=== PATIENT | female | born 1945 | race Caucasian/White ===

== ENCOUNTER → 2018-03-30 10:39 | Outpatient (CLI) | payer MEDICARE, BC, OTHER, SELFPAY ==
--- NOTE | 2018-03-30 10:44 | BI_ITS ---
MAMMOGRAPHY - BILATERAL SCREENING REASON FOR EXAM: Female, 72 years old. Routine annual screening examination. PERTINENT HISTORY: Non-contributory. TECHNIQUE: Digital bilateral breast celeste (3D mammographic acquisition) in the CC and MLO projections. 2-D mediolateral oblique (MLO) and craniocaudad (CC) views of both breasts were obtained. CAD: Full Field Digital Mammography with Computer Added Detection was performed. COMPARISON: Comparison is made with prior study dated March 04, 2017 and March 02, 2016. FINDINGS: Breast Composition: The breasts are almost entirely fatty. There are no dominant masses or suspicious calcifications. No other significant abnormalities are identified. There has been no significant change since the prior study. BI/SCREENING MAMM (CAD), BILAT IMPRESSION: Stable bilateral screening mammogram. Yearly follow-up mammogram recommended. (A) ASSESSMENT CATEGORY: BIRADS Category 1: Negative. A letter regarding these results will be sent to the patient by the facility within 30 days. Approximately 10% of breast cancers are not detected by mammography. A normal mammogram should not delay biopsy of a clinically suspicious abnormality. [id number] Electronically Signed: Bear Jacob MD at 13:27 EDT Tel [phone], Service support ,
== END ==
PROVIDERS: Family Provider Internal Medicine; PCP Internal Medicine; Visit Provider Internal Medicine
DX: Z12.31 Encounter for screening mammogram for malignant neoplasm of breast (principal)
CPT/HCPCS: 77063; 77067

== ENCOUNTER → 2018-06-06 13:26 | Outpatient (CLI) | payer MEDICARE, BC, OTHER, SELFPAY ==
--- NOTE | 2018-06-06 13:32 | RAD_ITS ---
STUDY: X-RAY - LUMBAR SPINE REASON FOR EXAM: Female, 72 years old. Back pain TECHNIQUE: 5 view(s) of the lumbar spine were obtained. COMPARISON: Lumbar spine 11/19/2008. FINDINGS: Cholecystectomy. Moderate with prominent stool distributed throughout the large bowel, not excessive, but potentially reflecting mild constipation. Unremarkable small bowel pattern. Right total hip arthroplasty. Osteopenia. Dextroscoliotic curvature of the lumbar spine with apex at L2, approximate Rondon angle 36.4 degrees. Normal lordosis. Slight anterior listhesis of L5-S1, alignment otherwise normal. Vertebral body height is normal at each level. The facet joints are normally aligned and intact with multilevel facet arthropathy/hypertrophy most prominent at the apex of scoliosis L1-L2, and the low lumbar spine between L4 and S1. There is mild to moderate disc narrowing at each level between T12-L1, L1-L2, L2-L3, L5-S1. RAD/L/S Spine Min 4 Views IMPRESSION: No acute lumbar spinal fracture or traumatic subluxation. Scoliosis with multilevel spondylosis as described above. Electronically Signed: Omer Spangler, at 14:16 EDT Tel , Service support ,
== END ==
PROVIDERS: Family Provider Internal Medicine; PCP Internal Medicine; Visit Provider Nurse Practitioner Family
DX: M54.9 Dorsalgia, unspecified (principal)
CPT/HCPCS: 72110

== ENCOUNTER → 2018-12-06 09:39 | Outpatient (CLI) | payer MEDICARE, BC, OTHER, SELFPAY ==
--- NOTE | 2018-12-06 09:44 | BD_ITS ---
STUDY: DUAL ENERGY X-RAY ABSORPTIOMETRY / DXA REASON FOR EXAM: Female, 73 years old. Early menopause. Loss of height. TECHNIQUE: Bone Mineral Density (BMD) measurements of lumbar spine and left hip were obtained. The patient is status post right hip replacement. COMPARISON: Comparison is made with prior study December 01, 2016 and November 29, 2014. FINDINGS: Lumbar Spine (L1-L4): g/cm2 (1.181) / T-score (-0.2) / Z-score (1.5) Findings are suggestive of normal bone density with a low fracture risk. Left Femur Total: g/cm2 (0.877) / T-score (-1.0) / Z-score (0.5) Left Femoral Neck: g/cm2 (0.777) / T-score (-1.9) / Z-score (-0.1) The T-Scores on the most recent prior examination were: Lumbar Spine (L1-L4): There has been improvement of bone density since the previous examination. Left Femur Total: which represents a worsening of 1.2%. BD/Dexa Bone Density Study IMPRESSION: The patient is considered osteopenic as outlined below according to World Jani Organization (WHO) criteria with a moderate fracture risk. There has been improvement of bone density since the previous examination. Reference Information: The T-score is the number of standard deviations above or below the standard which is normal for young adults at their peak bone mineral density. The World Health Organization (WHO) interprets the T-scores as follows: Above -1 Normal bone density Between -1 and -2.5 Osteopenia Equal to / or below -2.5 Osteoporosis As a practical clinical guideline, osteopenia may be graded as follows: Mild -1 through -1.5 Moderate -1.6 through -2.0 Severe -2.1 through -2.4 The Z-score is the number of standard deviations above or below age-matched controls. A Z-score of less than -1.5 would be considered abnormal. References: 1. NIH Osteoporosis and Related Bone Diseases http://www.osteo.org 2. International Society for Clinical Densitometry http://www.iscd.org 3. National Osteoporosis Foundation http://www.nof.org Electronically Signed: Bear Jacob, at 10:39 EDT , Service support ,
== END ==
PROVIDERS: Family Provider Internal Medicine; PCP Internal Medicine; Referring Provider Internal Medicine; Visit Provider Internal Medicine
DX: Z78.0 Asymptomatic menopausal state (principal)
CPT/HCPCS: 77080

== ENCOUNTER → 2019-02-14 | Outpatient (CLI) | payer SELFPAY ==
--- NOTE | 2019-02-14 14:28 | CT_ITS ---
STUDY: CARDIAC CALCIUM SCORING - CT CHEST REASON FOR EXAM: Female, 73 years old. Coronary calcium screening, over read. RADIATION DOSAGE (If Supplied By Facility): DLP = ( 170.66 ) mGycm TECHNIQUE: Axial non-enhanced images were acquired through the heart for the sole purpose of measuring coronary artery calcium. Individualized dose optimization techniques were used for this CT. COMPARISON: None. FINDINGS: Body wall soft tissues: No acute process. Osseous structures: No acute process. Upper abdomen: No acute process. Mediastinum: No acute process. Lungs: Mildly hyperlucent suggesting the possibility of mild COPD. Otherwise clear. Unremarkable airways. 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 Pulmonary arteries: Normal. IVC and SVC: Normal. Pulmonary veins: Normal. Heart: Normal cardiac size without pericardial effusion. Coronary arteries: The right and left coronary arteries each emerge from the appropriate coronary sinus with right coronary dominance to the PDA. There is a single minimal focus of calcification in the left main, 3 small foci of calcification in the proximal to mid LAD, no visible calcification of the circumflex. CT/CCTA Calcium Scoring IMPRESSION: The coronary calcium score is reported under separate cover with cardiology. Please see that report. Normal coronary artery branching anatomy. 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 No other significant thoracic process is evident. Electronically Signed: Omer Spangler MD at 15:14 EDT Tel , Service support ,
--- NOTE | 2019-02-14 14:29 | CT_ITS ---
STUDY: CARDIAC CALCIUM SCORING - CT CHEST REASON FOR EXAM: Female, 73 years old. Coronary calcium screening, over read. RADIATION DOSAGE (If Supplied By Facility): DLP = ( 170.66 ) mGycm TECHNIQUE: Axial non-enhanced images were acquired through the heart for the sole purpose of measuring coronary artery calcium. Individualized dose optimization techniques were used for this CT. COMPARISON: None. FINDINGS: Body wall soft tissues: No acute process. Osseous structures: No acute process. Upper abdomen: No acute process. Mediastinum: No acute process. Lungs: Mildly hyperlucent suggesting the possibility of mild COPD. Otherwise clear. Unremarkable airways. 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 Pulmonary arteries: Normal. IVC and SVC: Normal. Pulmonary veins: Normal. Heart: Normal cardiac size without pericardial effusion. Coronary arteries: The right and left coronary arteries each emerge from the appropriate coronary sinus with right coronary dominance to the PDA. There is a single minimal focus of calcification in the left main, 3 small foci of calcification in the proximal to mid LAD, no visible calcification of the circumflex. CT/Limited Chest CT w/CCTA IMPRESSION: The coronary calcium score is reported under separate cover with cardiology. Please see that report. Normal coronary artery branching anatomy. 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 No other significant thoracic process is evident. Electronically Signed: Omer Spangler MD at 15:14 EDT Tel , Service support ,
[2019-02-14 14:41] VITALS: BP 125/69; PULSE 58; RESP 16; O2SAT 96; BMI 26.7
--- NOTE | 2019-02-14 17:53 | CA.SCORE ---
Calcium Scoring Date of Study:: 02/14/19 Coronary Calcium Scoring: High-resolution Computed Tomographic imaging of the chest was performed on 02-14-19 with particular attention paid to the coronary arteries. Images from the examination were analyzed for the presence and extent of coronary artery calcification , using coronary calcium quantification software. The patient tolerated the procedure well and there were no complications. The results of the coronary calcification analysis are provided below. - Findings Left Main (LM): 15.5 Left Anterior Descending (LAD): 31.4 Left Circumflex (LCX): 0 Right Coronary Artery (RCA): 0 Total Agatston Score: 46.9 - Conclusion Calcium Scoring Interpretation: Calcium Score Interpretation 0 No identifiable atherosclerotic plaque. Very low cardiovascular disease risk. <5% chance of presence coronary artery disease A Negative Examination 1-10 Minimal Plaque burden. Significant coronary artery disease very unlikely. 11-100 Mild plaque burden. Likely mild or minimal coronary atherosclerosis. 101-400 Moderate plaque burden Moderate non-obstructive coronary artery disease highly likely. Over 400 Extensive plaque burden. High likelihood of at least one significant coronary stenosis (>50% diameter) Calcium Score: 11 - 100 Likely mild or minimal coronary stenosis - 1. Percentile ranking: Between 25 and 50%: Indicative of between 25 and 50% of people of the same gender/similar age had the same or lower scores.; 2. Continue cardiovascular risk factor evaluation care as deemed appropriate.
== END | disposition home or self-care (01) ==
LOC: CT 14:26
PROVIDERS: Family Provider Internal Medicine; PCP Internal Medicine; Referring Provider Internal Medicine; Visit Provider Internal Medicine
DX: E78.5 Hyperlipidemia, unspecified (principal)
CPT/HCPCS: 75571; 76380

== ENCOUNTER → 2019-03-31 | Outpatient (CLI) | payer MEDICARE, BC, OTHER, SELFPAY ==
[2019-02-14 14:41] VITALS: BMI 26.7
--- NOTE | 2019-03-31 10:53 | BI_ITS ---
MAMMOGRAPHY - BILATERAL SCREENING REASON FOR EXAM: Female, 73 years old. Routine annual screening examination. PERTINENT HISTORY: Non-contributory. TECHNIQUE: Digital bilateral breast reggie (3D mammographic acquisition) in the CC and MLO projections. 2-D mediolateral oblique (MLO) and craniocaudad (CC) views of both breasts were obtained. CAD: Full Field Digital Mammography with Computer Added Detection was performed. COMPARISON: Comparison is made with prior study dated March 30, 2018 and March 04, 2017. FINDINGS: Breast Composition: The breasts are almost entirely fatty. There are no dominant masses or suspicious calcifications. No other significant abnormalities are identified. There has been no significant change since the prior study. BI/SCREEN MAMM (CAD) W/REGGIE BILAT IMPRESSION: Stable bilateral screening mammogram. Yearly follow-up mammogram recommended. (A) ASSESSMENT CATEGORY: BIRADS Category 1: Negative. A letter regarding these results will be sent to the patient by the facility within 30 days. Approximately 10% of breast cancers are not detected by mammography. A normal mammogram should not delay biopsy of a clinically suspicious abnormality. [id number] Electronically Signed: Bear Jacob, at 14:35 EDT , Service support ,
== END | disposition home or self-care (01) ==
LOC: OPBI 10:51
PROVIDERS: Family Provider Internal Medicine; PCP Internal Medicine; Referring Provider Internal Medicine; Visit Provider Internal Medicine
DX: Z12.31 Encounter for screening mammogram for malignant neoplasm of breast (principal)
CPT/HCPCS: 77063; 77067

== ENCOUNTER 2019-06-29 13:00 | Outpatient (RCR) | payer MEDICARE, BC, OTHER, SELFPAY ==
[2019-02-14 14:41] VITALS: BMI 26.7
--- NOTE | 2019-06-08 13:54 | HP.PTEVAL ---
Patient's Visit Information FLORIN ZABALA is a 73 year old F referred to Physical Therapy by [facility] with a diagnosis of spondylosis. Date of Evaluation: 06/08/19 Physical Therapist: Francisco Daigle DPT, OCS, CSCS - Visit Plan Frequency: 2x /Week Duration: 4-6 Weeks Plan: 2x/week for 4-6 weeks for pool based ... 1. LB ROM and stretching. 2. Gastroc and HS stretching. 3. core and LE and postural strength. 4. general ex. - Subjective Findings: Chronic LBP, neck pain for years. Has scoliosis. H/o hip fracture R after a fall in 2008 tripping. Constant LBP. Worse picking up granddaughter. Upper back hurts with walking. Has to constantly change positions. Pain been there years and years for no reason. Getting worse. Injections seem to help sometimes. Had PT at [facility] helps for a while and traction helped. No HEP. Has not done water ex. Sleep is basically OK on clonazepam. well buterin. 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 No numbness or tingliny in legs. Spends day doing :not much Watches TV. does much housework. She cooks and makes bed. has to vaccuum and do dishes. Dresses and bathes and bathroom OK. - Pain LBP Pain Intensity (Out of 10): 5 Pain Intensity Range: 3, 8 Comment: worse with hot die picker grand daughter. - Objective Walks slow but safe and I, steps reciprocal with one rail , trasnfer I. HS and gastroc mod tight B. L/S aROM stiff adn max deficits ext, mod flexion and mod SB with disocmfort in B SB. LE AROM WFL. reflexes 2/3 patella and achilles. Sensation LE WNL to gross light touch. - slump and - SLR today but R HS tighter than L. UE aROM WFL. c/s aROM symmetrical adn without pain. repeated ext slightly worse in LB without ROM changes. - Balance Scores Functional Gait Assessment Score: 27 % Disability: 10.0000 - Goals Goal 1:: I appropr pool ex program to limit pain. Goal Time Frame: 4-6 Weeks Goal 2:: Patient feel 75% improved with pain and 2/10 at worst Goal Time Frame: 4-6 Weeks Goal 3:: < 20% disability on oswestry Goal Time Frame: 4-6 Weeks Goal 4:: Patient able to do housework without suffering Goal Time Frame: 4-6 Weeks - Rehabilitation Potential Physical Therapy Diagnosis: degenerative changes in LB leading to pain. Rehabilitation Potential: Fair - Anticipated Interventions Patient/Client Instruction: Educate patient on: Condition, Plan of Care For the Purpose of:: To decrease pain, To increase tolerance to activity/condition/position, To improve ability of physical actions for home/community/work/leisure Therapeutic Exercise to Include: Strength training, Postural training, Flexibilty training, In an aquatic setting, Active ROM, Dynamic Lumbar Stabilization For the Purpose of:: To decrease pain, To increase ROM, To improve muscle performance and motor function, To improve performance and independence with ADL's, To improve ability of physical actions for home/community/work/leisure Thank you for the opportunity to evaluate your patient. For Medicare and Medicare HMO plans, please review the plan of care and approve it. It will need to be FAXED BACK to us at [phone] for Medicare purposes. For Medicare only, by signing this I certify the plan of care. Please let me know if there are questions or concerns regarding this plan of care. Physician Signature: Date:
--- NOTE | 2019-08-24 16:54 | HP.PTDCNRP_ITS ---
HP - Discharge Summary (1) - Patient Information FLORIN ZABALA was seen in my office for initial evaluation on 06/08/19. The following Plan of Care was established for this patient: Initial Frequency: 2x /Week Initial Duration: 4-6 Weeks - Anticipated Interventions Patient/Client Instruction: Educate patient on: Condition, Plan of Care For the Purpose of:: To decrease pain, To increase tolerance to activity/condi tion/position, To improve ability of physical actions for home/community/work/leisure Therapeutic Exercise to Include: Strength training, Postural training, Flexibilty training, In an aquatic setting, Active ROM, Dynamic Lumbar Stabilization For the Purpose of:: To decrease pain, To increase ROM, To improve muscle performance and motor function, To improve performance and independence with ADL's, To improve ability of physical actions for home/community/work/leisure This patient was last seen in our office 06/29/19. Pertinent comments regarding their Physical therapy will appear below: Pt seen 5 visits of pool therapy. she cancelled her last two including recheck due to sickness and was to call when better. At this point, it has been over two months adn I willd discontinue due to nonattendance At this point I will be discontinuing this patient from physical therapy. I would be happy to see this patient again in the future if found appropriate by the physician. Thank you! Francisco Daigle, DPT, OCS, CSCS
== END 2019-06-29 19:00 | disposition home or self-care (01) ==
LOC: PT 13:00
PROVIDERS: Family Provider Internal Medicine; PCP Internal Medicine; Referring Provider Nurse Practitioner Family; Visit Provider Nurse Practitioner Family
DX: M51.37 Other intervertebral disc degeneration, lumbosacral region (principal); M47.817 Spondylosis without myelopathy or radiculopathy, lumbosacral region
CPT/HCPCS: 97110; 97113; 97162

== ENCOUNTER 2019-07-23 12:01 | Emergency (ER) | payer MEDICARE, BC, OTHER, SELFPAY ==
[2019-07-03 14:57] VITALS: BMI 26.7
[2019-07-23 12:02] VITALS: BP 134/79; PULSE 85; RESP 18; TEMP 36.7; O2SAT 93; BMI 26.2
--- NOTE | 2019-07-23 12:31 | RAD_ITS ---
STUDY: X-RAY CHEST REASON FOR EXAM: Female, 73 years old. Cough TECHNIQUE: PA and lateral views of the chest. COMPARISON: 03/16/2017 FINDINGS: The lungs are clear and expanded. There is no demonstrated pleural abnormality. Normal size heart. Normal mediastinum and jeffery. Normal visualized pulmonary arteries. Normal visualized aortic arch and descending thoracic aorta. Scoliosis of the thoracolumbar spine stable. Normal visualized ribs, clavicles, and shoulders. Cholecystectomy clips are noted. RAD/Chest PA and Lateral IMPRESSION: No acute cardiopulmonary process. Electronically Signed: Von Helm MD (Brooks) at 12:50 EST , Service support ,
--- NOTE | 2019-07-23 12:35 | ED.DCSUM_ITS ---
History of Present Illness <Domenico Reyjerod - Last Filed: 07/23/19 13:02> Informant: Patient Onset: Weeks - 2 weeks Context: Gradual Onset Timing: Continuous Quality: cough Location: chest Current Severity: Moderate Maximum Severity: Moderate Worsened by: Swallowing Relieved by: - - nothing Associated Symptoms: Nasal Congestion, Productive Cough. Negative for: Headache, Sinus Pressure, Myalgias, Nausea, Vomiting, Diarrhea, Shortness of Breath, Chest Pain, Nonproductive cough, Hemoptysis Narrative: 73-year-old female history of GERD hypertension presents with productive cough with sputum for 2 weeks. She completed a course of a azithromycin prescribed by her primary care physician about a week ago and she continues to cough. No fevers. She is not short of breath. No chest pain. She is not lightheaded or dizzy. No hemoptysis. No leg pain or leg swelling. She did get a flu shot this year a few weeks ago. She has no other complaints. Prior similar symptoms: Yes Recent Illness/Hospitalization: No <Bunny Dowell - Last Filed: 07/23/19 14:04> Chief Complaint: Cough Past Medical History <ReddyzeniaDomenicojerod - Last Filed: 07/23/19 13:02> Prior records reviewed: Yes Past Medical History: - - GERD, HTN Surgical History: no surgical history Lives: With Family Smoking Status: Never smoker <Bunny Dowell - Last Filed: 07/23/19 14:04> - Allergies and Home Meds Allergies/Adverse Reactions: Allergies Sulfa (Sulfonamide Antibiotics) Allergy (Verified 07/23/19 12:05) Hives morphine Adverse Reaction (Verified 07/23/19 12:05) Nausea/Vom/Diarrhea Primary Care Physician: Roxi Greenfield DO [Primary Care Provider] - Review of Systems All systems negative except as indicated General: Reports: Malaise. Denies: Chills, Fever Cardiovascular: Denies: Chest pain Respiratory: Reports: Cough, Sputum. Denies: Dyspnea, Dyspnea on exertion, Orthopnea, Paroxysmal nocturnal dyspnea Gastrointestinal: Denies: Abdominal pain, Nausea, Vomiting, Diarrhea Genitourinary: Denies: Dysuria Musculoskeletal: Denies: Myalgias, Arthralgias, Neck pain Neurological: Denies: Headache <Bunny Dowell - Last Filed: 07/23/19 14:04> Physical Exam Vital Signs/Narrative: Vital Signs Temp Pulse Resp BP Pulse Ox 07/23/19 12:02 98.1 F 85 18 134/79 H 93 <Guzman Rey - Last Filed: 07/23/19 13:02> Vital Signs/Narrative: Vital Signs Temp Pulse Resp BP Pulse Ox 07/23/19 12:02 98.1 F 85 18 134/79 H 93 Inital Vital Signs reviewed: Yes General: Well nourished, Well developed Head: Normocephalic, Atraumatic Eyes: Perrl, EOMI Ears: Normal external canal, TM's clear Nose: Normal Inspection, No Rhinorrhea Mouth/Throat: Airway Patent, Posterior Oropharyngeal Erythema Tonsils: Negative for: Right Tonsilar Erythema, Left Tonsilar Erythema, Right Tonsilar Exudates, Left Tonsilar Exudates, Right Tonsilar Swelling, Left Tonsilar Swelling Neck: Supple, Nontender, No Lymphadenopathy, No Meningismus Cardiovascular: Regular rate, Regular rhythm, No murmurs Respiratory: No distress, CTA bilaterally, Chest nontender Abdomen: Soft, Nontender, Nondistended, Normal bowel sounds, No masses Back: Nontender, Normal Inspection Extremities: Nontender, No edema Skin: Normal color, No rash Neurological: Alert, Oriented x3 <Bunny Dowell - Last Filed: 07/23/19 14:04> Diagnostic/Tx/Re-eval - Medical Decision Making The patient seen with Bunny agree with history and physical as above Complains of cough for 2 weeks she finished a Z-Curt a few days ago persistent coughing no other complaints no fever no chest pain no history of SC PE or DVT exam her lungs are clear heart tones are normal her vital signs are normal her pulse ox is normal x-ray will be obtained please see the full chart for full details if x-rays negative she will follow-up with her outpatient providers as scheduled in the next few days <Guzman Rey - Last Filed: 07/23/19 13:02> Chest X-Ray - ED: 2 View, Read by ED Physician, Read by Radiologist, No Acute Disease - Medical Decision Making Chest x-ray was obtained which shows no acute abnormality. Patient is well- appearing. Pulse ox normal. Vital signs are stable. At this time discussed with patient it is a viral illness. We will continue supportive care. I instructed her that at this time there are no indications for antibiotics. She will be given a prescription for Tessalon Perles and she will follow-up with her primary care physician or return to the emergency department for worsening symptoms which we discussed. <Bunny Dowell - Last Filed: 07/23/19 14:04> ED Disposition <Guzman Rey - Last Filed: 07/23/19 13:02> <Bunny Dowell - Last Filed: 07/23/19 14:04> - Plan for ED Patient: Disposition: Home or Assisted Living Diagnosis: Viral upper respiratory tract infection with cough Instructions: URI, Viral, No Abx (Adult) Prescriptions: Benzonatate [Tessalon Perle] 200 mg PO TID PRN PRN #20 cap PRN Reason: Cough Prescription Printed Referrals: Roxi Greenfield DO [Primary Care Provider] -
[2019-07-23 14:26] VITALS: BP 138/82; PULSE 78; RESP 16; O2SAT 98
== END 2019-07-23 14:27 | disposition home or self-care (01) ==
PROVIDERS: Emergency Provider Physician Assistant Medical; Family Provider Internal Medicine; PCP Internal Medicine
DX: J06.9 Acute upper respiratory infection, unspecified (principal); I10 Essential (primary) hypertension; K21.9 Gastro-esophageal reflux disease without esophagitis; Z79.82 Long term (current) use of aspirin; Z79.899 Other long term (current) drug therapy
CPT/HCPCS: 71046; 99282

== ENCOUNTER → 2019-08-14 12:55 | Outpatient (CLI) | payer MEDICARE, BC, OTHER, SELFPAY ==
[2019-07-03 14:57] VITALS: BMI 26.7
--- NOTE | 2019-07-06 11:54 | HP_ITS ---
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 Is patient in pain?: No Allergies Sulfa (Sulfonamide Antibiotics) Allergy (Verified 07/03/19 14:48) Hives morphine Adverse Reaction (Verified 07/03/19 14:48) Nausea/Vom/Diarrhea Medications Clonazepam [Klonopin] 0.5 mg PO DAILY 01/05/17 [History Confirmed 07/03/19] Clopidogrel Bisulfate [Plavix] 75 mg PO DAILY 01/05/17 [History Confirmed 07/03/19] Fluticasone 0.05% [Flonase Nasal [place]] 2 spray NASAL DAILY PRN 01/05/17 [History Confirmed 07/03/19] Lansoprazole [Prevacid] 30 mg PO DAILY 01/05/17 [History Confirmed 07/03/19] buPROPion SR [Wellbutrin Sr] 150 mg PO DAILY 01/05/17 [History Confirmed 07/03/19] cetirizine 10 mg tablet 10 mg PO DAILY tab 07/03/19 [History Confirmed 07/03/19] cholecalciferol (vitamin D3) 50,000 unit capsule 50,000 unit PO QWEEK 07/03/19 [History Confirmed 07/03/19] clobetasol 0.05 % shampoo 1 applic TOPICAL DAILY 07/03/19 [History Confirmed 07/03/19] denosumab 60 mg/mL subcutaneous syringe 60 mg SC [id number] 07/03/19 [History Confirmed 07/03/19] diclofenac 1 % topical gel 4 g TOPICAL BID g 07/03/19 [History Confirmed 07/03/19] hydrochlorothiazide 25 mg tablet 25 mg PO DAILY 07/03/19 [History Confirmed 07/03/19] hyoscyamine 0.125 mg sublingual tablet 0.125 mg SUBLINGUAL TID tab 07/03/19 [History Confirmed 07/03/19] rosuvastatin 5 mg tablet 5 mg PO DAILY 07/03/19 [History Confirmed 07/03/19] [facility], [facility] Medical History PVD (peripheral vascular disease) (Chronic) HLD (hyperlipidemia) (Chronic) Benign essential hypertension (Chronic) GERD (gastroesophageal reflux disease) (Acute) Previous history TIA (Acute) Surgical History History of hysterectomy (Acute) History of laparoscopic cholecystectomy (Acute) History of right hip replacement (Acute) Family History Mother Diabetes Hypertension High cholesterol Father Diabetes Hypertension CVA (cerebral vascular accident) Social History (Updated 07/06/19 @ 11:55 by Rai Ram MD) Smoking Status: Never smoker alcohol intake: current alcohol intake frequency: holidays/special occasions only substance use type: does not use HPI HPI HPI: FLORIN ZABALA, is a 73 F who presents to the office today for HPI HPI Surgical H&P: Yes HPI: FLORIN ZABALA, is a 73 F who presents to the office today for Evaluation of heartburn. In addition she has been having increasing belching. The symptoms have increased over the last month and a half. She did undergo an EGD 2 years ago which was essentially negative. She also states she does not feel as if her food may be leaving her stomach in an appropriate fashion. Burning goes directly up into the esophagus she has been having her head of bed elevated and no caffeine late at night. ROS General General: Yes weight change and fatigue; no appetite, colon cancer, breast cancer or weakness HEENT HEENT: No difficulty swallowing, eye injury, eye surgery, swollen glands or hoarseness Endo Endocrine: No thyroid disease, diabetes mellitus, thyroid cancer, Hair loss, heat intolerance or cold intolerance Skin Skin: No rash or changing moles Breast Breast: No left breast lump, right breast lump, nipple discharge, breast pain, abnormal mammogram, abnormal US or breast enlargement Musc Musculoskeletal: Yes back problems and arthritis; no rheumatoid arthritis, gout or joint pain Cardio Cardiovascular: No murmur, pacemaker, heart disease, atrial fibrillation, high blood pressure, heart attack, heart stent, palpitations, shortness of breat with exertion or chest pain Psych Psychiatric: Yes depression and anxiety; no hearing voices Resp Respiratory: No shortness of breath, No sleep apnea, No cough, No COPD, No asthma, No emphysema, No wheezing Gastro Gastrointestinal: Yes abdominal pain, Yes nausea or vomiting, Yes diarrhea, Yes constipation, No blood in stool, Yes acid reflux, Yes hemorrhoids, No ulcers, No gallbladder problem, No black,tarry stools [place] Hematologic: Yes blood thinners, No blood disorders, No bleeding, No anemia, No blood clots Neuro Neurologic: No system reviewed and no additional complaints, except as docu, No as per HPI, No abnormal walking, No abnormal hearing, No abnormal movements, No abnormal speech, No behavioral changes, No burning sensations, No confusion, No seizure-like activity, No unsteadiness, No dizziness, No localized weakness, No frequent falls, No headache(s), No lack of coordination, No loss of vision, No memory loss, Yes numbness, No other visual disturbances, No radiating pain, No restless legs, No sensory deficit, No fainting, Yes tingling, No tremor(s), No weakness, No other (Previous TIA) Exam Const General: no acute distress, well developed, well hydrated Orientation: oriented to person, oriented to place, oriented to time [facility] Head: normocephalic, atraumatic Ears: external ears normal Mouth: moist mucous membranes Eyes Sclera: sclerae normal Pupils: normal by confrontation Neck Neck: no lymphadenopathy noted Neck mass: No Thyroid: thyroid normal, symmetrical Chest Chest palpation & inspection: normal inspection of the chest Breast Palpation: No nipple discharge Resp Effort & Inspection: normal respiratory effort Auscultation: clear to auscultation bilaterally Percussion: percussion normal Cardio Rate: regular rate Rhythm: regular rhythm Heart Sounds: no murmurs GI Palpation: soft, no hepatosplenomegaly, no masses, nontender Rectal Exam: other Other: Rectal exam deferred. Extrem General: normal to inspection, no clubbing, cyanosis or edema Assessment & Plan 1. Gastroesophageal reflux disease, esophagitis presence not specified K21.9 Plan I have discussed the above with the patient. I have offered the patient esophagogastroduodenoscopy With 48-hour pH probe for evaluation. I have explained the risks/benefits of the procedure and described the procedure. I have discussed the risks with the patient, including but not limited to: infection, bleeding, perforation of the GI tract requiring emergency surgery, inability to complete the procedure, injury to any internal organs, complications of anesthesia, etc. - the patient understands and agrees to proceed. I have answered all the patient's questions to the patient's satisfaction and the patient has no further questions. The patient has been given instructions for the colon cleansing preparation. Coding Level of Care Code Off vis,new,level 3 Diagnoses Gastroesophageal reflux disease, esophagitis presence not specified K21.9 ??Esophagitis presence: esophagitis presence not specified 07/06/19 1176 <Electronically signed by Rai kemp MD> Date _ Rai Ram MD
--- NOTE | 2019-07-13 12:29 | NURSING ---
pt instructed to notify Dr Ram's office she has URI
[2019-07-23 12:02] VITALS: BMI 26.2
== END ==
PROVIDERS: Family Provider Internal Medicine; PCP Internal Medicine; Referring Provider Internal Medicine; Visit Provider Surgery
DX: Z00.00 Encounter for general adult medical examination without abnormal findings (principal)

== ENCOUNTER 2020-02-27 13:00 | Outpatient (RCR) | payer MEDICARE, BC, OTHER, SELFPAY ==
--- NOTE | 2020-01-30 13:22 | HP.PTEVAL ---
Patient's Visit Information FLORIN ZABALA is a 74 year old F referred to Physical Therapy by Dr. Roxi Greenfield DO with a diagnosis of LUMBAR RADICULOPATHY,NECK PAIN,TENSION BUSCH. Date of Evaluation: 01/30/20 Physical Therapist: Derek Doan, PT, Cert MDT, OCS - Visit Plan Frequency: 2x /Week Duration: 4 Weeks Plan: PT INTERVENTIONS CERVICAL/POSTURAL EX'S,DLS ,LUMBAR FLEXION ,MODALTIES AND MANUAL THERAPY CERVICAL TRACTION /STM - Subjective This 74 y/o female presents to physical therapy with lumbar radiculopathy ,neck pain and tension BUSCH. Patient has h/o scoliosis Patient has symmtical lumbar pain with tadiating symptoms to left leg described as ache . Patient has cervical pain left and left arm . Patient has frontal BUSCH. Aggraveting factors walking ,housework cleaning vacumming ,lifting ,bending. Alleviating factors teyonal ,heat. Aggraveting factors cervical reading,flexion looking down. Allevating factors heat. Patient increases cervical pain causes BUSCH worse. Denies parathesia/tingling. Bowel/bladder -. Sleeping okay. Patient occassional dizziness. Patient DR Greenfield recommended PT . Patient was ill last year since has caused poor endurance and stamina .. fatigues quickly. Patient symptoms affects ADL's and housework tasks . Patient symptoms affects QOL and function.Symptoms intermittant. SOCIAL: single. VOCATION: retired - Objective POSTURE: mild foward posture. NEURO: denies parathesia/tingling ,occassionally left leg ,reflexes L3-4,L4-5.L5-S1 1/3. PALAPTION: tender UT/levator ,paraspinals ,LS region. GAIT: reciprocal pattern. AROM:BUE WFL. CERVICAL ROM: flexion min loss,extension mod loss,lateral flexion/rotation mod loss,retraction min loss,. MMT: BUE grossly 4/5 except shoulders 4-/5. LUMBAR ROM : flexion min/mod loss,extension mod loss,side glides mod loss. MMT: quads/hams/hip 4/5,ankle 5/5 - Special Tests C/S Radiculapathy - Left Upper limb tension test: Negative C/S Radiculapathy - Right Upper limb tension test: Negative C/S Radiculapathy - Left Spurlings: Negative C/S Radiculapathy - Right Spurlings: Negative C/S Radiculapathy - Left Cervical distraction: Positive C/S Radiculapathy - Right Cervical distraction: Negative C/S Radiculapathy - Left Relief test: Negative Sharp Gita: Negative Vertebral Artery Test: Negative Alar Ligament Test: Negative L/S Slump test left side: Negative L/S Slump test right side: Negative L/S Left Straight Leg Raise: Negative L/S Right Straight Leg Raise: Negative - Goals Goal 1:: Independant with HEP. Goal Time Frame: 4-6 Weeks Goal 2:: Patient to improve posture for ADL'S Goal Time Frame: 4-6 Weeks Goal 3:: Patient to decrease cervical and lumbar pain by 50% or > to improve function with ADLS' Goal Time Frame: 4-6 Weeks Goal 4:: Patient to improve cervical and lumbar ROM for function of recovery Goal Time Frame: 4-6 Weeks Goal 5:: Patient to improve BACK owestry by 5 points or > to improve function and QOL. Goal Time Frame: 4-6 Weeks - Rehabilitation Potential Physical Therapy Diagnosis: This patient has cevical and lumbar radiculopathy from possible stenosis along with associated BUSCH with pain ,decrease ROM and decrease endurance affects function and ADLS' and housework tasks ,BUSCH potentially due to neck pain,thus benifit from skilled PT Rehabilitation Potential: Good - Anticipated Interventions Patient/Client Instruction: Educate patient on: Condition, Plan of Care For the Purpose of:: To decrease pain, To increase ROM, To improve muscle performance and motor function, To improve ability to perform ADL's, To increase tolerance to activity/condition/position, To improve ability of physical actions for home/community/work/leisure, To improve health of tissue, To decrease soft tissue restriction, To increase flexibility/ROM, To improve health and function, To improve ability to perform tasks related to life management Therapeutic Exercise to Include: Strength training, Postural training, Flexibilty training, Active ROM, Dynamic Lumbar Stabilization For the Purpose of:: To decrease pain, To increase ROM, To improve muscle performance and motor function, To improve ability to perform ADL's, To increase tolerance to activity/condition/position, To improve performance and independence with ADL's, To improve ability of physical actions for home/community/work/leisure, To increase flexibility/ROM, To improve endurance, To reduce risk of recurrence, To improve ability to perform tasks related to life management Manual Therapy Techniques to Include: Soft tissue mobilization Comment: MANUAL TRACTION For the Purpose of:: To decrease pain, To increase ROM, To improve nutrient delivery to tissue, To increase oxygenation perfusion, To improve health of tissue, To decrease soft tissue restriction, To increase flexibility/ROM TENS: Yes IF ES: Yes Cryotherapy (ice pack, ice massage): Yes Thermo therapy (hot pack): Yes Ultrasound (thermal/non thermal): Yes For the Purpose of:: To decrease pain, To increase ROM, To improve nutrient delivery to tissue, To increase oxygenation perfusion, To improve health of tissue, To decrease soft tissue restriction Thank you for the opportunity to evaluate your patient. For Medicare and Medicare HMO plans, please review the plan of care and approve it. It will need to be FAXED BACK to us at [phone] for Medicare purposes. For Medicare only, by signing this I certify the plan of care. Please let me know if there are questions or concerns regarding this plan of care. Physician Signature: Date:
--- NOTE | 2020-06-06 11:30 | HP.PT.NRP ---
FLORIN ZABALA was seen in my office for initial evaluation on 01/30/20. The following Plan of Care was established for this patient: Initial Frequency: 2x /Week Initial Duration: 4 Weeks Patient/Client Instruction: Educate patient on: Condition, Plan of Care For the Purpose of:: To decrease pain, To increase ROM, To improve muscle performance and motor function, To improve ability to perform ADL's, To increase tolerance to activity/condition/position, To improve ability of physical actions for home/community/work/leisure, To improve health of tissue, To decrease soft tissue restriction, To increase flexibility/ROM, To improve health and function, To improve ability to perform tasks related to life management Therapeutic Exercise to Include: Strength training, Postural training, Flexibilty training, Active ROM, Dynamic Lumbar Stabilization For the Purpose of:: To decrease pain, To increase ROM, To improve muscle performance and motor function, To improve ability to perform ADL's, To increase tolerance to activity/condition/position, To improve performance and independence with ADL's, To improve ability of physical actions for home/community/work/leisure, To increase flexibility/ROM, To improve endurance, To reduce risk of recurrence, To improve ability to perform tasks related to life management Manual Therapy Techniques to Include: Soft tissue mobilization Comment: MANUAL TRACTION For the Purpose of:: To decrease pain, To increase ROM, To improve nutrient delivery to tissue, To increase oxygenation perfusion, To improve health of tissue, To decrease soft tissue restriction, To increase flexibility/ROM TENS: Yes IF ES: Yes Cryotherapy (ice pack, ice massage): Yes Thermo therapy (hot pack): Yes Ultrasound (thermal/non thermal): Yes For the Purpose of:: To decrease pain, To increase ROM, To improve nutrient delivery to tissue, To increase oxygenation perfusion, To improve health of tissue, To decrease soft tissue restriction This patient was last seen in our office . Pertinent comments regarding their Physical therapy will appear below: Patient seen for PT for lumbar pain ,tension BUSCH focusing on postural ex's ,DLS and strengthening,thus is d/c At this point I will be discontinuing this patient from physical therapy. I would be happy to see this patient again in the future if found appropriate by the physician. Thank you! Derek Doan, PT, Cert MDT, OCS
== END 2020-02-27 19:00 | disposition home or self-care (01) ==
LOC: PT 13:00
PROVIDERS: PCP Internal Medicine; Referring Provider Internal Medicine; Visit Provider Internal Medicine
DX: M54.16 Radiculopathy, lumbar region (principal); M54.2 Cervicalgia; G44.209 Tension-type headache, unspecified, not intractable
CPT/HCPCS: 97012; 97014; 97035; 97110; 97140; 97162; G0283

== ENCOUNTER → 2020-04-01 11:27 | Outpatient (CLI) | payer MEDICARE, BC, OTHER, SELFPAY ==
--- NOTE | 2020-04-01 11:30 | BI_ITS ---
MAMMOGRAPHY - BILATERAL SCREENING REASON FOR EXAM: Female, 74 years old. Routine annual screening examination. PERTINENT HISTORY: Non-contributory. TECHNIQUE: Digital bilateral breast reggie (3D mammographic acquisition) in the CC and MLO projections. 2-D mediolateral oblique (MLO) and craniocaudad (CC) views of both breasts were obtained. CAD: Full Field Digital Mammography with Computer Added Detection was performed. COMPARISON: Comparison is made with prior examination March 31, 2019 and March 30, 2018. FINDINGS: Breast Composition: The breasts are almost entirely fatty. There are no dominant masses or suspicious calcifications. No other significant abnormalities are identified. There has been no significant change since the prior study. BI/SCREEN MAMM (CAD) W/REGGIE BILAT IMPRESSION: Stable bilateral screening mammogram. Yearly follow-up mammogram recommended. (A) ASSESSMENT CATEGORY: BIRADS Category 1: Negative. A letter regarding these results will be sent to the patient by the facility within 30 days. Approximately 10% of breast cancers are not detected by mammography. A normal mammogram should not delay biopsy of a clinically suspicious abnormality. [id number] Electronically Signed: Bear Jacob, at 12:11 EDT , Service support ,
== END ==
PROVIDERS: PCP Internal Medicine; Referring Provider Internal Medicine; Visit Provider Internal Medicine
DX: Z12.31 Encounter for screening mammogram for malignant neoplasm of breast (principal)
CPT/HCPCS: 77063; 77067

== ENCOUNTER → 2020-10-16 15:11 | Outpatient (CLI) | payer MEDICARE, BC, OTHER, SELFPAY ==
[2020-10-16 18:22] LABS: Absolute Lymphocyte Count 1.85 X10^3/uL (0.83-4.51); Absolute Neutrophil Count 5.4 X10^3/uL (2.0-7.7); Basophil# 0.04 X10^3/uL; Basophil% 0.5 % (0-1); Eosinophil# 0.11 X10^3/uL; Eosinophils% 1.4 % (0-5); Hematocrit 43.3 % (37-47); Hemoglobin 14.1 g/dL (12.0-15.0); Lymphocyte # 1.85 X10^3/ul (4.0); Lymphocyte % 23.6 % (19-41); Mean Corp Hgb Conc 32.6 g/dL (32-36); Mean Corpuscular Hgb 28.9 pg (27.0-32.0); Mean Corpuscular Volume 88.7 fL (81-99); Mean Platelet Vol. 10.9 fl (6.2-12.0); Monocyte# 0.37 X10^3/uL; Monocyte% 4.7 % (0-10); NRBC Flagged by Analyzer 0 % (0-5); Neutrophil # 5.43 X10^3/uL (2.7-7.7); Neutrophil % 69.4 % (47-70); Platelet Count 205 K/mm3 (150-450); RBC Distribution Width CV 13.4 % (11.6-14.6); RBC Distribution Width SD 43.9 fl (35.1-43.9); Red Blood Count 4.88 M/mm3 (4.2-5.4); White Blood Count 7.8 K/mm3 (4.4-11.0)
[2020-10-16 18:39] LABS: Vitamin D,25 Hydroxy 65.6 ng/mL
[2020-10-16 18:59] LABS: ALB/GLOB Ratio 0.9 RATIO (0.9-2.4); AST(SGOT) 19 U/L (15-37); Alanine Aminotransfer ALT/SGPT 25 U/L (13-56); Albumin, Serum 3.6 g/dL (3.2-5.0); Alkaline Phosphatase 108 U/L (45-117); Anion Gap 6 (5-15); BUN 13 mg/dL (7-18); BUN/Creat Ratio 13.1 RATIO (10-20); Calcium,Total 9.1 mg/dL (8.5-10.1); Chloride 106 mmol/L (98-107); Cholesterol 170 mg/dL (200); Creatinine, Serum 0.99 mg/dL (0.55-1.02); EST Glomerular Filtration Rate 58 mL/min (>60); Est Glom Filt Rate - Afr Amer 71 mL/min (>60); Globulin 3.8 g/dL (2.2-4.2); Glucose 92 mg/dL (74-106); High Density Lipoprotein 59 mg/dL; Potassium 4.2 mmol/L (3.5-5.1); Protein, Total 7.4 g/dL (6.4-8.2); Sodium Level 141 mmol/L (136-145); Thyroid Stim Hormone (TSH) 0.75 uIU/mL (0.358-3.74); Triglycerides 178 mg/dL; Very Low Density Lipoprotein 36 mg/dL (5-40)
== END ==
PROVIDERS: PCP Family Medicine; Referring Provider Family Medicine; Visit Provider Family Medicine
DX: I10 Essential (primary) hypertension (principal); E78.5 Hyperlipidemia, unspecified; E55.9 Vitamin D deficiency, unspecified
CPT/HCPCS: 36415; 80053; 80061; 82306; 84443; 85025

== ENCOUNTER → 2020-10-24 11:51 | Outpatient (CLI) | payer MEDICARE, BC, OTHER, SELFPAY ==
[2020-10-24 15:56] LABS: Anion Gap 9 (5-15); BUN 16 mg/dL (7-18); BUN/Creat Ratio 13.3 RATIO (10-20); Calcium,Total 9.4 mg/dL (8.5-10.1); Chloride 103 mmol/L (98-107); EST Glomerular Filtration Rate 47 mL/min (>60); Est Glom Filt Rate - Afr Amer 57 mL/min (>60); Glucose 112 mg/dL (74-106); Potassium 3.7 mmol/L (3.5-5.1); Sodium Level 139 mmol/L (136-145)
== END ==
PROVIDERS: PCP Family Medicine; Referring Provider Family Medicine; Visit Provider Family Medicine
DX: R94.4 Abnormal results of kidney function studies (principal)
CPT/HCPCS: 36415; 80048

== ENCOUNTER → 2020-11-20 17:58 | Outpatient (CLI) | payer MEDICARE, BC, OTHER, SELFPAY | PROVIDERS: PCP Family Medicine; Referring Provider Family Medicine; Visit Provider Family Medicine | DX: N39.0 Urinary tract infection, site not specified (principal) | CPT/HCPCS: 87077; 87086; 87088; 87186 ==

== ENCOUNTER → 2020-12-10 12:44 | Outpatient (CLI) | payer MEDICARE, BC, OTHER, SELFPAY ==
--- NOTE | 2020-12-10 12:52 | US_ITS ---
STUDY: RENAL ULTRASOUND - COMPLETE REASON FOR EXAM: Female, 75 years old. RENAL INSUFFICIENCY TECHNIQUE: Ultrasound evaluation of the kidneys was performed with real-time and static umanzor-scale imaging. COMPARISON: None. FINDINGS: RIGHT KIDNEY: Normal location of the right kidney, which is normal in size. The right kidney measures 9.6 x 5 cm x 3.8 cm. There is a normal cortex of the right kidney. The renal cortex measures 1.1 cm. There is no right renal mass or cyst. There are no right renal calculi. There is no right hydronephrosis. DISTAL RIGHT URETER: There is non-visualization of the distal right ureter. There is no demonstrated right ureterovesical junction calculus. There is no demonstrated right ureteral jet. LEFT KIDNEY: Normal location of the left kidney, which is normal in size. The left kidney measures 9.8 cm x 4.9 cm x 5.1 cm. There is diffuse thinning of the renal cortex. The renal cortex measures 0.9 cm. There is no left renal mass or cyst. There are no left renal calculi. There is no left hydronephrosis. DISTAL LEFT URETER: There is non-visualization of the distal left ureter. There is no demonstrated left ureterovesical junction calculus. There is a visualized left ureteral jet. BLADDER: The distended urinary bladder has a volume of 362 ml. The empty urinary bladder has a There is a normal wall thickness of the distended urinary bladder. There is no demonstrated mass within the urinary bladder. There are no demonstrated bladder calculi. US/Kidney and Bladder IMPRESSION: Normal ultrasound of the kidneys and urinary bladder. Electronically Signed: Bear Jacob MD at 14:20 EDT , Service support ,
== END ==
LOC: US 12:48
PROVIDERS: PCP Family Medicine; Referring Provider Urology; Visit Provider Urology
DX: N28.9 Disorder of kidney and ureter, unspecified (principal)
CPT/HCPCS: 76770

== ENCOUNTER 2021-01-14 07:15 | Day surgery (SDC) | payer MEDICARE, BC, OTHER, SELFPAY ==
[2021-01-14] VITALS (7 sets, daily range): BP systolic 128–143; BP diastolic 77–90; PULSE 67–84; RESP 14–16; TEMP 35.8–36.8; O2SAT 92–98
[2021-01-14] MEDS: Lactated Ringers 1,000 ML 100 ML IV (07:55)
[2021-01-14] MEDS: Cefazolin 2 GM in 0.9% Normal Saline 100 ML IV (08:52)
[2021-01-14] MEDS: 0.9% Normal Saline (Pres. free 10 ML Vial ×2 (09:05→09:06)
--- NOTE | 2021-01-14 09:27 | PCM.DC ---
Discharge Instructions Outpatient Procedure Reason For Visit: CYSTO, INJECTION BOTOX Diet Discharge Diet: No restrictions Activity Discharge Activity: May not drive while taking narcotic pain medications. May resume sexual activity in: No Restrictions Dressing / Incision Call your doctor if you observe: Fever of 101 or Higher, Inability to urinate, Inability to have a bowel movement, Calf discomfort and Uncontrolled pain Follow Up Care Please Follow Up With: Dolores Garcia MD When: Wednesday for post void residual, call for appt time Test Results: Test results from this visit will be discussed in further detail at your follow-up appointment, if applicable. Discharge Plan Admission Primary Reason for Your Visit: botox injection Attending Provider: Dolores Garcia Primary Care Provider: Edin Omalley Discharge Orders/Prescriptions Prescriptions: New cephalexin [cephalexin] 500 MG capsule 500 mg PO Q12 3 Days Qty: 6 RF: 0 oxycodone-acetaminophen [Percocet] 5-325 mg tablet 1 tab PO Q8H PRN (Reason: pain) 3 Days Qty: 7 RF: 0 Continued diclofenac sodium 1 % gel 4 g TOPICAL BID RF: 0 cholecalciferol (vitamin D3) 50,000 unit capsule 50,000 unit PO UD RF: 0 hydrochlorothiazide 25 mg tablet 12.5 mg PO PRN PRN (Reason: Blood Pressure) RF: 0 Prolia 60 mg/mL syringe 60 mg SC [id number] RF: 0 cetirizine [Zyrtec] 10 mg tablet 10 mg PO QHS RF: 0 bupropion HCl 150 MG tablet sustained-release 12 hr 150 mg PO QHS RF: 0 clonazepam 0.5 MG tablet 0.5 mg PO QHS PRN (Reason: RESTLESS LEGS) RF: 0 lansoprazole 30 MG capsule 30 mg PO DAILY RF: 0 aspirin 81 MG tablet,chewable 81 mg PO DAILY@0800 RF: 0 calcium phosphate-vitamin D3 1 EACH tablet,chewable 1 ea PO DAILY RF: 0 clobetasol 1 APPLIC ointment 1 applic topical PRN PRN (Reason: Rash/Topical Irritation) RF: 0 gabapentin 100 MG capsule 100 mg PO TID RF: 0 valsartan 160 MG tablet 160 mg PO DAILY RF: 0 Referrals: Edin Omalley MD [Primary Care Provider] - Disposition Patient Disposition: Home, self care
--- NOTE | 2021-01-14 11:09 | PCM.OPRPT ---
Problems Associated Problem List Diagnoses (1) Overactive bladder due to prolapse of female genital organ: Report of Operation Date of Procedure: 01/14/21 Pre-Operative Diagnosis: Overactive bladder Post-Operative Diagnosis: Same Surgery/Procedure Performed:: Cystoscopy injection of 100 units of Botox Type of Anesthesia: MAC Specimen's removed: None Estimated Blood Loss (mL): 3 cc Description of Procedure: The patient is a 75-year-old female with a history of overactive bladder with successful treatment approximately 18 months ago with 100 units of Botox injected. She did not like the pain of having it done in the office and agreed to proceed with injection under anesthesia. Informed consent was obtained. The patient was taken to the operating room and placed on the operating room table. Anesthesia monitored the head, neck, airway, IV access and vital signs throughout the case. Once anesthesia was apparently ministered patient was placed into dorsal lithotomy position was prepped and draped in usual sterile fashion. The cystoscope was inserted through the urethra under direct visualization into the urinary bladder. There were no masses, areas of erythema ulceration or foreign bodies identified. There was mild trabeculation of the bladder muscle. Approximately 20 injections with 0.5 cc of Botox solution were made diffusely across the bladder with sites with hypertrophy of the detrusor muscle being selected. The patient's bladder was then emptied and the case was terminated. The patient tolerated the procedure well and was taken to the recovery room in good condition. There were no complications during this procedure. Complications None Admit VTE Documentation VTE Present on Admission: Yes VTE Mechan Device Prophylaxis: SCD's VTE Pharm Prophylaxis ordered?: No Reason prophylaxis not ordered:: Treatment Not Indicated
== END 2021-01-14 11:11 | disposition home or self-care (01) ==
LOC: SDC 07:15 → AC 07:17
PROVIDERS: PCP Family Medicine; Referring Provider Urology; Visit Provider Urology
PROC: 3E0K8GC Introduction of Other Therapeutic Substance into Genitourinary Tract, Via Natural or Artificial Opening Endoscopic (ICD-10-PCS; CPT 52287; principal; 2021-01-14 08:35)
DX: N32.81 Overactive bladder (principal); N39.41 Urge incontinence; Z20.822 Contact with and (suspected) exposure to COVID-19; I10 Essential (primary) hypertension; L90.0 Lichen sclerosus et atrophicus; M41.9 Scoliosis, unspecified; G25.81 Restless legs syndrome; K21.9 Gastro-esophageal reflux disease without esophagitis; E78.00 Pure hypercholesterolemia, unspecified; Z78.0 Asymptomatic menopausal state; Z86.73 Personal history of transient ischemic attack (TIA), and cerebral infarction without residual deficits; Z87.440 Personal history of urinary (tract) infections; Z79.82 Long term (current) use of aspirin; Z79.899 Other long term (current) drug therapy
CPT/HCPCS: 00910; 52287; 87426; C9803; J7120; J0585; J3490

== ENCOUNTER → 2021-01-27 10:32 | Outpatient (CLI) | payer MEDICARE, BC, OTHER, SELFPAY ==
[2021-01-23 11:35] VITALS: BMI 26.2
[2021-01-27 12:26] LABS: Absolute Lymphocyte Count 1.72 X10^3/uL (0.83-4.51); Absolute Neutrophil Count 2.5 X10^3/uL (2.0-7.7); Basophil# 0.04 X10^3/uL; Basophil% 0.9 % (0-1); Eosinophil# 0.14 X10^3/uL; Hematocrit 44.7 % (37-47); Lymphocyte # 1.72 X10^3/ul (0.83-4.51); Lymphocyte % 36.8 % (19-41); Mean Corp Hgb Conc 31.3 g/dL (32-36); Mean Corpuscular Hgb 27.3 pg (27.0-32.0); Mean Corpuscular Volume 87.3 fL (81-99); Mean Platelet Vol. 10.7 fl (6.2-12.0); Monocyte# 0.31 X10^3/uL; Monocyte% 6.6 % (0-10); NRBC Flagged by Analyzer 0 % (0-5); Neutrophil # 2.45 X10^3/uL (2.7-7.7); Neutrophil % 52.5 % (47-70); Platelet Count 209 K/mm3 (150-450); RBC Distribution Width CV 13.4 % (11.6-14.6); RBC Distribution Width SD 42.9 fl (35.1-43.9); Red Blood Count 5.12 M/mm3 (4.2-5.4); White Blood Count 4.7 K/mm3 (4.4-11.0)
[2021-01-27 12:42] LABS: Vitamin D,25 Hydroxy 62.2 ng/mL
[2021-01-27 12:50] LABS: AST(SGOT) 18 U/L (15-37); Alanine Aminotransfer ALT/SGPT 26 U/L (13-56); Albumin, Serum 3.8 g/dL (3.2-5.0); Alkaline Phosphatase 95 U/L (45-117); Anion Gap 5 (5-15); BUN 20 mg/dL (7-18); BUN/Creat Ratio 18.9 RATIO (10-20); Chloride 106 mmol/L (98-107); Cholesterol 223 mg/dL (200); Creatinine, Serum 1.06 mg/dL (0.55-1.02); EST Glomerular Filtration Rate 54 mL/min (>60); Est Glom Filt Rate - Afr Amer 65 mL/min (>60); Globulin 3.9 g/dL (2.2-4.2); Glucose 101 mg/dL (74-106); High Density Lipoprotein 58 mg/dL; Potassium 3.8 mmol/L (3.5-5.1); Protein, Total 7.7 g/dL (6.4-8.2); Sodium Level 140 mmol/L (136-145); Thyroid Stim Hormone (TSH) 0.91 uIU/mL (0.358-3.74); Triglycerides 213 mg/dL; Very Low Density Lipoprotein 43 mg/dL (5-40)
== END ==
PROVIDERS: PCP Family Medicine; Visit Provider Internal Medicine
DX: G25.81 Restless legs syndrome (principal); E55.9 Vitamin D deficiency, unspecified; F32.9 Major depressive disorder, single episode, unspecified; I10 Essential (primary) hypertension; J30.2 Other seasonal allergic rhinitis; K58.9 Irritable bowel syndrome, unspecified; M19.90 Unspecified osteoarthritis, unspecified site; Z85.828 Personal history of other malignant neoplasm of skin
CPT/HCPCS: 36415; 80053; 80061; 82306; 84443; 85025

== ENCOUNTER → 2021-02-27 13:50 | Outpatient (CLI) | payer MEDICARE, BC, OTHER, SELFPAY ==
[2021-01-23 11:35] VITALS: BMI 26.2
[2021-02-27 15:30] LABS: Ferritin 30 ng/mL (8-252)
== END ==
PROVIDERS: PCP Internal Medicine; Referring Provider Internal Medicine Pulmonary Disease; Visit Provider Internal Medicine Pulmonary Disease
DX: G47.00 Insomnia, unspecified (principal); M25.50 Pain in unspecified joint; G25.81 Restless legs syndrome; G47.10 Hypersomnia, unspecified
CPT/HCPCS: 36415; 82728

== ENCOUNTER 2021-04-16 14:46 | Emergency (ER) | payer MEDICARE, BC, OTHER, SELFPAY ==
[2021-03-11 10:14] VITALS: BMI 26.2
[2021-04-16 14:47] VITALS: BP 141/77; PULSE 64; RESP 16; TEMP 37; O2SAT 96; BMI 27.1
--- NOTE | 2021-04-16 15:23 | EX.ED.DYSGE1 ---
HPI History of Present Illness Chief Complaint: Nausea/Vomiting Informant: patient Onset/Context/Timing Onset: Days Timing: Continuous Quality: Loss of appetite, nausea and vomiting and increased bowel movement Location: Generalized please read HPI Current Severity: Mild Maximum Severity: Moderate Worsened by: Patient has Covid Relieved by: Nothing Associated Symptoms Associated Symptoms: Patient has had an elevated temperature. Narrative Narrative: Patient is an elderly woman who presents with fever, loss of appetite, change in taste, nausea and vomiting x2 yesterday and mushy stools. Patient was exposed to her daughter had Covid last week. She had a positive Covid test on Wednesday. She denies myalgias arthralgias. She does report mild headache. She denies shortness of breath or dyspnea on exertion. She has no other complaints. Prior similar symptoms: No Recent Illness/Hospitalization: No PFSH PFS Medical History Arthritis Benign essential hypertension Depression GERD (gastroesophageal reflux disease) History of skin cancer HLD (hyperlipidemia) IBS (irritable bowel syndrome) Previous history TIA PVD (peripheral vascular disease) Restless leg syndrome Seasonal allergies Vitamin D deficiency, unspecified Home Medications bupropion HCl 150 mg PO QHS 01/05/17 [History Last Taken 03/15/17] clonazepam 0.5 mg PO QHS PRN 01/05/17 [History Last Taken 03/15/17] lansoprazole 30 mg PO DAILY 01/05/17 [History Last Taken 03/16/17] cetirizine 10 mg tablet 10 mg PO QHS tab 07/03/19 [History Last Taken Unknown] aspirin 81 mg PO DAILY@0800 07/13/19 [History Last Taken Unknown] calcium phosphate-vitamin D3 1 ea PO DAILY 07/13/19 [History Last Taken Unknown] cholecalciferol (vitamin D3) 1,250 mcg (50,000 unit) capsule 50,000 unit PO .2Qweekly cap 01/23/21 [History Last Taken Unknown] hydrochlorothiazide 25 mg tablet 25 mg PO PRN PRN #60 tab 01/23/21 [Rx Last Taken Unknown] denosumab 60 mg/mL subcutaneous syringe 60 mg SC [id number] #1 ml 01/29/21 [Rx Last Taken Unknown] valsartan 160 mg tablet 160 mg PO DAILY #90 tab 03/04/21 [Rx Last Taken Unknown] biotin 1 mg tablet 1 mg PO DAILY #90 tab 03/11/21 [Rx Last Taken Unknown] tavaborole 5 % topical solution with applicator 1 applic TOPICAL DAILY 336 Days #10 ml 03/14/21 [Rx Last Taken Unknown] ondansetron 4 mg PO Q8H PRN PRN #10 tab 04/16/21 [Rx Last Taken Unknown] Allergy/AdvReac Type Severity Reaction Status Date / Time Sulfa (Sulfonamide Allergy Hives Verified 04/16/21 14:49 Antibiotics) morphine AdvReac Nausea/Vom/ Verified 04/16/21 14:49 Diarrhea Family History Mother Diabetes Hypertension High cholesterol Father Diabetes Hypertension CVA (cerebral vascular accident) Sister Cancer Surgical History History of hysterectomy History of laparoscopic cholecystectomy History of right hip replacement Social History (Updated 04/16/21 @ 15:[address] Gonzalo Falk MD) household members: none Smoking Status: Never smoker alcohol intake: current alcohol intake frequency: holidays/special occasions only substance use type: does not use what type of physical activity do you participate in: none ROS ROS ED Constitutional Constitutional ED: Reports chills and fever(s); Denies subjective or sweats Eyes Eyes: Denies blurry vision, change in vision or other ENT ENT ED: Reports rhinorrhea; Denies ear pain or sore throat Cardiovascular Cardiovascular: Denies chest pain or palpitations Respiratory/Chest Respiratory/Chest: Denies cough, dyspnea or dyspnea on exertion Gastrointestinal Gastrointestinal: Reports abdominal pain, diarrhea, nausea and vomiting; Denies constipation or melena Genitourinary Genitourinary ED: Denies dysuria, hematuria or urinary frequency Musculoskeletal Musculoskeletal: Reports myalgias; Denies arthralgias, back pain or neck pain Integumentary Denies rash Neurologic Neurologic: Reports weakness; Denies headache(s) or paresthesias Allergic/Immunologic Allergic/Immunologic ED: Denies urticaria EXAM Physical Exam Const Vital Signs: 04/16/21 14:47 Temperature 98.6 F Temperature Source Temporal Pulse Rate 64 Respiratory Rate 16 Blood Pressure 141/77 H Blood Pressure Mean 98 Pulse Ox 96 Oxygen Delivery Method Room Air Positive well nourished and well developed General Appearance ED: well developed and NAD HEENT Reports TM's clear and dry mucous membranes HEENT Narrative: Head is atraumatic normocephalic. Nares patent. Ears are normal. Tympanic membrane is normal. Tympanic Membrane ED: Yes TM's clear Mouth ED: Yes dry mucous membranes Mouth: dry mucous membranes Eyes PERRL and EOMs intact bilaterally General Eye ED: Negative for pale conjunctiva or scleral icterus Neck no lymphadenopathy, supple and no JVD Chest Wall inspection of chest normal Resp normal respiratory effort and clear to auscultation bilaterally Cardio regular rate, regular rhythm, S1 normal heart sound, S2 normal heart sound and no murmurs GI normal to inspection, nondistended, normoactive bowel sounds and non-tender Palpation: soft Back/Spine no CVA tenderness Cervical Spine: Negative for cervical spine tenderness Thoracic Spine / Upper Back: Negative for thoracic spinal tenderness or paraspinal muscle tenderness Extremity normal to inspection General Extremety ED: Negative for edema or tenderness General Extremity: Negative for edema Neuro oriented x3, CN's II-XII intact bilaterally and no sensory deficits noted Sensorium / Orientation: alert Motor Exam: strength 5/5 throughout Psych mental status grossly normal Psych Narrative: Affect is flat Skin no rashes or lesions noted and no wounds MDM MDM MDM Narrative Medical decision making narrative: Has constitutional symptoms consistent with Covid. Patient's BMP was obtained assess renal function and electrolytes. 1 L of normal saline was ordered. Will reassess. She was administered 4 mg of Zofran for her nausea. Patient was reassessed at 1615. She states her nausea has improved markedly. The IV is infusing. Patient to be discharged once IV has infused since her electrolytes are unremarkable. She was prescribed Zofran ODT. She was informed that her symptoms are due to Covid. Lab Data Attestation: I reviewed the patient's lab results. Lab results narrative: Basic metabolic panel is unremarkable. Labs: Laboratory Results - last 24 hr 04/16/21 15:53 Sodium 132 L Potassium 3.8 Chloride 100 Carbon Dioxide 24.0 Anion Gap 8 BUN 16 Creatinine 0.77 Estim Creat Clear Calc 39.04 Est GFR (MDRD) Af Amer 95 Est GFR (MDRD) Non-Af 78 BUN/Creatinine Ratio 20.9 H Glucose 101 Calcium 7.7 L Discharge Plan Triage Chief Complaint: Nausea/Vomiting ED Provider: Gonzalo Falk Dx/Rx/DC Orders Clinical Impression: COVID-19, Nausea, vomiting and diarrhea, Dehydration, mild Instructions: Coronavirus Disease 2019 (COVID-19): Overview, Coronavirus Disease 2019 (COVID-19): Caring for Yourself or Others Prescriptions: New ondansetron [ondansetron] 4 MG tablet 4 mg PO Q8H PRN PRN (Reason: Nausea) Qty: 10 RF: 0 No Action cetirizine [Zyrtec] 10 mg tablet 10 mg PO QHS RF: 0 cholecalciferol (vitamin D3) 1,250 mcg (50,000 unit) capsule 50,000 unit PO .2Qweekly RF: 0 hydrochlorothiazide 25 mg tablet 25 mg PO PRN PRN (Reason: Blood Pressure) Qty: 60 RF: 0 biotin 1 mg tablet 1 mg PO DAILY Qty: 90 RF: 1 bupropion HCl 150 MG tablet sustained-release 12 hr 150 mg PO QHS RF: 0 clonazepam 0.5 MG tablet 0.5 mg PO QHS PRN (Reason: RESTLESS LEGS) RF: 0 lansoprazole 30 MG capsule 30 mg PO DAILY RF: 0 aspirin 81 MG tablet,chewable 81 mg PO DAILY@0800 RF: 0 calcium phosphate-vitamin D3 1 EACH tablet,chewable 1 ea PO DAILY RF: 0 Prolia 60 mg/mL syringe 60 mg SC [id number] Qty: 1 RF: 0 valsartan 160 mg tablet 160 mg PO DAILY Qty: 90 RF: 1 tavaborole 5 % solution with applicator 1 applic topical DAILY 336 Days Qty: 10 RF: 0 Primary Care Provider: Lucy Maki Referrals: Lucy Maki MD [Primary Care Provider] - As Needed Disposition Disposition: Home, Self Care
[2021-04-16] MEDS: Ondansetron 4 MG/2 ML Vial IV (15:55)
[2021-04-16] MEDS: 0.9% Normal Saline 1,000 ML 1000 ML IV (15:55)
[2021-04-16 16:14] LABS: Anion Gap 8 (5-15); BUN 16 mg/dL (7-18); BUN/Creat Ratio 20.9 RATIO (10-20); Calcium,Total 7.7 mg/dL (8.5-10.1); Chloride 100 mmol/L (98-107); Creatinine, Serum 0.77 mg/dL (0.55-1.02); EST Glomerular Filtration Rate 78 mL/min (>60); Est Glom Filt Rate - Afr Amer 95 mL/min (>60); Estimated Creatinine Clearance 39.04 ml/min; Glucose 101 mg/dL (74-106); Potassium 3.8 mmol/L (3.5-5.1); Sodium Level 132 mmol/L (136-145)
[2021-04-16 16:28] VITALS: BP 141/98; PULSE 65; RESP 18
== END 2021-04-16 16:30 | disposition home or self-care (01) ==
PROVIDERS: Emergency Provider Emergency Medicine; PCP Internal Medicine
DX: U07.1 COVID-19 (principal); R11.2 Nausea with vomiting, unspecified; E86.0 Dehydration; I10 Essential (primary) hypertension; E78.5 Hyperlipidemia, unspecified; F32.9 Major depressive disorder, single episode, unspecified; K21.9 Gastro-esophageal reflux disease without esophagitis; K58.9 Irritable bowel syndrome, unspecified; G25.81 Restless legs syndrome; I73.9 Peripheral vascular disease, unspecified; E55.9 Vitamin D deficiency, unspecified; M19.90 Unspecified osteoarthritis, unspecified site; Z86.73 Personal history of transient ischemic attack (TIA), and cerebral infarction without residual deficits; Z79.82 Long term (current) use of aspirin; Z79.899 Other long term (current) drug therapy
CPT/HCPCS: 80048; 96361; 96374; 99285; J2405

== ENCOUNTER 2021-04-18 09:57 | Emergency (ER) | payer MEDICARE, BC, OTHER, SELFPAY ==
[2021-04-18 09:59] VITALS: BP 131/68; PULSE 78; RESP 20; TEMP 37.7; O2SAT 98; BMI 25.4
[2021-04-18 10:02] VITALS: BP 131/68; PULSE 78; RESP 20; TEMP 37.7; O2SAT 98
--- NOTE | 2021-04-18 10:02 | EDS_ITS ---
HPI History of Present Illness Chief Complaint: General Illness Informant: patient and EMS Narrative Narrative: 75-year-old female presents feeling poorly. She was diagnosed with Covid on the of this month and developed symptoms a couple days before that. She states that she has not felt this poorly in her entire life. She notes a slight cough no dyspnea or chest pain. Generalized body aches. She states that mostly her problem is that she is not able to eat. She states she has a lack of appetite and has had some vomiting. She was not vaccinated prior to this illness. [facility] Medical History Arthritis Benign essential hypertension Depression GERD (gastroesophageal reflux disease) History of skin cancer HLD (hyperlipidemia) IBS (irritable bowel syndrome) Previous history TIA PVD (peripheral vascular disease) Restless leg syndrome Seasonal allergies Vitamin D deficiency, unspecified Home Medications bupropion HCl 150 mg PO QHS 01/05/17 [History Last Taken 03/15/17] clonazepam 0.5 mg PO QHS PRN 01/05/17 [History Last Taken 03/15/17] lansoprazole 30 mg PO DAILY 01/05/17 [History Last Taken 03/16/17] cetirizine 10 mg tablet 10 mg PO QHS tab 07/03/19 [History Last Taken Unknown] aspirin 81 mg PO DAILY@0800 07/13/19 [History Last Taken Unknown] calcium phosphate-vitamin D3 1 ea PO DAILY 07/13/19 [History Last Taken Unknown] cholecalciferol (vitamin D3) 1,250 mcg (50,000 unit) capsule 50,000 unit PO .2Qweekly cap 01/23/21 [History Last Taken Unknown] hydrochlorothiazide 25 mg tablet 25 mg PO PRN PRN #60 tab 01/23/21 [Rx Last Taken Unknown] denosumab 60 mg/mL subcutaneous syringe 60 mg SC [id number] #1 ml 01/29/21 [Rx Last Taken Unknown] valsartan 160 mg tablet 160 mg PO DAILY #90 tab 03/04/21 [Rx Last Taken Unknown] biotin 1 mg tablet 1 mg PO DAILY #90 tab 03/11/21 [Rx Last Taken Unknown] tavaborole 5 % topical solution with applicator 1 applic TOPICAL DAILY 336 Days #10 ml 03/14/21 [Rx Last Taken Unknown] ondansetron 4 mg PO Q8H PRN PRN #10 tab 04/16/21 [Rx Last Taken Unknown] promethazine 25 mg PO Q6H PRN PRN #15 tablet 04/18/21 [Rx Last Taken Unknown] Allergy/AdvReac Type Severity Reaction Status Date / Time Sulfa (Sulfonamide Allergy Hives Verified 04/18/21 09:58 Antibiotics) morphine AdvReac Nausea/Vom/ Verified 04/18/21 09:58 Diarrhea Family History Mother Diabetes Hypertension High cholesterol Father Diabetes Hypertension CVA (cerebral vascular accident) Sister Cancer Surgical History History of hysterectomy History of laparoscopic cholecystectomy History of right hip replacement Social History household members: none Smoking Status: Never smoker alcohol intake: current alcohol intake frequency: holidays/special occasions only substance use type: does not use what type of physical activity do you participate in: none ROS ROS ED Constitutional Constitutional ED: Reports chills and fever(s); Denies weight loss Eyes Eyes: Denies change in vision or diplopia ENT ENT ED: Denies ear pain, rhinorrhea or sore throat Cardiovascular Cardiovascular: Denies chest pain, orthopnea, palpitations or racing heartbeat Respiratory/Chest Respiratory/Chest: Reports cough; Denies dyspnea or orthopnea Gastrointestinal Gastrointestinal: Reports nausea and vomiting; Denies abdominal pain or diarrhea Genitourinary Genitourinary ED: Denies dysuria, hematuria or urinary frequency Musculoskeletal Musculoskeletal: Reports myalgias; Denies arthralgias Integumentary Denies abscess or rash Neurologic Neurologic: Reports headache(s); Denies weakness Psychiatric Psychiatric: Denies anxiety, depression, suicidal ideation or suicidal thoughts Endocrine Endocrinology: Denies polydipsia, polyphagia or polyuria Allergic/Immunologic Allergic/Immunologic ED: Denies mouth swelling, tongue swelling or urticaria EXAM Physical Exam Const Vital Signs: 04/18/21 09:59 04/18/21 10:02 Temperature 99.8 F H 99.8 F H Temperature Source Temporal Temporal Pulse Rate 78 78 Respiratory Rate 20 H 20 H Blood Pressure 131/68 H 131/68 H Blood Pressure Mean 89 89 Pulse Ox 98 98 Oxygen Delivery Method Room Air Room Air Positive well nourished and well developed General Appearance ED: well developed HEENT Reports normocephalic, head/scalp atraumatic and moist mucous membranes Eyes PERRL and EOMs intact bilaterally Neck no lymphadenopathy, supple and no JVD Resp normal respiratory effort and clear to auscultation bilaterally Cardio regular rate, regular rhythm and no murmurs GI normal to inspection, nondistended, normoactive bowel sounds and non-tender Palpation: soft Back/Spine no CVA tenderness and normal ROM Extremity normal to inspection General Extremety ED: Negative for edema General Extremity: Negative for edema Neuro oriented x3 and CN's II-XII intact bilaterally Sensorium / Orientation: alert Motor Exam: strength 5/5 throughout Psych mental status grossly normal Mood & Affect: Negative for depressed or tearful Skin no rashes or lesions noted and no wounds MDM MDM MDM Narrative Medical decision making narrative: Patient received a liter of IV fluids and Zofran. Basic blood work was obtained. This was essentially normal. Noted white count 3.3. However electrolytes creatinine normal. Her vital signs remain normal. She states the Zofran that was she was prescribed recently seem to make her more nauseated. We can try some Phenergan see if that helps her at home. Otherwise continued supportive care Lab Data Attestation: I reviewed the patient's lab results. Labs: Laboratory Results - last 24 hr 04/18/21 04/18/21 10:05 10:05 WBC 3.3 L RBC 4.81 Hgb 13.7 Hct 41.3 MCV 85.9 MCH 28.5 MCHC 33.2 RDW Std Deviation 44.3 H RDW Coeff of Que 14.1 Plt Count 122 L MPV 10.5 Immature Gran % (Auto) 0.300 Neut % (Auto) 72.4 H Lymph % (Auto) 22.1 Haakon % (Auto) 5.2 Eos % (Auto) 0.0 Baso % (Auto) 0.0 Absolute Neuts (auto) 2.4 Absolute Lymphs (auto) 0.73 L Nucleated RBC % 0 Sodium 134 L Potassium 3.8 Chloride 98 Carbon Dioxide 26.0 Anion Gap 10 BUN 14 Creatinine 0.76 Estim Creat Clear Calc 44.41 Est GFR (MDRD) Af Amer 95 Est GFR (MDRD) Non-Af 78 BUN/Creatinine Ratio 18.3 Glucose 95 Calcium 8.1 L Total Bilirubin 0.40 AST 35 ALT 36 Alkaline Phosphatase 104 Total Protein 7.3 Albumin 3.7 Globulin 3.6 Albumin/Globulin Ratio 1.0 Discharge Plan Triage Chief Complaint: General Illness ED Provider: Rai Aleman Dx/Rx/DC Orders Clinical Impression: COVID-19, Nausea & vomiting Instructions: Coronavirus Disease 2019 (COVID-19): Caring for Yourself or Others Prescriptions: New promethazine [promethazine] 25 MG tablet 25 mg PO Q6H PRN PRN (Reason: Nausea) Qty: 15 RF: 0 No Action cetirizine [Zyrtec] 10 mg tablet 10 mg PO QHS RF: 0 cholecalciferol (vitamin D3) 1,250 mcg (50,000 unit) capsule 50,000 unit PO .2Qweekly RF: 0 hydrochlorothiazide 25 mg tablet 25 mg PO PRN PRN (Reason: Blood Pressure) Qty: 60 RF: 0 biotin 1 mg tablet 1 mg PO DAILY Qty: 90 RF: 1 bupropion HCl 150 MG tablet sustained-release 12 hr 150 mg PO QHS RF: 0 clonazepam 0.5 MG tablet 0.5 mg PO QHS PRN (Reason: RESTLESS LEGS) RF: 0 lansoprazole 30 MG capsule 30 mg PO DAILY RF: 0 aspirin 81 MG tablet,chewable 81 mg PO DAILY@0800 RF: 0 calcium phosphate-vitamin D3 1 EACH tablet,chewable 1 ea PO DAILY RF: 0 ondansetron [ondansetron] 4 MG tablet 4 mg PO Q8H PRN PRN (Reason: Nausea) Qty: 10 RF: 0 Prolia 60 mg/mL syringe 60 mg SC [id number] Qty: 1 RF: 0 valsartan 160 mg tablet 160 mg PO DAILY Qty: 90 RF: 1 tavaborole 5 % solution with applicator 1 applic topical DAILY 336 Days Qty: 10 RF: 0 Primary Care Provider: Lucy Maki Referrals: Lucy Maki MD [Primary Care Provider] - As Needed Disposition Disposition: Home, Self Care
[2021-04-18] MEDS: 0.9% Normal Saline 1,000 ML 1000 ML IV (10:05)
[2021-04-18] MEDS: Ondansetron 4 MG/2 ML Vial IV (10:09)
[2021-04-18 10:24] LABS: Absolute Lymphocyte Count 0.73 X10^3/uL (0.83-4.51); Absolute Neutrophil Count 2.4 X10^3/uL (2.0-7.7); Hematocrit 41.3 % (37-47); Hemoglobin 13.7 g/dL (12.0-15.0); Lymphocyte # 0.73 X10^3/ul (0.83-4.51); Lymphocyte % 22.1 % (19-41); Mean Corp Hgb Conc 33.2 g/dL (32-36); Mean Corpuscular Hgb 28.5 pg (27.0-32.0); Mean Corpuscular Volume 85.9 fL (81-99); Mean Platelet Vol. 10.5 fl (6.2-12.0); Monocyte# 0.17 X10^3/uL; Monocyte% 5.2 % (0-10); NRBC Flagged by Analyzer 0 % (0-5); Neutrophil # 2.39 X10^3/uL (2.7-7.7); Neutrophil % 72.4 % (47-70); Platelet Count 122 K/mm3 (150-450); RBC Distribution Width CV 14.1 % (11.6-14.6); RBC Distribution Width SD 44.3 fl (35.1-43.9); Red Blood Count 4.81 M/mm3 (4.2-5.4); White Blood Count 3.3 K/mm3 (4.4-11.0)
[2021-04-18 10:47] LABS: AST(SGOT) 35 U/L (15-37); Alanine Aminotransfer ALT/SGPT 36 U/L (13-56); Albumin, Serum 3.7 g/dL (3.2-5.0); Alkaline Phosphatase 104 U/L (45-117); Anion Gap 10 (5-15); BUN 14 mg/dL (7-18); BUN/Creat Ratio 18.3 RATIO (10-20); Calcium,Total 8.1 mg/dL (8.5-10.1); Chloride 98 mmol/L (98-107); Creatinine, Serum 0.76 mg/dL (0.55-1.02); EST Glomerular Filtration Rate 78 mL/min (>60); Est Glom Filt Rate - Afr Amer 95 mL/min (>60); Estimated Creatinine Clearance 44.41 ml/min; Globulin 3.6 g/dL (2.2-4.2); Glucose 95 mg/dL (74-106); Potassium 3.8 mmol/L (3.5-5.1); Protein, Total 7.3 g/dL (6.4-8.2); Sodium Level 134 mmol/L (136-145)
[2021-04-18 11:02] VITALS: BP 141/73; PULSE 75; RESP 21; TEMP 37.7; O2SAT 95
[2021-04-18] MEDS: Acetaminophen 500 MG Tablet 1000 MG PO (11:39)
[2021-04-18] MEDS: proMETHazine 25 MG Tablet PO (11:40)
[2021-04-18 11:45] VITALS: BP 141/73; PULSE 75; RESP 24; O2SAT 94
[2021-04-18 12:45] VITALS: BP 139/70
== END 2021-04-18 12:49 | disposition home or self-care (01) ==
PROVIDERS: Emergency Provider Emergency Medicine; PCP Internal Medicine
DX: U07.1 COVID-19 (principal); R11.2 Nausea with vomiting, unspecified; I10 Essential (primary) hypertension; E78.5 Hyperlipidemia, unspecified; I73.9 Peripheral vascular disease, unspecified; E55.9 Vitamin D deficiency, unspecified; G25.81 Restless legs syndrome; F32.9 Major depressive disorder, single episode, unspecified; K21.9 Gastro-esophageal reflux disease without esophagitis; K58.9 Irritable bowel syndrome, unspecified; M19.90 Unspecified osteoarthritis, unspecified site; Z86.73 Personal history of transient ischemic attack (TIA), and cerebral infarction without residual deficits; Z79.82 Long term (current) use of aspirin; Z79.899 Other long term (current) drug therapy
CPT/HCPCS: 80053; 85025; 96361; 96374; 99285; J2405

== ENCOUNTER 2021-04-21 18:47 | Inpatient (IN) | payer MEDICARE, BC, OTHER, SELFPAY ==
[2021-04-21] VITALS (7 sets, daily range): BP systolic 104–116; BP diastolic 65–70; PULSE 77–81; RESP 16–27; TEMP 36.8; O2SAT 88–98; BMI 25.0
--- NOTE | 2021-04-21 18:59 | EKG12_ITS ---
Test Reason : DYSRYTHMIA Blood Pressure : / mmHG Vent. Rate : 084 BPM Atrial Rate : 084 BPM P-R Int : 148 ms QRS Dur : 088 ms QT Int : 400 ms P-R-T Axes : 048 006 066 degrees QTc Int : 472 ms Normal sinus rhythm Normal ECG Confirmed by SHAMEKA BOYD, AMBER ([id number]), marketing editor VICTORINA ARORA ([id number]) on 04/25/2021 9:19:50 AM Referred By: SALOMÓN Confirmed By:AMBER MYLES MD
--- NOTE | 2021-04-21 19:05 | RAD_ITS ---
HISTORY: COUGH EXAMINATION/TECHNIQUE: XR Chest 1 View: 1 view COMPARISON: 07/23/19 FINDINGS: LINES/DEVICES: None. LUNGS: No consolidation, edema or effusion. No pneumothorax. MEDIASTINUM AND CARDIOVASCULAR STRUCTURES: Cardiac silhouette not enlarged. Central airways and mediastinal contour are unremarkable. BONES AND SOFT TISSUES: No acute bony abnormalities. RAD/Chest 1 View (Portable) IMPRESSION: No radiographic evidence of acute cardiopulmonary disease. at 1934 Reported and signed by: Ravinder Barth MD Electronically Signed: Ravinder Barth MD at 19:33 EDT Tel , Service support ,
--- NOTE | 2021-04-21 20:43 | EX.ED.DYSGE1 ---
HPI History of Present Illness Chief Complaint: Mental Status Change Narrative Narrative: Patient presents with her daughter because of generalized weakness, and reported confusion. Per her daughter, patient is in her 10th day of COVID-19 infection. She has had diarrhea and incontinence. She has generalized weakness. She does not want to get out of bed, and is too weak to even drink water. They state that they are having problems taking care of her at home. Patient's tried to help take care of her, but fell and broke his hip, and also has Covid. He is admitted in the hospital. Patient denies having problems. Daughter states that they called her primary care provider who told them to come to the emergency department for admission for placement. [facility] Medical History Arthritis Benign essential hypertension Depression GERD (gastroesophageal reflux disease) History of skin cancer HLD (hyperlipidemia) IBS (irritable bowel syndrome) Previous history TIA PVD (peripheral vascular disease) Restless leg syndrome Seasonal allergies Vitamin D deficiency, unspecified Home Medications bupropion HCl 150 mg PO QHS 01/05/17 [History Last Taken 03/15/17] clonazepam 0.5 mg PO QHS PRN 01/05/17 [History Last Taken 03/15/17] lansoprazole 30 mg PO DAILY 01/05/17 [History Last Taken 03/16/17] cetirizine 10 mg tablet 10 mg PO QHS tab 07/03/19 [History Last Taken Unknown] aspirin 81 mg PO DAILY@0800 07/13/19 [History Last Taken Unknown] calcium phosphate-vitamin D3 1 ea PO DAILY 07/13/19 [History Last Taken Unknown] cholecalciferol (vitamin D3) 1,250 mcg (50,000 unit) capsule 50,000 unit PO .2Qweekly cap 01/23/21 [History Last Taken Unknown] hydrochlorothiazide 25 mg tablet 25 mg PO PRN PRN #60 tab 01/23/21 [Rx Last Taken Unknown] denosumab 60 mg/mL subcutaneous syringe 60 mg SC [id number] #1 ml 01/29/21 [Rx Last Taken Unknown] valsartan 160 mg tablet 160 mg PO DAILY #90 tab 03/04/21 [Rx Last Taken Unknown] biotin 1 mg tablet 1 mg PO DAILY #90 tab 03/11/21 [Rx Last Taken Unknown] tavaborole 5 % topical solution with applicator 1 applic TOPICAL DAILY 336 Days #10 ml 03/14/21 [Rx Last Taken Unknown] ondansetron 4 mg PO Q8H PRN PRN #10 tab 04/16/21 [Rx Last Taken Unknown] promethazine 25 mg PO Q6H PRN PRN #15 tablet 04/18/21 [Rx Last Taken Unknown] Allergy/AdvReac Type Severity Reaction Status Date / Time Sulfa (Sulfonamide Allergy Hives Verified 04/18/21 09:58 Antibiotics) morphine AdvReac Nausea/Vom/ Verified 04/18/21 09:58 Diarrhea Family History Mother Diabetes Hypertension High cholesterol Father Diabetes Hypertension CVA (cerebral vascular accident) Sister Cancer Surgical History History of hysterectomy History of laparoscopic cholecystectomy History of right hip replacement Social History household members: none Smoking Status: Never smoker alcohol intake: current alcohol intake frequency: holidays/special occasions only substance use type: does not use what type of physical activity do you participate in: none ROS ROS ED ROS Narrative Constitutional: No fever, no chills. HEENT: No sore throat. No neck pain. No loss of vision. No rhinorrhea. Cardiovascular: No chest pain. No palpitations. No pedal edema. Respiratory: No cough, no shortness of breath. Abdominal: No abdominal pain. Positive nausea. Positive vomiting. Positive diarrhea. Genitourinary: No dysuria. No hematuria. Neurologic: No headaches. No dizziness. No lightheadedness. Generalized weakness. Daughter reports confusion. Skin: No rash. No change in color. EXAM Physical Exam Narrative Exam Narrative: Afebrile. Vital signs noted. Sitting on commode. HEENT: Normocephalic. Atraumatic. PERRL, EOMI. Neck soft and supple. Cardiovascular: Regular rate and rhythm. No murmurs, rubs, or gallops appreciated. Respiratory: No tachypnea. Lungs clear to auscultation bilaterally. Gastrointestinal: Abdomen soft, nontender, with normoactive bowel sounds. No rebound or guarding. Neurological: Nonfocal, nonlateralizing. Awake, alert. Skin: No rash. Normal color. No pallor. Musculoskeletal: No pedal edema. Full range of motion extremities. Const Vital Signs: 04/21/21 18:49 04/21/21 18:56 04/21/21 21:10 Temperature 98.3 F 98.3 F Temperature Source Temporal Temporal Pulse Rate 81 81 79 Respiratory Rate 18 18 27 H Blood Pressure 104/70 104/67 Blood Pressure Mean 81 79 Pulse Ox 98 98 92 Oxygen Delivery Method Room Air Room Air Room Air Oxygen Flow Rate (L/min) 04/21/21 22:08 04/21/21 22:14 04/21/21 22:21 Temperature Temperature Source Pulse Rate 81 Respiratory Rate 16 Blood Pressure 116/65 Blood Pressure Mean 82 Pulse Ox 91 88 98 Oxygen Delivery Method Room Air Room Air Nasal Cannula Oxygen Flow Rate (L/min) 2 04/21/21 23:33 Temperature Temperature Source Pulse Rate 77 Respiratory Rate 20 H Blood Pressure 113/65 Blood Pressure Mean 81 Pulse Ox 97 Oxygen Delivery Method Room Air Oxygen Flow Rate (L/min) MDM MDM MDM Narrative Medical decision making narrative: Comprehensive work-up was pursued. WBC count low at 3.6, consistent with her COVID-19 diagnosis. She states she tested positive at an outside facility 2 days ago. Hemoglobin stable at 13.4. CMP shows BUN elevated at 24 with a normal creatinine. Her urinalysis is negative for nitrites. I do not feel antibiotics are indicated. I do feel that she is dehydrated because her potassium is also low at 3.1 which was replaced intravenously. Patient became hypoxic at 88% on room air. She was placed on 2 L nasal cannula with acceptable pulse ox resulting. Her chest x-ray shows no acute process. Given her hypoxia and COVID-19 diagnosis, I do feel that she requires admission. Patient was discussed with the hospitalist. Patient is in stable condition. Lab Data Attestation: I reviewed the patient's lab results. Labs: Laboratory Results - last 24 hr 04/21/21 04/21/21 04/21/21 21:00 21:00 21:36 WBC 3.6 L RBC 4.72 Hgb 13.4 Hct 40.3 MCV 85.4 MCH 28.4 MCHC 33.3 RDW Std Deviation 43.7 RDW Coeff of Que 13.9 Plt Count 118 L MPV 10.7 Immature Gran % (Auto) 0.300 Neut % (Auto) 70.0 Lymph % (Auto) 24.7 [place] % (Auto) 4.7 Eos % (Auto) 0.0 Baso % (Auto) 0.3 Absolute Neuts (auto) 2.5 Absolute Lymphs (auto) 0.89 Nucleated RBC % 0 Sodium Potassium Chloride Carbon Dioxide Anion Gap BUN Creatinine Estim Creat Clear Calc Est GFR (MDRD) Af Amer Est GFR (MDRD) Non-Af BUN/Creatinine Ratio Glucose Calcium Urine Color Yellow Urine Clarity Clear Urine pH 6.5 Ur Specific [place] 1.015 Urine Protein 30 H Urine Glucose (UA) Normal Urine Ketones 150 A* Urine Occult Blood 10 H Urine Nitrite Negative Urine Bilirubin 1 H Urine Urobilinogen 1 H Ur Leukocyte Esterase 25 H Urine RBC 0 SEEN Urine WBC 0-5 SEEN Ur Squamous Epith Cells 0-5 SEEN Urine Bacteria RARE Urine Mucus 1+ Urine Opiates Screen NEGATIVE Urine Methadone Screen NEGATIVE Ur Barbiturates Screen NEGATIVE Ur Phencyclidine Scrn NEGATIVE Ur Amphetamines Screen NEGATIVE U Methamphetamin-MDMA NEGATIVE U Benzodiazepines Scrn NEGATIVE Urine Cocaine Screen NEGATIVE U Cannabinoids Screen NEGATIVE Ur Drug Screen Comment Ethyl Alcohol 04/21/21 04/21/21 21:36 21:36 WBC RBC Hgb Hct MCV MCH MCHC RDW Std Deviation RDW Coeff of Que Plt Count MPV Immature Gran % (Auto) Neut % (Auto) Lymph % (Auto) [place] % (Auto) Eos % (Auto) Baso % (Auto) Absolute Neuts (auto) Absolute Lymphs (auto) Nucleated RBC % Sodium 134 L Potassium 3.1 L Chloride 100 Carbon Dioxide 27.0 Anion Gap 7 BUN 19 H Creatinine 0.77 Estim Creat Clear Calc 39.04 Est GFR (MDRD) Af Amer 94 Est GFR (MDRD) Non-Af 78 BUN/Creatinine Ratio 24.6 H Glucose 94 Calcium 8.0 L Urine Color Urine Clarity Urine pH Ur Specific [place] Urine Protein Urine Glucose (UA) Urine Ketones Urine Occult Blood Urine Nitrite Urine Bilirubin Urine Urobilinogen Ur Leukocyte Esterase Urine RBC Urine WBC Ur Squamous Epith Cells Urine Bacteria Urine Mucus Urine Opiates Screen Urine Methadone Screen Ur Barbiturates Screen Ur Phencyclidine Scrn Ur Amphetamines Screen U Methamphetamin-MDMA U Benzodiazepines Scrn Urine Cocaine Screen U Cannabinoids Screen Ur Drug Screen Comment Ethyl Alcohol < 3.0 Radiography Diagnostic Testing: Radiology Impression Chest X-Ray 04/21/21 19:05 IMPRESSION: No radiographic evidence of acute cardiopulmonary disease. at 1934 Reported and signed by: Ravinder Barth MD Electronically Signed: Ravinder Barth MD at 19:33 EDT Tel , Service support , Discharge Plan Triage Chief Complaint: Mental Status Change ED Provider: Satinder Maier Dx/Rx/DC Orders Prescriptions: No Action cetirizine [Zyrtec] 10 mg tablet 10 mg PO QHS RF: 0 cholecalciferol (vitamin D3) 1,250 mcg (50,000 unit) capsule 50,000 unit PO .2Qweekly RF: 0 hydrochlorothiazide 25 mg tablet 25 mg PO PRN PRN (Reason: Blood Pressure) Qty: 60 RF: 0 biotin 1 mg tablet 1 mg PO DAILY Qty: 90 RF: 1 bupropion HCl 150 MG tablet sustained-release 12 hr 150 mg PO QHS RF: 0 clonazepam 0.5 MG tablet 0.5 mg PO QHS PRN (Reason: RESTLESS LEGS) RF: 0 lansoprazole 30 MG capsule 30 mg PO DAILY RF: 0 aspirin 81 MG tablet,chewable 81 mg PO DAILY@0800 RF: 0 calcium phosphate-vitamin D3 1 EACH tablet,chewable 1 ea PO DAILY RF: 0 ondansetron [ondansetron] 4 MG tablet 4 mg PO Q8H PRN PRN (Reason: Nausea) Qty: 10 RF: 0 promethazine [promethazine] 25 MG tablet 25 mg PO Q6H PRN PRN (Reason: Nausea) Qty: 15 RF: 0 Prolia 60 mg/mL syringe 60 mg SC [id number] Qty: 1 RF: 0 valsartan 160 mg tablet 160 mg PO DAILY Qty: 90 RF: 1 tavaborole 5 % solution with applicator 1 applic topical DAILY 336 Days Qty: 10 RF: 0 Primary Care Provider: Lucy Maki
[2021-04-21 21:24] LABS: Amphetamine Urine VISTA NEGATIVE (<1000 ng/mL); Barbiturate Urine VISTA NEGATIVE (< 200 ng/mL); Benzodiazepine Urine VISTA NEGATIVE (< 200 ng/mL); Cocaine Urine VISTA NEGATIVE (< 300 ng/mL); Ecstacy Urine VISTA NEGATIVE (< 500 ng/mL); Methadone Urine VISTA NEGATIVE (< 300 ng/mL); PCP Urine VISTA NEGATIVE (< 25 ng/mL); THC Urine VISTA NEGATIVE (< 50 ng/mL); Vista UDS pH Range 6
[2021-04-21 21:25] LABS: Red Blood Cells-Urine 0 SEEN /hpf (0-5)
[2021-04-21 21:27] LABS: Color, Urine Yellow (Yellow); Glucose, Dipstick Normal (Normal); Leukocyte Esterase-Dipstick 25 /ul (Negative); Nitrite-Dipstick Negative (Negative); Occult Blood-Urine 10 /ul (Negative); Protein-Dipstick 30 mg/dl (Negative); Specific Gravity, Urine 1.015 (1.002-1.030); Urine Clarity Clear (Clear); Urine Urobilinogen 1 mg/dl (Normal); Urine pH 6.5 (5.0 - 8.0)
[2021-04-21 21:40] LABS: Urine Bilirubin Dipstick 1 mg/dL (Negative)
[2021-04-21 21:41] LABS: Ketone-Dipstick 150 mg/dl (Negative)
[2021-04-21 21:42] LABS: Squamous Epithelial Cells - UA 0-5 SEEN /hpf (5-10); White Blood Cells 0-5 SEEN /hpf (0-5)
[2021-04-21 21:43] LABS: Bacteria RARE /hpf (None Seen); Mucous, Urine 1+ /hpf (<or=2+)
[2021-04-21 22:03] LABS: Absolute Lymphocyte Count 0.89 X10^3/uL (0.83-4.51); Absolute Neutrophil Count 2.5 X10^3/uL (2.0-7.7); Basophil# 0.01 X10^3/uL; Basophil% 0.3 % (0-1); Hematocrit 40.3 % (37-47); Hemoglobin 13.4 g/dL (12.0-15.0); Lymphocyte # 0.89 X10^3/ul (0.83-4.51); Lymphocyte % 24.7 % (19-41); Mean Corp Hgb Conc 33.3 g/dL (32-36); Mean Corpuscular Hgb 28.4 pg (27.0-32.0); Mean Corpuscular Volume 85.4 fL (81-99); Mean Platelet Vol. 10.7 fl (6.2-12.0); Monocyte# 0.17 X10^3/uL; Monocyte% 4.7 % (0-10); NRBC Flagged by Analyzer 0 % (0-5); Neutrophil # 2.53 X10^3/uL (2.7-7.7); Platelet Count 118 K/mm3 (150-450); RBC Distribution Width CV 13.9 % (11.6-14.6); RBC Distribution Width SD 43.7 fl (35.1-43.9); Red Blood Count 4.72 M/mm3 (4.2-5.4); White Blood Count 3.6 K/mm3 (4.4-11.0)
[2021-04-21 22:23] LABS: Alcohol, Blood (Medical)-Serum < 3.0 mg/dL
[2021-04-21 22:25] LABS: Anion Gap 7 (5-15); BUN 19 mg/dL (7-18); BUN/Creat Ratio 24.6 RATIO (10-20); Chloride 100 mmol/L (98-107); Creatinine, Serum 0.77 mg/dL (0.55-1.02); EST Glomerular Filtration Rate 78 mL/min (>60); Est Glom Filt Rate - Afr Amer 94 mL/min (>60); Estimated Creatinine Clearance 39.04 ml/min; Glucose 94 mg/dL (74-106); Potassium 3.1 mmol/L (3.5-5.1); Sodium Level 134 mmol/L (136-145)
--- NOTE | 2021-04-21 23:57 | PCM.HP.STD ---
HPI - General HPI Narrative FLORIN ZABALA, is a 75 F who presents to the emergency room after testing positive for COVID-19 virus 1 week ago. It seems as though there is an outbreak within her family of about 30 members recently and her also tested positive and is admitted in this hospital who fell and broke his hip as well. According to the daughter the patient has become more confused throughout the week despite trying her best efforts to recover at home. She is short of breath at rest and has no appetite due to loss of taste and smell. She will be admitted for COVID-19 virus protocol and will be isolated. [facility] Medical History Arthritis Benign essential hypertension Depression GERD (gastroesophageal reflux disease) History of skin cancer HLD (hyperlipidemia) IBS (irritable bowel syndrome) Previous history TIA PVD (peripheral vascular disease) Restless leg syndrome Seasonal allergies Vitamin D deficiency, unspecified Home Medications bupropion HCl 150 mg PO QHS 01/05/17 [History Last Taken 03/15/17] clonazepam 0.5 mg PO QHS PRN 01/05/17 [History Last Taken 03/15/17] lansoprazole 30 mg PO DAILY 01/05/17 [History Last Taken 03/16/17] cetirizine 10 mg tablet 10 mg PO QHS tab 07/03/19 [History Last Taken Unknown] aspirin 81 mg PO DAILY@0800 07/13/19 [History Last Taken Unknown] calcium phosphate-vitamin D3 1 ea PO DAILY 07/13/19 [History Last Taken Unknown] cholecalciferol (vitamin D3) 1,250 mcg (50,000 unit) capsule 50,000 unit PO .2Qweekly cap 01/23/21 [History Last Taken Unknown] hydrochlorothiazide 25 mg tablet 25 mg PO PRN PRN #60 tab 01/23/21 [Rx Last Taken Unknown] denosumab 60 mg/mL subcutaneous syringe 60 mg SC [id number] #1 ml 01/29/21 [Rx Last Taken Unknown] valsartan 160 mg tablet 160 mg PO DAILY #90 tab 03/04/21 [Rx Last Taken Unknown] biotin 1 mg tablet 1 mg PO DAILY #90 tab 03/11/21 [Rx Last Taken Unknown] tavaborole 5 % topical solution with applicator 1 applic TOPICAL DAILY 336 Days #10 ml 06/25/21 [Rx Last Taken Unknown] ondansetron 4 mg PO Q8H PRN PRN #10 tab 04/16/21 [Rx Last Taken Unknown] promethazine 25 mg PO Q6H PRN PRN #15 tablet 04/18/21 [Rx Last Taken Unknown] Allergy/AdvReac Type Severity Reaction Status Date / Time Sulfa (Sulfonamide Allergy Hives Verified 04/18/21 09:58 Antibiotics) morphine AdvReac Nausea/Vom/ Verified 04/18/21 09:58 Diarrhea Family History Mother Diabetes Hypertension High cholesterol Father Diabetes Hypertension CVA (cerebral vascular accident) Sister Cancer Surgical History History of hysterectomy History of laparoscopic cholecystectomy History of right hip replacement Social History household members: none Smoking Status: Never smoker alcohol intake: current alcohol intake frequency: holidays/special occasions only substance use type: does not use what type of physical activity do you participate in: none ROS Constitutional Constitutional: Reports chills, fatigue, malaise and weakness Eyes Eyes: Denies change in vision ENT HEENT: Reports loss taste/smell; Denies dysphagia Cardiovascular Cardiovascular: Denies chest pain Respiratory/Chest Respiratory/Chest: Reports shortness of breath at rest Gastrointestinal Gastrointestinal: Denies abdominal pain Genitourinary Genitourinary: Denies dysuria Musculoskeletal Musculoskeletal: Denies back pain Integumentary Integumentary: Denies dry skin Neurologic Neurologic: Denies abnormal speech Psychiatric Psychiatric: Denies anxiety Vital Signs Vital Signs Vital Signs: 04/21/21 18:49 04/21/21 18:56 04/21/21 21:10 Temperature 98.3 F 98.3 F Temperature Source Temporal Temporal Pulse Rate 81 81 79 Respiratory Rate 18 18 27 H Blood Pressure 104/70 104/67 Blood Pressure Mean 81 79 Pulse Ox 98 98 92 Oxygen Delivery Method Room Air Room Air Room Air Oxygen Flow Rate (L/min) 04/21/21 22:08 04/21/21 22:14 04/21/21 22:21 Temperature Temperature Source Pulse Rate 81 Respiratory Rate 16 Blood Pressure 116/65 Blood Pressure Mean 82 Pulse Ox 91 88 98 Oxygen Delivery Method Room Air Room Air Nasal Cannula Oxygen Flow Rate (L/min) 2 04/21/21 23:33 Temperature Temperature Source Pulse Rate 77 Respiratory Rate 20 H Blood Pressure 113/65 Blood Pressure Mean 81 Pulse Ox 97 Oxygen Delivery Method Room Air Oxygen Flow Rate (L/min) Weight Weight: 136 lb 10.986 oz Body Mass Index (BMI) 25.0 Physical Exam Const alert General Appearance: cooperative Orientation / Consciousness: lethargic HEENT head/scalp atraumatic Eyes PERRL Neck supple Lymph Lymphatic: no lymphedema noted Resp Auscultation: diminished lung sounds bilateral Cardio regular rate, regular rhythm, S1 normal heart sound, S2 normal heart sound, no murmurs, no rub and no gallops GI normal to inspection, nondistended, normoactive bowel sounds Extremity normal capillary refill Skin Rashes: no rashes Neuro CN's II-XII intact bilaterally Psych affect normal Results Lab / Micro Data Result Diagrams: 04/21/21 21:36 04/21/21 21:36 Labs: Laboratory Results - last 24 hr 04/21/21 21:00: Urine Opiates Screen NEGATIVE, Urine Methadone Screen NEGATIVE, Ur Barbiturates Screen NEGATIVE, Ur Phencyclidine Scrn NEGATIVE, Ur Amphetamines Screen NEGATIVE, U Methamphetamin-MDMA NEGATIVE, U Benzodiazepines Scrn NEGATIVE, Urine Cocaine Screen NEGATIVE, U Cannabinoids Screen NEGATIVE, Ur Drug Screen Comment 04/21/21 21:00: Urine Color Yellow, Urine Clarity Clear, Urine pH 6.5, Ur Specific [place] 1.015, Urine Protein 30 H, Urine Glucose (UA) Normal, Urine Ketones 150 A*, Urine Occult Blood 10 H, Urine Nitrite Negative, Urine Bilirubin 1 H, Urine Urobilinogen 1 H, Ur Leukocyte Esterase 25 H, Urine RBC 0 SEEN, Urine WBC 0-5 SEEN, Ur Squamous Epith Cells 0-5 SEEN, Urine Bacteria RARE, Urine Mucus 1+ 04/21/21 21:36: WBC 3.6 L, RBC 4.72, Hgb 13.4, Hct 40.3, MCV 85.4, MCH 28.4, MCHC 33.3, RDW Std Deviation 43.7, RDW Coeff of Que 13.9, Plt Count 118 L, MPV 10.7, Immature Gran % (Auto) 0.300, Neut % (Auto) 70.0, Lymph % (Auto) 24.7, [place] % (Auto) 4.7, Eos % (Auto) 0.0, Baso % (Auto) 0.3, Absolute Neuts (auto) 2.5, Absolute Lymphs (auto) 0.89, Nucleated RBC % 0 04/21/21 21:36: Sodium 134 L, Potassium 3.1 L, Chloride 100, Carbon Dioxide 27.0, Anion Gap 7, BUN 19 H, Creatinine 0.77, Estim Creat Clear Calc 39.04, Est GFR (MDRD) Af Amer 94, Est GFR (MDRD) Non-Af 78, BUN/Creatinine Ratio 24.6 H, Glucose 94, Calcium 8.0 L 04/21/21 21:36: Ethyl Alcohol < 3.0 Radiology Impression Chest X-Ray 04/21/21 19:05 IMPRESSION: No radiographic evidence of acute cardiopulmonary disease. at 1934 Reported and signed by: Ravinder Barth MD Electronically Signed: Ravinder Barth MD at 19:33 EDT Tel , Service support , Assessment & Plan Assessment/Plan (1) COVID-19: (2) Depression: (3) Restless leg syndrome: (4) IBS (irritable bowel syndrome): (5) HLD (hyperlipidemia): (6) Benign essential hypertension: PLAN: 1. COVID-19 infection?admit patient to Covid isolation unit, initiate Covid protocol including oxygen and steroid therapy 2. Depression?continue home medication 3. Hyperlipidemia?continue statin 4. Hypertension?continue antihypertensive medication 5. DVT prophylaxis?low molecular weight heparin Charges/Coding Visit Charges Inpatient E&M: 05944 Init Hosp L2
[2021-04-22] VITALS (14 sets, daily range): BP systolic 102–137; BP diastolic 60–67; PULSE 74–81; RESP 16–22; TEMP 36.6–37.3; O2SAT 90–96; BMI 23.8
[2021-04-22] MEDS: Potassium Chloride 10mEq/100mL 10 MEQ/100 ML IV.SOLN. 100 MEQ IV BOLUS ×4 (00:39→04:46)
[2021-04-22] MEDS: Potassium Chloride Oral Tablet 20 MEQ 40 MEQ PO (01:55)
[2021-04-22 02:22] LABS: Fibrinogen 513 mg/dl (203-444)
[2021-04-22 02:31] LABS: BNP,B-Type NATRIURETIC PEPTIDE 17.5 pg/mL (0-100)
[2021-04-22 02:33] LABS: CPK Total, Creatine Kinase 104 U/L (26-192)
[2021-04-22 02:37] LABS: D-Dimer Quantitative (DVT/PE) 1.12 FEU/ug/m (0.27-0.49)
[2021-04-22 05:07] LABS: Procalcitonin < 0.04 ng/mL (0.00-0.09)
[2021-04-22] MEDS: 0.9% Saline Lock 10 ML Syringe IV ×2 (06:01→08:49)
[2021-04-22 07:09] LABS: Absolute Neutrophil Count 2.8 X10^3/uL (2.0-7.7); Hematocrit 36.5 % (37-47); Hemoglobin 12.2 g/dL (12.0-15.0); Lymphocyte % 21.3 % (19-41); Mean Corp Hgb Conc 33.4 g/dL (32-36); Mean Corpuscular Hgb 28.4 pg (27.0-32.0); Mean Corpuscular Volume 85.1 fL (81-99); Mean Platelet Vol. 10.5 fl (6.2-12.0); Monocyte# 0.19 X10^3/uL; Monocyte% 5.1 % (0-10); NRBC Flagged by Analyzer 0 % (0-5); Neutrophil # 2.76 X10^3/uL (2.7-7.7); Neutrophil % 73.3 % (47-70); Platelet Count 115 K/mm3 (150-450); RBC Distribution Width CV 14.2 % (11.6-14.6); RBC Distribution Width SD 44.2 fl (35.1-43.9); Red Blood Count 4.29 M/mm3 (4.2-5.4); White Blood Count 3.8 K/mm3 (4.4-11.0)
[2021-04-22 07:37] LABS: Anion Gap 7 (5-15); BUN 18 mg/dL (7-18); BUN/Creat Ratio 32.5 RATIO (10-20); Calcium,Total 7.7 mg/dL (8.5-10.1); Chloride 104 mmol/L (98-107); Creatinine, Serum 0.55 mg/dL (0.55-1.02); EST Glomerular Filtration Rate 114 mL/min (>60); Est Glom Filt Rate - Afr Amer 138 mL/min (>60); Estimated Creatinine Clearance 42.62 ml/min; Glucose 91 mg/dL (74-106); Potassium 4.4 mmol/L (3.5-5.1); Sodium Level 133 mmol/L (136-145)
[2021-04-22] MEDS: Losartan Potassium 50 MG Tablet PO (08:46)
[2021-04-22] MEDS: Calcium Carb/Vitamin D 1 TABLET Tablet PO (08:47)
[2021-04-22] MEDS: Aspirin 81 MG TAB.CHEW PO (08:47)
[2021-04-22] MEDS: Pantoprazole Sodium 40 MG Tablet PO (08:48)
[2021-04-22] MEDS: Enoxaparin 40 MG/0.4 ML Syringe SC (08:48)
[2021-04-22] MEDS: dexAMETHasone 10 MG/ML Vial 6 MG IV (08:49)
--- NOTE | 2021-04-22 11:04 | PCM.PN.HOSP ---
Subjective Subjective Feels little bit better than when she came in. However she still seems a little bit out of it and is slow to respond when asked what month it is though she did get her right. Objective Data Objective Data Vital Signs: Vital Signs Temp Pulse Resp BP Pulse Ox 98.2 F 78 20 H 108/61 94 04/22/21 08:40 04/22/21 08:40 04/22/21 08:40 04/22/21 08:40 04/22/21 08:40 Oxygen Flow Rate (L/min) 3 Oxygen Delivery Method Nasal Cannula Weight: 141 lb 1.533 oz Body Mass Index (BMI) 23.8 Intake & Output: Intake and Output for Last 24 Hours 04/21/21 04/22/21 04/23/21 03:59 03:59 03:59 Intake Total 200 / 200 300 / 300 Balance 200 / 200 300 / 300 Lab / Micro Data Result Diagrams: 04/22/21 06:20 04/22/21 06:20 Labs: Laboratory Results - last 24 hr 04/21/21 21:00: Urine Opiates Screen NEGATIVE, Urine Methadone Screen NEGATIVE, Ur Barbiturates Screen NEGATIVE, Ur Phencyclidine Scrn NEGATIVE, Ur Amphetamines Screen NEGATIVE, U Methamphetamin-MDMA NEGATIVE, U Benzodiazepines Scrn NEGATIVE, Urine Cocaine Screen NEGATIVE, U Cannabinoids Screen NEGATIVE, Ur Drug Screen Comment 04/21/21 21:00: Urine Color Yellow, Urine Clarity Clear, Urine pH 6.5, Ur Specific [place] 1.015, Urine Protein 30 H, Urine Glucose (UA) Normal, Urine Ketones 150 A*, Urine Occult Blood 10 H, Urine Nitrite Negative, Urine Bilirubin 1 H, Urine Urobilinogen 1 H, Ur Leukocyte Esterase 25 H, Urine RBC 0 SEEN, Urine WBC 0-5 SEEN, Ur Squamous Epith Cells 0-5 SEEN, Urine Bacteria RARE, Urine Mucus 1+ 04/21/21 21:36: WBC 3.6 L, RBC 4.72, Hgb 13.4, Hct 40.3, MCV 85.4, MCH 28.4, MCHC 33.3, RDW Std Deviation 43.7, RDW Coeff of Que 13.9, Plt Count 118 L, MPV 10.7, Immature Gran % (Auto) 0.300, Neut % (Auto) 70.0, Lymph % (Auto) 24.7, [place] % (Auto) 4.7, Eos % (Auto) 0.0, Baso % (Auto) 0.3, Absolute Neuts (auto) 2.5, Absolute Lymphs (auto) 0.89, Nucleated RBC % 0 04/21/21 21:36: Sodium 134 L, Potassium 3.1 L, Chloride 100, Carbon Dioxide 27.0, Anion Gap 7, BUN 19 H, Creatinine 0.77, Estim Creat Clear Calc 39.04, Est GFR (MDRD) Af Amer 94, Est GFR (MDRD) Non-Af 78, BUN/Creatinine Ratio 24.6 H, Glucose 94, Calcium 8.0 L 04/21/21 21:36: Ethyl Alcohol < 3.0 04/22/21 02:05: Fibrinogen 513 H, D-Dimer Quant (PE/DVT) 1.12 H* 04/22/21 02:05: Total Creatine Kinase 104, C-React Prot Ext Range 30.60 H 04/22/21 02:05: B-Natriuretic Peptide 17.5 04/22/21 02:05: Procalcitonin < 0.04 04/22/21 06:20: WBC 3.8 L, RBC 4.29, Hgb 12.2, Hct 36.5 L, MCV 85.1, MCH 28.4, MCHC 33.4, RDW Std Deviation 44.2 H, RDW Coeff of Que 14.2, Plt Count 115 L, MPV 10.5, Immature Gran % (Auto) 0.300, Neut % (Auto) 73.3 H, Lymph % (Auto) 21.3, [place] % (Auto) 5.1, Eos % (Auto) 0.0, Baso % (Auto) 0.0, Absolute Neuts (auto) 2.8, Absolute Lymphs (auto) 0.80 L, Nucleated RBC % 0 04/22/21 06:20: Sodium 133 L, Potassium 4.4, Chloride 104, Carbon Dioxide 22.0, Anion Gap 7, BUN 18, Creatinine 0.55, Estim Creat Clear Calc 42.62, Est GFR (MDRD) Af Amer 138, Est GFR (MDRD) Non-Af 114, BUN/Creatinine Ratio 32.5 H, Glucose 91, Calcium 7.7 L Radiography Diagnostic Testing: Radiology Impression Chest X-Ray 08/02/21 19:05 IMPRESSION: No radiographic evidence of acute cardiopulmonary disease. at 1934 Reported and signed by: Ravinder Barth MD Electronically Signed: Ravinder Barth MD at 19:33 EDT Tel , Service support , Physical Exam Const alert, oriented x3 and no apparent distress General Appearance: cooperative HEENT normocephalic and moist oral mucous membranes Eyes PERRL, EOMs intact bilaterally and conjunctivae normal Neck supple and no JVD Resp normal respiratory effort, no retractions, no use of accessory muscles and clear to auscultation bilaterally Auscultation: diminished lung sounds; Negative for crackles, rales, rhonchi or wheezes Cardio regular rate, regular rhythm, S1 normal heart sound, S2 normal heart sound and no murmurs GI soft to palpation, non-tender and non-distended; Negative for hepatosplenomegaly Extremity no clubbing, cyanosis or edema Skin no rashes or lesions noted Neuro no focal motor deficits and no sensory deficits noted Psych affect normal Appearance: appropriate Assessment & Plan Assessment/Plan (1) COVID-19: (2) Depression: (3) Restless leg syndrome: (4) IBS (irritable bowel syndrome): (5) HLD (hyperlipidemia): (6) Benign essential hypertension: PLAN: 1. COVID-19 without pneumonia -She is outside the window for remdesivir, continue with Decadron -Continue with O2 and will have an ambulatory pulse ox in the morning -Symptoms started on April 09 2. HTN/HLD -Blood pressure stable -Can continue with her home blood pressure medications 3. Anxiety/depression -Stable -Continue with her home medications 4. GERD -Stable -Continue with PPI DVT: Heparin Charges/Coding Visit Charges Inpatient E&M: 92702 Subs Hosp L2
--- NOTE | 2021-04-22 11:10 | CASEMGMT ---
Social Work Referral: correction placement Referral source: RN HEMA Met with patient in room. Introduced self and manager social work role. Patient agreeable to speak with this manager social work. Living situation: Lives with spouse. DME: No DME Prior level of functioning: Independent. HCPOA/LW: none, is interested in manager social work touching base again, when I feel better. Transportation: Drives self. Meals: Independent. LNOK: Daughter, Lela Damian and spouse, Cas Benjamin. Assessment: This manager social work broached topic of shelter placement. Patient is currently not agreeable to shelter placement. Patient spouse recently fell with a hip fracture and will not be able to take care of patient as patient spouse will be at [facility] Rehab unit. Currently pending therapy evaluations. Patient wishes to discharge to home alone and reports to have daughter that lives down the road. This manager social work communicated medical team concern of patient returning to home. Patient is agreeable to this manager social work speaking with patient after therapy for further discharge planning and support. Patient is also agreeable to this manager social work contacting patient daughter, Lela. Telephone call to Lela, This manager social work communicating above information. Lela reports to be able to stay with patient but I don't want COVID. Lela is concerned about risk for getting COVID if patient would return to home. This manager social work to discuss with medical team on recommendations if patient would return to home. Lela is agreeable to shelter placement if recommended as well. Support provided. Will continue to follow. Isidro CAR, [facility]
--- NOTE | 2021-04-22 11:24 | CT_ITS ---
STUDY: CTA CHEST REASON FOR EXAM: Female, 75 years old. Substernal chest pain, shortness of breath, elevated d-dimer RADIATION DOSAGE (If Supplied By Facility): CTDIvol = ( 8.76 ) mGy, DLP = ( 240.06 ) mGycm TECHNIQUE: The examination was performed with the intravenous administration of IV 75ML ISOVUE 370. Post-processing of the angiographic images was performed, with multiplanar reformation and 3D reconstruction. Individualized dose optimization techniques were used for this CT. COMPARISON: None. FINDINGS: Normal enhancement of the main pulmonary artery and right and left pulmonary arteries. Normal enhancement of the bilateral peripheral pulmonary arteries. There is no demonstrated pulmonary embolism. Normal thoracic aorta and visualized great vessels. There is no demonstrated aortic dissection. Normal heart and pericardium. Normal mediastinum. Normal hilar regions. There is peribronchial thickening. The lungs are well expanded. Diffuse interstitial and airspace opacifications predominantly in the periphery of both lung fontana without effusions. This pattern of opacification is most consistent with Covid pneumonia. Normal pleura. Normal chest wall structures. There are degenerative changes of thoracic spine. Limited cuts through the upper abdomen do not show a suspicious solid organ abnormality, there has been a previous cholecystectomy CT/CTA Chest W/WO Contrast IMPRESSION: No demonstrated PE, or thoracic aortic aneurysm or dissection Diffuse interstitial and airspace opacifications in both lung fontana without effusions. This pattern of opacification is most consistent with Covid pneumonia. Degenerative bony changes No suspicious adenopathy Electronically Signed: Leonid Servin MD at 12:44 EDT , Service support ,
--- NOTE | 2021-04-22 13:33 | CASEMGMT ---
Per pt's daughter, pt tested COVID + at [facility] on 04/12/21. SStmaribel ABREU CM
--- NOTE | 2021-04-22 13:38 | CASEMGMT ---
Social Work Telephone call to patient daughter to inquire about where patient was tested for COVID-19 at, patient was tested at [facility]. This social media analyst also noted that physical therapy has completed assessment with patient and is not recommending any further therapy for patient. Patient daughter voiced understanding and is going to work towards patient returning to home with daughter to assist. Will continue to follow. Isidro Chambers MSW, CHACE
[2021-04-22] MEDS: Loratadine 10 MG Tablet PO (21:07)
[2021-04-22] MEDS: buPROPion (SR) 150 MG Tablet.SA PO (21:07)
[2021-04-22] MEDS: Acetaminophen 325 MG Tablet 650 MG PO (23:25)
[2021-04-23 04:30] VITALS: BP 100/74; PULSE 59; RESP 16; TEMP 36.4; O2SAT 96
[2021-04-23 06:33] LABS: Absolute Lymphocyte Count 0.72 X10^3/uL (0.83-4.51); Absolute Neutrophil Count 2.9 X10^3/uL (2.0-7.7); Basophil# 0.01 X10^3/uL; Basophil% 0.3 % (0-1); Hematocrit 37.3 % (37-47); Hemoglobin 12.4 g/dL (12.0-15.0); Lymphocyte # 0.72 X10^3/ul (0.83-4.51); Lymphocyte % 18.4 % (19-41); Mean Corp Hgb Conc 33.2 g/dL (32-36); Mean Corpuscular Hgb 28.8 pg (27.0-32.0); Mean Corpuscular Volume 86.5 fL (81-99); Mean Platelet Vol. 10.6 fl (6.2-12.0); Monocyte# 0.26 X10^3/uL; Monocyte% 6.6 % (0-10); NRBC Flagged by Analyzer 0 % (0-5); Neutrophil # 2.92 X10^3/uL (2.7-7.7); Neutrophil % 74.4 % (47-70); POSITIVE MORPHOLOGY YES; Platelet Count 145 K/mm3 (150-450); RBC Distribution Width CV 14.5 % (11.6-14.6); RBC Distribution Width SD 46.5 fl (35.1-43.9); Red Blood Count 4.31 M/mm3 (4.2-5.4); White Blood Count 3.9 K/mm3 (4.4-11.0)
[2021-04-23 06:37] LABS: Differential Indicated SCAN CRITERIA MET
[2021-04-23 06:57] LABS: Anion Gap 8 (5-15); BUN 30 mg/dL (7-18); BUN/Creat Ratio 41.2 RATIO (10-20); Calcium,Total 8.8 mg/dL (8.5-10.1); Chloride 106 mmol/L (98-107); Creatinine, Serum 0.73 mg/dL (0.55-1.02); EST Glomerular Filtration Rate 83 mL/min (>60); Est Glom Filt Rate - Afr Amer 100 mL/min (>60); Estimated Creatinine Clearance 42.62 ml/min; Glucose 117 mg/dL (74-106); Potassium 4.2 mmol/L (3.5-5.1); Sodium Level 138 mmol/L (136-145)
[2021-04-23 09:03] VITALS: BP 104/79; PULSE 65; RESP 16; TEMP 36.4; O2SAT 95
[2021-04-23 09:10] VITALS: O2SAT 94; O2SAT 95
[2021-04-23] MEDS: dexAMETHasone 10 MG/ML Vial 6 MG IV (09:14)
[2021-04-23] MEDS: Losartan Potassium 50 MG Tablet PO (09:15)
[2021-04-23] MEDS: Aspirin 81 MG TAB.CHEW PO (09:15)
[2021-04-23] MEDS: Enoxaparin 40 MG/0.4 ML Syringe SC (09:15)
[2021-04-23] MEDS: 0.9% Saline Lock 10 ML Syringe IV (09:15)
[2021-04-23] MEDS: Pantoprazole Sodium 40 MG Tablet PO (09:15)
[2021-04-23] MEDS: Calcium Carb/Vitamin D 1 TABLET Tablet PO (09:15)
--- NOTE | 2021-04-23 10:13 | CASEMGMT ---
Per Dominguez RN, pt does not qualify for any home oxygen. Per therapy, no further therapy recommended. Manuel ABREU CM
--- NOTE | 2021-04-23 10:33 | PCM.DC ---
Discharge Instructions Diet Discharge Diet: No restrictions Activity Discharge Activity: Return to Normal Activity Dressing / Incision Call your doctor if you observe: Fever of 101 or Higher, Shortness of breath, Dizziness, Swelling in the ankles, Chest pain and Increased palpitations (irregular heartbeat) Follow Up Care Test Results: Test results from this visit will be discussed in further detail at your follow-up appointment, if applicable. Discharge Plan Admission Admit Date/Time: 04/22/21 00:06 Attending Provider: Otto Cardona Primary Care Provider: Lucy Maki Instructions Additional Instructions / Restrictions: Quarantine for another week, would recommend getting the Covid vaccine when outside of quarantine for you and your family. Discharge Orders/Prescriptions Prescriptions: New dexamethasone 2 mg tablet 6 mg PO DAILY 8 Days Qty: 24 RF: 0 Continued cetirizine [Zyrtec] 10 mg tablet 10 mg PO QHS RF: 0 cholecalciferol (vitamin D3) 1,250 mcg (50,000 unit) capsule 50,000 unit PO .2Qweekly RF: 0 hydrochlorothiazide 25 mg tablet 25 mg PO PRN PRN (Reason: Blood Pressure) Qty: 60 RF: 0 biotin 1 mg tablet 1 mg PO DAILY Qty: 90 RF: 1 bupropion HCl 150 MG tablet sustained-release 12 hr 150 mg PO QHS RF: 0 clonazepam 0.5 MG tablet 0.5 mg PO QHS PRN (Reason: RESTLESS LEGS) RF: 0 lansoprazole 30 MG capsule 30 mg PO DAILY RF: 0 aspirin 81 MG tablet,chewable 81 mg PO DAILY@0800 RF: 0 calcium phosphate-vitamin D3 1 EACH tablet,chewable 1 ea PO DAILY RF: 0 ondansetron 4 MG tablet 4 mg PO Q8H PRN PRN (Reason: Nausea) Qty: 10 RF: 0 promethazine 25 MG tablet 25 mg PO Q6H PRN PRN (Reason: Nausea) Qty: 15 RF: 0 Prolia 60 mg/mL syringe 60 mg SC [id number] Qty: 1 RF: 0 valsartan 160 mg tablet 160 mg PO DAILY Qty: 90 RF: 1 tavaborole 5 % solution with applicator 1 applic topical DAILY 336 Days Qty: 10 RF: 0 Referrals / Follow Up: Lucy Maki MD [Primary Care Provider] - In 1 Week Disposition Disposition (needs filled in before D/C Order can be placed): Home, Self Care
--- NOTE | 2021-04-23 10:46 | DS.PCM_ITS ---
Providers Date of Admission: 04/22/21 Primary Care Physician: Dr. Lucy Maki MD Reason For Visit: COVID 19, MENTAL STATUS CHANGE Diagnosis Discharge Diagnosis (1) COVID-19: Status: Acute Code(s): U07.1 - COVID-19 (2) Depression: Status: Acute Code(s): F32.9 - Major depressive disorder, single episode, unspecified (3) Restless leg syndrome: Status: Acute Code(s): G25.81 - Restless legs syndrome (4) IBS (irritable bowel syndrome): Status: Acute Code(s): K58.9 - Irritable bowel syndrome without diarrhea (5) HLD (hyperlipidemia): Status: Chronic Code(s): E78.5 - Hyperlipidemia, unspecified (6) Benign essential hypertension: Status: Chronic Code(s): I10 - Essential (primary) hypertension Medications at Discharge Home Medications bupropion HCl 150 mg PO QHS 01/05/17 clonazepam 0.5 mg PO QHS PRN 01/05/17 lansoprazole 30 mg PO DAILY 01/05/17 cetirizine 10 mg tablet 10 mg PO QHS tab 07/03/19 aspirin 81 mg PO DAILY@0800 07/13/19 calcium phosphate-vitamin D3 1 ea PO DAILY 07/13/19 cholecalciferol (vitamin D3) 1,250 mcg (50,000 unit) capsule 50,000 unit PO .2Qweekly cap 01/23/21 hydrochlorothiazide 25 mg tablet 25 mg PO PRN PRN #60 tab 01/23/21 denosumab 60 mg/mL subcutaneous syringe 60 mg SC [id number] #1 ml 01/29/21 valsartan 160 mg tablet 160 mg PO DAILY #90 tab 03/04/21 biotin 1 mg tablet 1 mg PO DAILY #90 tab 03/11/21 tavaborole 5 % topical solution with applicator 1 applic TOPICAL DAILY 336 Days #10 ml 03/14/21 ondansetron 4 mg PO Q8H PRN PRN #10 tab 04/16/21 promethazine 25 mg PO Q6H PRN PRN #15 tablet 04/18/21 dexamethasone 6 mg PO DAILY 8 Days #24 tab 04/23/21 Hospital Course Operations None Procedures None Summary of Care Provided Minutes Spent on Discharge: 35 Hospital Course: Per HPI: FLORIN ZABALA, is a 75 F who presents to the emergency room after testing positive for COVID-19 virus 1 week ago. It seems as though there is an outbreak within her family of about 30 members recently and her also tested positive and is admitted in this hospital who fell and broke his hip as well. According to the daughter the patient has become more confused throughout the week despite trying her best efforts to recover at home. She is short of breath at rest and has no appetite due to loss of taste and smell. She will be admitted for COVID-19 virus protocol and will be isolated. Hospital Course: 1. COVID-19 pneumonia present on [id number]-old female presents from home with shortness of breath and increased confusion. She tested positive for Covid on 04/12/2021, but symptoms started on 04/10/2021. Her also presen hang with Covid but he had had a fractured hip as well from a mechanical fall. Her daughter brought her in because of increased confusion which seems to have resolved though she is still little bit tired and slow mentally. She did work with physical therapy who did not recommend any further therapy. She is outside the window of remdesivir and was started on Decadron and has done well, she will complete 8 more days of Decadron. She had an ambulatory pulse ox today prior to discharge which did not demonstrate any need for home-going oxygen. Discussed with her the plan for discharge today she expressed understanding of the risk benefits going home and would like to go home today. She is to follow-up with her PCP in about a week once she completes her quarantine after the next 7 days. I also recommend that she and her whole family get the Covid vaccine when able to. 2. Hypertension, hyperlipidemia, anxiety, depression, GERD are all chronic medical conditions which complicate her care. Her home medications were continued were appropriate Physical Exam Const alert, oriented x3 and no apparent distress General Appearance: cooperative HEENT normocephalic and moist oral mucous membranes Eyes PERRL, EOMs intact bilaterally and conjunctivae normal Neck supple and no JVD Resp normal respiratory effort, no retractions, no use of accessory muscles and clear to auscultation bilaterally Auscultation: diminished lung sounds bilateral; Negative for crackles, rales, rhonchi or wheezes Cardio regular rate, regular rhythm, S1 normal heart sound, S2 normal heart sound and no murmurs GI soft to palpation, non-tender and non-distended; Negative for hepatosplenomegaly Extremity no clubbing, cyanosis or edema Skin no rashes or lesions noted Neuro no focal motor deficits and no sensory deficits noted Psych affect normal Appearance: appropriate Medical Records Data Medical Nutrition Assessment Dietitian: Nutrition Therapy Diagnosis Start: 04/22/21 11:32 Freq: Status: Active Protocol: Document 04/22/21 11:38 AG (Rec: 04/22/21 11:38 AG [id number]) Nutrition Malnutrition Evidence of Malnutrition Exists No Intake Problem Inadequate Oral Intake Etiology (predicted) r/t decreased appetite d/t loss of taste/ smell Signs/Symptoms as evidenced by reported decline in PO intake SEAM PRESSER (~1 week) Status Active Problem Recommendation Dietitian Recommendations/Changes continue regular diet given risk of malnutrition during acute illness. Will add 120mL Ensure Enlive w/ meals for additional calories/protein if consumed. Weight / BMI Weight Weight: 141 lb 1.533 oz Body Mass Index (BMI) 23.8 ABG / Lab / Microbiology Data Result Diagrams: 04/23/21 06:20 04/23/21 06:20 Laboratory: Laboratory Results - last 24 hr 04/23/21 06:20: WBC 3.9 L, RBC 4.31, Hgb 12.4, Hct 37.3, MCV 86.5, MCH 28.8, MCHC 33.2, RDW Std Deviation 46.5 H, RDW Coeff of Que 14.5, Plt Count 145 L, MPV 10.6, Immature Gran % (Auto) 0.300, Neut % (Auto) 74.4 H, Lymph % (Auto) 18.4 L, [place]s % (Auto) 6.6, Eos % (Auto) 0.0, Baso % (Auto) 0.3, Absolute Neuts (auto) 2.9, Absolute Lymphs (auto) 0.72 L, Nucleated RBC % 0 04/23/21 06:20: Sodium 138, Potassium 4.2, Chloride 106, Carbon Dioxide 24.0, Anion Gap 8, BUN 30 H, Creatinine 0.73, Estim Creat Clear Calc 42.62, Est GFR (MDRD) Af Amer 100, Est GFR (MDRD) Non-Af 83, BUN/Creatinine Ratio 41.2 H, Glucose 117 H, Calcium 8.8 Radiography Diagnostic Testing: Radiology Impression Chest CTA 04/22/21 11:24 IMPRESSION: No demonstrated PE, or thoracic aortic aneurysm or dissection Diffuse interstitial and airspace opacifications in both lung fontana without effusions. This pattern of opacification is most consistent with Covid pneumonia. Degenerative bony changes No suspicious adenopathy Electronically Signed: Leonid Servin MD at 12:44 EDT , Service support , D/C Instructions Discharge Diet: No restrictions Call your doctor if you observe: Fever of 101 or Higher, Shortness of breath, Dizziness, Swelling in the ankles, Chest pain and Increased palpitations (irregu lar heartbeat) Meaningful Use Info Meaningful Use Diagnoses (Choose all that apply): None applicable Discharge Plan Admission Admit Date/Time: 04/22/21 00:06 Attending Provider: Otto Cardona Primary Care Provider: Lucy Maki Instructions Additional Instructions / Restrictions: Quarantine for another week, would recommend getting the Covid vaccine when outside of quarantine for you and your family. Discharge Orders/Prescriptions Prescriptions: New dexamethasone 2 mg tablet 6 mg PO DAILY 8 Days Qty: 24 RF: 0 Continued cetirizine [Zyrtec] 10 mg tablet 10 mg PO QHS RF: 0 cholecalciferol (vitamin D3) 1,250 mcg (50,000 unit) capsule 50,000 unit PO .2Qweekly RF: 0 hydrochlorothiazide 25 mg tablet 25 mg PO PRN PRN (Reason: Blood Pressure) Qty: 60 RF: 0 biotin 1 mg tablet 1 mg PO DAILY Qty: 90 RF: 1 bupropion HCl 150 MG tablet sustained-release 12 hr 150 mg PO QHS RF: 0 clonazepam 0.5 MG tablet 0.5 mg PO QHS PRN (Reason: RESTLESS LEGS) RF: 0 lansoprazole 30 MG capsule 30 mg PO DAILY RF: 0 aspirin 81 MG tablet,chewable 81 mg PO DAILY@0800 RF: 0 calcium phosphate-vitamin D3 1 EACH tablet,chewable 1 ea PO DAILY RF: 0 ondansetron 4 MG tablet 4 mg PO Q8H PRN PRN (Reason: Nausea) Qty: 10 RF: 0 promethazine 25 MG tablet 25 mg PO Q6H PRN PRN (Reason: Nausea) Qty: 15 RF: 0 Prolia 60 mg/mL syringe 60 mg SC [id number] Qty: 1 RF: 0 valsartan 160 mg tablet 160 mg PO DAILY Qty: 90 RF: 1 tavaborole 5 % solution with applicator 1 applic topical DAILY 336 Days Qty: 10 RF: 0 Referrals / Follow Up: Lucy Maki MD [Primary Care Provider] - In 1 Week Disposition Disposition (needs filled in before D/C Order can be placed): Home, Self Care Charges/Coding Visit Charges Inpatient E&M: [id number] [facility]
--- NOTE | 2021-04-23 11:10 | CASEMGMT ---
Social Work Telephone to patient daughter, Padmaja, updated on plan for patient to discharge to home with daughter today. Padmaja voiced understanding but I need to clean the house first. Padmaja plans to clean patient home today and then come and pick patient up. Met with patient in room. Patient agreeable to plan to discharge to home. Patient denies any concerns on returning to home. This social worker health services broached topic of advanced directives with patient as patient expressed an interest. Patient declines to complete advanced directives currently. This social worker health services provided patient with advanced directives documents and contact information to get an appointment set up to complete advanced directives at hospital. Patient denies any further needs/concerns. Proposed discharge date: 04/23/2021 Discharge to home. Isidro CAR, CHACE
--- NOTE | 2021-04-23 15:23 | PHA.DC.MR ---
Pharmacy Service has performed discharge medication reconciliation for this patient. The patient's discharge medication list was reviewed for discrepancies and discrepancies were resolved. This [facility] was not able to speak with patient before discharge. Home Medications bupropion HCl 150 mg PO QHS 01/05/17 clonazepam 0.5 mg PO QHS PRN 01/05/17 lansoprazole 30 mg PO DAILY 01/05/17 cetirizine 10 mg tablet 10 mg PO QHS tab 07/03/19 aspirin 81 mg PO DAILY@0800 07/13/19 calcium phosphate-vitamin D3 1 ea PO DAILY 07/13/19 cholecalciferol (vitamin D3) 1,250 mcg (50,000 unit) capsule 50,000 unit PO .2Qweekly cap 01/23/21 hydrochlorothiazide 25 mg tablet 25 mg PO PRN PRN #60 tab 01/23/21 denosumab 60 mg/mL subcutaneous syringe 60 mg SC [id number] #1 ml 01/29/21 valsartan 160 mg tablet 160 mg PO DAILY #90 tab 03/04/21 biotin 1 mg tablet 1 mg PO DAILY #90 tab 03/11/21 tavaborole 5 % topical solution with applicator 1 applic TOPICAL DAILY 336 Days #10 ml 03/14/21 ondansetron 4 mg PO Q8H PRN PRN #10 tab 04/16/21 promethazine 25 mg PO Q6H PRN PRN #15 tablet 04/18/21 dexamethasone 6 mg PO DAILY 8 Days #24 tab 04/23/21
--- NOTE | 2021-04-24 14:38 | CASEMGMT ---
BRADY GARRIDO Discharge Follow-up Phone Call: ELISA: Dyana Strata: 3 Call Date: 04/24/21 Discharge Date: 04/23/21 Time of Call: 1435 Duration: 3 min Admitting Diagnosis: COVID BRADY GARRIDO completed follow-up phone call after recent. Patient states she has been tired. Patient states she had no questions regarding discharge instructions. Patient states she was able to fill meds without any issues. Patient states she has follow-up appt scheduled Wednesday with PCP. Patient states he breathing has been fine. Patient had no further questions or concerns at this time.
== END 2021-04-23 15:11 | disposition home or self-care (01) | DRG 177 ==
LOC: ED 21:19 → PCU 04-22 00:26
PROVIDERS: Admitting Provider Family Medicine; Emergency Provider Emergency Medicine; PCP Internal Medicine; Visit Provider Family Medicine
DX: U07.1 COVID-19 (principal); J12.82 Pneumonia due to coronavirus disease 2019; R09.02 Hypoxemia; E86.0 Dehydration; I10 Essential (primary) hypertension; E55.9 Vitamin D deficiency, unspecified; E78.00 Pure hypercholesterolemia, unspecified; E78.5 Hyperlipidemia, unspecified; F32.9 Major depressive disorder, single episode, unspecified; F41.9 Anxiety disorder, unspecified; G25.81 Restless legs syndrome; I73.9 Peripheral vascular disease, unspecified; K21.9 Gastro-esophageal reflux disease without esophagitis; K58.9 Irritable bowel syndrome, unspecified; M19.90 Unspecified osteoarthritis, unspecified site; Z86.73 Personal history of transient ischemic attack (TIA), and cerebral infarction without residual deficits; Z85.828 Personal history of other malignant neoplasm of skin; Z79.82 Long term (current) use of aspirin; Z79.899 Other long term (current) drug therapy
CPT/HCPCS: 36415; 71045; 71275; 80048; 80307; 81001; 82077; 82550; 83880; 84145; 85025; 85379; 85384; 86140; 93005; 97162; 97166; 99284; Q9967; A4216

== ENCOUNTER → 2021-07-07 11:16 | Outpatient (CLI) | payer MEDICARE, BC, OTHER, SELFPAY ==
[2021-07-07 13:00] LABS: Vitamin D,25 Hydroxy 77.3 ng/mL
[2021-07-07 13:06] LABS: Free T3 2.9 pg/mL (2.18-3.98); T4 Free Direct 0.97 ng/dL (0.76-1.46); Thyroid Stim Hormone (TSH) 1.48 uIU/mL (0.358-3.74)
== END ==
PROVIDERS: PCP Internal Medicine; Referring Provider Internal Medicine; Visit Provider Internal Medicine
DX: U07.1 COVID-19 (principal); E55.9 Vitamin D deficiency, unspecified; L65.9 Nonscarring hair loss, unspecified
CPT/HCPCS: 36415; 82306; 84439; 84443; 84481

== ENCOUNTER → 2021-07-16 | Outpatient (CLI) | payer MEDICARE, BC, OTHER, SELFPAY ==
[2021-07-16 12:06] LABS: Absolute Lymphocyte Count 1.74 X10^3/uL (0.83-4.51); Absolute Neutrophil Count 3.1 X10^3/uL (2.0-7.7); Basophil# 0.04 X10^3/uL; Basophil% 0.7 % (0-1); Eosinophil# 0.28 X10^3/uL; Eosinophils% 5.1 % (0-5); Hematocrit 40.8 % (37-47); Hemoglobin 13.6 g/dL (12.0-15.0); Lymphocyte # 1.74 X10^3/ul (0.83-4.51); Lymphocyte % 31.9 % (19-41); Mean Corp Hgb Conc 33.3 g/dL (32-36); Mean Corpuscular Hgb 28.9 pg (27.0-32.0); Mean Corpuscular Volume 86.8 fL (81-99); Mean Platelet Vol. 10.8 fl (6.2-12.0); Monocyte% 5.5 % (0-10); NRBC Flagged by Analyzer 0 % (0-5); Neutrophil # 3.09 X10^3/uL (2.7-7.7); Neutrophil % 56.6 % (47-70); Platelet Count 178 K/mm3 (150-450); RBC Distribution Width CV 13.7 % (11.6-14.6); White Blood Count 5.5 K/mm3 (4.4-11.0)
[2021-07-16 12:45] LABS: Ferritin 61 ng/mL (8-252)
[2021-07-16 13:36] LABS: Vitamin D,25 Hydroxy 84.3 ng/mL
[2021-07-18 14:44] LABS: Vitamin D 1,25-Dihydroxy 39.4 pg/mL (19.9-79.3)
[2021-07-23 13:36] LABS: Zinc, Plasma or Serum 79 ug/dL (44-115)
== END | disposition home or self-care (01) ==
LOC: MTLAB 09:52
PROVIDERS: PCP Internal Medicine; Referring Provider Dermatology; Visit Provider Dermatology
DX: L65.0 Telogen effluvium (principal)
CPT/HCPCS: 36415; 82306; 82652; 82728; 84630; 85025

== ENCOUNTER 2021-07-25 09:21 | Observation (INO) | payer MEDICARE, BC, OTHER, SELFPAY ==
[2021-07-25] VITALS (12 sets, daily range): BP systolic 108–133; BP diastolic 57–88; PULSE 69–92; RESP 16–18; TEMP 36.1–37.1; O2SAT 95–97; BMI 25.2; BMI 24.5
--- NOTE | 2021-07-25 09:44 | EKG12_ITS ---
Test Reason : DIZZY Blood Pressure : / mmHG Vent. Rate : 077 BPM Atrial Rate : 077 BPM P-R Int : 182 ms QRS Dur : 090 ms QT Int : 422 ms P-R-T Axes : 040 008 071 degrees QTc Int : 477 ms Normal sinus rhythm Inferior infarct , age undetermined Abnormal ECG Confirmed by SHAMEKA BOYD, AMBER ([id number]), editorial specialist VICTORINA ARORA ([id number]) on 07/28/2021 10:57:20 AM Referred By: ROBERTO Confirmed By:AMBER MYLES MD
--- NOTE | 2021-07-25 10:17 | EDS_ITS ---
HPI History of Present Illness Chief Complaint: Dizziness Narrative Narrative: Patient sustained an episode that lasted about a half an hour where she felt quite nauseated she was diaphoretic and she did not feel well. Her was gone and when he came back he found her with her head down, but she was responsive. She remembers the event, she is denying any chest pain with this event. No headache or vision changes. No focal weakness or sensory deficits. No confusion. No recent fevers or chills. She still has some nausea and epigastric pain but these are slowly improving also. No diarrhea. No back pain or tearing sensation no DVT or PE risk factors. [facility] Medical History Arthritis Benign essential hypertension Depression GERD (gastroesophageal reflux disease) History of skin cancer HLD (hyperlipidemia) IBS (irritable bowel syndrome) Previous history TIA PVD (peripheral vascular disease) Restless leg syndrome Seasonal allergies Vitamin D deficiency, unspecified Home Medications clonazepam 0.5 mg PO QHS PRN 01/05/17 [History Last Taken 03/15/17] aspirin 81 mg PO DAILY@0800 07/13/19 [History Last Taken Unknown] calcium phosphate-vitamin D3 1 ea PO DAILY 07/13/19 [History Last Taken Unknown] cholecalciferol (vitamin D3) 1,250 mcg (50,000 unit) capsule 50,000 unit PO .2Qweekly #12 cap 04/28/21 [Rx Last Taken Unknown] lansoprazole 30 mg capsule,delayed release 30 mg PO DAILY #90 cap 04/28/21 [Rx Last Taken Unknown] nystatin 100,000 unit/mL oral suspension 1 ml PO TID 10 Days #30 ml 04/28/21 [Rx Last Taken Unknown] bupropion HCl 150 mg 24 hr tablet, extended release 150 mg PO QAM #90 tab 06/17/21 [Rx Last Taken Unknown] cetirizine 10 mg tablet 10 mg PO QHS #90 tab 06/19/21 [Rx Last Taken Unknown] valsartan 160 mg-hydrochlorothiazide 25 mg tablet 1 tab PO DAILY #30 tab 07/07/21 [Rx Last Taken Unknown] ferrous sulfate [Slo-Release Iron] 45 mg PO DAILY 07/25/21 [History Last Taken Unknown] meloxicam 15 mg PO DAILY 07/25/21 [History Last Taken Unknown] [id number] [Alive Women's Energy] 1 tab PO DAILY 07/25/21 [History Last Taken Unknown] Allergy/AdvReac Type Severity Reaction Status Date / Time Sulfa (Sulfonamide Allergy Hives Verified 07/25/21 09:25 Antibiotics) morphine AdvReac Nausea/Vom/ Verified 07/25/21 09:25 Diarrhea Family History Mother Diabetes Hypertension High cholesterol Father Diabetes Hypertension CVA (cerebral vascular accident) Sister Cancer Surgical History History of hysterectomy History of laparoscopic cholecystectomy History of right hip replacement Social History household members: none Smoking Status: Never smoker alcohol intake: current alcohol intake frequency: holidays/special occasions only substance use type: does not use what type of physical activity do you participate in: none ROS ROS ED ROS Narrative Past medical history: Reviewed, includes COVID-19 with subsequent hair loss, nausea and vomiting which has happened in the past, arthritis, peripheral vascular disease. Medications: Reviewed Social history: Noncontributory Review of systems: All systems negative except as indicated General: No fever. Diaphoresis which improved Eyes: No visual changes ENT: No upper airway congestion, normal voice Neck: No neck pain Cardiovascular: No chest pain. No palpitations. Respiratory: No shortness of breath or cough Gastrointestinal: Nausea vomiting and epigastric pain. It does not radiate to the back. Genitourinary: No dysuria Musculoskeletal: Denies myalgias no difficulty with ambulation Skin: No rash Neurological: No memory loss, confusion or any focal weakness Psych: No recent behavioral changes Hematologic: No easy bleeding or easy bruising EXAM Physical Exam Narrative Exam Narrative: Physical exam General: Patient appears relatively comfortable. Head: Normocephalic, Atraumatic Eyes: Conjunctiva not pale ENT: Slightly dry mucous membranes Neck: Supple, Nontender, No lymphadenopathy Cardiovascular: Regular rate, Regular rhythm Respiratory: No distress, CTA bilaterally Abdomen: Slight epigastric tenderness no guarding or rebound. No right upper quadrant pain. Negative Vitale's. No lower abdominal pain. Back: Nontender, Normal Inspection. Negative for: CVA tenderness Extremities: Nontender, No edema Skin: Normal color, No rash Neurological: Alert, Normal Strength, Normal Sensation. Normal cerebellar. Psychological: Normal affect Const Vital Signs: 07/25/21 09:21 07/25/21 09:28 07/25/21 10:29 Temperature 97.1 F L Temperature Source Temporal Pulse Rate 73 74 Respiratory Rate 18 16 Respiratory Effort Normal Non-Labored Respiratory Pattern Normal Blood Pressure 133/73 H 110/75 Blood Pressure Mean 93 86 Pulse Ox 95 97 Oxygen Delivery Method Room Air Room Air 07/25/21 11:16 Temperature Temperature Source Pulse Rate 73 Respiratory Rate 16 Respiratory Effort Respiratory Pattern Blood Pressure 108/57 L Blood Pressure Mean 74 Pulse Ox 97 Oxygen Delivery Method Room Air MDM MDM MDM Narrative Medical decision making narrative: Patient has an unremarkable work-up, however she had a significant episode of diaphoresis with somewhat decreased loss of consciousness my worry is for probably a bradycardia, I will admit for cardiac work-up and monitoring. Lab Data Labs: Laboratory Results - last 24 hr 07/25/21 07/25/21 10:10 10:10 WBC 6.3 RBC 4.97 Hgb 14.2 Hct 42.6 MCV 85.7 MCH 28.6 MCHC 33.3 RDW Std Deviation 42.5 RDW Coeff of Que 13.6 Plt Count 203 MPV 10.1 Immature Gran % (Auto) 0.300 Neut % (Auto) 65.2 Lymph % (Auto) 25.4 [place] % (Auto) 5.7 Eos % (Auto) 2.9 Baso % (Auto) 0.5 Absolute Neuts (auto) 4.1 Absolute Lymphs (auto) 1.60 Nucleated RBC % 0 Sodium 140 Potassium 4.1 Chloride 106 Carbon Dioxide 31.0 Anion Gap 3 L BUN 22 H Creatinine 1.04 H Estim Creat Clear Calc 40.98 Est GFR (MDRD) Af Amer 67 Est GFR (MDRD) Non-Af 55 L BUN/Creatinine Ratio 21.2 H Glucose 111 H Calcium 9.7 Total Bilirubin 0.40 AST 20 ALT 22 Alkaline Phosphatase 89 Troponin I High Sens 4 Total Protein 7.2 Albumin 3.5 Globulin 3.7 Albumin/Globulin Ratio 0.9 Lipase 130 EKG Initial EKG: Comments: Sinus rhythm with a rate of 77. Normal OR interval. QTC is 477. No LVH. No Brugada. No ischemic changes, interpreted by emergency doctor Discharge Plan Triage Chief Complaint: Dizziness ED Provider: Nitesh Vega Dx/Rx/DC Orders Clinical Impression: Diaphoresis, Nausea & vomiting, Decreased responsiveness Prescriptions: No Action lansoprazole 30 mg capsule,delayed release(DR/EC) 30 mg PO DAILY Qty: 90 RF: 1 cholecalciferol (vitamin D3) 1,250 mcg (50,000 unit) capsule 50,000 unit PO .2Qweekly Qty: 12 RF: 1 nystatin 100,000 unit/mL suspension 1 ml PO TID 10 Days Qty: 30 RF: 1 valsartan-hydrochlorothiazide [Diovan HCT] 160-25 mg tablet 1 tab PO DAILY Qty: 30 RF: 1 clonazepam 0.5 MG tablet 0.5 mg PO QHS PRN (Reason: RESTLESS LEGS) RF: 0 aspirin 81 MG tablet,chewable 81 mg PO DAILY@0800 RF: 0 calcium phosphate-vitamin D3 1 EACH tablet,chewable 1 ea PO DAILY RF: 0 meloxicam 15 mg Tablet 15 mg PO DAILY RF: 0 Slo-Release Iron 250 mg Capsule, Extended Release 45 mg PO DAILY RF: 0 Alive Women's Energy 18-400-80 mg-mcg-mcg Tablet 1 tab PO DAILY RF: 0 bupropion HCl 150 mg tablet extended release 24 hr 150 mg PO QAM Qty: 90 RF: 1 cetirizine [Zyrtec] 10 mg tablet 10 mg PO QHS Qty: 90 RF: 1 Primary Care Provider: Lucy Maki Referrals: Lucy Maki MD [Primary Care Provider] - Disposition Disposition: Acute Care Hospital [facility]
[2021-07-25 10:20] LABS: Absolute Neutrophil Count 4.1 X10^3/uL (2.0-7.7); Basophil# 0.03 X10^3/uL; Basophil% 0.5 % (0-1); Eosinophil# 0.18 X10^3/uL; Eosinophils% 2.9 % (0-5); Hematocrit 42.6 % (37-47); Hemoglobin 14.2 g/dL (12.0-15.0); Lymphocyte % 25.4 % (19-41); Mean Corp Hgb Conc 33.3 g/dL (32-36); Mean Corpuscular Hgb 28.6 pg (27.0-32.0); Mean Corpuscular Volume 85.7 fL (81-99); Mean Platelet Vol. 10.1 fl (6.2-12.0); Monocyte# 0.36 X10^3/uL; Monocyte% 5.7 % (0-10); NRBC Flagged by Analyzer 0 % (0-5); Neutrophil % 65.2 % (47-70); Platelet Count 203 K/mm3 (150-450); RBC Distribution Width CV 13.6 % (11.6-14.6); RBC Distribution Width SD 42.5 fl (35.1-43.9); Red Blood Count 4.97 M/mm3 (4.2-5.4); White Blood Count 6.3 K/mm3 (4.4-11.0)
[2021-07-25] MEDS: 0.9% Normal Saline 1,000 ML 1000 ML IV (10:29)
[2021-07-25] MEDS: Ondansetron 4 MG/2 ML Vial IV (10:29)
[2021-07-25 10:39] LABS: ALB/GLOB Ratio 0.9 RATIO (0.9-2.4); AST(SGOT) 20 U/L (15-37); Alanine Aminotransfer ALT/SGPT 22 U/L (13-56); Albumin, Serum 3.5 g/dL (3.2-5.0); Alkaline Phosphatase 89 U/L (45-117); Anion Gap 3 (5-15); BUN 22 mg/dL (7-18); BUN/Creat Ratio 21.2 RATIO (10-20); Calcium,Total 9.7 mg/dL (8.5-10.1); Chloride 106 mmol/L (98-107); Creatinine, Serum 1.04 mg/dL (0.55-1.02); EST Glomerular Filtration Rate 55 mL/min (>60); Est Glom Filt Rate - Afr Amer 67 mL/min (>60); Estimated Creatinine Clearance 40.98 ml/min; Globulin 3.7 g/dL (2.2-4.2); Glucose 111 mg/dL (74-106); Lipase 130 U/L (73-393); Potassium 4.1 mmol/L (3.5-5.1); Protein, Total 7.2 g/dL (6.4-8.2); Sodium Level 140 mmol/L (136-145); Troponin-I HS 4 pg/mL (3.0-54.0)
[2021-07-25 11:17] LABS: Bacteria 0 SEEN /hpf (None Seen); Mucous, Urine 0 SEEN /hpf (<or=2+); Red Blood Cells-Urine 0 SEEN /hpf (0-5); White Blood Cells 0 SEEN /hpf (0-5)
[2021-07-25 11:35] LABS: Color, Urine Yellow (Yellow); Glucose, Dipstick Normal (Normal); Ketone-Dipstick Negative (Negative); Leukocyte Esterase-Dipstick Negative /ul (Negative); Nitrite-Dipstick Negative (Negative); Occult Blood-Urine Negative /ul (Negative); Protein-Dipstick Negative (Negative); Urine Bilirubin Dipstick Negative (Negative); Urine Clarity Sl. Cloudy (Clear); Urine Urobilinogen Normal (Normal)
[2021-07-25 11:41] LABS: Squamous Epithelial Cells - UA 0-5 SEEN /hpf (5-10)
--- NOTE | 2021-07-25 12:35 | PCM.HP.STD ---
HPI - General General Date of Admission: 07/25/21 HPI Narrative FLORIN ZABALA, is a 75 F with history of chronic dizziness on and off for 2 to 3 years got worse since February 2021. She was admitted for Covid pneumonia in April 2021. She also has tinnitus in both ears and mild hearing loss but never been evaluated by ENT doctor. Denies vertigo. Denies chest pain, pressure or shortness of breath. Sometimes he feels like she is going to pass out or fall but did not had yet. She has disequilibrium on walking. She also has mild chronic sinusitis. Denies prior history of vertigo, stroke, coronary artery disease, peripheral arterial disease. Denies smoking or chronic lung disease. History of RFA probably she had a fever currently sinus rhythm. Twelve-lead EKG shows normal sinus rhythm at 77 bpm, QTC 477 ms, QRS 90 ms. Labs done in the ER reviewed. FORMERLY [facility] Medical History Arthritis Benign essential hypertension Depression GERD (gastroesophageal reflux disease) History of skin cancer HLD (hyperlipidemia) IBS (irritable bowel syndrome) Previous history TIA PVD (peripheral vascular disease) Restless leg syndrome Seasonal allergies Vitamin D deficiency, unspecified Home Medications clonazepam 0.5 mg PO QHS PRN 01/05/17 [History Last Taken 03/15/17] aspirin 81 mg PO DAILY@0800 07/13/19 [History Last Taken Unknown] calcium phosphate-vitamin D3 1 ea PO DAILY 07/13/19 [History Last Taken Unknown] cholecalciferol (vitamin D3) 1,250 mcg (50,000 unit) capsule 50,000 unit PO .2Qweekly #12 cap 04/28/21 [Rx Last Taken Unknown] lansoprazole 30 mg capsule,delayed release 30 mg PO DAILY #90 cap 04/28/21 [Rx Last Taken Unknown] nystatin 100,000 unit/mL oral suspension 1 ml PO TID 10 Days #30 ml 04/28/21 [Rx Last Taken Unknown] bupropion HCl 150 mg 24 hr tablet, extended release 150 mg PO QAM #90 tab 06/17/21 [Rx Last Taken Unknown] cetirizine 10 mg tablet 10 mg PO QHS #90 tab 06/19/21 [Rx Last Taken Unknown] valsartan 160 mg-hydrochlorothiazide 25 mg tablet 1 tab PO DAILY #30 tab 07/07/21 [Rx Last Taken Unknown] ferrous sulfate [Slo-Release Iron] 45 mg PO DAILY 07/25/21 [History Last Taken Unknown] meloxicam 15 mg PO DAILY 07/25/21 [History Last Taken Unknown] [id number] [Alive Women's Energy] 1 tab PO DAILY 07/25/21 [History Last Taken Unknown] Allergy/AdvReac Type Severity Reaction Status Date / Time Sulfa (Sulfonamide Allergy Hives Verified 07/25/21 09:25 Antibiotics) morphine AdvReac Nausea/Vom/ Verified 07/25/21 09:25 Diarrhea Family History Mother Diabetes Hypertension High cholesterol Father Diabetes Hypertension CVA (cerebral vascular accident) Sister Cancer Surgical History History of hysterectomy History of laparoscopic cholecystectomy History of right hip replacement Social History household members: none Smoking Status: Never smoker alcohol intake: current alcohol intake frequency: holidays/special occasions only substance use type: does not use what type of physical activity do you participate in: none ROS ROS Narrative Constitutional: Reports mild weakness. Drinks less water. HEENT: As mentioned in HPI. Respiratory/Chest: Denies chest pain, shortness of breath at rest or with exertion Gastrointestinal: Nausea but no vomiting. Denies coffee ground emesis, hematemesis or melena Genitourinary: Mild intermittent burning micturition. Dark urine. Musculoskeletal: Denies joint pain and limited range of motion Neurologic: Denies seizure-like activity skin: No ulcer. No rash Endocrinology: Reports systems reviewed and no addt'l complaints, except as documented Hematologic/Lymphatic: Reports systems reviewed and no addt'l complaints, except as documented Rest 12 ROS are negative except as mentioned in HPI Vital Signs Vital Signs Vital Signs: 07/25/21 09:21 07/25/21 09:28 07/25/21 10:29 Temperature 97.1 F L Temperature Source Temporal Pulse Rate 73 74 Pulse Rate [Lying] Pulse Rate [Sitting] Pulse Rate [Standing] Respiratory Rate 18 16 Respiratory Effort Normal Non-Labored Respiratory Pattern Normal Blood Pressure 133/73 H 110/75 Blood Pressure [Lying] Blood Pressure [Sitting] Blood Pressure [Standing] Blood Pressure Mean 93 86 Blood Pressure Mean [Lying] Blood Pressure Mean [Sitting] Blood Pressure Mean [Standing] Pulse Ox 95 97 Oxygen Delivery Method Room Air Room Air 07/25/21 11:16 07/25/21 12:28 07/25/21 12:33 Temperature 98.7 F Temperature Source Temporal Pulse Rate 73 84 Pulse Rate [Lying] 75 Pulse Rate [Sitting] 84 Pulse Rate [Standing] 83 Respiratory Rate 16 18 Respiratory Effort Respiratory Pattern Blood Pressure 108/57 L 128/81 H Blood Pressure [Lying] 118/71 Blood Pressure [Sitting] 128/81 H Blood Pressure [Standing] 117/79 Blood Pressure Mean 74 96 Blood Pressure Mean [Lying] 86 Blood Pressure Mean [Sitting] 96 Blood Pressure Mean [Standing] 91 Pulse Ox 97 96 Oxygen Delivery Method Room Air Room Air Weight Weight: 146 lb 13.246 oz Body Mass Index (BMI) 25.2 Physical Exam Narrative General: Alert, Oriented x3, Cooperative HEENT: No nystagmus. No peripheral loss of vision. Atraumatic, PERRLA, EOMI, Normocephalic Oral: No Gingival or Mucosal Lesions/ Ulcerations Neck: Supple, No JVD, Negative Carotid Bruits Lungs: Air entry equal in bilateral lung bases. No crepitation/rhonchi Cardiovascular: Regular rate, Regular Rhythm, Normal S1, Normal S2, systolic murmur LLSB Abdomen: Bowel Sounds Present, Soft, Non Tender, Non-Distended : No renal angle tenderness. No suprapubic tenderness. Extremities: No edema, Capillary Refill Less than 3 Seconds Skin: No rashes, No breakdown Musculoskeletal: No Tenderness to Palpation of Joints or Extremities, muscle strength 5/5 at major joints. Neurological: Cranial nerves II-XII grossly intact, DTR 2+/4 and Symmetrical, Neuro grossly intact Psych/Mental Status: Normal Affect, Appropriate. Results Lab / Micro Data Result Diagrams: 07/25/21 10:10 07/25/21 10:10 Labs: Laboratory Results - last 24 hr 07/25/21 10:10: WBC 6.3, RBC 4.97, Hgb 14.2, Hct 42.6, MCV 85.7, MCH 28.6, MCHC 33.3, RDW Std Deviation 42.5, RDW Coeff of Que 13.6, Plt Count 203, MPV 10.1, Immature Gran % (Auto) 0.300, Neut % (Auto) 65.2, Lymph % (Auto) 25.4, [place] % (Auto) 5.7, Eos % (Auto) 2.9, Baso % (Auto) 0.5, Absolute Neuts (auto) 4.1, Absolute Lymphs (auto) 1.60, Nucleated RBC % 0 07/25/21 10:10: Sodium 140, Potassium 4.1, Chloride 106, Carbon Dioxide 31.0, Anion Gap 3 L, BUN 22 H, Creatinine 1.04 H, Estim Creat Clear Calc 40.98, Est GFR (MDRD) Af Amer 67, Est GFR (MDRD) Non-Af 55 L, BUN/Creatinine Ratio 21.2 H, Glucose 111 H, Calcium 9.7, Total Bilirubin 0.40, AST 20, ALT 22, Alkaline Phosphatase 89, Troponin I High Sens 4, Total Protein 7.2, Albumin 3.5, Globulin 3.7, Albumin/Globulin Ratio 0.9, Lipase 130 07/25/21 11:10: Urine Color Yellow, Urine Clarity Sl. Cloudy, Urine pH 7.0, Ur Specific [place] 1.010, Urine Protein Negative, Urine Glucose (UA) Normal, Urine Ketones Negative, Urine Occult Blood Negative, Urine Nitrite Negative, Urine Bilirubin Negative, Urine Urobilinogen Normal, Ur Leukocyte Esterase Negative, Urine RBC 0 SEEN, Urine WBC 0 SEEN, Ur Squamous Epith Cells 0-5 SEEN, Urine Bacteria 0 SEEN, Urine Mucus 0 SEEN Assessment & Plan Assessment/Plan (1) Dizziness: PLAN: 1. Dizziness, acute on chronic: Patient is being admitted in PCU. I think her dizziness is related to ER problems as she has chronic tinnitus both ears and mild hearing loss more right than left ear. Mild chronic sinusitis. I told patient that she needs outpatient ENT evaluation for dizziness and possible audiometry. Did not think it is related to her cardiac, neuro or other systemic issues. Orthostatic vitals ordered. BUN/creatinine slightly elevated than her baseline. IV fluid Ringer lactate 100 mill per hour for 1 L. 2D echo is ordered. 2. History of RFA possible A. fib in past: Currently EKG shows normal sinus rhythm. 3. Hypertension: Continue home antihypertensive medication. 4. Dyslipidemia continue statin 5. Anxiety and depression, GERD, irritable bowel syndrome, restless leg syndrome: Home medication continued. I see mention of peripheral vascular disease in her past medical history but patient denies peripheral arterial disease, circulation disease in lower extremities or claudication pain. Does not have SUSAN or lower extremity vascular studies in her chart. VTE prophylaxis: Lovenox 40 milligrams subcu daily. Living will/advanced directive/end of life care: Patient does not have living will or advanced directive. Her is next to kin. After discussion of benefits/risks procedures involved with full code, DNR CC arrest and DNR CC, the patient opted for full code Patient does want artificial life support including intubation, tube feed, ventilator and/chest compression, central venous catheter, vasopressor and DC shock if needed Total time spent in [id number] encounter in discussion of advanced directive 16 minutes. Charges/Coding Visit Charges OBSV E&M: 41980 Initial observation care L3 Procedures Hospitalists Procedures: 58299 Advncd Care Plan 30 Min
--- NOTE | 2021-07-25 12:51 | ECHOD_ITS ---
Reason For Study: Dizziness Procedure This was a 2D Doppler, Color Flow transthoracic echocardiogram. The study was technically difficult. Exam performed portable in patient room. Left Ventricle Normal LV size. Sigmoid septum. Left ventricular systolic function is normal. The estimated ejection fraction is 65 %. Diastolic function is indeterminate. No regional wall motion abnormalities noted. Right Ventricle Normal RV size. Normal systolic function. Atria Normal left atrium. Normal right atrium. No doppler evidence for ASD. Mitral Valve There is mild mitral annular calcification. Extension of the mitral annular calcification onto the mitral valve leaflets. Mild (1+) mitral valve insufficiency. Tricuspid Valve Normal tricuspid valve. Mild tricuspid valve insufficiency. Right ventricular systolic pressure estimated to be 25 mmHg. Aortic Valve Trisinus/trileaflet aortic valve. Mild focal aortic valve calcification. Pulmonic Valve The pulmonic valve is not well visualized. Great Vessels Normal sized aortic root. Pericardium/Pleural No pericardial effusion. MMode/2D Measurements & Calculations LVIDd: 3.7 cm IVSd: 0.97 cm Ao root diam: 3.4 cm LVIDs: 2.1 cm LVPWd: 0.93 cm RVDd: 2.9 cm FS: 44.1 % LAV(MOD-bp): 38.2 ml LVAd ap4: 21.2 cm2 SV(MOD-sp4): 32.7 ml LAV(MOD-bp) Indexed: 22.3 ml/m2 LVLd ap4: 7.3 cm LAV(MOD-sp2): 45.9 ml EDV(MOD-sp4): 50.7 ml LAV(MOD-sp4): 29.1 ml EDV(sp4-el): 52.3 ml LVAs ap4: 10.8 cm2 LVLs ap4: 5.6 cm ESV(MOD-sp4): 18.0 ml ESV(sp4-el): 17.7 ml EF(MOD-sp4): 64.4 % EF(sp4-el): 66.2 % SV(sp4-el): 34.6 ml LA A4 area: 12.5 cm2 LA dimension(2D): 3.3 cm RA A4 area: 6.7 cm2 Doppler Measurements & Calculations MV E max brian: 71.7 cm/sec Lat Peak E' Brian: 9.2 cm/sec Med Peak E' Brian: 4.0 cm/sec MV A max brian: 98.1 cm/sec E/E' lat: 7.8 E/E' med: 17.9 MV E/A: 0.73 Ao V2 max: 112.2 cm/sec LV V1 max: 92.5 cm/sec PA V2 max: 71.8 cm/sec Ao max P.0 mmHg LV V1 max P.4 mmHg Ao V2 mean: 85.7 cm/sec Ao mean P.1 mmHg Ao V2 VTI: 26.5 cm TR max brian: 234.1 cm/sec TR max P.9 mmHg ECHO/Echo Complete Interpretation Summary The study was technically difficult. Left ventricular systolic function is normal. The estimated ejection fraction is 65 %. Sigmoid septum. There is mild mitral annular calcification. Extension of the mitral annular calcification onto the mitral valve leaflets. Mild (1+) mitral valve insufficiency. Mild tricuspid valve insufficiency. Mild focal aortic valve calcification. Right ventricular systolic pressure estimated to be 25 mmHg. Diastolic function is indeterminate. Ordering Physician: Ang Whittaker Referring Physician: Lucy Maki Performed By: Terrie Leggett, RDCS, RVT
[2021-07-25 13:10] LABS: Magnesium 2.2 mg/dL (1.6-2.6); Phosphorus 3.3 mg/dL (2.5-4.9)
[2021-07-25] MEDS: Lactated Ringers 1,000 ML 100 ML IV (14:49)
[2021-07-25] MEDS: Enoxaparin 40 MG/0.4 ML Syringe SC (16:34)
[2021-07-25] MEDS: MELATONIN 10 MG TABLET PO (22:18)
[2021-07-25] MEDS: Pantoprazole Sodium 40 MG Tablet PO (22:18)
[2021-07-26 03:58] VITALS: BP 132/82; PULSE 67; RESP 18; TEMP 36.5; O2SAT 98
--- NOTE | 2021-07-26 03:58 | NURSING ---
PANDEMIC DOCUMENTATION DATE: 07/25/21
[2021-07-26 04:17] VITALS: PULSE 77
[2021-07-26 06:55] VITALS: PULSE 70
[2021-07-26 08:38] LABS: Thyroid Stim Hormone (TSH) 0.65 uIU/mL (0.358-3.74)
[2021-07-26 08:49] VITALS: BP 135/65; PULSE 67; RESP 16; TEMP 37; O2SAT 98
[2021-07-26] MEDS: Calcium Carb/Vitamin D 1 TABLET Tablet PO (08:51)
[2021-07-26] MEDS: Losartan Potassium 50 MG Tablet PO (08:52)
[2021-07-26] MEDS: buPROPion (XL) 150 MG TABLET.XL PO (08:52)
[2021-07-26] MEDS: Pantoprazole Sodium 40 MG Tablet PO (08:52)
[2021-07-26] MEDS: Aspirin 81 MG TAB.CHEW PO (08:52)
[2021-07-26] MEDS: hydroCHLOROthiazide 25 MG Tablet PO (08:52)
[2021-07-26] MEDS: Enoxaparin 40 MG/0.4 ML Syringe SC (08:53)
--- NOTE | 2021-07-26 10:44 | PCM.DC ---
Discharge Instructions Diet Discharge Diet: Low fat / Low cholesterol and 2000 mg Sodium Diet Activity Discharge Activity: Return to Normal Activity and May Not Drive (UNTIL SEES PCP bez of dizziness) Weight Bearing Status: Weight bearing as tolerated Additional Activity Instructions:: Outpatient vestibular therapy recommended Dressing / Incision Call your doctor if you observe: Fever of 101 or Higher, Coldness, Increased Pain, Numbness or Tingling, Change in Color, Inability to urinate, Inability to have a bowel movement, Shortness of breath, Dizziness, Fainting spells, Swelling in the ankles, Chest pain, Prolonged hiccupping, Increased palpitations (irregular heartbeat), Calf discomfort and Uncontrolled pain Follow Up Care Test Results: Test results from this visit will be discussed in further detail at your follow-up appointment, if applicable. Discharge Plan Admission Admit Date/Time: 07/25/21 11:42 Primary Reason for Your Visit: Dizziness most likely vestibular nerve lesion Attending Provider: Ang Whittaker Primary Care Provider: Lucy Maki Discharge Orders/Prescriptions Prescriptions: New meclizine 12.5 mg Tablet 12.5 mg PO Q4H PRN (Reason: dizziness) Qty: 30 RF: 0 Continued lansoprazole 30 mg capsule,delayed release(DR/EC) 30 mg PO DAILY Qty: 90 RF: 1 valsartan-hydrochlorothiazide [Diovan HCT] 160-25 mg tablet 1 tab PO DAILY Qty: 30 RF: 1 clonazepam 0.5 MG tablet 0.5 mg PO QHS PRN (Reason: RESTLESS LEGS) RF: 0 aspirin 81 MG tablet,chewable 81 mg PO DAILY@0800 RF: 0 calcium phosphate-vitamin D3 1 EACH tablet,chewable 1 ea PO QHS RF: 0 Alive Women's Energy 18-400-80 mg-mcg-mcg Tablet 1 tab PO DAILY RF: 0 ferrous sulfate [Slow Release Iron] 140 mg (45 mg iron) Tablet Extended Release 140 mg PO DAILY RF: 0 bupropion HCl 150 mg tablet extended release 24 hr 150 mg PO QHS RF: 0 cholecalciferol (vitamin D3) 1,250 mcg (50,000 unit) capsule 50,000 unit PO .[id number] RF: 0 Changed cetirizine [Zyrtec] 10 mg tablet 10 mg PO QHS PRN (Reason: Nasal congestion) Qty: 90 RF: 1 meloxicam 15 mg Tablet 15 mg PO DAILY PRN (Reason: arthritis pain) Qty: 0 RF: 0 Referrals / Follow Up: Javier Thibodeaux MD [STAFF PHYSICIAN] - Within 2 Weeks (For bilateral ear tinnitus and mild hearing loss right more than left with chronic intermittent dizziness) Lucy Maki MD [Primary Care Provider] - Within 2 Weeks Disposition Disposition (needs filled in before D/C Order can be placed): Home, Self Care
--- NOTE | 2021-07-26 10:45 | CASEMGMT ---
BRADY GARRIDO NOTE: Pt being discharged. BRADY GARRIDO to room to talk w/pt and who is at bedside. Pt states may be interested in OP vestibular therapy. She states PT had worked w/her for same and it was helpful. Script received from Dr Whittaker and given to pt and instructed on use. Pt voices understanding. She denies having any other discharge planning needs or concerns. Kenny TERAN RN, CM
--- NOTE | 2021-07-26 10:49 | DS.PCM_ITS ---
Providers Date of Admission: 07/25/21 Date of Discharge: 07/26/21 Primary Care Physician: Dr. Lucy Maki MD Reason For Visit: DIZZINESS Diagnosis Discharge Diagnosis (1) Dizziness: Status: Acute Code(s): R42 - Dizziness and giddiness Medications at Discharge Home Medications clonazepam 0.5 mg PO QHS PRN 01/05/17 aspirin 81 mg PO DAILY@0800 07/13/19 calcium phosphate-vitamin D3 1 ea PO QHS 07/13/19 lansoprazole 30 mg capsule,delayed release 30 mg PO DAILY #90 cap 04/28/21 valsartan 160 mg-hydrochlorothiazide 25 mg tablet 1 tab PO DAILY #30 tab 07/07/21 Alive Women's Energy 1 tab PO DAILY 07/25/21 bupropion HCl 150 mg PO QHS 07/25/21 cholecalciferol (vitamin D3) 50,000 unit PO .[id number] 07/25/21 ferrous sulfate [Slow Release Iron] 140 mg PO DAILY 07/25/21 cetirizine [Zyrtec] 10 mg PO QHS PRN #90 tab 07/26/21 meclizine 12.5 mg PO Q4H PRN #30 tab 07/26/21 meloxicam 15 mg PO DAILY PRN #0 tab 07/26/21 Hospital Course Summary of Care Provided Hospital Course: This 75-year-old female with history of chronic dizziness on and off for 2 to 3 years was admitted for worsening since February 2021. Patient also has tinnitus and mild hearing loss probably sensorineural in both ears. The patient was admitted to PCU as she continued to have symptoms of dizziness. monitoring manager shows normal sinus rhythm. Patient was evaluated PT and OT recommended outpatient vestibular therapy. Orthostatic vital signs were not positive for hypotension. 2D echo was further done and was nondiagnostic as mentioned above. Twelve-lead EKG shows normal sinus rhythm Patient is advised to follow with ENT Dr. Javier Thibodeaux for further evaluation of inner ear and possible audiometric. Her comorbid hypertension and dyslipidemia are controlled. Discharge diagnosis: Chronic dizziness probably due to inner ear pathology. Discharge medication reconciliation done. Discharge follow-up instructions completed. Discharge process discussed with the patient and all questions were answered to patient's satisfaction. Total time spent, exact 35 minutes on discharge meds reconciliation, examinatio n, coordination of care with nurses and ancillary staff, review of imaging and blood test and discussion with the patient on follow-up instructions Physical Exam Narrative Seen and examined Patient dizziness much controlled but still has little bit. General: Alert, Oriented x3, Cooperative HEENT: No nystagmus. Atraumatic, PERRLA, EOMI, Normocephalic Oral: No Gingival or Mucosal Lesions/ Ulcerations Neck: Supple, No JVD, Negative Carotid Bruits Lungs: Air entry equal in bilateral lung bases. No crepitation/rhonchi Cardiovascular: Regular rate, Regular Rhythm, Normal S1, Normal S2, systolic murmur LLSB Abdomen: Bowel Sounds Present, Soft, Non Tender, Non-Distended : No renal angle tenderness. No suprapubic tenderness. Extremities: No edema, Capillary Refill Less than 3 Seconds Skin: No rashes, No breakdown Musculoskeletal: No Tenderness to Palpation of Joints or Extremities, muscle strength 5/5 at major joints. Neurological: Cranial nerves II-XII grossly intact, DTR 2+/4 and Symmetrical, Neuro grossly intact Psych/Mental Status: Normal Affect, Appropriate. Weight / BMI Weight Weight: 143 lb 15.39 oz Body Mass Index (BMI) 24.5 ABG / Lab / Microbiology Data Result Diagrams: 07/25/21 10:10 07/25/21 10:10 Laboratory: Laboratory Results - last 24 hr 07/25/21 10:10: Phosphorus 3.3, Magnesium 2.2 07/25/21 11:10: Urine Color Yellow, Urine Clarity Sl. Cloudy, Urine pH 7.0, Ur Specific [place] 1.010, Urine Protein Negative, Urine Glucose (UA) Normal, Urine Ketones Negative, Urine Occult Blood Negative, Urine Nitrite Negative, Urine Bilirubin Negative, Urine Urobilinogen Normal, Ur Leukocyte Esterase Negative, Urine RBC 0 SEEN, Urine WBC 0 SEEN, Ur Squamous Epith Cells 0-5 SEEN, Urine Bacteria 0 SEEN, Urine Mucus 0 SEEN 07/26/21 06:55: TSH 0.65 Radiography Diagnostic Testing: Radiology Impression Echocardiogram 07/25/21 12:51 Interpretation Summary The study was technically difficult. Left ventricular systolic function is normal. The estimated ejection fraction is 65 %. Sigmoid septum. There is mild mitral annular calcification. Extension of the mitral annular calcification onto the mitral valve leaflets. Mild (1+) mitral valve insufficiency. Mild tricuspid valve insufficiency. Mild focal aortic valve calcification. Right ventricular systolic pressure estimated to be 25 mmHg. Diastolic function is indeterminate. Ordering Physician: Ang Whittaker Referring Physician: Lucy Maki Performed By: Terrie Leggett, [place], RVT D/C Instructions Discharge Diet: Low fat / Low cholesterol and 2000 mg Sodium Diet Weight Bearing Status: Weight bearing as tolerated Additional Activity Instructions: Outpatient vestibular therapy recommended Call your doctor if you observe: Fever of 101 or Higher, Coldness, Increased Pain, Numbness or Tingling, Change in Color, Inability to urinate, Inability to have a bowel movement, Shortness of breath, Dizziness, Fainting spells, Swelling in the ankles, Chest pain, Prolonged hiccupping, Increased palpitations (irregular heartbeat), Calf discomfort and Uncontrolled pain Meaningful Use Info Meaningful Use Diagnoses (Choose all that apply): None applicable Discharge Plan Admission Admit Date/Time: 07/25/21 11:42 Primary Reason for Your Visit: Dizziness most likely vestibular nerve lesion Attending Provider: Ang Whittaker Primary Care Provider: Lucy Maki Discharge Orders/Prescriptions Prescriptions: New meclizine 12.5 mg Tablet 12.5 mg PO Q4H PRN (Reason: dizziness) Qty: 30 RF: 0 Continued lansoprazole 30 mg capsule,delayed release(DR/EC) 30 mg PO DAILY Qty: 90 RF: 1 valsartan-hydrochlorothiazide [Diovan HCT] 160-25 mg tablet 1 tab PO DAILY Qty: 30 RF: 1 clonazepam 0.5 MG tablet 0.5 mg PO QHS PRN (Reason: RESTLESS LEGS) RF: 0 aspirin 81 MG tablet,chewable 81 mg PO DAILY@0800 RF: 0 calcium phosphate-vitamin D3 1 EACH tablet,chewable 1 ea PO QHS RF: 0 Alive [employer]'s Energy 18-400-80 mg-mcg-mcg Tablet 1 tab PO DAILY RF: 0 ferrous sulfate [Slow Release Iron] 140 mg (45 mg iron) Tablet Extended Release 140 mg PO DAILY RF: 0 bupropion HCl 150 mg tablet extended release 24 hr 150 mg PO QHS RF: 0 cholecalciferol (vitamin D3) 1,250 mcg (50,000 unit) capsule 50,000 unit PO .[id number] RF: 0 Changed cetirizine [Zyrtec] 10 mg tablet 10 mg PO QHS PRN (Reason: Nasal congestion) Qty: 90 RF: 1 meloxicam 15 mg Tablet 15 mg PO DAILY PRN (Reason: arthritis pain) Qty: 0 RF: 0 Referrals / Follow Up: Javier Thibodeaux MD [STAFF PHYSICIAN] - Within 2 Weeks (For bilateral ear tinnitus and mild hearing loss right more than left with chronic intermittent dizziness) Lucy Maki MD [Primary Care Provider] - Within 2 Weeks Disposition Disposition (needs filled in before D/C Order can be placed): Home, Self Care Charges/Coding Visit Charges OBSV E&M: 65596 Observation care discharge
== END 2021-07-26 10:49 | disposition home or self-care (01) ==
LOC: ED 12:15 → PCU 13:28
PROVIDERS: Admitting Provider Internal Medicine; Emergency Provider Emergency Medicine; PCP Internal Medicine; Visit Provider Internal Medicine
DX: R42 Dizziness and giddiness (principal); E55.9 Vitamin D deficiency, unspecified; I73.9 Peripheral vascular disease, unspecified; K21.9 Gastro-esophageal reflux disease without esophagitis; I10 Essential (primary) hypertension; H93.13 Tinnitus, bilateral; H91.93 Unspecified hearing loss, bilateral; M19.90 Unspecified osteoarthritis, unspecified site; G25.81 Restless legs syndrome; E78.5 Hyperlipidemia, unspecified; K58.9 Irritable bowel syndrome, unspecified; F32.A Depression, unspecified; Z79.82 Long term (current) use of aspirin; Z79.899 Other long term (current) drug therapy; Z86.16 Personal history of COVID-19
CPT/HCPCS: 36415; 80053; 81001; 83690; 83735; 84100; 84443; 84484; 85025; 93005; 93306; 96361; 96372; 96374; 99218; 99285; J7030; J7120; A4216; G0378; J2405

== ENCOUNTER → 2021-09-02 15:57 | Outpatient (CLI) | payer MEDICARE, BC, OTHER, SELFPAY ==
--- NOTE | 2021-09-02 16:05 | RAD_ITS ---
STUDY: X-RAY - THORACIC SPINE REASON FOR EXAM: Female, 75 years old. RIGHT SIDE BACK PAIN TECHNIQUE: 3 view(s) of the thoracic spine were obtained. COMPARISON: Chest x-ray 07/23/2019 FINDINGS: Normal kyphosis of the thoracic spine. S-shaped scoliosis of the thoracolumbar spine, most noted at the thoracolumbar junction directed towards the right. There is demineralization of the thoracic spine with endplate spondylosis. There is multilevel disc space narrowing of the thoracic spine. Mild compression fracture of L1 is stable since 07/23/2019. The soft tissue structures are unremarkable. RAD/Thoracic Spine 3 Views IMPRESSION: 1. No acute compression fracture. 2. Multilevel degenerative disc disease. 3. Scoliosis. Electronically Signed: Von Helm MD (Brooks) at 8:21 EST , Service support ,
== END ==
PROVIDERS: PCP Internal Medicine; Referring Provider Nurse Practitioner Family; Visit Provider Nurse Practitioner Family
DX: M54.6 Pain in thoracic spine (principal)
CPT/HCPCS: 72072

== ENCOUNTER 2021-09-16 16:55 | Emergency (ER) | payer MEDICARE, BC, OTHER, SELFPAY ==
[2021-09-16 16:56] VITALS: BP 163/97; PULSE 85; RESP 18; TEMP 36.2; O2SAT 97; BMI 25.7
--- NOTE | 2021-09-16 17:54 | EKG12_ITS ---
Test Reason : DIZZINESS Blood Pressure : / mmHG Vent. Rate : 075 BPM Atrial Rate : 075 BPM P-R Int : 172 ms QRS Dur : 098 ms QT Int : 404 ms P-R-T Axes : 029 003 042 degrees QTc Int : 451 ms Normal sinus rhythm Inferior infarct Abnormal ECG Confirmed by LISA STEELE MD [id number]), society editor ANCELMO KELLY ([id number]) on 09/18/2021 8:46:14 AM Referred By: RU Confirmed By:LISA STEELE MD
--- NOTE | 2021-09-16 17:56 | EX.ED.DYSGE1 ---
HPI History of Present Illness Chief Complaint: Dizziness Detail of Chief Complaint: Dizziness that started last evening around 10 PM Informant: patient Narrative Narrative: Patient presents to the emergency department complaint of dizziness that started around 10 PM last evening. Patient states that with laying back and turning her head to the left she has sudden onset of spinning sensation with nausea and vomiting. She states that she has thrown up 3 times today. Patient took an Antivert around noon. Patient states she had Covid in March of this year. Patient denies fall or head injury. She denies headache. She has had dizzy spells in the past but not quite like this. Prior similar symptoms: No PFSH PFSH Medical History Arthritis Benign essential hypertension Depression GERD (gastroesophageal reflux disease) History of skin cancer HLD (hyperlipidemia) IBS (irritable bowel syndrome) Previous history TIA PVD (peripheral vascular disease) Restless leg syndrome Seasonal allergies Vitamin D deficiency, unspecified Home Medications clonazepam 0.5 mg PO QHS PRN 01/05/17 [History Last Taken 03/15/17] aspirin 81 mg PO DAILY@0800 07/13/19 [History Last Taken 07/24/21] calcium phosphate-vitamin D3 1 ea PO QHS 07/13/19 [History Last Taken 07/24/21] lansoprazole 30 mg capsule,delayed release 30 mg PO DAILY #90 cap 04/28/21 [Rx Last Taken 07/24/21] Alive [employer] 1 tab PO DAILY 07/25/21 [History Last Taken 07/24/21] bupropion HCl 150 mg PO QHS 07/25/21 [History Last Taken 07/24/21] cholecalciferol (vitamin D3) 50,000 unit PO .[id number] 07/25/21 [History Last Taken 07/20/21] ferrous sulfate [Slow Release Iron] 140 mg PO DAILY 07/25/21 [History Last Taken 07/24/21] cetirizine [Zyrtec] 10 mg PO QHS PRN #90 tab 07/26/21 [Rx Last Taken 07/24/21] denosumab 60 mg/mL subcutaneous syringe 60 mg SUBCUT [id number] #1 ml 07/29/21 [Rx Last Taken Unknown] meclizine 12.5 mg tablet 12.5 mg PO Q4H PRN #30 tab 08/27/21 [Rx Last Taken Unknown] meloxicam 15 mg tablet 15 mg PO DAILY PRN #60 tab 08/27/21 [Rx Last Taken Unknown] valsartan 160 mg-hydrochlorothiazide 25 mg tablet 1 tab PO DAILY #90 tab 08/27/21 [Rx Last Taken Unknown] lorazepam [Ativan] 1 mg PO TID PRN #10 tab 09/16/21 [Rx Last Taken Unknown] ondansetron 4 mg PO Q8H PRN PRN #10 tab 09/16/21 [Rx Last Taken Unknown] Allergy/AdvReac Type Severity Reaction Status Date / Time Sulfa (Sulfonamide Allergy Hives Verified 09/16/21 16:58 Antibiotics) morphine AdvReac Nausea/Vom/ Verified 09/16/21 16:58 Diarrhea Family History Mother Diabetes Hypertension High cholesterol Father Diabetes Hypertension CVA (cerebral vascular accident) Sister Cancer Surgical History History of hysterectomy History of laparoscopic cholecystectomy History of right hip replacement Social History household members: none Smoking Status: Never smoker alcohol intake: current alcohol intake frequency: holidays/special occasions only substance use type: does not use what type of physical activity do you participate in: none ROS ROS ED ROS Narrative Dizziness Constitutional Constitutional ED: Reports systems reviewed and no addt'l complaints, except as documented; Denies body ache(s), change in weight or chills Eyes Eyes: Denies acute decrease in peripheral vision, change in vision, double vision or loss of vision ENT ENT ED: Reports none; Denies ear pain, lip swelling, loss taste/smell, neck pain, otalgia or sore throat Cardiovascular Cardiovascular: Reports none; Denies abdominal pain, chest pain with activity, leg edema, lightheadedness, palpitations, rapid heart rate or syncope Respiratory/Chest Respiratory/Chest: Reports none; Denies change in mental status, dry cough, dyspnea, hemoptysis, shortness of breath at rest or shortness of breath with exertion Gastrointestinal Gastrointestinal: Reports none, nausea and vomiting; Denies abdominal pain, change in stool character, diarrhea, hematemesis, hematochezia, melena or rectal bleeding Genitourinary Genitourinary ED: Reports none; Denies abdominal discomfort, anuria, dysuria, genital pain or polyuria Musculoskeletal Musculoskeletal: Reports none; Denies arthralgias, back pain, difficulty walking, extremity pain, muscle weakness or myalgias Integumentary Reports none; Denies abscess or rash Neurologic Neurologic: Reports none; Denies abnormal gait, confusion, focal weakness, frequent falls, headache(s), loss of vision, numbness, paresthesias, radicular pain, vertigo or weakness Psychiatric Psychiatric: Reports systems reviewed and no addt'l complaints, except as documented and none; Denies behavioral changes, confusion, difficulty concentrating, hallucinations, suicidal ideation, tactile hallucinations or visual hallucinations Endocrine Endocrinology: Denies none, cold intolerance, excessive sweating, fatigue or heat intolerance Hematologic/Lymphatic Hematologic/Lymphatic: Reports none; Denies anemia, easy bleeding or easy bruising Allergic/Immunologic Allergic/Immunologic ED: Denies as per HPI, none, lip swelling, mouth swelling, throat swelling, tongue swelling or hives EXAM Physical Exam Const Vital Signs: 09/16/21 16:56 09/16/21 19:24 Temperature 97.2 F L Temperature Source Temporal Pulse Rate 85 Respiratory Rate 18 Respiratory Effort Normal Respiratory Pattern Normal Blood Pressure 163/97 H Blood Pressure Mean 119 Pulse Ox 97 Oxygen Delivery Method Room Air Positive well nourished and well developed General Appearance ED: well developed and NAD HEENT Reports TM's clear and moist mucous membranes normocephalic and atraumatic; Negative for trauma or tenderness Tympanic Membrane ED: Yes TM's clear Eyes PERRL and EOMs intact bilaterally General Eye ED: Negative for pale conjunctiva or scleral icterus Neck no lymphadenopathy, supple and no JVD General: Negative for tenderness Chest Wall inspection of chest normal and palpation of chest normal Chest: Negative for tenderness Resp normal respiratory effort and clear to auscultation bilaterally Effort and Inspection: Negative for respiratory distress or pain with movement Auscultation: Negative for rhonchi, wheezes or diminished lung sounds Cardio regular rate, regular rhythm, S1 normal heart sound, S2 normal heart sound and no murmurs Peripheral Pulses: pulses 2+ throughout GI normal to inspection, nondistended, normoactive bowel sounds, soft to palpation, non-tender, non-distended and no masses Back/Spine no CVA tenderness and no thoracic nor lumbar tenderness Extremity normal to inspection General Extremety ED: Negative for edema General Extremity: Negative for edema Neuro oriented x3, CN's II-XII intact bilaterally, no sensory deficits noted and gait normal Neuro Narrative: [id number] and heel phillips testing within normal limits, negative Romberg, negative for drift, fundi benign. Hallpike maneuver performed was negative for nystagmus. Sensorium / Orientation: awake, alert, oriented to person, oriented to place and oriented to time Motor Exam: strength 5/5 throughout and strength abnormal Psych mental status grossly normal Skin no rashes or lesions noted and no wounds MDM MDM MDM Narrative Medical decision making narrative: IV line established on arrival. EKG obtained was unremarkable. Labs unremarkable. Patient was medicated with Antivert, Ativan, and Zofran. She felt markedly improved and was able to turn her head without any vertiginous symptoms. At this point I suspect likely benign positional vertigo. She is advised to follow-up with her ENT physician within next 3 to 5 days. Patient given a prescription for Ativan and she already has the meclizine at home. Patient also given a prescription for Zofran. Patient advised to return if persistent dizziness, vomiting or if condition should worsen anyway. Lab Data Attestation: I reviewed the patient's lab results. Labs: Laboratory Results - last 24 hr 09/16/21 09/16/21 18:05 18:05 WBC 7.5 RBC 4.65 Hgb 13.3 Hct 40.0 MCV 86.0 MCH 28.6 MCHC 33.3 RDW Std Deviation 42.7 RDW Coeff of Que 13.8 Plt Count 177 MPV 9.7 Immature Gran % (Auto) 0.300 Neut % (Auto) 81.3 H Lymph % (Auto) 14.7 L [place] % (Auto) 2.5 Eos % (Auto) 0.9 Baso % (Auto) 0.3 Absolute Neuts (auto) 6.1 Absolute Lymphs (auto) 1.10 Nucleated RBC % 0 Sodium 143 Potassium 3.8 Chloride 104 Carbon Dioxide 30.0 Anion Gap 9 BUN 18 Creatinine 0.96 Estim Creat Clear Calc 42.53 Est GFR (MDRD) Af Amer 73 Est GFR (MDRD) Non-Af 60 BUN/Creatinine Ratio 18.7 Glucose 97 Calcium 11.6 H Troponin I High Sens 7 EKG Initial EKG: Attestation: I personally reviewed and interpreted this EKG as follows: Comments: Sinus rhythm with a ventricular rate of 75 bpm with old inferior infarct noted Discharge Plan Triage Chief Complaint: Dizziness ED Provider: Carlos Hinds Dx/Rx/DC Orders Clinical Impression: Benign paroxysmal positional vertigo Instructions: Inner Ear Balance, Vertigo Medicine Tx, ED BPV Vertigo Prescriptions: New ondansetron [ondansetron] 4 MG tablet 4 mg PO Q8H PRN PRN (Reason: Nausea) Qty: 10 RF: 0 lorazepam [Ativan] 1 mg tablet 1 mg PO TID PRN (Reason: dizziness) Qty: 10 RF: 0 No Action lansoprazole 30 mg capsule,delayed release(DR/EC) 30 mg PO DAILY Qty: 90 RF: 1 clonazepam 0.5 MG tablet 0.5 mg PO QHS PRN (Reason: RESTLESS LEGS) RF: 0 aspirin 81 MG tablet,chewable 81 mg PO DAILY@0800 RF: 0 calcium phosphate-vitamin D3 1 EACH tablet,chewable 1 ea PO QHS RF: 0 [employer] 18-400-80 mg-mcg-mcg Tablet 1 tab PO DAILY RF: 0 ferrous sulfate [Slow Release Iron] 140 mg (45 mg iron) Tablet Extended Release 140 mg PO DAILY RF: 0 bupropion HCl 150 mg tablet extended release 24 hr 150 mg PO QHS RF: 0 cholecalciferol (vitamin D3) 1,250 mcg (50,000 unit) capsule 50,000 unit PO .[id number] RF: 0 cetirizine [Zyrtec] 10 mg tablet 10 mg PO QHS PRN (Reason: Nasal congestion) Qty: 90 RF: 1 Prolia 60 mg/mL syringe 60 mg subcut [id number] Qty: 1 RF: 3 meloxicam 15 mg tablet 15 mg PO DAILY PRN (Reason: arthritis pain) Qty: 60 RF: 1 valsartan-hydrochlorothiazide [Diovan HCT] 160-25 mg tablet 1 tab PO DAILY Qty: 90 RF: 3 meclizine 12.5 mg tablet 12.5 mg PO Q4H PRN (Reason: dizziness) Qty: 30 RF: 0 Primary Care Provider: Lucy Maki Referrals: Scot Hoover MD [STAFF PHYSICIAN] - 3-5 Days Lucy Maki MD [Primary Care Provider] - Disposition Disposition: Home, Self Care
[2021-09-16 18:16] LABS: Absolute Neutrophil Count 6.1 X10^3/uL (2.0-7.7); Basophil# 0.02 X10^3/uL; Basophil% 0.3 % (0-1); Eosinophil# 0.07 X10^3/uL; Eosinophils% 0.9 % (0-5); Hemoglobin 13.3 g/dL (12.0-15.0); Lymphocyte % 14.7 % (19-41); Mean Corp Hgb Conc 33.3 g/dL (32-36); Mean Corpuscular Hgb 28.6 pg (27.0-32.0); Mean Platelet Vol. 9.7 fl (6.2-12.0); Monocyte# 0.19 X10^3/uL; Monocyte% 2.5 % (0-10); NRBC Flagged by Analyzer 0 % (0-5); Neutrophil # 6.09 X10^3/uL (2.7-7.7); Neutrophil % 81.3 % (47-70); Platelet Count 177 K/mm3 (150-450); RBC Distribution Width CV 13.8 % (11.6-14.6); RBC Distribution Width SD 42.7 fl (35.1-43.9); Red Blood Count 4.65 M/mm3 (4.2-5.4); White Blood Count 7.5 K/mm3 (4.4-11.0)
[2021-09-16 18:33] LABS: Anion Gap 9 (5-15); BUN 18 mg/dL (7-18); BUN/Creat Ratio 18.7 RATIO (10-20); Calcium,Total 11.6 mg/dL (8.5-10.1); Chloride 104 mmol/L (98-107); Creatinine, Serum 0.96 mg/dL (0.55-1.02); EST Glomerular Filtration Rate 60 mL/min (>60); Est Glom Filt Rate - Afr Amer 73 mL/min (>60); Estimated Creatinine Clearance 42.53 ml/min; Glucose 97 mg/dL (74-106); Potassium 3.8 mmol/L (3.5-5.1); Sodium Level 143 mmol/L (136-145); Troponin-I HS 7 pg/mL (3.0-54.0)
[2021-09-16] MEDS: Meclizine HCl 25 MG Tablet PO (19:10)
[2021-09-16] MEDS: Ondansetron 4 MG/2 ML Vial IV (19:11)
[2021-09-16] MEDS: LORazepam 2 MG/ML Syringe 0.5 MG IV (19:11)
[2021-09-16 20:25] VITALS: BP 135/70; PULSE 75; RESP 16; O2SAT 99
== END 2021-09-16 20:26 | disposition home or self-care (01) ==
PROVIDERS: Emergency Provider Emergency Medicine; PCP Internal Medicine
DX: H81.10 Benign paroxysmal vertigo, unspecified ear (principal); I10 Essential (primary) hypertension; I73.9 Peripheral vascular disease, unspecified; E78.5 Hyperlipidemia, unspecified; F32.A Depression, unspecified; K21.9 Gastro-esophageal reflux disease without esophagitis; K58.9 Irritable bowel syndrome, unspecified; E55.9 Vitamin D deficiency, unspecified; M19.90 Unspecified osteoarthritis, unspecified site; Z86.73 Personal history of transient ischemic attack (TIA), and cerebral infarction without residual deficits; Z85.828 Personal history of other malignant neoplasm of skin; Z79.82 Long term (current) use of aspirin; Z79.899 Other long term (current) drug therapy
CPT/HCPCS: 80048; 84484; 85025; 87426; 93005; 96374; 96375; 99284; A4216; J2405

== ENCOUNTER 2021-09-26 10:58 | Outpatient (CLI) | payer MEDICARE, BC, OTHER, SELFPAY ==
--- NOTE | 2021-09-26 11:30 | MRI_ITS ---
EXAM: MR HEAD WITHOUT AND WITH INTRAVENOUS CONTRAST CLINICAL INDICATION: DIZZINESS vertigo cva TECHNIQUE: Multiplanar and multisequence MR images of the brain were obtained without and with intravenous contrast. This report was created using [employer] report [employer] technology. CONTRAST: IV 13mL Dotarem COMPARISON: ct 10.03.[address] 05/27/06 FINDINGS: BRAIN AND EXTRA-AXIAL SPACES: Old left frontal lobe infarct. Chronic involutional changes of the brain. No intra- or extra-axial hemorrhage. No intracranial mass or mass effect. Posterior fossa structures are unremarkable. Ventricles are appropriate for age. No hydrocephalus. Basal cisterns are patent. SELLA: Unremarkable. Normal sella turcica, pituitary gland, infundibular stalk, optic chiasm and hypothalamus. AUDITORY SYSTEM: Unremarkable. The internal auditory canals are patent. BONES/JOINTS: Unremarkable. No discrete lytic or blastic abnormalities. SINUSES: Unremarkable as visualized. Clear. MASTOID AIR CELLS: There is mastoid sinus disease. ORBITS: Unremarkable as visualized. Both globes, extraocular muscles, optic nerves and retrobulbar fat appear unremarkable. VASCULATURE: Unremarkable as visualized. Normal flow voids in the major intracranial circulation. MRI/Brain W/WO Contrast IMPRESSION: Old left frontal lobe infarct. Electronically Signed: Delfino Guerrero MD at 14:20 EST , Service support ,
--- NOTE | 2021-09-26 13:26 | BI_ITS ---
MAMMOGRAPHY - BILATERAL SCREENING REASON FOR EXAM: Female, 75 years old. Routine annual screening examination. PERTINENT HISTORY: Non-contributory. TECHNIQUE: Digital bilateral breast reggie (3D mammographic acquisition) in the CC and MLO projections. 2-D mediolateral oblique (MLO) and craniocaudad (CC) views of both breasts were obtained. CAD: Full Field Digital Mammography with Computer Added Detection was performed. COMPARISON: Comparison is made with prior study dated 04/01/2020 and 03/31/2019. FINDINGS: Breast Composition: The breasts are almost entirely fatty. There are no dominant masses or suspicious calcifications. Stable small benign-appearing bilateral axillary lymph nodes. No other significant abnormalities are identified. There has been no significant change since the prior study. BI/SCRN MAMM (CAD)W/REGGIE BILAT IMPRESSION: Stable bilateral screening mammogram. Yearly follow-up mammogram recommended. (A) ASSESSMENT CATEGORY: BIRADS Category 2: Benign. A letter regarding these results will be sent to the patient by the facility within 30 days. Approximately 10% of breast cancers are not detected by mammography. A normal mammogram should not delay biopsy of a clinically suspicious abnormality. [id number] Electronically Signed: Bear Jacob MD at 14:16 EST , Service support ,
== END 2021-09-26 23:59 | disposition short-term general hospital (02) ==
PROVIDERS: PCP Internal Medicine; Referring Provider Otolaryngology; Visit Provider Otolaryngology
DX: R42 Dizziness and giddiness (principal); Z12.31 Encounter for screening mammogram for malignant neoplasm of breast
CPT/HCPCS: 70553; 77063; 77067; A9575

== ENCOUNTER 2021-10-12 14:35 | Inpatient (IN) | payer MEDICARE, BC, OTHER, SELFPAY ==
[2021-10-12] VITALS (9 sets, daily range): BP systolic 142–157; BP diastolic 70–92; PULSE 71–110; RESP 14–27; TEMP 36.4–36.8; O2SAT 86–98; BMI 24.9; BMI 24.7
--- NOTE | 2021-10-12 16:17 | EKG12_ITS ---
Test Reason : Blood Pressure : / mmHG Vent. Rate : 101 BPM Atrial Rate : 101 BPM P-R Int : 198 ms QRS Dur : 106 ms QT Int : 348 ms P-R-T Axes : 040 013 056 degrees QTc Int : 451 ms Sinus tachycardia Nonspecific T wave abnormality Abnormal ECG Confirmed by CEDRIC BOYD, LISA ([id number]), editor index VICTORINA ARORA ([id number]) on 10/14/2021 9:46:50 AM Referred By: LONI Confirmed By:LISA STEELE MD
--- NOTE | 2021-10-12 16:22 | EDS_ITS ---
HPI History of Present Illness Chief Complaint: Dizziness Informant: patient and spouse/S.O. Onset/Context/Timing Onset: Month(s) Context: Gradual Onset Timing: Intermittent Current Severity: Mild Maximum Severity: Moderate Narrative Narrative: 75-year-old female past medical history of hypertension prior cardiac ablation she had COVID in March and early April and was admitted to the hospital. She is also had a history of vertigo and was evaluated by ENT and also seen by the [facility] for this. She has had a prior TIA and she saw neurologist several weeks ago with extensive work-up. States that for the last week or so she has been feeling ill with body aches and a headache. States she has difficulty ambulating because she is so weak. And she had nausea and vomiting today. Denies any dysuria or diarrhea. Prior similar symptoms: Yes Recent Illness/Hospitalization: Yes PFSH PFSH Medical History Arthritis Benign essential hypertension Depression Dizziness GERD (gastroesophageal reflux disease) History of skin cancer HLD (hyperlipidemia) IBS (irritable bowel syndrome) Previous history TIA PVD (peripheral vascular disease) Restless leg syndrome Seasonal allergies Vitamin D deficiency, unspecified Home Medications clonazepam 0.5 mg PO QHS PRN 01/05/17 [History Last Taken 03/15/17] aspirin 81 mg PO DAILY@0800 07/13/19 [History Last Taken 07/24/21] calcium phosphate-vitamin D3 1 ea PO QHS 07/13/19 [History Last Taken 07/24/21] lansoprazole 30 mg capsule,delayed release 30 mg PO DAILY #90 cap 04/28/21 [Rx Last Taken 07/24/21] Alive [employer]'s Energy 1 tab PO DAILY 07/25/21 [History Last Taken 07/24/21] bupropion HCl 150 mg PO QHS 07/25/21 [History Last Taken 07/24/21] cholecalciferol (vitamin D3) 50,000 unit PO .[id number] 07/25/21 [History Last Taken 07/20/21] ferrous sulfate [Slow Release Iron] 140 mg PO DAILY 07/25/21 [History Last Taken 07/24/21] cetirizine [Zyrtec] 10 mg PO QHS PRN #90 tab 07/26/21 [Rx Last Taken 07/24/21] denosumab 60 mg/mL subcutaneous syringe 60 mg SUBCUT [id number] #1 ml 07/29/21 [Rx Last Taken Unknown] meclizine 12.5 mg tablet 12.5 mg PO Q4H PRN #30 tab 08/27/21 [Rx Last Taken Unknown] meloxicam 15 mg tablet 15 mg PO DAILY PRN #60 tab 08/27/21 [Rx Last Taken Unknown] valsartan 160 mg-hydrochlorothiazide 25 mg tablet 1 tab PO DAILY #90 tab 08/27/21 [Rx Last Taken Unknown] lorazepam [Ativan] 1 mg PO TID PRN #10 tab 09/16/21 [Rx Last Taken Unknown] ondansetron 4 mg PO Q8H PRN PRN #10 tab 09/16/21 [Rx Last Taken Unknown] Allergy/AdvReac Type Severity Reaction Status Date / Time Sulfa (Sulfonamide Allergy Hives Verified 09/16/21 16:58 Antibiotics) morphine AdvReac Nausea/Vom/ Verified 09/16/21 16:58 Diarrhea Family History Mother Diabetes Hypertension High cholesterol Father Diabetes Hypertension CVA (cerebral vascular accident) Sister Cancer Surgical History History of hysterectomy History of laparoscopic cholecystectomy History of right hip replacement Social History household members: none Smoking Status: Never smoker alcohol intake: current alcohol intake frequency: holidays/special occasions only substance use type: does not use what type of physical activity do you participate in: none ROS ROS ED ROS Narrative Dizziness. Nausea. Weakness. Headache. Review of Systems ROS Unobtainable: Denies due to encephalopathy Constitutional Constitutional ED: Denies fever(s) Eyes Eyes: Denies change in vision ENT ENT ED: Denies ear pain Cardiovascular Cardiovascular: Denies chest pain or palpitations Respiratory/Chest Respiratory/Chest: Reports cough; Denies dyspnea Gastrointestinal Gastrointestinal: Reports nausea and vomiting; Denies abdominal pain or diarrhea Genitourinary Genitourinary ED: Denies dysuria Musculoskeletal Musculoskeletal: Reports myalgias Integumentary Denies rash Neurologic Neurologic: Reports headache(s) Psychiatric Psychiatric: Denies depression Endocrine Endocrinology: Denies polyuria Allergic/Immunologic Allergic/Immunologic ED: Denies urticaria EXAM Physical Exam Narrative Exam Narrative: 75-year-old female no acute distress vital signs stable afebrile. Pulse ox 91% on room air no hypoxia. H EENT exam unremarkable atraumatic. Moist with membranes. Neck nontender no lymphadenopathy. No meningismus. Lungs clear to auscultation. Heart regular rhythm rate about 105 no murmur. Chest nontender. Abdomen soft nontender. Moving all 4 extremities. 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 Normal dorsi plantarflexion. Neurologically she is awake and alert with no focal motor deficits. Patient actively nauseated on him in the room. Const Vital Signs: 10/12/21 14:37 10/12/21 17:24 10/12/21 19:14 Temperature 97.5 F L Temperature Source Temporal Pulse Rate 110 H 94 82 Respiratory Rate 20 H 27 H 14 Blood Pressure 142/92 H 157/87 H 155/76 H Blood Pressure Mean 108 110 102 Pulse Ox 91 97 96 Oxygen Delivery Method Room Air Nasal Cannula Room Air Oxygen Flow Rate (L/min) 2 Positive well nourished and well developed; Negative for obese, cachectic, contractures or unkempt General Appearance ED: well developed and NAD; Negative for unkempt, cachectic, contractures, cyanotic, diaphoretic or pallor Nutritional Appearance: Negative for cachectic or obese HEENT Reports moist mucous membranes Negative for trauma or tenderness Eyes PERRL and EOMs intact bilaterally General Eye ED: Negative for pale conjunctiva or scleral icterus Neck no lymphadenopathy, supple and no JVD General: Negative for tenderness Chest Wall inspection of chest normal and palpation of chest normal Resp normal respiratory effort and clear to auscultation bilaterally Effort and Inspection: Negative for pain with movement Auscultation: Negative for rales or rhonchi Cardio regular rhythm, S1 normal heart sound, S2 normal heart sound and no murmurs Rate: tachycardic GI normal to inspection, nondistended, normoactive bowel sounds, non-tender, non- distended and no masses Inspection: Negative for abdominal distention Auscultation: normoactive bowel sounds Palpation: soft; Negative for tender, guarding or rebound tenderness present Back/Spine no CVA tenderness General Back: Negative for CVA tenderness Cervical Spine: Negative for cervical spine tenderness Thoracic Spine / Upper Back: Negative for thoracic spinal tenderness or paraspinal muscle tenderness Lumbar Spine / Lower Back: Negative for lumbar spinal tenderness Extremity normal to inspection General Extremety ED: Yes tenderness; Negative for edema General Extremity: Negative for edema Neuro oriented x3 and CN's II-XII intact bilaterally Sensorium / Orientation: alert; Negative for orientation impaired, lethargic or stuporous Motor Exam: strength 5/5 throughout Psych mental status grossly normal Appearance: Negative for unkempt Attitude: No agitated Mood & Affect: Negative for depressed or tearful Skin no rashes or lesions noted and no wounds General Skin Exam: Negative for jaundice or pallor MDM MDM MDM Narrative Medical decision making narrative: 75-year-old female with just does not feel well. Nauseated. She is an extensive medical history with really has not felt well since she had COVID in March and April. Today she complaining of nausea and vomiting and dizziness. She has a history of vertigo. She is being worked up extensively by ENT and neurology for that. Screening labs are being obtained. She will be given IV Zofran and fluids. She also wanted Tylenol for headache she has had. She has had extensive work-up at the [facility] with imaging etc. Repeat exam patient is doing well at 7:50 PM. She will be started on IV Rocephin for UTI. In light of the urinary tract infection and her leukocytosis along with her hypercalcemia I will speak to the hospitalist about admission. Lab Data Attestation: I reviewed the patient's lab results. Lab results narrative: CBC shows a white count of 15.9. Hemoglobin 13.8. Hematocrit 41. Electrolytes gap 7 BUN and creatinine of 21 and 1.2. Calcium is elevated at 15.9. Urinalysis consistent with a urinary tract infection with 10- 25 white cells. 2+ bacteria. Negative nitrites. Culture will be sent. She will be started on antibiotics. Labs: Laboratory Results - last 24 hr 10/12/21 10/12/21 10/12/21 16:35 16:35 17:33 WBC 15.9 H RBC 4.83 Hgb 13.8 Hct 41.1 MCV 85.1 MCH 28.6 MCHC 33.6 RDW Std Deviation 42.0 RDW Coeff of Que 13.6 Plt Count 202 MPV 9.7 Immature Gran % (Auto) 0.400 Neut % (Auto) 90.5 H Lymph % (Auto) 6.1 L Schley % (Auto) 2.8 Eos % (Auto) 0.0 Baso % (Auto) 0.2 Absolute Neuts (auto) 14.4 H Absolute Lymphs (auto) 0.97 Nucleated RBC % 0 Sodium 137 Potassium 3.7 Chloride 97 L Carbon Dioxide 33.0 H Anion Gap 7 BUN 21 H Creatinine 1.26 H Estim Creat Clear Calc 33.83 Est GFR (MDRD) Af Amer 53 L Est GFR (MDRD) Non-Af 44 L BUN/Creatinine Ratio 16.7 Glucose 133 H Calcium 15.9 H* Total Bilirubin 0.80 AST 16 ALT 18 Alkaline Phosphatase 101 Total Protein 7.9 Albumin 3.8 Globulin 4.1 Albumin/Globulin Ratio 0.9 Urine Color Yellow Urine Clarity Sl. Cloudy Urine pH 7.0 Ur Specific Mckenna 1.015 Urine Protein 15 H Urine Glucose (UA) Normal Urine Ketones Negative Urine Occult Blood 10 H Urine Nitrite Negative Urine Bilirubin Negative Urine Urobilinogen Normal Ur Leukocyte Esterase 100 H Urine RBC 0-5 SEEN Urine WBC 10-25 SEEN Ur Squamous Epith Cells 0 SEEN Urine Bacteria 2+ Urine Mucus 0 SEEN Radiography Chest X-Ray - ED: 1 View, Read by ED Physician, Heart, Lungs, Mediastinum, Bony Structures, No Acute Disease and Chronic Changes Diagnostic Testing: Clinical Impression(s) from Imaging Studies Chest X-Ray 10/12/21 17:05 IMPRESSION: 1. Diffuse cystic emphysematous changes are present. No visualized consolidation. Electronically Signed: Los Lawrence MD at 18:19 EST , Service support , Chest x-ray, portable, single view interpreted by myself the radiologist shows chronic changes but no acute process. No infiltrate. Rhythm Strip Rhythm Strip: Sinus Tach Rate: 101 Ectopy: None EKG Initial EKG: Attestation: I personally reviewed and interpreted this EKG as follows: Interpretation: Sinus Rhythm and No Acute Injury Pattern Comments: Sinus tachycardia rate of 101. No acute signs of CT or ischemia. Unchanged from a prior EKG from August EKG tracings: available for review Prior: Unchanged Discharge Plan Triage Chief Complaint: Dizziness ED Provider: Mihir Rashid Dx/Rx/DC Orders Clinical Impression: Urinary tract infection, Nausea & vomiting, Leukocytosis, Hypercalcemia, Dizziness Prescriptions: No Action lansoprazole 30 mg capsule,delayed release(DR/EC) 30 mg PO DAILY Qty: 90 RF: 1 clonazepam 0.5 MG tablet 0.5 mg PO QHS PRN (Reason: RESTLESS LEGS) RF: 0 aspirin 81 MG tablet,chewable 81 mg PO DAILY@0800 RF: 0 calcium phosphate-vitamin D3 1 EACH tablet,chewable 1 ea PO QHS RF: 0 Alive [employer] 18-400-80 mg-mcg-mcg Tablet 1 tab PO DAILY RF: 0 ferrous sulfate [Slow Release Iron] 140 mg (45 mg iron) Tablet Extended Release 140 mg PO DAILY RF: 0 bupropion HCl 150 mg tablet extended release 24 hr 150 mg PO QHS RF: 0 cholecalciferol (vitamin D3) 1,250 mcg (50,000 unit) capsule 50,000 unit PO .[id number] RF: 0 cetirizine [Zyrtec] 10 mg tablet 10 mg PO QHS PRN (Reason: Nasal congestion) Qty: 90 RF: 1 ondansetron [ondansetron] 4 MG tablet 4 mg PO Q8H PRN PRN (Reason: Nausea) Qty: 10 RF: 0 lorazepam [Ativan] 1 mg tablet 1 mg PO TID PRN (Reason: dizziness) Qty: 10 RF: 0 Prolia 60 mg/mL syringe 60 mg subcut [id number] Qty: 1 RF: 3 meloxicam 15 mg tablet 15 mg PO DAILY PRN (Reason: arthritis pain) Qty: 60 RF: 1 valsartan-hydrochlorothiazide [Diovan HCT] 160-25 mg tablet 1 tab PO DAILY Qty: 90 RF: 3 meclizine 12.5 mg tablet 12.5 mg PO Q4H PRN (Reason: dizziness) Qty: 30 RF: 0 Primary Care Provider: Lucy Maki Referrals: Lucy Maki MD [Primary Care Provider] - Disposition Disposition: Acute Care Hospital [facility]
[2021-10-12] MEDS: 0.9% Normal Saline 1,000 ML 1000 ML IV (16:33)
[2021-10-12] MEDS: Acetaminophen 325 MG Tablet 650 MG PO (16:33)
[2021-10-12] MEDS: Ondansetron 4 MG/2 ML Vial IV (16:33)
[2021-10-12 16:49] LABS: Absolute Lymphocyte Count 0.97 X10^3/uL (0.83-4.51); Absolute Neutrophil Count 14.4 X10^3/uL (2.0-7.7); Basophil# 0.03 X10^3/uL; Basophil% 0.2 % (0-1); Hematocrit 41.1 % (37-47); Hemoglobin 13.8 g/dL (12.0-15.0); Lymphocyte # 0.97 X10^3/ul (0.83-4.51); Lymphocyte % 6.1 % (19-41); Mean Corp Hgb Conc 33.6 g/dL (32-36); Mean Corpuscular Hgb 28.6 pg (27.0-32.0); Mean Corpuscular Volume 85.1 fL (81-99); Mean Platelet Vol. 9.7 fl (6.2-12.0); Monocyte# 0.44 X10^3/uL; Monocyte% 2.8 % (0-10); NRBC Flagged by Analyzer 0 % (0-5); Neutrophil # 14.41 X10^3/uL (2.7-7.7); Neutrophil % 90.5 % (47-70); Platelet Count 202 K/mm3 (150-450); RBC Distribution Width CV 13.6 % (11.6-14.6); Red Blood Count 4.83 M/mm3 (4.2-5.4); White Blood Count 15.9 K/mm3 (4.4-11.0)
--- NOTE | 2021-10-12 17:05 | RAD_ITS ---
STUDY: X-RAY CHEST REASON FOR EXAM: Female, 75 years old. DIZZINESS, WEAKNESS, VERTIGO ALL ABOUT 3 WEEKS. DECREASED INTAKE. N/V. BODY ACHEScough TECHNIQUE: Single AP portable view of the chest. COMPARISON: April 21, 2021 FINDINGS: Diffuse cystic emphysematous changes are present. No visualized consolidation. The lungs are clear and expanded. There is no demonstrated pleural abnormality. Normal size heart. Normal mediastinum and jeffery. Normal visualized pulmonary arteries. There is atherosclerotic tortuosity of the aortic arch and descending thoracic aorta. There are diffuse degenerative changes of the visualized thoracic spine. Normal visualized ribs, clavicles, and shoulders. There is no demonstrated abnormality of the visualized soft tissue structures of the upper abdomen. RAD/Chest 1 View (Portable) IMPRESSION: 1. Diffuse cystic emphysematous changes are present. No visualized consolidation. Electronically Signed: Los Lawrence MD at 18:19 EST , Service support ,
[2021-10-12 17:20] LABS: ALB/GLOB Ratio 0.9 RATIO (0.9-2.4); AST(SGOT) 16 U/L (15-37); Alanine Aminotransfer ALT/SGPT 18 U/L (13-56); Albumin, Serum 3.8 g/dL (3.2-5.0); Alkaline Phosphatase 101 U/L (45-117); Anion Gap 7 (5-15); BUN 21 mg/dL (7-18); BUN/Creat Ratio 16.7 RATIO (10-20); Calcium,Total 15.9 mg/dL (8.5-10.1); Chloride 97 mmol/L (98-107); Creatinine, Serum 1.26 mg/dL (0.55-1.02); EST Glomerular Filtration Rate 44 mL/min (>60); Est Glom Filt Rate - Afr Amer 53 mL/min (>60); Estimated Creatinine Clearance 33.83 ml/min; Globulin 4.1 g/dL (2.2-4.2); Glucose 133 mg/dL (74-106); Potassium 3.7 mmol/L (3.5-5.1); Protein, Total 7.9 g/dL (6.4-8.2); Sodium Level 137 mmol/L (136-145)
[2021-10-12 17:38] LABS: Mucous, Urine 0 SEEN /hpf (<or=2+); Squamous Epithelial Cells - UA 0 SEEN /hpf (5-10)
[2021-10-12 17:41] LABS: Color, Urine Yellow (Yellow); Glucose, Dipstick Normal (Normal); Ketone-Dipstick Negative (Negative); Leukocyte Esterase-Dipstick 100 /ul (Negative); Nitrite-Dipstick Negative (Negative); Occult Blood-Urine 10 /ul (Negative); Protein-Dipstick 15 mg/dl (Negative); Specific Gravity, Urine 1.015 (1.002-1.030); Urine Bilirubin Dipstick Negative (Negative); Urine Clarity Sl. Cloudy (Clear); Urine Urobilinogen Normal (Normal)
[2021-10-12 17:57] LABS: Bacteria 2+ /hpf (None Seen); Red Blood Cells-Urine 0-5 SEEN /hpf (0-5); White Blood Cells 10-25 SEEN /hpf (0-5)
--- NOTE | 2021-10-12 20:11 | PCM.HP.STD ---
HPI - General General Date of Admission: 10/12/21 Date of Service: 10/12/21 Chief Complaint: Nausea and vomiting HPI Narrative FLORIN ZABALA, is a 75 F with a significant history of hypertension; and Vertigo who presents to the emergency department with a 2-day history of progressively worsening nausea and vomiting. Associated with her symptom is some mild abdominal pain. Also patient complains of myalgia. Further in the past 2 weeks she has had weakness and unsteady gait. She reports poor appetite and headaches. She has chronic vertigo that has been worked up extensively including seeing an ENT doctor. She reports mild improvement in her Vertigo. At the emergency department patient was found to have abnormal urinalysis. Upon probe, patient denies dysuria or change in frequency of urination. She reports creamy colored urine. At the emergent department patient was found to have hypercalcemia. She reports taking calcium pills. Also she patient vitamin D supplements. Patient is unvaccinated against COVID-19 virus. She was diagnosed with COVID-19 infection around April 2021. Rapid COVID antigen on presentation was negative. [facility] Medical History Arthritis Benign essential hypertension Depression Dizziness GERD (gastroesophageal reflux disease) History of skin cancer HLD (hyperlipidemia) IBS (irritable bowel syndrome) Previous history TIA PVD (peripheral vascular disease) Restless leg syndrome Seasonal allergies Vitamin D deficiency, unspecified Home Medications aspirin 81 mg PO DAILY@0800 07/13/19 [History Last Taken 07/24/21] Alive [employer]'s Energy 1 tab PO DAILY 07/25/21 [History Last Taken 07/24/21] bupropion HCl 150 mg PO QHS 07/25/21 [History Last Taken 07/24/21] cholecalciferol (vitamin D3) 50,000 unit PO .[id number] 07/25/21 [History Last Taken 07/20/21] denosumab 60 mg/mL subcutaneous syringe 60 mg SUBCUT [id number] #1 ml 07/29/21 [Rx Last Taken Unknown] meloxicam 15 mg tablet 15 mg PO DAILY PRN #60 tab 08/27/21 [Rx Last Taken Unknown] lorazepam [Ativan] 1 mg PO TID PRN #10 tab 09/16/21 [Rx Last Taken Unknown] bupropion HCl [Wellbutrin XL] 150 mg PO DAILY 10/12/21 [History Last Taken Unknown] calcium citrate [Citracal] 1,200 mg PO DAILY 10/12/21 [History Last Taken Unknown] cetirizine [Zyrtec] 10 mg PO QHS 10/12/21 [History Last Taken Unknown] lansoprazole [Prevacid] 30 mg PO DAILY 10/12/21 [History Last Taken Unknown] valsartan-hydrochlorothiazide [Diovan HCT] 1 tab PO DAILY 10/12/21 [History Last Taken Unknown] Allergy/AdvReac Type Severity Reaction Status Date / Time Sulfa (Sulfonamide Allergy Hives Verified 09/16/21 16:58 Antibiotics) morphine AdvReac Nausea/Vom/ Verified 09/16/21 16:58 Diarrhea Family History Mother Diabetes Hypertension High cholesterol Father Diabetes Hypertension CVA (cerebral vascular accident) Sister Cancer Surgical History History of hysterectomy History of laparoscopic cholecystectomy History of right hip replacement Social History household members: none Smoking Status: Never smoker alcohol intake: current alcohol intake frequency: holidays/special occasions only substance use type: does not use what type of physical activity do you participate in: none ROS ROS Narrative Constitutional: Reports fatigue and anorexia.. Denies fever or chills, fatigue. Eyes: Denies blurry vision, change in eye color, change in vision, discharge from eye(s), double vision, erythema, eye pain, loss of vision or other HEENT: Denies abnormal hearing, dysphagia, ear pain, epistaxis, headache(s), hearing loss, nasal congestion, nasal discharge, post nasal drip, sinus pressure, sore throat or other Cardiovascular: Denies chest pain or palpitations. Denies dyspnea on exertion, orthopnea and paroxysmal nocturnal dyspnea Respiratory/Chest: Denies cough, excessive phlegm production, shortness of breath with exertion and wheezing Gastrointestinal: Reports nausea and vomiting. Reports mild abdominal pain. Denies coffee ground emesis, constipation, diarrhea, dyspepsia, hematemesis, hematochezia, loose stools, melena, or other Genitourinary: Reports milky color of urine. Denies burning urination, difficulty urinating, dysuria, hematuria, nocturia, urinary frequency, urinary hesitancy, urinary incontinence, urinary urgency or other Musculoskeletal: Reports myalgia. Denies arthralgias, back pain, joint pain, joint stiffness, joint swelling, neck pain or other Neurologic: Reports Vertigo. Denies abnormal gait, abnormal speech, confusion, disequilibrium, focal weakness, headache(s), numbness, paresthesias, seizure-like activity, seizures, syncope, tingling, tremor(s) or other Psychiatric: Denies anxiety, depression, homicidal ideation, suicidal ideation or other Endocrinology: Denies change in body appearance, cold intolerance, excessive sweating, heat intolerance, polydipsia, polyuria or other Hematologic/Lymphatic: Denies anemia, easy bleeding, easy bruising, lymphadenopathy or other Integumentary: Denies rashes Allergic/Immunologic: Denies rhinitis, hives, eczema, asthma or other Vital Signs Vital Signs Vital Signs: 10/12/21 14:37 10/12/21 17:24 10/12/21 19:14 Temperature 97.5 F L Temperature Source Temporal Pulse Rate 110 H 94 82 Respiratory Rate 20 H 27 H 14 Blood Pressure 142/92 H 157/87 H 155/76 H Blood Pressure Mean 108 110 102 Pulse Ox 91 97 96 Oxygen Delivery Method Room Air Nasal Cannula Room Air Oxygen Flow Rate (L/min) 2 10/12/21 19:40 10/12/21 19:50 Temperature Temperature Source Pulse Rate Respiratory Rate Blood Pressure Blood Pressure Mean Pulse Ox 86 95 Oxygen Delivery Method Room Air Nasal Cannula Oxygen Flow Rate (L/min) 3 Weight Weight: 65.771 kg Body Mass Index (BMI) 24.9 Physical Exam Narrative Physical exam: General: Well-nourished, well-developed. Head: Normocephalic, atraumatic, no tenderness Eyes: PERRLA, EOMI ENT, no trauma, moist mucous membranes, no rhinorrhea Neck: Nontender, full range of motion, no spinal tenderness, deformities, step-off CVS: Regular rate and rhythm. S1-S2 present. No murmur, gallop or rub. Respiratory : clear to auscultation bilaterally, chest wall nontender, no wheezing Abdomen: Soft, nontender, nondistended, normal bowel sounds, no masses : Deferred Back: Nontender, no CVA tenderness, no midline spinal tenderness, deformities, step-offs Extremities: Nontender full range of motion, no trauma Skin: Normal color, no trauma, abrasions Neuro: Alert, oriented, cranial nerves II through XII grossly intact. Psychiatry: Normal mood. Normal affect. Not depressed. Not anxious. Results Lab / Micro Data Result Diagrams: 10/12/21 16:35 10/12/21 16:35 Labs: Laboratory Results - last 24 hr 10/12/21 16:35: WBC 15.9 H, RBC 4.83, Hgb 13.8, Hct 41.1, MCV 85.1, MCH 28.6, MCHC 33.6, RDW Std Deviation 42.0, RDW Coeff of Que 13.6, Plt Count 202, MPV 9.7, Immature Gran % (Auto) 0.400, Neut % (Auto) 90.5 H, Lymph % (Auto) 6.1 L, [place] % (Auto) 2.8, Eos % (Auto) 0.0, Baso % (Auto) 0.2, Absolute Neuts (auto) 14.4 H, Absolute Lymphs (auto) 0.97, Nucleated RBC % 0 10/12/21 16:35: Sodium 137, Potassium 3.7, Chloride 97 L, Carbon Dioxide 33.0 H, Anion Gap 7, BUN 21 H, Creatinine 1.26 H, Estim Creat Clear Calc 33.83, Est GFR (MDRD) Af Amer 53 L, Est GFR (MDRD) Non-Af 44 L, BUN/Creatinine Ratio 16.7, Glucose 133 H, Calcium 15.9 H*, Total Bilirubin 0.80, AST 16, ALT 18, Alkaline Phosphatase 101, Total Protein 7.9, Albumin 3.8, Globulin 4.1, Albumin/Globulin Ratio 0.9 10/12/21 17:33: Urine Color Yellow, Urine Clarity Sl. Cloudy, Urine pH 7.0, Ur Specific [place] 1.015, Urine Protein 15 H, Urine Glucose (UA) Normal, Urine Ketones Negative, Urine Occult Blood 10 H, Urine Nitrite Negative, Urine Bilirubin Negative, Urine Urobilinogen Normal, Ur Leukocyte Esterase 100 H, Urine RBC 0-5 SEEN, Urine WBC 10-25 SEEN, Ur Squamous Epith Cells 0 SEEN, Urine Bacteria 2+, Urine Mucus 0 SEEN Micro: Microbiology 10/12/21 16:35 Nasal Secretion SARS-CoV-2 Antigen (Rapid) - Final Rhythm Strip Rhythm Strip: Sinus Tach Rate: 101 Ectopy: None Radiology Impression Chest X-Ray 10/12/21 17:05 IMPRESSION: 1. Diffuse cystic emphysematous changes are present. No visualized consolidation. Electronically Signed: Los Lawrence MD at 18:19 EST , Service support , Assessment & Plan Assessment/Plan (1) Hypercalcemia: (2) Leukocytosis: (3) Urinary tract infection: (4) MELL (acute kidney injury): PLAN: Hypercalcemia Chest x-ray independently interpreted showed diffuse cystic erythematous changes without any consolidation. I agree with radiologist interpretation . Likely secondary to vitamin D and calcium use. We will hold these medications. Will check PTH; vitamin D. And trend CMP. Normal saline IV hydration ordered. Weakness Rapid COVID-19 screen at the emergency department was negative Likely secondary to hypercalcemia PT and OT to evaluate and treat. UTI Review of labs showed white count of 15.9 with neutrophilia and lymphopenia. Urinalysis showed mild proteinuria; urine occult blood; positive urine leukocyte esterase. Negative urine nitrites. Urine bacteria was 2+. Urine culture ordered emergency department, follow-up. Ceftriaxone started emergency department and continued. MELL on CKD stage IIIa Creatinine on presentation was 1.26. Review of old records showed creatinine baseline of about 0.8. BUN is 21. BUN over creatinine is 16.7. Urine electrolytes ordered. Gentle IV hydration. Avoid nephrotoxics. DVT prophylaxis: Subcutaneous Lovenox ordered. Charges/Coding Visit Charges Inpatient E&M: 05030 Init Hosp L3
[2021-10-12] MEDS: Ceftriaxone 1 GM/50 ML BAG IV (20:26)
[2021-10-12 21:02] LABS: Urine Sodium 38 mmol/L (Not Establ.)
[2021-10-12] MEDS: 0.9% Normal Saline 1,000 ML 100 ML IV (22:09)
[2021-10-12] MEDS: Loratadine 10 MG Tablet PO (23:19)
[2021-10-12] MEDS: buPROPion (XL) 150 MG TABLET.XL PO (23:19)
--- NOTE | 2021-10-12 23:31 | PCS.PANDOC ---
PANDEMIC DOCUMENTATION INITIATED: Date: 05/05/2021 Time: 1900 Emergency documentation initiated 10/12/21 @ [id number]
[2021-10-13] VITALS (10 sets, daily range): BP systolic 93–140; BP diastolic 51–70; PULSE 64–78; RESP 16–18; TEMP 36.2–36.9; O2SAT 94–99
[2021-10-13 05:00] LABS: Absolute Lymphocyte Count 1.82 X10^3/uL (0.83-4.51); Absolute Neutrophil Count 4.6 X10^3/uL (2.0-7.7); Basophil# 0.02 X10^3/uL; Basophil% 0.3 % (0-1); Eosinophil# 0.07 X10^3/uL; Hematocrit 32.7 % (37-47); Hemoglobin 10.9 g/dL (12.0-15.0); Lymphocyte # 1.82 X10^3/ul (0.83-4.51); Lymphocyte % 25.6 % (19-41); Mean Corp Hgb Conc 33.3 g/dL (32-36); Mean Platelet Vol. 9.9 fl (6.2-12.0); Monocyte# 0.51 X10^3/uL; Monocyte% 7.2 % (0-10); NRBC Flagged by Analyzer 0 % (0-5); Neutrophil # 4.64 X10^3/uL (2.7-7.7); Neutrophil % 65.3 % (47-70); Platelet Count 149 K/mm3 (150-450); RBC Distribution Width CV 13.7 % (11.6-14.6); RBC Distribution Width SD 42.8 fl (35.1-43.9); Red Blood Count 3.76 M/mm3 (4.2-5.4); White Blood Count 7.1 K/mm3 (4.4-11.0)
[2021-10-13 05:21] LABS: PTHIN 11.8 pg/mL (18.4-80.1)
[2021-10-13 05:26] LABS: Vitamin D,25 Hydroxy 76.6 ng/mL
[2021-10-13 05:43] LABS: ALB/GLOB Ratio 0.9 RATIO (0.9-2.4); AST(SGOT) 13 U/L (15-37); Alanine Aminotransfer ALT/SGPT 15 U/L (13-56); Albumin, Serum 2.8 g/dL (3.2-5.0); Alkaline Phosphatase 75 U/L (45-117); Anion Gap 4 (5-15); BUN 20 mg/dL (7-18); BUN/Creat Ratio 18.7 RATIO (10-20); Calcium,Total 13.4 mg/dL (8.5-10.1); Chloride 101 mmol/L (98-107); Creatinine, Serum 1.07 mg/dL (0.55-1.02); EST Glomerular Filtration Rate 53 mL/min (>60); Est Glom Filt Rate - Afr Amer 64 mL/min (>60); Estimated Creatinine Clearance 39.83 ml/min; Globulin 3.2 g/dL (2.2-4.2); Glucose 87 mg/dL (74-106); Potassium 3.3 mmol/L (3.5-5.1); Sodium Level 137 mmol/L (136-145)
[2021-10-13] MEDS: Acetaminophen 325 MG Tablet 650 MG PO ×2 (06:06→16:36)
[2021-10-13] MEDS: 0.9% Normal Saline 1,000 ML 100 ML IV (06:55)
--- NOTE | 2021-10-13 07:27 | PN.HOSP_ITS ---
Subjective Subjective The patient is a 75 y/o F w/ PMHx: HTN, GERD, Allergic Rhinitis who presents to the [facility] 10/12/21 with history of debility, fatigue as well as nausea and emesis which is progressively been worsening with mild abdominal discomfort and myalgias as well as unsteady gait, poor appetite and headaches prompting ED phoebe luation. #1. Acute Complicated Urinary Tract Infection: Admitted to medical surgical floor, UA upon ED evaluation remarkable, pending UCx, continue judicious fluids, monitor I/Os, continue IV Rocephin w/ transition as able pending sensitivities and speciation. CM, PT, OT consultations for discharge planning. #2. Hypercalcemia, suspected partial iatrogenic: Patient is on significant supplementation, will hold, aggressively hydrated with calcium level already improving, will obtain urine sodium, urine creatinine, magnesium level, TSH level levels, PTH and vitamin D levels pending, ionized calcium also requested. Plan repeat CMP in AM. Patient complaints could certainly be attributed to hypercalcemia in addition to #1. Chest x-ray of note with diffuse cystic erythematous changes with no consolidation. #3. Acute renal insufficiency on CKD stage IIIa, MELL RULED OUT: Secondary to acute presentation #1, #2. Admission creatinine raised to 1.26, prior baseline 0.8, not doubled therefore less consistent with acute kidney injury but certainly insufficiency, hydrating, repeat CMP in AM. #4. Chronic vertigo: Patient with chronic episodes of vertigo which has been ongoing for many decades, denies any current significant symptoms and has had extensive outpatient work-up and evaluation with ENT, uses intermittent meclizine. #5. History of COVID-19: Patient was diagnosed with Covid 04/2021, current presentation with rapid Covid antigen negative, encouraged vaccination as patient has yet to become vaccinated against COVID-19 including booster. #6. Anxiety and depression: We will continue patient home bupropion regimen. #7. Hypertension: Holding home regimen given hypotension, continue judiciously hydrate, add back once appropriate. #8. GERD: We will continue patient home PPI. #9. DVT prophylaxis: SCDs, Lovenox. Objective Data Objective Data Vital Signs: Vital Signs Temp Pulse Resp BP Pulse Ox 98.2 F 71 18 140/70 H 94 10/13/21 03:08 10/13/21 04:01 10/13/21 03:08 10/13/21 03:08 10/13/21 06:57 Oxygen Flow Rate (L/min) 2 Oxygen Delivery Method Room Air Weight: 145 lb 4.554 oz Body Mass Index (BMI) 24.7 Intake & Output: Intake and Output for Last 24 Hours 10/11/21 10/12/21 10/13/21 23:59 23:59 23:59 Intake Total 1050 / 1200 1276.67 / 1276.67 Balance 1050 / 1200 1276.67 / 1276.67 Lab / Micro Data Result Diagrams: 10/13/21 04:44 10/13/21 04:44 Labs: Laboratory Results - last 24 hr 10/12/21 16:35: WBC 15.9 H, RBC 4.83, Hgb 13.8, Hct 41.1, MCV 85.1, MCH 28.6, MCHC 33.6, RDW Std Deviation 42.0, RDW Coeff of Que 13.6, Plt Count 202, MPV 9.7, Immature Gran % (Auto) 0.400, Neut % (Auto) 90.5 H, Lymph % (Auto) 6.1 L, [place] % (Auto) 2.8, Eos % (Auto) 0.0, Baso % (Auto) 0.2, Absolute Neuts (auto) 14.4 H, Absolute Lymphs (auto) 0.97, Nucleated RBC % 0 10/12/21 16:35: Sodium 137, Potassium 3.7, Chloride 97 L, Carbon Dioxide 33.0 H, Anion Gap 7, BUN 21 H, Creatinine 1.26 H, Estim Creat Clear Calc 33.83, Est GFR (MDRD) Af Amer 53 L, Est GFR (MDRD) Non-Af 44 L, BUN/Creatinine Ratio 16.7, Glucose 133 H, Calcium 15.9 H*, Total Bilirubin 0.80, AST 16, ALT 18, Alkaline Phosphatase 101, Total Protein 7.9, Albumin 3.8, Globulin 4.1, Albumin/Globulin Ratio 0.9 10/12/21 17:33: Urine Color Yellow, Urine Clarity Sl. Cloudy, Urine pH 7.0, Ur Specific [place] 1.015, Urine Protein 15 H, Urine Glucose (UA) Normal, Urine Ketones Negative, Urine Occult Blood 10 H, Urine Nitrite Negative, Urine Bilirubin Negative, Urine Urobilinogen Normal, Ur Leukocyte Esterase 100 H, Urine RBC 0-5 SEEN, Urine WBC 10-25 SEEN, Ur Squamous Epith Cells 0 SEEN, Urine Bacteria 2+, Urine Mucus 0 SEEN 10/12/21 17:33: Ur Random Sodium 38, Urine Creatinine 118.00 10/13/21 04:44: WBC 7.1, RBC 3.76 L, Hgb 10.9 L, Hct 32.7 L, MCV 87.0, MCH 29.0, MCHC 33.3, RDW Std Deviation 42.8, RDW Coeff of Que 13.7, Plt Count 149 L, MPV 9.9, Immature Gran % (Auto) 0.600, Neut % (Auto) 65.3, Lymph % (Auto) 25.6, [place] % (Auto) 7.2, Eos % (Auto) 1.0, Baso % (Auto) 0.3, Absolute Neuts (auto) 4.6, Absolute Lymphs (auto) 1.82, Nucleated RBC % 0 10/13/21 04:44: Sodium 137, Potassium 3.3 L, Chloride 101, Carbon Dioxide 32.0, Anion Gap 4 L, BUN 20 H, Creatinine 1.07 H, Estim Creat Clear Calc 39.83, Est GFR (MDRD) Af Amer 64, Est GFR (MDRD) Non-Af 53 L, BUN/Creatinine Ratio 18.7, Glucose 87, Calcium 13.4 H*, Total Bilirubin 0.50, AST 13 L, ALT 15, Alkaline Phosphatase 75, Total Protein 6.0 L, Albumin 2.8 L, Globulin 3.2, Al bumin/Globulin Ratio 0.9 10/13/21 04:44: Vitamin D 25-Hydroxy 76.6 10/13/21 04:44: PTH Intact 11.8 L Micro: Microbiology 10/12/21 16:35 Nasal Secretion SARS-CoV-2 Antigen (Rapid) - Final Radiography Diagnostic Testing: Radiology Impression Chest X-Ray 10/12/21 17:05 IMPRESSION: 1. Diffuse cystic emphysematous changes are present. No visualized consolidation. Electronically Signed: Los Lawrence MD at 18:19 EST , Service support , Rhythm Strip Rhythm Strip: Sinus Tach Rate: 101 Ectopy: None Charges/Coding Visit Charges Inpatient E&M: 54894 Subs Hosp L2
[2021-10-13 07:56] LABS: Magnesium 1.6 mg/dL (1.6-2.6)
[2021-10-13] MEDS: Aspirin 81 MG TAB.CHEW PO (08:58)
[2021-10-13] MEDS: Pantoprazole Sodium 40 MG Tablet PO (08:58)
[2021-10-13] MEDS: Enoxaparin 40 MG/0.4 ML Syringe SC (09:01)
[2021-10-13] MEDS: Potassium Chloride Oral Tablet 20 MEQ 40 MEQ PO (09:01)
--- NOTE | 2021-10-13 10:55 | CASEMGMT ---
BRADY CM Face to Face with patient for initial transition planning/care coordination assessment. RN CM introduced self and role at [facility]. Patient sitting in chair, alert and oriented, at bedside. Patient willing to participate in assessment and is able to answer all questions appropriately. Care providers, pharmacy, and demographics verified. Patient wishes to discharge home, denies need for home health at this time, will monitor progress with therapy. Patient states she has no further needs or concerns at this time. CM to follow for discharge planning needs that may arise. PCP: Shanthi Specialists: Jeimy, neurologist, [facility] Preferred Pharm[facility]: [facility] Prescription Benefit: yes Living Will/HPOA: none LNOK: Living Arrangements: Patient live with in a 2 story home. Patient is independent at home and able to ambulate stairs. Transportation: self/ DME/HHC: Patient states she has shower chair, raised toilet, grab bars, walker at home. Patient previous HHC or SNF Disposition Plan: Patient to discharge home with family support and follow-up plans in place. Will monitor progress with therapy. Felipa TERAN, RN, CM
[2021-10-13] MEDS: Loratadine 10 MG Tablet PO (22:51)
[2021-10-13] MEDS: Ceftriaxone 1 GM/50 ML BAG IV (22:53)
[2021-10-13] MEDS: buPROPion (XL) 150 MG TABLET.XL PO (22:53)
[2021-10-14] VITALS (13 sets, daily range): BP systolic 112–149; BP diastolic 56–80; PULSE 57–71; RESP 13–16; TEMP 36.4–37.2; O2SAT 93–98
[2021-10-14] MEDS: Acetaminophen 325 MG Tablet 650 MG PO (06:24)
[2021-10-14] MEDS: Aspirin 81 MG TAB.CHEW PO (07:49)
[2021-10-14] MEDS: Pantoprazole Sodium 40 MG Tablet PO (07:49)
[2021-10-14] MEDS: Enoxaparin 40 MG/0.4 ML Syringe SC (07:49)
[2021-10-14] MEDS: Senna/Docusate Sodium 1 Tablet 2 TABLET PO (07:59)
[2021-10-14 09:36] LABS: ALB/GLOB Ratio 0.9 RATIO (0.9-2.4); AST(SGOT) 15 U/L (15-37); Alanine Aminotransfer ALT/SGPT 15 U/L (13-56); Alkaline Phosphatase 70 U/L (45-117); Anion Gap 4 (5-15); BUN 21 mg/dL (7-18); BUN/Creat Ratio 18.4 RATIO (10-20); Chloride 105 mmol/L (98-107); Creatinine, Serum 1.14 mg/dL (0.55-1.02); EST Glomerular Filtration Rate 49 mL/min (>60); Est Glom Filt Rate - Afr Amer 60 mL/min (>60); Estimated Creatinine Clearance 37.39 ml/min; Globulin 3.4 g/dL (2.2-4.2); Glucose 90 mg/dL (74-106); Potassium 3.8 mmol/L (3.5-5.1); Protein, Total 6.4 g/dL (6.4-8.2); Sodium Level 141 mmol/L (136-145)
--- NOTE | 2021-10-14 11:11 | PN.HOSP_ITS ---
Subjective Subjective Patient seen and examined. She still complains of some nausea. She has not vomited since last night. She denies any aches or pains, fever or chills or diarrhea. Review of systems otherwise negative. Serum calcium level today is 13. Objective Data Objective Data Vital Signs: Vital Signs Temp Pulse Resp BP Pulse Ox 97.9 F 70 14 125/73 H 93 10/14/21 07:44 10/14/21 07:44 10/14/21 07:44 10/14/21 07:44 10/14/21 08:47 Oxygen Flow Rate (L/min) 2 Oxygen Delivery Method Room Air Weight: 145 lb 4.554 oz Body Mass Index (BMI) 24.7 Intake & Output: Intake and Output for Last 24 Hours 10/12/21 10/13/21 10/14/21 23:59 23:59 23:59 Intake Total 1050 / 1200 2296.67 / 2596.67 500 / 500 Balance 1050 / 1200 2296.67 / 2596.67 500 / 500 Lab / Micro Data Result Diagrams: 10/13/21 04:44 10/14/21 08:36 Labs: Laboratory Results - last 24 hr 10/14/21 08:36: Sodium 141, Potassium 3.8, Chloride 105, Carbon Dioxide 32.0, Anion Gap 4 L, BUN 21 H, Creatinine 1.14 H, Estim Creat Clear Calc 37.39, Est GFR (MDRD) Af Amer 60, Est GFR (MDRD) Non-Af 49 L, BUN/Creatinine Ratio 18.4, Glucose 90, Calcium 13.0 H*, Total Bilirubin 0.40, AST 15, ALT 15, Alkaline Phosphatase 70, Total Protein 6.4, Albumin 3.0 L, Globulin 3.4, Albumin/Globulin Ratio 0.9 Micro: Microbiology 10/12/21 17:53 Urine, Clean Catch Urine Culture - Final Mixed Gram Positive Organisms 10/12/21 16:35 Nasal Secretion SARS-CoV-2 Antigen (Rapid) - Final Rhythm Strip Rhythm Strip: Sinus Tach Rate: 101 Ectopy: None Physical Exam Const alert, oriented x3 and no apparent distress Exam Limitations: no limitations HEENT head/scalp atraumatic, moist oral mucous membranes and oropharynx normal Head and Scalp: normocephalic Eyes PERRL, EOMs intact bilaterally and conjunctivae normal Neck no lymphadenopathy, supple and no JVD Resp normal respiratory effort, no retractions, no use of accessory muscles and clear to auscultation bilaterally Cardio regular rate, regular rhythm, S1 normal heart sound, S2 normal heart sound and no murmurs GI normal to inspection, nondistended, normoactive bowel sounds, soft to palpation, non-tender and non-distended Extremity normal to inspection, full ROM and no clubbing, cyanosis or edema Peripheral Pulses: Yes pulses 2+ throughout Skin no rashes or lesions noted Neuro oriented x3, CN's II-XII intact bilaterally and moves all extremities Sensorium / Orientation: awake and alert Psych affect normal Assessment & Plan Assessment/Plan (1) Hypercalcemia: PLAN: #Hypercalcemia * Calcium today is 13. [place] to be likely iatrogenic as she was on significant calcium supplementation. * start hydration again with IVF. Give a dose of lasix to help with diuresis and hyprcalcemia * trend calcium level. Ionized calcium level pending * corrected calcium level is 13.8 * encourage aggressive oral hydration. * PTH is low at 11.8. TSH was normal at 0.65 in July 2021 * #Elevated creatinine: * Does not meet criteria for MELL. * Creatinine is 1.14 today with a baseline of around 0.7. Trend with hydration. #Vertigo: this is chronic. on meclizine. Has been worked up extensively on outpatient basis. #Anxiety and depression: on bupropion #Hypertension; BP meds held on admission due to hypotension. IV hydralazine prn GERD: on PPI DVT prophylaxis: lovenox Charges/Coding Visit Charges Inpatient E&M: 18589 Subs Hosp L3
[2021-10-14] MEDS: 0.9% Normal Saline 1,000 ML 150 ML IV ×2 (12:34→19:31)
[2021-10-14] MEDS: Furosemide 40 MG/4 ML Vial IV (12:35)
--- NOTE | 2021-10-14 15:42 | NURSING ---
NS charting reviewed-BRADY Bates, clinical instructor
--- NOTE | 2021-10-14 16:19 | CHAPLAIN ---
Type of Pastoral Visit _x__ Initial Visit ___ Follow-up Visit ___ On-call Visit ___ General Patient Visit ___ Spiritual Assessment ___ Family Conference ___ Bereavement ___ Rapid Response ___ Code Blue ___ Other (describe below) Pastoral Care Referral From _x__ Patient ___ Family ___ Nurse ___ Physician ___ Supervisor Force Adjustment ___ Security Operations Analyst ___ Other (describe below) Sacrament/Intervention _x__ Active listening ___ Anointing ___ Voodoo ___ Bereavement ___ Communion ___ Ainka exploration ___ _x__ Life review _x__ Prayer ___ Reconciliation ___ Sacrament of Sick _x__ Supportive presence ___ Wedding ___ Other (describe below) Pastoral Comments spouse also in the room supporting patient; both are looking forward to patient going home
[2021-10-14] MEDS: Ceftriaxone 1 GM/50 ML BAG IV (20:38)
[2021-10-14] MEDS: Loratadine 10 MG Tablet PO (20:39)
[2021-10-14] MEDS: buPROPion (XL) 150 MG TABLET.XL PO (20:39)
[2021-10-15] VITALS (11 sets, daily range): BP systolic 131–160; BP diastolic 65–87; PULSE 63–81; RESP 16–18; TEMP 36.4–36.7; O2SAT 94–98
[2021-10-15 06:38] LABS: Absolute Lymphocyte Count 1.55 X10^3/uL (0.83-4.51); Absolute Neutrophil Count 3.2 X10^3/uL (2.0-7.7); Basophil# 0.03 X10^3/uL; Basophil% 0.6 % (0-1); Eosinophil# 0.15 X10^3/uL; Eosinophils% 2.9 % (0-5); Hematocrit 31.6 % (37-47); Hemoglobin 10.6 g/dL (12.0-15.0); Lymphocyte # 1.55 X10^3/ul (0.83-4.51); Lymphocyte % 29.5 % (19-41); Mean Corp Hgb Conc 33.5 g/dL (32-36); Mean Corpuscular Hgb 28.7 pg (27.0-32.0); Mean Corpuscular Volume 85.6 fL (81-99); Mean Platelet Vol. 10.3 fl (6.2-12.0); Monocyte# 0.35 X10^3/uL; Monocyte% 6.7 % (0-10); NRBC Flagged by Analyzer 0 % (0-5); Neutrophil # 3.16 X10^3/uL (2.7-7.7); Neutrophil % 59.9 % (47-70); Platelet Count 145 K/mm3 (150-450); RBC Distribution Width CV 13.3 % (11.6-14.6); RBC Distribution Width SD 41.2 fl (35.1-43.9); Red Blood Count 3.69 M/mm3 (4.2-5.4); White Blood Count 5.3 K/mm3 (4.4-11.0)
[2021-10-15 07:37] LABS: ALB/GLOB Ratio 0.8 RATIO (0.9-2.4); AST(SGOT) 17 U/L (15-37); Alanine Aminotransfer ALT/SGPT 16 U/L (13-56); Albumin, Serum 2.8 g/dL (3.2-5.0); Alkaline Phosphatase 67 U/L (45-117); Anion Gap 5 (5-15); BUN 21 mg/dL (7-18); BUN/Creat Ratio 17.5 RATIO (10-20); Calcium,Total 12.3 mg/dL (8.5-10.1); Chloride 107 mmol/L (98-107); EST Glomerular Filtration Rate 47 mL/min (>60); Est Glom Filt Rate - Afr Amer 56 mL/min (>60); Estimated Creatinine Clearance 35.52 ml/min; Globulin 3.4 g/dL (2.2-4.2); Glucose 88 mg/dL (74-106); Potassium 3.3 mmol/L (3.5-5.1); Protein, Total 6.2 g/dL (6.4-8.2); Sodium Level 141 mmol/L (136-145)
[2021-10-15] MEDS: Enoxaparin 40 MG/0.4 ML Syringe SC (08:49)
[2021-10-15] MEDS: Pantoprazole Sodium 40 MG Tablet PO (08:49)
[2021-10-15] MEDS: Aspirin 81 MG TAB.CHEW PO (08:49)
[2021-10-15] MEDS: Potassium Chloride Oral Tablet 20 MEQ 40 MEQ PO (09:07)
[2021-10-15] MEDS: 0.9% Normal Saline 1,000 ML 150 ML IV ×3 (09:07→22:39)
[2021-10-15] MEDS: Furosemide 40 MG/4 ML Vial IV ×2 (09:07→18:48)
[2021-10-15] MEDS: 0.9% Saline Lock 10 ML Syringe IV (09:13)
--- NOTE | 2021-10-15 09:39 | PN.HOSP_ITS ---
Objective Data Objective Data Vital Signs: Vital Signs Temp Pulse Resp BP Pulse Ox 97.9 F 65 16 147/66 H 95 10/15/21 04:00 10/15/21 04:11 10/15/21 04:00 10/15/21 04:00 10/15/21 07:45 Oxygen Flow Rate (L/min) 2 Oxygen Delivery Method Room Air Weight: 145 lb 4.554 oz Body Mass Index (BMI) 24.7 Intake & Output: Intake and Output for Last 24 Hours 10/13/21 10/14/21 10/15/21 23:59 23:59 23:59 Intake Total 2296.67 / 2596.67 1550 / 1550 1300 / 1300 Balance 2296.67 / 2596.67 1550 / 1550 1300 / 1300 Lab / Micro Data Result Diagrams: 10/15/21 05:52 10/15/21 05:52 Labs: Laboratory Results - last 24 hr 10/15/21 05:52: WBC 5.3, RBC 3.69 L, Hgb 10.6 L, Hct 31.6 L, MCV 85.6, MCH 28.7, MCHC 33.5, RDW Std Deviation 41.2, RDW Coeff of Que 13.3, Plt Count 145 L, MPV 10.3, Immature Gran % (Auto) 0.400, Neut % (Auto) 59.9, Lymph % (Auto) 29.5, [place] % (Auto) 6.7, Eos % (Auto) 2.9, Baso % (Auto) 0.6, Absolute Neuts (auto) 3.2, Absolute Lymphs (auto) 1.55, Nucleated RBC % 0 10/15/21 05:52: Sodium 141, Potassium 3.3 L, Chloride 107, Carbon Dioxide 29.0, Anion Gap 5, BUN 21 H, Creatinine 1.20 H, Estim Creat Clear Calc 35.52, Est GFR (MDRD) Af Amer 56 L, Est GFR (MDRD) Non-Af 47 L, BUN/Creatinine Ratio 17.5, Glucose 88, Calcium 12.3 H, Total Bilirubin 0.20, AST 17, ALT 16, Alkaline Phosphatase 67, Total Protein 6.2 L, Albumin 2.8 L, Globulin 3.4, Albumin/Globulin Ratio 0.8 L Micro: Microbiology 10/12/21 17:53 Urine, Clean Catch Urine Culture - Final Mixed Gram Positive Organisms 10/12/21 16:35 Nasal Secretion SARS-CoV-2 Antigen (Rapid) - Final Rhythm Strip Rhythm Strip: Sinus Tach Rate: 101 Ectopy: None
--- NOTE | 2021-10-15 09:43 | PN.HOSP_ITS ---
Subjective Subjective Patient seen and examined. She has no active complaints and feels well. Review of systems is otherwise negative. Calcium today is 12.3. Review of systems otherwise negative. Objective Data Objective Data Vital Signs: Vital Signs Temp Pulse Resp BP Pulse Ox 97.9 F 65 16 147/66 H 95 10/15/21 04:00 10/15/21 04:11 10/15/21 04:00 10/15/21 04:00 10/15/21 07:45 Oxygen Flow Rate (L/min) 2 Oxygen Delivery Method Room Air Weight: 145 lb 4.554 oz Body Mass Index (BMI) 24.7 Intake & Output: Intake and Output for Last 24 Hours 10/13/21 10/14/21 10/15/21 23:59 23:59 23:59 Intake Total 2296.67 / 2596.67 1550 / 1550 1300 / 1300 Balance 2296.67 / 2596.67 1550 / 1550 1300 / 1300 Lab / Micro Data Result Diagrams: 10/15/21 05:52 10/15/21 05:52 Labs: Laboratory Results - last 24 hr 10/15/21 05:52: WBC 5.3, RBC 3.69 L, Hgb 10.6 L, Hct 31.6 L, MCV 85.6, MCH 28.7, MCHC 33.5, RDW Std Deviation 41.2, RDW Coeff of Que 13.3, Plt Count 145 L, MPV 10.3, Immature Gran % (Auto) 0.400, Neut % (Auto) 59.9, Lymph % (Auto) 29.5, [place] % (Auto) 6.7, Eos % (Auto) 2.9, Baso % (Auto) 0.6, Absolute Neuts (auto) 3.2, Absolute Lymphs (auto) 1.55, Nucleated RBC % 0 10/15/21 05:52: Sodium 141, Potassium 3.3 L, Chloride 107, Carbon Dioxide 29.0, Anion Gap 5, BUN 21 H, Creatinine 1.20 H, Estim Creat Clear Calc 35.52, Est GFR (MDRD) Af Amer 56 L, Est GFR (MDRD) Non-Af 47 L, BUN/Creatinine Ratio 17.5, Glucose 88, Calcium 12.3 H, Total Bilirubin 0.20, AST 17, ALT 16, Alkaline Phosphatase 67, Total Protein 6.2 L, Albumin 2.8 L, Globulin 3.4, Albumin/Globulin Ratio 0.8 L Micro: Microbiology 10/12/21 17:53 Urine, Clean Catch Urine Culture - Final Mixed Gram Positive Organisms 10/12/21 16:35 Nasal Secretion SARS-CoV-2 Antigen (Rapid) - Final Rhythm Strip Rhythm Strip: Sinus Tach Rate: 101 Ectopy: None Physical Exam Const alert, oriented x3 and no apparent distress Exam Limitations: no limitations HEENT head/scalp atraumatic, moist oral mucous membranes and oropharynx normal Head and Scalp: normocephalic Eyes PERRL, EOMs intact bilaterally and conjunctivae normal Neck no lymphadenopathy, supple and no JVD Resp normal respiratory effort, no retractions, no use of accessory muscles and clear to auscultation bilaterally Cardio regular rate, regular rhythm, S1 normal heart sound, S2 normal heart sound and no murmurs GI normal to inspection, nondistended, normoactive bowel sounds, soft to palpation, non-tender and non-distended Extremity normal to inspection, full ROM and no clubbing, cyanosis or edema Peripheral Pulses: Yes pulses 2+ throughout Skin no rashes or lesions noted Neuro oriented x3, CN's II-XII intact bilaterally and moves all extremities Sensorium / Orientation: awake and alert Psych affect normal Assessment & Plan Assessment/Plan (1) Hypercalcemia: PLAN: #Hypercalcemia * Calcium today is down to 12.3. [place] to be likely iatrogenic as she was on significant calcium supplementation; she was taking calcium citrate 1200mg daily as well as vitamin D3 50,000 units every 2 weeks * trend calcium level. Ionized calcium level pending * continue IV fluid administration; will repeat IV lasix. * encourage aggressive oral hydration. * PTH is low at 11.8. TSH was normal at 0.65 in July 2021 * will check calcitriol leve and PTHrP as well as 25-OH vitamin D levels. * #Elevated creatinine: * Does not meet criteria for MELL. * Creatinine is 1.20 today with a baseline of around 0.7. Trend with hydration. #Vertigo: this is chronic. on meclizine. Has been worked up extensively on outpatient basis. #Anxiety and depression: on bupropion #Hypertension; BP meds held on admission due to hypotension. IV hydralazine prn GERD: on PPI DVT prophylaxis: lovenox Charges/Coding Visit Charges Inpatient E&M: 71049 Subs Hosp L2
[2021-10-15] MEDS: Acetaminophen 325 MG Tablet 650 MG PO ×2 (13:02→19:02)
[2021-10-15] MEDS: Loratadine 10 MG Tablet PO (20:33)
[2021-10-15] MEDS: buPROPion (XL) 150 MG TABLET.XL PO (20:35)
[2021-10-15] MEDS: Ceftriaxone 1 GM/50 ML BAG IV (20:42)
[2021-10-16 01:59] VITALS: PULSE 65
[2021-10-16 03:58] VITALS: BP 108/70; PULSE 73; RESP 18; TEMP 36.5; O2SAT 94
[2021-10-16] MEDS: Acetaminophen 325 MG Tablet 650 MG PO (04:17)
[2021-10-16 05:59] VITALS: PULSE 80
[2021-10-16 06:05] LABS: Absolute Lymphocyte Count 1.62 X10^3/uL (0.83-4.51); Absolute Neutrophil Count 2.2 X10^3/uL (2.0-7.7); Basophil# 0.03 X10^3/uL; Basophil% 0.7 % (0-1); Eosinophils% 4.6 % (0-5); Hematocrit 29.2 % (37-47); Hemoglobin 10.1 g/dL (12.0-15.0); Lymphocyte # 1.62 X10^3/ul (0.83-4.51); Lymphocyte % 37.3 % (19-41); Mean Corp Hgb Conc 34.6 g/dL (32-36); Mean Corpuscular Hgb 29.5 pg (27.0-32.0); Mean Corpuscular Volume 85.4 fL (81-99); Mean Platelet Vol. 10.2 fl (6.2-12.0); Monocyte% 6.9 % (0-10); NRBC Flagged by Analyzer 0 % (0-5); Neutrophil # 2.18 X10^3/uL (2.7-7.7); Neutrophil % 50.3 % (47-70); Platelet Count 139 K/mm3 (150-450); RBC Distribution Width CV 13.7 % (11.6-14.6); RBC Distribution Width SD 42.2 fl (35.1-43.9); Red Blood Count 3.42 M/mm3 (4.2-5.4); White Blood Count 4.3 K/mm3 (4.4-11.0)
[2021-10-16 06:46] LABS: ALB/GLOB Ratio 0.9 RATIO (0.9-2.4); AST(SGOT) 21 U/L (15-37); Alanine Aminotransfer ALT/SGPT 18 U/L (13-56); Albumin, Serum 2.7 g/dL (3.2-5.0); Alkaline Phosphatase 63 U/L (45-117); Anion Gap 6 (5-15); BUN 20 mg/dL (7-18); BUN/Creat Ratio 18.7 RATIO (10-20); Calcium,Total 10.8 mg/dL (8.5-10.1); Chloride 110 mmol/L (98-107); Creatinine, Serum 1.07 mg/dL (0.55-1.02); EST Glomerular Filtration Rate 53 mL/min (>60); Est Glom Filt Rate - Afr Amer 64 mL/min (>60); Estimated Creatinine Clearance 39.83 ml/min; Glucose 87 mg/dL (74-106); Potassium 3.1 mmol/L (3.5-5.1); Protein, Total 5.7 g/dL (6.4-8.2); Sodium Level 143 mmol/L (136-145)
[2021-10-16 07:30] VITALS: PULSE 74
--- NOTE | 2021-10-16 09:19 | PCM.DC.SUM ---
Providers Date of Admission: 10/12/21 Primary Care Physician: Dr. Lucy Maki MD Reason For Visit: HYPERCALCEMIA Diagnosis Discharge Diagnosis (1) Hypercalcemia: Status: Acute Code(s): E83.52 - Hypercalcemia Medications at Discharge Home Medications aspirin 81 mg PO DAILY@0800 07/13/19 Prolia 60 mg SUBCUT [id number] 10/12/21 bupropion HCl [Wellbutrin XL] 150 mg PO DAILY 10/12/21 cetirizine [Zyrtec] 10 mg PO QHS 10/12/21 lansoprazole [Prevacid] 30 mg PO DAILY 10/12/21 valsartan-hydrochlorothiazide [Diovan HCT] 1 tab PO DAILY 10/12/21 Hospital Course Operations None Procedures None Summary of Care Provided Minutes Spent on Discharge: 45 Hospital Course: Patient is a 75-year-old female with a past medical history as outlined which includes hypertension and vertigo who was admitted with a 2-day history of progressively worsening nausea and vomiting with assisted abdominal pain and myalgia. She also had poor appetite and headaches. On admission she was found to be hypercalcemic. Patient was on calcium and vitamin D supplements as prescribed by her PCP. She was also found to have an abnormal urinalysis. She was admitted and managed for hypercalcemia and MELL as well as the bit lately likely due to hypercalcemia and UTI. She was started on hydration with IV fluids and her calcium and vitamin D supplements were discontinued. Lasix was added on to help with diuresis. Calcium gradually trended down and was 10.8 at time of discharge. Her PTH was low. Calcitriol and calcitriol were also ordered and pending. Her creatinine also trended down to her baseline. Patient remained stable and was discharged on 10/16/2021. She is to follow-up with her primary care doctor for monitoring of her calcium levels. If her calcium remains elevated despite her calcium and vitamin D supplements being discontinued, then a secondary cause of the hypercalcemia would have to be investigated for. Patient seen and examined prior to discharge. She had no active complaints and felt well. Review of systems otherwise negative. Labs and vitals reviewed. Home medication reviewed and reconciled. Of note urine culture had grown positive mixed organisms. Physical Exam Const alert, oriented x3 and no apparent distress General Appearance: cooperative Exam Limitations: no limitations HEENT normocephalic, head/scalp atraumatic, hearing grossly normal bilaterally, moist oral mucous membranes and oropharynx normal Eyes PERRL, EOMs intact bilaterally and conjunctivae normal Neck no lymphadenopathy, supple and no JVD Resp normal respiratory effort, no retractions, no use of accessory muscles and clear to auscultation bilaterally Cardio regular rate, regular rhythm, S1 normal heart sound, S2 normal heart sound and no murmurs GI normal to inspection, nondistended, normoactive bowel sounds, soft to palpation, non-tender and non-distended Extremity normal to inspection, full ROM and no clubbing, cyanosis or edema Skin no rashes or lesions noted Neuro oriented x3, CN's II-XII intact bilaterally and moves all extremities Sensorium / Orientation: awake and alert Psych affect normal Weight / BMI Weight Weight: 145 lb 4.554 oz Body Mass Index (BMI) 24.7 ABG / Lab / Microbiology Data Result Diagrams: 10/16/21 05:25 10/16/21 05:25 Laboratory: Laboratory Results - last 24 hr 10/14/21 06:25: Ionized Calcium 8.3 H 10/16/21 05:25: WBC 4.3 L, RBC 3.42 L, Hgb 10.1 L, Hct 29.2 L, MCV 85.4, MCH 29.5, MCHC 34.6, RDW Std Deviation 42.2, RDW Coeff of Que 13.7, Plt Count 139 L, MPV 10.2, Immature Gran % (Auto) 0.200, Neut % (Auto) 50.3, Lymph % (Auto) 37.3, [place] % (Auto) 6.9, Eos % (Auto) 4.6, Baso % (Auto) 0.7, Absolute Neuts (auto) 2.2, Absolute Lymphs (auto) 1.62, Nucleated RBC % 0 10/16/21 05:25: Sodium 143, Potassium 3.1 L, Chloride 110 H, Carbon Dioxide 27.0, Anion Gap 6, BUN 20 H, Creatinine 1.07 H, Estim Creat Clear Calc 39.83, Est GFR (MDRD) Af Amer 64, Est GFR (MDRD) Non-Af 53 L, BUN/Creatinine Ratio 18.7, Glucose 87, Calcium 10.8 H, Total Bilirubin 0.20, AST 21, ALT 18, Alkaline Phosphatase 63, Total Protein 5.7 L, Albumin 2.7 L, Globulin 3.0, Albumin/Globulin Ratio 0.9 Microbiology: Microbiology 10/12/21 17:53 Urine, Clean Catch Urine Culture - Final Mixed Gram Positive Organisms 10/12/21 16:35 Nasal Secretion SARS-CoV-2 Antigen (Rapid) - Final D/C Instructions Discharge Diet: No restrictions Discharge Activity: Return to Normal Activity May resume sexual activity in: No Restrictions Weight Bearing Status: Weight bearing as tolerated Call your doctor if you observe: Fever of 101 or Higher, Shortness of breath, Swelling in the ankles and Increased palpitations (irregular heartbeat) Meaningful Use Info Meaningful Use Diagnoses (Choose all that apply): None applicable Discharge Plan Admission Admit Date/Time: 10/12/21 20:33 Primary Reason for Your Visit: hypercalcemia Attending Provider: Charisma Keating Primary Care Provider: Lucy Maki Instructions Additional Instructions / Restrictions: remain very well hydrated. Discharge Orders/Prescriptions Prescriptions: Continued aspirin 81 MG tablet,chewable 81 mg PO DAILY@0800 RF: 0 lansoprazole [Prevacid] 30 mg Capsule,Delayed Release(Dr/Ec) 30 mg PO DAILY RF: 0 valsartan-hydrochlorothiazide [Diovan HCT] 160-25 mg Tablet 1 tab PO DAILY RF: 0 bupropion HCl [Wellbutrin XL] 150 mg Tablet Extended Release 24 Hr 150 mg PO DAILY RF: 0 cetirizine [Zyrtec] 10 mg tablet 10 mg PO QHS RF: 0 Prolia 60 mg/mL syringe 60 mg subcut [id number] RF: 0 Discontinued cholecalciferol (vitamin D3) 1,250 mcg (50,000 unit) capsule 50,000 unit PO .[id number] RF: 0 calcium citrate [Citracal] 200 mg (950 mg) Tablet 1,200 mg PO DAILY RF: 0 Referrals / Follow Up: Lucy Maki MD [Primary Care Provider] - Within 2 Weeks Disposition Disposition (needs filled in before D/C Order can be placed): Home, Self Care Charges/Coding Visit Charges Inpatient E&M: 49973 Disch Hosp
[2021-10-16 09:55] VITALS: BP 143/75; PULSE 70; RESP 18; TEMP 36.5; O2SAT 96
[2021-10-16] MEDS: Potassium Chloride Oral Tablet 20 MEQ 40 MEQ PO (09:56)
[2021-10-16] MEDS: Aspirin 81 MG TAB.CHEW PO (09:57)
[2021-10-16] MEDS: Pantoprazole Sodium 40 MG Tablet PO (09:57)
== END 2021-10-16 12:39 | disposition home or self-care (01) | DRG 641 ==
LOC: ED 19:58 → MS3 21:05
PROVIDERS: Family Medicine; Admitting Provider Hospitalist; Emergency Provider Emergency Medicine; PCP Internal Medicine; Visit Provider Student in an Organized Health Care Education/Training Program
DX: E83.52 Hypercalcemia (principal); N39.0 Urinary tract infection, site not specified; E78.5 Hyperlipidemia, unspecified; N18.31 Chronic kidney disease, stage 3a; F41.9 Anxiety disorder, unspecified; K21.9 Gastro-esophageal reflux disease without esophagitis; M19.90 Unspecified osteoarthritis, unspecified site; K58.9 Irritable bowel syndrome, unspecified; I12.9 Hypertensive chronic kidney disease with stage 1 through stage 4 chronic kidney disease, or unspecified chronic kidney disease; R42 Dizziness and giddiness; Z20.822 Contact with and (suspected) exposure to COVID-19; F32.A Depression, unspecified; Z86.16 Personal history of COVID-19; Z86.73 Personal history of transient ischemic attack (TIA), and cerebral infarction without residual deficits; Z85.828 Personal history of other malignant neoplasm of skin; Z79.1 Long term (current) use of non-steroidal anti-inflammatories (NSAID); Z96.641 Presence of right artificial hip joint; Z79.899 Other long term (current) drug therapy; Z79.82 Long term (current) use of aspirin; N28.9 Disorder of kidney and ureter, unspecified
CPT/HCPCS: 36415; 71045; 80053; 81001; 82306; 82330; 82570; 83735; 83970; 84300; 85025; 87086; 87088; 87426; 93005; 97110; 97162; 97166; 97530; 97535; 99285; J7030; J7040; J7050; A4216; J1940; J2405

== ENCOUNTER 2021-10-28 14:36 | Outpatient (CLI) | payer MEDICARE, BC, OTHER, SELFPAY ==
[2021-10-28 15:15] LABS: Absolute Neutrophil Count 7.6 X10^3/uL (2.0-7.7); Basophil# 0.03 X10^3/uL; Basophil% 0.3 % (0-1); Eosinophil# 0.09 X10^3/uL; Eosinophils% 0.9 % (0-5); Hematocrit 35.9 % (37-47); Hemoglobin 12.4 g/dL (12.0-15.0); Lymphocyte % 18.1 % (19-41); Mean Corp Hgb Conc 34.5 g/dL (32-36); Mean Corpuscular Hgb 30.4 pg (27.0-32.0); Mean Platelet Vol. 9.5 fl (6.2-12.0); Monocyte# 0.33 X10^3/uL; Monocyte% 3.3 % (0-10); NRBC Flagged by Analyzer 0 % (0-5); Neutrophil # 7.56 X10^3/uL (2.7-7.7); Neutrophil % 76.1 % (47-70); Platelet Count 277 K/mm3 (150-450); RBC Distribution Width CV 14.6 % (11.6-14.6); RBC Distribution Width SD 46.3 fl (35.1-43.9); Red Blood Count 4.08 M/mm3 (4.2-5.4); White Blood Count 9.9 K/mm3 (4.4-11.0)
[2021-10-28 15:50] LABS: Vitamin D,25 Hydroxy 63.8 ng/mL
[2021-10-28 15:58] LABS: ALB/GLOB Ratio 0.9 RATIO (0.9-2.4); AST(SGOT) 14 U/L (15-37); Alanine Aminotransfer ALT/SGPT 24 U/L (13-56); Albumin, Serum 3.5 g/dL (3.2-5.0); Alkaline Phosphatase 70 U/L (45-117); Anion Gap 6 (5-15); BUN 16 mg/dL (7-18); BUN/Creat Ratio 16.8 RATIO (10-20); Chloride 105 mmol/L (98-107); Creatinine, Serum 0.96 mg/dL (0.55-1.02); EST Glomerular Filtration Rate 61 mL/min (>60); Est Glom Filt Rate - Afr Amer 73 mL/min (>60); Globulin 4.1 g/dL (2.2-4.2); Glucose 95 mg/dL (74-106); Protein, Total 7.6 g/dL (6.4-8.2); Sodium Level 139 mmol/L (136-145)
[2021-10-29 10:15] LABS: PTHIN 11.1 pg/mL (18.4-80.1)
[2021-10-30 10:38] LABS: MG Sendout 1.8 mg/dL (1.6-2.3)
== END 2021-10-28 23:59 | disposition home or self-care (01) ==
PROVIDERS: PCP Internal Medicine; Referring Provider Internal Medicine; Visit Provider Internal Medicine
DX: E67.3 Hypervitaminosis D (principal); I10 Essential (primary) hypertension; E55.9 Vitamin D deficiency, unspecified; E83.52 Hypercalcemia; E86.0 Dehydration
CPT/HCPCS: 36415; 80053; 82306; 83735; 83970; 85025

== ENCOUNTER 2021-11-20 10:56 | Outpatient (CLI) | payer MEDICARE, BC, OTHER, SELFPAY ==
[2021-11-20 13:01] LABS: PTHIN 89.2 pg/mL (18.4-80.1)
[2021-11-20 13:06] LABS: Anion Gap 5 (5-15); BUN 22 mg/dL (7-18); Calcium,Total 8.8 mg/dL (8.5-10.1); Chloride 106 mmol/L (98-107); Creatinine, Serum 0.88 mg/dL (0.55-1.02); EST Glomerular Filtration Rate 67 mL/min (>60); Est Glom Filt Rate - Afr Amer 81 mL/min (>60); Glucose 85 mg/dL (74-106); Magnesium 2.6 mg/dL (1.6-2.6); Sodium Level 137 mmol/L (136-145)
== END 2021-11-20 23:59 | disposition home or self-care (01) ==
LOC: BIMLAB 10:58
PROVIDERS: PCP Internal Medicine; Referring Provider Internal Medicine; Visit Provider Internal Medicine
DX: E83.52 Hypercalcemia (principal); E67.3 Hypervitaminosis D
CPT/HCPCS: 36415; 80048; 82330; 83735; 83970

== ENCOUNTER 2021-12-22 14:03 | Outpatient (CLI) | payer MEDICARE, BC, OTHER, SELFPAY ==
[2021-12-22 15:57] LABS: Vitamin D,25 Hydroxy 43.8 ng/mL
[2021-12-22 16:07] LABS: AST(SGOT) 19 U/L (15-37); Alanine Aminotransfer ALT/SGPT 28 U/L (13-56); Albumin, Serum 3.8 g/dL (3.2-5.0); Alkaline Phosphatase 89 U/L (45-117); Anion Gap 5 (5-15); BUN 14 mg/dL (7-18); BUN/Creat Ratio 16.9 RATIO (10-20); Calcium,Total 8.7 mg/dL (8.5-10.1); Chloride 107 mmol/L (98-107); Creatinine, Serum 0.83 mg/dL (0.55-1.02); EST Glomerular Filtration Rate 71 mL/min (>60); Est Glom Filt Rate - Afr Amer 86 mL/min (>60); Glucose 104 mg/dL (74-106); Potassium 4.2 mmol/L (3.5-5.1); Protein, Total 7.8 g/dL (6.4-8.2); Sodium Level 141 mmol/L (136-145)
[2021-12-23 08:54] LABS: PTHIN 78.1 pg/mL (18.4-80.1)
== END 2021-12-22 23:59 | disposition home or self-care (01) ==
LOC: BIMLAB 14:05
PROVIDERS: PCP Internal Medicine; Referring Provider Internal Medicine; Visit Provider Internal Medicine
DX: I10 Essential (primary) hypertension (principal); E21.3 Hyperparathyroidism, unspecified; E83.52 Hypercalcemia; E67.3 Hypervitaminosis D; U07.1 COVID-19
CPT/HCPCS: 36415; 80053; 82306; 83970; 84443

== ENCOUNTER → 2022-01-28 | Outpatient (CLI) | payer MEDICARE, BC, OTHER, SELFPAY ==
[2022-01-28 17:02] LABS: Anion Gap 5 (5-15); BUN 20 mg/dL (7-18); BUN/Creat Ratio 20.9 RATIO (10-20); Calcium,Total 9.1 mg/dL (8.5-10.1); Chloride 104 mmol/L (98-107); Creatinine, Serum 0.96 mg/dL (0.55-1.02); EST Glomerular Filtration Rate 61 mL/min (>60); Est Glom Filt Rate - Afr Amer 73 mL/min (>60); Glucose 100 mg/dL (74-106); Potassium 4.4 mmol/L (3.5-5.1); Sodium Level 139 mmol/L (136-145)
== END | disposition home or self-care (01) ==
LOC: BIMLAB 15:20
PROVIDERS: PCP Internal Medicine; Referring Provider Internal Medicine; Visit Provider Internal Medicine
DX: R25.2 Cramp and spasm (principal)
CPT/HCPCS: 36415; 80048; 83735

== ENCOUNTER → 2022-02-14 | Outpatient (CLI) | payer MEDICARE, BC, OTHER, SELFPAY ==
--- NOTE | 2022-02-14 07:15 | MRI_ITS ---
STUDY: MR Spine Lumbar W/O Contrast 02/14/2022 9:30 AM REASON FOR EXAM: Female, 76 years old. Back pain DDD,RADICULOPATHY,SPONDYLOSIS,STENOSIS SPONDYLOLISTHESIS TECHNIQUE: MR Spine Lumbar W/O Contrast Standardized fat and water weighted pulse sequences were obtained. COMPARISON: CT abdomen and pelvis 03/29/2017 FINDINGS: T12-L1: Loss of intervertebral disc height. There is endplate spondylosis of the vertebral body. Normal central canal and intervertebral neuroforamina. There is bilateral facet arthropathy. Normal lumbar lordosis. There is a dextroscoliosis of the lumbar spine. Normal conus medullaris that terminates at the L1. L1-2: Loss of intervertebral disc height. There is endplate spondylosis of the vertebral body. Normal central canal and intervertebral neuroforamina. There is bilateral facet arthropathy. Old superior endplate compression deformity of L1. L2-3: Loss of intervertebral disc height with osseous fusion. There is endplate spondylosis of the vertebral body. Narrowing of the bilateral intervertebral neuroforamina. There is bilateral facet arthropathy. Posterior disc bulge. No spinal stenosis. L3-4: Loss of intervertebral disc height. There is endplate spondylosis of the vertebral body. Narrowing of the bilateral intervertebral neuroforamina. Likely compression of exiting nerve roots. There is bilateral facet arthropathy. There is bilateral ligamentum flavum thickening. No spinal stenosis. L4-5: Loss of intervertebral disc height. There is endplate spondylosis of the vertebral body. There is bilateral facet arthropathy. Bilateral neural foraminal stenosis. Compression of exiting nerve roots. Small posterior disc bulge. Narrowing of the right lateral recess. Vacuum disc phenomenon. There is bilateral ligamentum flavum thickening. L5-S1: Loss of intervertebral disc height. There is endplate spondylosis of the vertebral body. There is bilateral facet arthropathy. Bilateral neural foraminal stenosis. Compression of exiting nerve roots. There are bilateral pars articularis defects at L5-S1. There is a Grade 1 anterolisthesis of L5 on S1. The distance is 4.3 mm. Vacuum disc phenomenon. There is bilateral ligamentum flavum thickening. Small posterior disc bulge. No significant spinal stenosis. Narrowing of the lateral recess. Normal visualized sacral ala. Normal visualized paraspinous soft tissue structures. MRI/Spine Lumbar (Routine) IMPRESSION: Multilevel degenerative changes, as described above. There is a dextroscoliosis of the lumbar spine. L3-4, L4-5, and L5-S1: Bilateral neural foraminal stenosis. Compression of exiting nerve roots. L5-S1: There are bilateral pars articularis defects at L5-S1. There is a Grade 1 anterolisthesis of L5 on S1. L4-5 and L5-S1: Small posterior disc bulge. Electronically Signed: Delfino Guerrero MD at 9:37 EDT ,
== END | disposition home or self-care (01) ==
LOC: MRI 07:06
PROVIDERS: PCP Internal Medicine; Visit Provider Nurse Practitioner Family
DX: M51.17 Intervertebral disc disorders with radiculopathy, lumbosacral region (principal); M48.07 Spinal stenosis, lumbosacral region; M43.16 Spondylolisthesis, lumbar region; M47.27 Other spondylosis with radiculopathy, lumbosacral region
CPT/HCPCS: 72148

== ENCOUNTER → 2022-03-26 | Outpatient (CLI) | payer MEDICARE, BC, OTHER, SELFPAY ==
--- NOTE | 2022-03-26 08:44 | VDLE_ITS ---
Reason For Study: Pain RIGHT LEFT GSV is normal. GSV is normal. CFV is compressible, spontaneous, phasic, CFV is compressible, spontaneous, phasic, competent and demonstrates normal competent, and demonstrates normal augmentation. augmentation. FV is compressible, spontaneous, phasic, FV is compressible, spontaneous, phasic, competent and demonstrates normal competent and demonstrates normal augmentation. augmentation. POP V is compressible, spontaneous, phasic, POP V is compressible, spontaneous, phasic, competent and demonstrates normal competent and demonstrates normal augmentation. augmentation. T/P Trunk is compressible. T/P Trunk is compressible. PTV is compressible. PTV is compressible. RT PerV is compressible. LT PerV is compressible. Procedure This is a venous duplex using B-mode, color flow and spectral Doppler. Exam performed in department. A preliminary report was called and/or faxed to [facility]. VL/Venous Duplex US - Danial Extrem Interpretation Summary No evidence for acute deep venous thrombosis bilateral lower extremities with p atent and compressible bilateral great saphenous veins. Ordering Physician: Lucy Maki Referring Physician: Lucy Maki Performed By: Felipa Jang RVT
--- NOTE | 2022-03-26 08:44 | ART_ITS ---
Reason For Study: Pain Procedure A bilateral lower extremity continuous wave Doppler with analog waveform analysis and ankle brachial indexes. Left Segmental Pressures Left brachial= 128mmHg. Left posterior tibial artery = 147mmHg. Left dorsalis pedis artery = 148mmHg. The left dorsalis pedis waveforms are triphasic. The left posterior tibial artery waveforms are triphasic. Right Segmental Pressures Right brachial= 127mmHg. Right posterior tibial artery = 154mmHg. Right dorsalis pedis artery = 149mmHg. The right dorsalis pedis waveforms are triphasic. The right posterior tibial artery waveforms are triphasic. Indices The right ankle brachial index by the dorsalis pedis is 1.16. The right ankle brachial index by the posterior tibial artery is 1.20. The left ankle brachial index by the dorsalis pedis is 1.16. The left ankle brachial index by the posterior tibial artery is 1.15. VL/Ankle Brachial Index Interpretation Summary Normal right lower extremity PT and DP ankle-brachial index of 1.2 and 1.16 res pectively with normal triphasic Doppler waveforms. Digital waveforms are mildly depressed possible temperature effect or distal sm all vessel disease Normal left lower extremity PT and DP ankle-brachial index of 1.15 and 1.16 res pectively with normal triphasic Doppler waveforms Digital waveforms are mildly depressed possible temperature effect or distal sm all vessel disease Ordering Physician: Lucy Maki Referring Physician: Lucy Maki Performed By: Felipa Jang RVT
== END | disposition home or self-care (01) ==
PROVIDERS: PCP Internal Medicine; Referring Provider Internal Medicine; Visit Provider Internal Medicine
DX: R25.2 Cramp and spasm (principal); M79.604 Pain in right leg; M79.605 Pain in left leg
CPT/HCPCS: 93922; 93970

== ENCOUNTER → 2022-04-02 | Outpatient (CLI) | payer MEDICARE, BC, OTHER, SELFPAY ==
[2022-04-02 11:47] LABS: PTHIN 51.3 pg/mL (18.4-80.1)
[2022-04-02 12:00] LABS: Anion Gap 4 (5-15); BUN 16 mg/dL (7-18); BUN/Creat Ratio 17.5 RATIO (10-20); Calcium,Total 9.4 mg/dL (8.5-10.1); Chloride 105 mmol/L (98-107); Creatinine, Serum 0.91 mg/dL (0.55-1.02); EST Glomerular Filtration Rate 64 mL/min (>60); Est Glom Filt Rate - Afr Amer 77 mL/min (>60); Glucose 94 mg/dL (74-106); Sodium Level 140 mmol/L (136-145)
== END | disposition home or self-care (01) ==
PROVIDERS: PCP Internal Medicine; Referring Provider Internal Medicine; Visit Provider Internal Medicine
DX: E21.3 Hyperparathyroidism, unspecified (principal)
CPT/HCPCS: 36415; 80048; 83970

== ENCOUNTER → 2022-04-09 | Outpatient (CLI) | payer MEDICARE, BC, OTHER, SELFPAY ==
[2022-04-09 17:39] LABS: Follicle Stimulating Hormone 59.2 mIU/mL; Free T3 2.2 pg/mL (2.18-3.98); Luteinizing Hormone 14.5 mIU/mL; T4 Free Direct 1.18 ng/dL (0.76-1.46); Thyroid Stim Hormone (TSH) 0.72 uIU/mL (0.358-3.74)
== END | disposition home or self-care (01) ==
LOC: LAB 14:06
PROVIDERS: PCP Internal Medicine; Referring Provider Internal Medicine; Visit Provider Internal Medicine
DX: M79.605 Pain in left leg (principal); E21.3 Hyperparathyroidism, unspecified; R25.2 Cramp and spasm; L65.9 Nonscarring hair loss, unspecified
CPT/HCPCS: 36415; 82533; 83001; 83002; 84439; 84443; 84481

== ENCOUNTER → 2022-05-05 | Outpatient (CLI) | payer MEDICARE, BC, OTHER, SELFPAY ==
--- NOTE | 2022-05-05 08:59 | STRESSREP_ITS ---
Stress Test Report Date: 05-05-2022 Procedure: Pharmacologic stress nuclear imaging study Indications: Abnormal ECG; dizziness; peripheral vascular disease; status post COVID-19 Consent: Per the patient Procedure: The patient underwent pharmacologic (Regadenoson 0.4mg ) evaluation with a peak heart rate of 99 beats per minute (68%predicted maximal heart rate) and a peak blood pressure of 130/68 mmHg. The baseline ECG demonstrated normal sinus rhythm. The peak pharmacologic ECG demonstrated no obvious ECG changes. There were no cardiac dysrhythmias pretest, during pharmacologic infusion, or recovery. There was no complaint of chest discomfort during pharmacologic infusion or recovery. The examination was discontinued secondary to completion of protocol. Impression: 1. Pharmacologic (Regadenoson) evaluation 2. Peak pharmacologic ECG with no obvious ECG changes. 3. There were no cardiac dysrhythmias pretest, during pharmacologic infusion, or recovery. 4. Nuclear images pending Myocardial perfusion imaging study: Technique: The patient was injected with 11.5 millicuries of technetium 99m Cardiolite and subsequently rest SPECT Cardiolite nuclear imaging was obtained in the horizontal long, vertical long, and short axis views. The patient underwent pharmacologic (Regadenoson) evaluation with a peak heart rate of 99 beats per mi nute (68% percent predicted maximal heart rate) and a peak blood pressure of 130/68 mmHg. The patient was injected with 33.9 millicuries of technetium 99m Cardiolite and subsequently stress SPECT Cardiolite nuclear imaging was obtained in the horizontal long, vertical long, and short axis views. A gated Cardiolite study at peak stress was obtained. Interpretation: Rest and stress SPECT Cardiolite nuclear imaging status post realignment, normalization, and attenuation correction demonstrate the appearance of body motion during image acquisition and otherwise the appearance of relative uniform tracer uptake and myocardial perfusion appearing within normal limits. There is end systolic thickening and brightening. The gated Cardiolite study demonstrates myocardial thickening and inward wall motion with the appearance of a hyperdynamic state. The reported LVEF is 90%. Impression: 1. Rest and stress SPECT Cardiolite nuclear imaging demonstrate relative uniform tracer uptake and myocardial perfusion appearing within normal limits. 2. The gated Cardiolite study reports an LVEF of 90%. This note was generated with [employer] software. It may contain incorrect words, spelling, and punctuation that were not noted in checking the note before signing.
== END | disposition home or self-care (01) ==
LOC: CVS 07:15
PROVIDERS: PCP Internal Medicine; Referring Provider Internal Medicine; Visit Provider Internal Medicine
DX: R94.31 Abnormal electrocardiogram [ECG] [EKG] (principal)
CPT/HCPCS: 78452; 93017; A9500; A4216; J2785

== ENCOUNTER → 2022-06-09 | Outpatient (CLI) | payer MEDICARE, BC, OTHER, SELFPAY ==
[2022-06-09 09:04] VITALS: BP 112/73; PULSE 78; RESP 16; TEMP 37.1; O2SAT 97; BMI 25.7
[2022-06-09] MEDS: Cosyntropin 0.25 MG Vial IM (09:30)
== END | disposition home or self-care (01) ==
LOC: MEDOUTP 08:52
PROVIDERS: PCP Internal Medicine; Referring Provider Internal Medicine; Visit Provider Internal Medicine
DX: R53.81 Other malaise (principal); R53.83 Other fatigue
CPT/HCPCS: 36415; 82533; 96372; J0834

== ENCOUNTER → 2022-06-12 | Outpatient (CLI) | payer MEDICARE, BC, OTHER, SELFPAY ==
--- NOTE | 2022-06-12 16:20 | RAD_ITS ---
STUDY: RIGHT SHOULDER X-RAY SERIES AT 1630 HOURS ON 06/12/2022 REASON FOR EXAM: 76-year-old female with right shoulder pain. TECHNIQUE: 4 view(s) of the shoulder. COMPARISON: None. FINDINGS: Normal glenohumeral articulation. Normal acromioclavicular joint. Normal acromion. Normal humeral head and visualized proximal humerus. No fractures or dislocations. No arthritic or degenerative changes. No calcific tendinitis. Normal right clavicle, coracoid clavicular joint, scapula, and adjacent ribs. The soft tissue structures are unremarkable. Normal visualized pulmonary apex. RAD/Shoulder min 2 Views IMPRESSION: 1. Normal x-ray examination of the right shoulder. 2. No fractures or dislocations. 3. No arthritic or degenerative changes. 4. No calcific tendinitis. Electronically Signed: Luke Hall MD at 16:49 EDT ,
== END | disposition home or self-care (01) ==
LOC: RAD 16:05
PROVIDERS: PCP Internal Medicine; Visit Provider Nurse Practitioner Family
DX: M25.511 Pain in right shoulder (principal)
CPT/HCPCS: 73030

== ENCOUNTER → 2022-07-16 | Outpatient (CLI) | payer MEDICARE, BC, OTHER, SELFPAY ==
[2022-07-16 10:24] LABS: Absolute Lymphocyte Count 1.83 X10^3/uL (0.83-4.51); Absolute Neutrophil Count 3.1 X10^3/uL (2.0-7.7); Basophil# 0.04 X10^3/uL; Basophil% 0.7 % (0-1); Eosinophil# 0.13 X10^3/uL; Eosinophils% 2.4 % (0-5); Hematocrit 40.8 % (37-47); Hemoglobin 13.7 g/dL (12.0-15.0); Lymphocyte # 1.83 X10^3/ul (0.83-4.51); Lymphocyte % 33.3 % (19-41); Mean Corp Hgb Conc 33.6 g/dL (32-36); Mean Corpuscular Hgb 29.5 pg (27.0-32.0); Mean Corpuscular Volume 87.9 fL (81-99); Mean Platelet Vol. 9.8 fl (6.2-12.0); Monocyte# 0.37 X10^3/uL; Monocyte% 6.7 % (0-10); NRBC Flagged by Analyzer 0 % (0-5); Neutrophil # 3.07 X10^3/uL (2.7-7.7); Platelet Count 211 K/mm3 (150-450); RBC Distribution Width CV 13.5 % (11.6-14.6); Red Blood Count 4.64 M/mm3 (4.2-5.4); White Blood Count 5.5 K/mm3 (4.4-11.0)
[2022-07-16 11:29] LABS: Vitamin D,25 Hydroxy 39.1 ng/mL
[2022-07-16 11:54] LABS: AST(SGOT) 13 U/L (15-37); Alanine Aminotransfer ALT/SGPT 19 U/L (13-56); Albumin, Serum 3.5 g/dL (3.2-5.0); Alkaline Phosphatase 92 U/L (45-117); Anion Gap 5 (5-15); BUN 11 mg/dL (7-18); BUN/Creat Ratio 13.3 RATIO (10-20); CPK Total, Creatine Kinase 46 U/L (26-192); Calcium,Total 9.5 mg/dL (8.5-10.1); Chloride 103 mmol/L (98-107); Cholesterol 222 mg/dL (200); Creatinine, Serum 0.82 mg/dL (0.55-1.02); EST Glomerular Filtration Rate 72 mL/min (>60); Est Glom Filt Rate - Afr Amer 87 mL/min (>60); Globulin 3.6 g/dL (2.2-4.2); Glucose 94 mg/dL (74-106); High Density Lipoprotein 66 mg/dL; Potassium 3.5 mmol/L (3.5-5.1); Protein, Total 7.1 g/dL (6.4-8.2); Sodium Level 139 mmol/L (136-145); Thyroid Stim Hormone (TSH) 1.22 uIU/mL (0.358-3.74); Triglycerides 178 mg/dL; Very Low Density Lipoprotein 36 mg/dL (5-40)
== END | disposition home or self-care (01) ==
LOC: LAB 09:05
PROVIDERS: PCP Internal Medicine; Referring Provider Internal Medicine; Visit Provider Internal Medicine
DX: R06.09 Other forms of dyspnea (principal); E21.3 Hyperparathyroidism, unspecified; I10 Essential (primary) hypertension; R25.2 Cramp and spasm
CPT/HCPCS: 36415; 80053; 80061; 82306; 82550; 84443; 85025

== ENCOUNTER 2022-07-29 11:30 | Outpatient (RCR) | payer MEDICARE, BC, OTHER, SELFPAY ==
--- NOTE | 2022-07-15 14:02 | HP.PTEVAL ---
Patient's Visit Information FLORIN ZABALA is a 76 year old F referred to Physical Therapy by Dr. Dolores Garcia MD with a diagnosis of STRESS URINARY INCONTINENCE AND OVER-ACTIVE BLADDER. Date of Evaluation: 07/14/22 Physical Therapist: Ruba Walters, PT, Cert MDT - Visit Plan Frequency: 1x/Week Duration: 2-4 Months Plan: MANUAL PF THERAPY FOR STRENGTHENING, LENGTHENING/RELAXATION AND ENDURANCE TRAINING. URINARY STRESS, URGE AND FREQUENCY EDUCATION. TRAINING IN ABDOMINAL CAVITY PRESSURE MGMT WITH ADL'S TO DECREASE URINARY LEAKING. CORE AND ASHLEY LE ROM, STRETCHING AND STRENGTHENING TO HELP MEET SET GOALS. - Subjective Work/Leisure: RETIRED. Present symptoms: PATIENT REPORTS SHE HAS A LOT OF URINARY PROBLEMS INCLUDING LEAKAGE AND SOMETIMES FREQUENCEY AND URGENCY. SOMETIMES CAN NOT MAKE IT TO THE BATHROOM IN TIME. SOMETIMES HAS SPASMS IN VAGINA AREA WHEN TRYING TO GO TO THE BATHROOM. HAVING ACCIDENTS 0-2 TIMES A DAY. PATIENT REPORTS SHE HAS A LOT OF BACK AND R HIP PAIN. R THR 2008. GETS LEG CRAMPS. Present since: 2 YEARS. Pain Scale: BACK/R HIP: WORST 9/10, LEAST 0/10. Currently: 0/10. RECENTLY HAD KATHERIN WITH DR. HDEZ. Is it getting better, worse or staying the same: INCONTINENCE SEEMS TO BE GETTING WORSE. Commenced as a result of: INCONTINENCE STARTED FOR NO APPARENT REASON. R HIP FX FROM FALL. LBP STARTED FOR NO APPARENT. Worse: COUGHING AND SNEEZING CAUSE LEAKING. DRINKING POP. Better: GEMTESSA - STARTED ABOUT 5 MONTHS AGO - HAS HELPED INCONTINENCE A LOT. PAIN MGMT IS HELPING BACK/LEG PAIN. Disturbed sleep: LEG CRAMPS WAKE HER UP AT NIGHT. GETS UP AT NIGHT TO URINATE 2-3 TIMES/NIGHT. Previous history/Previous treatment: NO PRIOR PELVIC PT. BOTOX WITH DR. GARCIA ABOUT A YEAR AGO AND HELPED. ALSO TREATMENT RECOMMENDED BY DR. STARR - DANIEL LASER TREATMENT TO REGENERATE VAGINAL TISSUE. PATIENT REPORTS THE LASER TREATMENT WAS PAINFUL AND COULD ONLY DO 2 OF THE 3 TREATMENTS AND IT DID NOT HELP. TRIED DANIEL ABOUT 2 YEARS AGO. NO BACK SURGERY. 2008 R THR. Coughing/sneezing/straining: POSITIVE FOR LEAKING. Gait: CURRENTLY NOT FALLING. INDEP WITHOUT AD'S. Bowel Dysfunction: CONSTIPATION. NO BOWEL INCONTINENCE. Accidents: NO. Unexplained weight loss: NO. Imaging: RECENT SPINE IMAGING AT [facility]. PMH/Recent major surgery: R UE PINCHED NERVE. HTN. OTHER: ALWAYS HAS TO WEAR A PAD IF GOING OUT. USES 1-2 PADS A DAY. - Objective Sitting/Standing Posture: SCOLIOSIS. Active Correction of posture: NE. Other Observations: INDEP GAIT AND TRANSFERS. Sensory deficit: ASHLEY LE LIGHT TOUCH SENSATION IS GROSSLY INTACT AND SYMMETRICAL. ROM deficit: ASHLEY HIP, HS AND GASTROC SOLEUS TIGHTNESS RIGHT > LEFT. Motor deficit: ASHLEY LE'S GROSSLY 5/5 WITH MMT'ING EXCEPT R HIP 4-/5, LEFT HIP 4/5. Dural Signs: POSITIVE RIGHT LE. Lumbar mvmt loss: flex - MIN. ext - MOD. R SG - MOD. L SG - MOD. PATIENT REPORTS LBP WITH LUMBAR ROM TESTING ALL PLANES. Core strength: POOR. Palpation: DECLINED INTERNAL PELVIC EXAM TODAY BUT WILL CONSIDER NEXT VISIT. - Goals Goal 1:: DECREASE URINARY LEAKAGE EPISODES TO 2 PER DAY Goal Time Frame: 6-8 Weeks Goal 2:: PATIENT WILL SUCCESSFULLY DELAY VOIDING FOR 10 MINUTES WHEN URGENCY OCCURS Goal Time Frame: 6-8 Weeks Goal 3:: PATIENT WILL HAVE INCREASED PELVIC FLOOR MUSCLE STRENGTH GRADE TO 4/5 Goal Time Frame: 6-8 Weeks Goal 4:: PATIENT WILL DEMONSTRATE 10 CONSISTENT AND CONSECUTIVE 10 SECOND PELVIC FLOOR MUSCLE CONTRACTIONS TO DEMONSTRATE IMPROVED PELVIC FLOOR ENDURANCE. Goal Time Frame: 8-12 Weeks Goal 5:: VOID FREQUENCEY EVERY 3-4 HOURS Goal Time Frame: 6-8 Weeks Goal 6:: PATIENT WILL BE INDEP WITH A HEP/HOME INSTRUCTIONS FOR CONTINUED IMPROVEMENT ONCE FORMAL PHYSICAL THERAPY CONCLUDES. Goal Time Frame: 8-12 Weeks - Anticipated Interventions Patient/Client Instruction: Educate patient on: Condition, Plan of Care, Risk Factors For the Purpose of:: To improve self management Therapeutic Exercise to Include: Strength training, Endurance training, Coordination, Flexibilty training, Neuromotor development For the Purpose of:: To improve muscle performance and motor function, To increase tolerance to activity/condition/position, To improve ability of physical actions for home/community/work/leisure Thank you for the opportunity to evaluate your patient. For Medicare and Medicare HMO plans, please review the plan of care and approve it. It will need to be FAXED BACK to us at [phone] for Medicare purposes. For Medicare only, by signing this I certify the plan of care. Please let me know if there are questions or concerns regarding this plan of care. Physician Signature: Date:
--- NOTE | 2022-12-16 13:39 | HP.PT.NRP ---
FLORIN ZABALA was seen in my office for initial evaluation on 07/14/22. The following Plan of Care was established for this patient: Initial Frequency: 1x/Week Initial Duration: 2-4 Months Patient/Client Instruction: Educate patient on: Condition, Plan of Care, Risk Factors For the Purpose of:: To improve self management Therapeutic Exercise to Include: Strength training, Endurance training, Coordination, Flexibilty training, Neuromotor development For the Purpose of:: To improve muscle performance and motor function, To increase tolerance to activity/condition/position, To improve ability of physical actions for home/community/work/leisure This patient was last seen in our office 07/29/23. Pertinent comments regarding their Physical therapy will appear below: This patient has not returned to Physical Therapy and is appropriate to return to MD for further follow-up as needed. At this point I will be discontinuing this patient from physical therapy. I would be happy to see this patient again in the future if found appropriate by the physician. Thank you! Ruba Walters, PT, Cert MDT
== END 2022-07-29 19:00 | disposition home or self-care (01) ==
LOC: PT 11:30
PROVIDERS: PCP Internal Medicine; Referring Provider Urology; Visit Provider Urology
DX: N39.3 Stress incontinence (female) (male) (principal); N32.81 Overactive bladder
CPT/HCPCS: 97162; 97530

== ENCOUNTER 2022-08-10 09:38 | Emergency (ER) | payer MEDICARE, BC, OTHER, SELFPAY ==
[2022-08-10 09:40] VITALS: BP 125/89; PULSE 84; RESP 14; TEMP 36.2; O2SAT 97; BMI 27.8
--- NOTE | 2022-08-10 09:59 | EDS_ITS ---
HPI History of Present Illness Chief Complaint: Cough Informant: patient Narrative Narrative: 76-year-old female states that she wants to be checked for COVID-19 and wants the medication for it. She states that last night she developed a stuffy nose and a cough. She states that she tested her with a home COVID test and was negative. She states that she has been hospitalized in the past with COVID- 19 due to hypoxemia. She states she did not test herself at home because she does not trust the tests that the government sends out. She does not believe she is doing her test correctly. She states that the government has lied to us numerous times about COVID-19 and wants to trust our test. [facility] Medical History Arthritis Benign essential hypertension Depression Dizziness GERD (gastroesophageal reflux disease) History of skin cancer HLD (hyperlipidemia) IBS (irritable bowel syndrome) Previous history TIA PVD (peripheral vascular disease) Restless leg syndrome Seasonal allergies Vitamin D deficiency, unspecified Home Medications aspirin 81 mg chewable tablet 81 mg PO DAILY@0800 [facility] 07/13/19 [History Last Taken 07/24/21] denosumab 60 mg/mL subcutaneous syringe (Prolia) 60 mg subcut [id number] Check with primary doctor 10/12/21 [History Last Taken Unknown] vibegron 75 mg tablet (Gemtesa) 75 mg PO DAILY 12/22/21 [History Last Taken Unknown] cetirizine 10 mg tablet (Zyrtec) 10 mg PO QHS allergies #90 tabs 04/13/22 [Rx Last Taken Unknown] lansoprazole 30 mg capsule,delayed release (Prevacid) 30 mg PO DAILY #90 caps 04/13/22 [Rx Last Taken Unknown] bupropion HCl 75 mg tablet 75 mg PO DAILY #30 tabs 05/21/22 [Rx Last Taken Unknown] phentermine 15 mg capsule 15 mg PO DAILY #30 caps 06/24/22 [Rx Last Taken Unknown] Allergy/AdvReac Type Severity Reaction Status Date / Time Sulfa (Sulfonamide Allergy Hives Verified 06/24/22 15:06 Antibiotics) morphine AdvReac Nausea/Vom/ Verified 06/24/22 15:06 Diarrhea Family History Mother Diabetes Hypertension High cholesterol Father Diabetes Hypertension CVA (cerebral vascular accident) Sister Cancer Surgical History History of cholecystectomy History of hysterectomy History of laparoscopic cholecystectomy History of right hip replacement Social History household members: none Smoking Status: Never smoker alcohol intake: current alcohol intake frequency: holidays/special occasions only substance use type: does not use what type of physical activity do you participate in: none ROS ROS ED Constitutional Constitutional ED: Denies chills or weight loss Eyes Eyes: Denies change in vision or diplopia ENT ENT ED: Reports rhinorrhea; Denies ear pain or sore throat Cardiovascular Cardiovascular: Denies chest pain, orthopnea, palpitations or racing heartbeat Respiratory/Chest Respiratory/Chest: Reports cough; Denies dyspnea or orthopnea Gastrointestinal Gastrointestinal: Denies abdominal pain, diarrhea, nausea or vomiting Genitourinary Genitourinary ED: Denies dysuria, hematuria or urinary frequency Musculoskeletal Musculoskeletal: Denies arthralgias or myalgias Integumentary Denies abscess or rash Neurologic Neurologic: Denies headache(s) or weakness Psychiatric Psychiatric: Denies anxiety, depression, suicidal ideation or suicidal thoughts Endocrine Endocrinology: Denies polydipsia, polyphagia or polyuria Allergic/Immunologic Allergic/Immunologic ED: Denies mouth swelling, tongue swelling or urticaria EXAM Physical Exam Const Vital Signs: 08/10/22 09:40 08/10/22 09:52 Temperature 97.1 F L Temperature Source Temporal Pulse Rate 84 Respiratory Rate 14 Respiratory Effort Normal Non-Labored Respiratory Depth Normal Respiratory Pattern Normal Blood Pressure 125/89 H Blood Pressure Mean 101 Pulse Ox 97 Oxygen Delivery Method Room Air Room Air Positive well nourished and well developed General Appearance ED: well developed HEENT Reports normocephalic, head/scalp atraumatic and moist mucous membranes Eyes PERRL and EOMs intact bilaterally Neck no lymphadenopathy, supple and no JVD Resp normal respiratory effort and clear to auscultation bilaterally Cardio regular rate, regular rhythm and no murmurs GI normal to inspection, nondistended, normoactive bowel sounds and non-tender Palpation: soft Back/Spine no CVA tenderness and normal ROM Extremity normal to inspection General Extremety ED: Negative for edema General Extremity: Negative for edema Neuro oriented x3 and CN's II-XII intact bilaterally Sensorium / Orientation: alert Motor Exam: strength 5/5 throughout Psych mental status grossly normal Mood & Affect: Negative for depressed or tearful Skin no rashes or lesions noted and no wounds MDM MDM MDM Narrative Medical decision making narrative: Patient's rapid COVID is negative. I will send off a COVID PCR. Her symptoms are very mild and I do not think with a negative rapid COVID and mild symptoms that she would necessarily needs paxlovid at this time. If her COVID PCR comes back I suggest that she follow-up with her family doctor and see if they would like her to be on it. She states that she understands pack Paxlovid is under emergency use authorization by the federal government and has numerous drug drug interactions and the chance of rebound symptoms is high. Discharge Plan Triage Chief Complaint: Cough ED Provider: Rai Aleman Dx/Rx/DC Orders Clinical Impression: Viral URI Instructions: ED URI, Viral, No Abx (Adult) Prescriptions: No Action Gemtesa 75 mg tablet 75 mg PO DAILY bupropion HCl 75 mg tablet 75 mg PO DAILY Qty: 30 1RF phentermine 15 mg capsule 15 mg PO DAILY Qty: 30 0RF Rx Instructions: must administer 2 hours after breakfast aspirin 81 MG tablet,chewable 81 mg PO DAILY@0800 Prolia 60 mg/mL syringe 60 mg subcut [id number] Rx Instructions: has appointment in November for same cetirizine [Zyrtec] 10 mg tablet 10 mg PO QHS Qty: 90 1RF Rx Instructions: Hold it while taking meclizine because of similar group of medication antihistamine lansoprazole [Prevacid] 30 mg capsule,delayed release(DR/EC) 30 mg PO DAILY Qty: 90 1RF Primary Care Provider: Lucy Maki Referrals: Lucy Maki MD [Primary Care Provider] - As Needed Disposition Disposition: Home, Self Care
[2022-08-10 11:23] VITALS: BP 117/72; PULSE 80; RESP 16; O2SAT 97
== END 2022-08-10 11:27 | disposition home or self-care (01) ==
PROVIDERS: Emergency Provider Emergency Medicine; PCP Internal Medicine; Visit Provider Emergency Medicine
DX: J06.9 Acute upper respiratory infection, unspecified (principal); E78.5 Hyperlipidemia, unspecified; Z20.822 Contact with and (suspected) exposure to COVID-19
CPT/HCPCS: 87635; 87811; 99282; U0003; U0005

== ENCOUNTER 2022-08-11 18:51 | Observation (INO) | payer MEDICARE, BC, OTHER, SELFPAY ==
[2022-08-11 18:52] VITALS: BP 148/90; PULSE 95; RESP 18; TEMP 38.2; O2SAT 94; BMI 28.0
--- NOTE | 2022-08-11 19:13 | EX.ED.DYSGE1 ---
HPI History of Present Illness Chief Complaint: General Illness Detail of Chief Complaint: COVID-positive. Generalized weakness. Unable to ambulate. Informant: patient and family Onset/Context/Timing Onset: Days Context: Gradual Onset Timing: Continuous Current Severity: Mild Maximum Severity: Mild Narrative Narrative: 76-year-old female with history of prior stroke. Just tested COVID-positive is COVID-positive also. She has had nausea vomiting and generalized weakness to the point she is just progressively gone downhill in the last 24 hours and is unable to ambulate at home. No dysuria. No shortness of breath. Prior similar symptoms: Yes Recent Illness/Hospitalization: No PFSH PFSH Medical History Arthritis Benign essential hypertension Depression Dizziness GERD (gastroesophageal reflux disease) History of skin cancer HLD (hyperlipidemia) IBS (irritable bowel syndrome) Previous history TIA PVD (peripheral vascular disease) Restless leg syndrome Seasonal allergies Vitamin D deficiency, unspecified Home Medications aspirin 81 mg chewable tablet 81 mg PO DAILY@0800 [facility] 07/13/19 [History Last Taken 07/24/21] denosumab 60 mg/mL subcutaneous syringe (Prolia) 60 mg subcut [id number] Check with primary doctor 10/12/21 [History Last Taken Unknown] vibegron 75 mg tablet (Gemtesa) 75 mg PO DAILY 12/22/21 [History Last Taken Unknown] lansoprazole 30 mg capsule,delayed release (Prevacid) 30 mg PO DAILY #90 caps 04/13/22 [Rx Last Taken Unknown] Allergy/AdvReac Type Severity Reaction Status Date / Time Sulfa (Sulfonamide Allergy Hives Verified 08/11/22 18:55 Antibiotics) morphine AdvReac Nausea/Vom/ Verified 08/11/22 18:55 Diarrhea Family History Mother Diabetes Hypertension High cholesterol Father Diabetes Hypertension CVA (cerebral vascular accident) Sister Cancer Surgical History History of cholecystectomy History of hysterectomy History of laparoscopic cholecystectomy History of right hip replacement Social History household members: none Smoking Status: Never smoker alcohol intake: current alcohol intake frequency: holidays/special occasions only substance use type: does not use what type of physical activity do you participate in: none ROS ROS ED ROS Narrative Fever. Cough. Nausea and vomiting. Weakness. Review of Systems ROS Unobtainable: Denies due to encephalopathy Constitutional Constitutional ED: Reports chills and fever(s) Eyes Eyes: Denies blurry vision ENT ENT ED: Denies ear pain Cardiovascular Cardiovascular: Denies chest pain Respiratory/Chest Respiratory/Chest: Reports cough Gastrointestinal Gastrointestinal: Reports nausea and vomiting; Denies abdominal pain, constipation, diarrhea or melena Musculoskeletal Musculoskeletal: Reports myalgias; Denies arthralgias Integumentary Denies abscess Neurologic Neurologic: Denies headache(s) Psychiatric Psychiatric: Denies anxiety Endocrine Endocrinology: Denies cold intolerance Hematologic/Lymphatic Hematologic/Lymphatic: Reports none Allergic/Immunologic Allergic/Immunologic ED: Denies mouth swelling or tongue swelling EXAM Physical Exam Narrative Exam Narrative: 79-year-old female vital signs stable pulse ox 94% room air no hypoxia. Temperature 100.8. H EENT exam unremarkable except for mildly dry mucous membranes. Neck nontender no lymphadenopathy. Lungs clear to auscultation bilaterally. Dry cough. Heart regular rhythm rate about 95 no murmur. Abdomen soft nontender. Moving all 4 extremities. Nontender no edema. No rashes. Neurologically she is awake alert with no focal motor deficits. Clinically appears ill not septic or toxic. Dehydrated. Const Vital Signs: 08/11/22 18:52 08/11/22 19:46 Temperature 100.8 F H Temperature Source Temporal Pulse Rate 95 Respiratory Rate 18 Respiratory Effort Normal Non-Labored Respiratory Pattern Normal Blood Pressure 148/90 H Blood Pressure Mean 109 Pulse Ox 94 Oxygen Delivery Method Room Air Positive well nourished and well developed; Negative for obese, cachectic, contractures or unkempt General Appearance ED: well developed and NAD; Negative for unkempt, cachectic, contractures, cyanotic or diaphoretic Nutritional Appearance: Negative for cachectic or obese HEENT Reports dry mucous membranes; Denies moist mucous membranes Negative for trauma or tenderness Mouth ED: Yes dry mucous membranes Mouth: dry mucous membranes Eyes PERRL and EOMs intact bilaterally General Eye ED: Negative for pale conjunctiva or scleral icterus Neck no lymphadenopathy, supple and no JVD General: Negative for tenderness Lymph Lymphatic: Negative for other Chest Wall inspection of chest normal and palpation of chest normal Chest: Negative for other Resp clear to auscultation bilaterally Effort and Inspection: Negative for retractions Auscultation: Negative for rales, rhonchi or wheezes Cardio regular rate, regular rhythm, S1 normal heart sound, S2 normal heart sound and no murmurs GI normal to inspection, nondistended, normoactive bowel sounds, non-tender, non-distended and no masses Inspection: Negative for abdominal distention Auscultation: normoactive bowel sounds Palpation: soft; Negative for tender or guarding Back/Spine no CVA tenderness General Back: Negative for CVA tenderness Cervical Spine: Negative for cervical spine tenderness Thoracic Spine / Upper Back: Negative for thoracic spinal tenderness Lumbar Spine / Lower Back: Negative for lumbar spinal tenderness Extremity normal to inspection General Extremety ED: Negative for edema or tenderness General Extremity: Negative for edema Neuro oriented x3 and CN's II-XII intact bilaterally Sensorium / Orientation: alert; Negative for orientation impaired, lethargic or stuporous Motor Exam: strength 5/5 throughout Psych mental status grossly normal Appearance: Negative for unkempt Attitude: No agitated Mood & Affect: Negative for depressed, anxious or tearful Skin no rashes or lesions noted and no wounds Lesions: No lesion noted Rashes: No rashes noted Trauma: Negative for abrasion Wounds: Negative for wounds noted MDM MDM MDM Narrative Medical decision making narrative: 76-year-old COVID-positive with generalized weakness. Screening labs and a chest x-ray will be obtained. She will be treated with IV fluids, Zofran for nausea and Tylenol for fever. Most likely he will need to be admitted. Repeat exam at 9:51 PM patient doing well. Too weak to ambulate. Discussed with her daughter. Both the patient and her at home have COVID. Daughter is unable to care for her at home. I will speak to the hospitalist about admission. Lab Data Attestation: I reviewed the patient's lab results. Lab results narrative: CBC unremarkable white count of 6.1. H&H 12.1 and 35. Platelets 176. Electrolytes unremarkable gap is 6 normal BUN and creatinine. Normal glucose of 109. Chest x-ray negative. Labs: Laboratory Results - last 24 hr 08/11/22 08/11/22 19:53 19:53 WBC 6.1 RBC 4.08 L Hgb 12.1 Hct 35.2 L MCV 86.3 MCH 29.7 MCHC 34.4 RDW Std Deviation 42.5 RDW Coeff of Que 13.7 Plt Count 176 MPV 9.7 Immature Gran % (Auto) 0.300 Neut % (Auto) 80.9 H Lymph % (Auto) 12.7 L [place] % (Auto) 5.8 Eos % (Auto) 0.0 Baso % (Auto) 0.3 Absolute Neuts (auto) 4.9 Absolute Lymphs (auto) 0.77 L Nucleated RBC % 0 Sodium 138 Potassium 3.6 Chloride 105 Carbon Dioxide 27.0 Anion Gap 6 BUN 16 Creatinine 0.68 Estim Creat Clear Calc 40.21 Est GFR (MDRD) Af Amer 109 Est GFR (MDRD) Non-Af 90 BUN/Creatinine Ratio 23.6 H Glucose 109 H Calcium 9.2 Radiography Chest X-Ray - ED: 1 View, Read by ED Physician, Read by Radiologist, Heart, Lungs, Mediastinum, Bony Structures, No Acute Disease and Chronic Changes Diagnostic Testing: Clinical Impression(s) from Imaging Studies Chest X-Ray 08/11/22 19:18 IMPRESSION: No radiographic evidence of acute cardiopulmonary disease. Electronically Signed: Dragan Kay MD at 19:46 EST , Chest portable, single view, interpreted both by myself and the radiologist. Shows no acute abnormality. Normal cardiac silhouette. Normal mediastinum. No infiltrates. No pneumonitis. Discharge Plan Dx/Rx/DC Orders Clinical Impression: COVID-19, Generalized weakness, Unable to ambulate, Fever, History of embolic stroke Disposition Disposition: Acute Care Hospital [facility]
--- NOTE | 2022-08-11 19:18 | RAD_ITS ---
EXAM: XR CHEST, 1 VIEW CLINICAL INDICATION: Cough and fever TECHNIQUE: Frontal view of the chest. This report was created using [employer] report generation technology. COMPARISON: 10/12/2021 FINDINGS: LUNGS AND PLEURAL SPACES: Unremarkable. No consolidation or edema. No pneumothorax. No effusion. HEART: Unremarkable. Cardiac silhouette not enlarged. MEDIASTINUM: Central airways and mediastinal contour are unremarkable. BONES/JOINTS: Unremarkable. SOFT TISSUES: Unremarkable. RAD/Chest 1 View (Portable) IMPRESSION: No radiographic evidence of acute cardiopulmonary disease. Electronically Signed: Dragan Kay MD at 19:46 EST ,
[2022-08-11] MEDS: 0.9% Normal Saline 1,000 ML 1000 ML IV (19:39)
[2022-08-11] MEDS: Acetaminophen 500 MG Tablet 1000 MG PO (19:39)
[2022-08-11] MEDS: Ondansetron 4 MG/2 ML Vial IV (19:42)
[2022-08-11 20:11] LABS: Absolute Lymphocyte Count 0.77 X10^3/uL (0.83-4.51); Absolute Neutrophil Count 4.9 X10^3/uL (2.0-7.7); Basophil# 0.02 X10^3/uL; Basophil% 0.3 % (0-1); Hematocrit 35.2 % (37-47); Hemoglobin 12.1 g/dL (12.0-15.0); Lymphocyte # 0.77 X10^3/ul (0.83-4.51); Lymphocyte % 12.7 % (19-41); Mean Corp Hgb Conc 34.4 g/dL (32-36); Mean Corpuscular Hgb 29.7 pg (27.0-32.0); Mean Corpuscular Volume 86.3 fL (81-99); Mean Platelet Vol. 9.7 fl (6.2-12.0); Monocyte# 0.35 X10^3/uL; Monocyte% 5.8 % (0-10); NRBC Flagged by Analyzer 0 % (0-5); Neutrophil # 4.92 X10^3/uL (2.7-7.7); Neutrophil % 80.9 % (47-70); Platelet Count 176 K/mm3 (150-450); RBC Distribution Width CV 13.7 % (11.6-14.6); RBC Distribution Width SD 42.5 fl (35.1-43.9); Red Blood Count 4.08 M/mm3 (4.2-5.4); White Blood Count 6.1 K/mm3 (4.4-11.0)
[2022-08-11 20:28] LABS: Anion Gap 6 (5-15); BUN 16 mg/dL (7-18); BUN/Creat Ratio 23.6 RATIO (10-20); Calcium,Total 9.2 mg/dL (8.5-10.1); Chloride 105 mmol/L (98-107); Creatinine, Serum 0.68 mg/dL (0.55-1.02); EST Glomerular Filtration Rate 90 mL/min (>60); Est Glom Filt Rate - Afr Amer 109 mL/min (>60); Estimated Creatinine Clearance 40.21 ml/min; Glucose 109 mg/dL (74-106); Potassium 3.6 mmol/L (3.5-5.1); Sodium Level 138 mmol/L (136-145)
[2022-08-11 21:00] VITALS: BP 118/64; PULSE 84; O2SAT 96
--- NOTE | 2022-08-11 22:12 | PCM.HP.STD ---
HPI - General General Date of Admission: 08/11/22 Date of Service: 08/11/22 Chief Complaint: Malaise HPI Narrative FLORIN ZABALA, is a 76 F with a significant history of a CVA without any residual weakness who presents to the emergency department with malaise. Reportedly patient's is sick at home with COVID-19. Also patient have had COVID-like symptoms. On the day of presentation patient tested positive for COVID-19 at home. She reports nausea, vomiting, anorexia and chills. Further, she has had progressively worsening weakness and is unable to get around at home. who is sick is also unable to help at home. [facility] Medical History Arthritis Benign essential hypertension Depression Dizziness GERD (gastroesophageal reflux disease) History of skin cancer HLD (hyperlipidemia) IBS (irritable bowel syndrome) Previous history TIA PVD (peripheral vascular disease) Restless leg syndrome Seasonal allergies Vitamin D deficiency, unspecified Home Medications aspirin 81 mg chewable tablet 81 mg PO DAILY@0800 [facility] 07/13/19 [History Last Taken 07/24/21] denosumab 60 mg/mL subcutaneous syringe (Prolia) 60 mg subcut [id number] Check with primary doctor 10/12/21 [History Last Taken Unknown] vibegron 75 mg tablet (Gemtesa) 75 mg PO DAILY 12/22/21 [History Last Taken Unknown] lansoprazole 30 mg capsule,delayed release (Prevacid) 30 mg PO DAILY #90 caps 04/13/22 [Rx Last Taken Unknown] Allergy/AdvReac Type Severity Reaction Status Date / Time Sulfa (Sulfonamide Allergy Hives Verified 08/11/22 18:55 Antibiotics) morphine AdvReac Nausea/Vom/ Verified 08/11/22 18:55 Diarrhea Family History Mother Diabetes Hypertension High cholesterol Father Diabetes Hypertension CVA (cerebral vascular accident) Sister Cancer Surgical History History of cholecystectomy History of hysterectomy History of laparoscopic cholecystectomy History of right hip replacement Social History household members: none Smoking Status: Never smoker alcohol intake: current alcohol intake frequency: holidays/special occasions only substance use type: does not use what type of physical activity do you participate in: none ROS ROS Narrative Pertinent positives and pertinent negatives as noted in HPI. All other systems were reviewed and are negative. Vital Signs Vital Signs Vital Signs: 08/11/22 18:52 08/11/22 19:46 08/11/22 21:00 Temperature 100.8 F H Temperature Source Temporal Pulse Rate 95 84 Respiratory Rate 18 Respiratory Effort Normal Non-Labored Respiratory Pattern Normal Blood Pressure 148/90 H 118/64 Blood Pressure Mean 109 82 Pulse Ox 94 96 Oxygen Delivery Method Room Air Room Air Weight Weight: 71.7 kg Body Mass Index (BMI) 28.0 Physical Exam Narrative Physical exam: General: Well-nourished, well-developed. Head: Normocephalic, atraumatic, no tenderness Eyes: Vision is grossly intact. EOMI ENT, no trauma, moist mucous membranes, no rhinorrhea Neck: Nontender, full range of motion, no spinal tenderness, deformities, step-off CVS: Regular rate and rhythm. S1-S2 present. No murmur, gallop or rub. Respiratory : clear to auscultation bilaterally, chest wall nontender, no wheezing Abdomen: Soft, nontender, nondistended, normal bowel sounds, no masses : Deferred Back: Nontender, no CVA tenderness, no midline spinal tenderness, deformities, step-offs Extremities: Nontender full range of motion, no trauma Skin: Normal color, no trauma, abrasions Neuro: Alert, oriented, cranial nerves II through XII grossly intact. Psychiatry: Normal mood. Normal affect. Not depressed. Not anxious. Results Lab / Micro Data Result Diagrams: 08/11/22 19:53 08/11/22 19:53 Labs: Laboratory Results - last 24 hr 08/11/22 19:53: WBC 6.1, RBC 4.08 L, Hgb 12.1, Hct 35.2 L, MCV 86.3, MCH 29.7, MCHC 34.4, RDW Std Deviation 42.5, RDW Coeff of Que 13.7, Plt Count 176, MPV 9.7, Immature Gran % (Auto) 0.300, Neut % (Auto) 80.9 H, Lymph % (Auto) 12.7 L, [place] % (Auto) 5.8, Eos % (Auto) 0.0, Baso % (Auto) 0.3, Absolute Neuts (auto) 4.9, Absolute Lymphs (auto) 0.77 L, Nucleated RBC % 0 08/11/22 19:53: Sodium 138, Potassium 3.6, Chloride 105, Carbon Dioxide 27.0, Anion Gap 6, BUN 16, Creatinine 0.68, Estim Creat Clear Calc 40.21, Est GFR (MDRD) Af Amer 109, Est GFR (MDRD) Non-Af 90, BUN/Creatinine Ratio 23.6 H, Glucose 109 H, Calcium 9.2 Radiology Impression Chest X-Ray 08/11/22 19:18 IMPRESSION: No radiographic evidence of acute cardiopulmonary disease. Electronically Signed: Dragan Kay MD at 19:46 EST , Assessment & Plan Assessment/Plan (1) Debility: (2) Unable to ambulate: PLAN: Plan Debility from COVID-19/unable to ambulate Review of record showed that PCR COVID on 08/10/2022 was negative. Patient reports home COVID test on day of presentation (08/11/2022. ). Impression of chest x-ray by radiologist: No radiographic evidence of acute cardiopulmonary disease. Actual chest x-ray image was visualized and independently interpreted and I agree with radiologist interpretation. CBC shows a white count of 6.1; with neutrophilia and lymphopenia. Trend CBC. Symptomatic treatment with as needed IV antiemetics. Tylenol as needed for pain and fever. PT and OT to work with patient for training and balance training. Hypertension Stable Trend blood pressure DVT prophylaxis: Subcutaneous Lovenox ordered. Charges/Coding Visit Charges OBSV E&M: 26800 Initial observation care L2
[2022-08-11 22:16] VITALS: BP 118/64; PULSE 84; RESP 18; TEMP 37.1; O2SAT 96
[2022-08-11 23:08] VITALS: BMI 27.3
[2022-08-11 23:39] VITALS: BP 99/52; PULSE 71; RESP 18; TEMP 36.4; O2SAT 98
[2022-08-12 03:13] VITALS: BP 105/53; PULSE 64; RESP 16; TEMP 36.8; O2SAT 96
[2022-08-12 06:03] LABS: Absolute Lymphocyte Count 1.22 X10^3/uL (0.83-4.51); Absolute Neutrophil Count 3.1 X10^3/uL (2.0-7.7); Basophil# 0.01 X10^3/uL; Basophil% 0.2 % (0-1); Hematocrit 32.5 % (37-47); Hemoglobin 11.2 g/dL (12.0-15.0); Lymphocyte # 1.22 X10^3/ul (0.83-4.51); Lymphocyte % 25.7 % (19-41); Mean Corp Hgb Conc 34.5 g/dL (32-36); Mean Corpuscular Hgb 30.4 pg (27.0-32.0); Mean Corpuscular Volume 88.3 fL (81-99); Mean Platelet Vol. 9.8 fl (6.2-12.0); Monocyte# 0.42 X10^3/uL; Monocyte% 8.8 % (0-10); NRBC Flagged by Analyzer 0 % (0-5); Neutrophil # 3.08 X10^3/uL (2.7-7.7); Neutrophil % 64.9 % (47-70); Platelet Count 148 K/mm3 (150-450); RBC Distribution Width CV 13.7 % (11.6-14.6); RBC Distribution Width SD 44.4 fl (35.1-43.9); Red Blood Count 3.68 M/mm3 (4.2-5.4); White Blood Count 4.8 K/mm3 (4.4-11.0)
[2022-08-12 06:30] LABS: Anion Gap 6 (5-15); BUN 17 mg/dL (7-18); BUN/Creat Ratio 25.4 RATIO (10-20); Calcium,Total 8.4 mg/dL (8.5-10.1); Chloride 109 mmol/L (98-107); Creatinine, Serum 0.67 mg/dL (0.55-1.02); EST Glomerular Filtration Rate 91 mL/min (>60); Est Glom Filt Rate - Afr Amer 110 mL/min (>60); Estimated Creatinine Clearance 40.21 ml/min; Glucose 87 mg/dL (74-106); Potassium 3.6 mmol/L (3.5-5.1); Sodium Level 141 mmol/L (136-145)
--- NOTE | 2022-08-12 07:08 | PN.HOSP_ITS ---
Subjective Subjective Feels much better. Objective Data Objective Data Vital Signs: Vital Signs Temp Pulse Resp BP Pulse Ox O2 Del Method 36.8 C 64 16 105/53 L 96 Room Air 08/12/22 03:13 08/12/22 03:13 08/12/22 03:13 08/12/22 03:13 08/12/22 03:13 08/12/22 03:20 Oxygen Delivery Method Room Air Weight: 70.2 kg Body Mass Index (BMI) 27.3 Intake & Output: Intake and Output for Last 24 Hours 08/10/22 08/11/22 08/12/22 23:59 23:59 23:59 Intake Total 1000 / 1100 250 / 250 Output Total 200 / 200 Balance 1000 / 1100 50 / 50 Lab / Micro Data Result Diagrams: 08/12/22 05:40 08/12/22 05:40 Labs: Laboratory Results - last 24 hr 08/11/22 19:53: WBC 6.1, RBC 4.08 L, Hgb 12.1, Hct 35.2 L, MCV 86.3, MCH 29.7, MCHC 34.4, RDW Std Deviation 42.5, RDW Coeff of Que 13.7, Plt Count 176, MPV 9.7 , Immature Gran % (Auto) 0.300, Neut % (Auto) 80.9 H, Lymph % (Auto) 12.7 L, [place] % (Auto) 5.8, Eos % (Auto) 0.0, Baso % (Auto) 0.3, Absolute Neuts (auto) 4.9, Absolute Lymphs (auto) 0.77 L, Nucleated RBC % 0 08/11/22 19:53: Sodium 138, Potassium 3.6, Chloride 105, Carbon Dioxide 27.0, Anion Gap 6, BUN 16, Creatinine 0.68, Estim Creat Clear Calc 40.21, Est GFR (MDRD) Af Amer 109, Est GFR (MDRD) Non-Af 90, BUN/Creatinine Ratio 23.6 H, Glucose 109 H, Calcium 9.2 08/12/22 05:40: WBC 4.8, RBC 3.68 L, Hgb 11.2 L, Hct 32.5 L, MCV 88.3, MCH 30.4, MCHC 34.5, RDW Std Deviation 44.4 H, RDW Coeff of Que 13.7, Plt Count 148 L, MPV 9.8, Immature Gran % (Auto) 0.400, Neut % (Auto) 64.9, Lymph % (Auto) 25.7, [place] % (Auto) 8.8, Eos % (Auto) 0.0, Baso % (Auto) 0.2, Absolute Neuts (auto) 3.1, Absolute Lymphs (auto) 1.22, Nucleated RBC % 0 08/12/22 05:40: Sodium 141, Potassium 3.6, Chloride 109 H, Carbon Dioxide 26.0, Anion Gap 6, BUN 17, Creatinine 0.67, Estim Creat Clear Calc 40.21, Est GFR (MDRD) Af Amer 110, Est GFR (MDRD) Non-Af 91, BUN/Creatinine Ratio 25.4 H, Glucose 87, Calcium 8.4 L Radiography Diagnostic Testing: Radiology Impression Chest X-Ray 08/11/22 19:18 IMPRESSION: No radiographic evidence of acute cardiopulmonary disease. Electronically Signed: Dragan Kay MD at 19:46 EST , Physical Exam Const alert and no apparent distress Assessment & Plan Assessment/Plan (1) Debility: PLAN: 2/2 COVID 19. PT OT evaluated but not determined to need any additional therapy needs. (2) COVID-19: PLAN: Suspected. Rapid and PCR were negative here was positive at home. Patient's apparently has COVID-19 Hemodynamically stable. Patient does not need any remdesivir or steroids at this time. PLAN: Plan Hypertension Stable Trend blood pressure I spoke with the patient's daughter, Padmaja, she has a lot of concerns about patient's mentation overall. States that when the patient gets sick she becomes more confused. Otherwise patient is independent but she is concerned about the patient going home and caring for herself. I explained that from the COVID standpoint patient is doing doing well and does not require any treatment at this time. And that I would prescribe her Zofran for nausea if needed. She expressed concerns about mentation and reviewed the patient's MRI from September earlier this year and she has history of an old stroke but also marked atrophy as well. I informed the daughter that is concerned the patient may have some underlying dementia that may be worsened when she gets sick where she gets tired and so forth. Recommend that she follow-up with geriatrics to have a formal geriatric testing. She was agreeable to that. And so she still has has concerns but understands that the patient is medically stable and does not require any therapy needs and she will the patient will be discharged today.
[2022-08-12 07:55] VITALS: O2SAT 95
[2022-08-12] MEDS: Aspirin 81 MG TAB.CHEW PO (08:55)
[2022-08-12] MEDS: Enoxaparin 30 MG/0.3 ML Syringe SC (08:55)
[2022-08-12] MEDS: Pantoprazole Sodium 40 MG Tablet PO (08:55)
[2022-08-12 08:58] VITALS: BP 92/54; PULSE 76; RESP 18; TEMP 37.4; O2SAT 96
[2022-08-12 09:01] VITALS: BP 92/54; PULSE 76; RESP 18; TEMP 37.4; O2SAT 96
[2022-08-12 09:33] VITALS: O2SAT 97
[2022-08-12] MEDS: 0.9% Saline Lock 10 ML Syringe IV (10:38)
[2022-08-12] MEDS: proCHLORPERazine 10 MG/2 ML Vial IV ×2 (10:38)
--- NOTE | 2022-08-12 12:04 | CASEMGMT ---
Noted no therapy recommended per PT and OT did not eval as pt is at baseline. Hospitalist aware and plans to dc. Pt is on RA.
--- NOTE | 2022-08-12 13:54 | DCINST_ITS ---
Discharge Instructions Diet Discharge Diet: No restrictions Follow Up Care Test Results: Test results from this visit will be discussed in further detail at your follow- up appointment, if applicable. Discharge Plan Admission Admit Date/Time: 08/11/22 22:02 Primary Reason for Your Visit: debility. COVID 19 Attending Provider: Francisco Diaz Primary Care Provider: Lucy Maki Consulting Providers: Fletcher Parham Additional Instructions / Restrictions: Self isolate for at least 5 days since symptoms began (through 08/14), then wear a mask daily for 5 days (08/15-) AND at least one day (24 hours) have passed since resolution of fever without the use of fever-reducing agents AND improvement of symptoms (e.g., cough, shortness of breath) When around people in the same room, wear a face mask. Individuals also in the room should wear a mask. If possible, use a different bathroom and bedroom. Perform adequate hand hygiene. Avoid sharing dishes, glasses, etc. Discharge Orders/Prescriptions Prescriptions: New ondansetron 4 mg tablet,disintegrating 4 mg PO Q8H PRN (Reason: nausea and vomiting) Qty: 10 0RF Continued Gemtesa 75 mg tablet 75 mg PO DAILY aspirin 81 MG tablet,chewable 81 mg PO DAILY@0800 Prolia 60 mg/mL syringe 60 mg subcut [id number] Rx Instructions: has appointment in November for same lansoprazole [Prevacid] 30 mg capsule,delayed release(DR/EC) 30 mg PO DAILY Qty: 90 1RF Referrals / Follow Up: Lucy Maki MD [Primary Care Provider] - Within 1 Week Morteza Lr Chi, MD [Med Staff - Active Staff] - Within 1 Month (Dementia evaluation. ) Disposition Disposition (needs filled in before D/C Order can be placed): Home, Self Care
--- NOTE | 2022-08-12 13:58 | DS.PCM_ITS ---
Providers Date of Admission: 08/11/22 Primary Care Physician: Dr. Lucy Maki MD Reason For Visit: DEBILITY FROM COVID Diagnosis Discharge Diagnosis (1) Debility: Status: Acute Code(s): R53.81 - Other malaise Plan: 10/22 COVID 19. PT OT evaluated but not determined to need any additional therapy needs. (2) COVID-19: Status: Acute Code(s): U07.1 - COVID-19 Plan: Suspected. Rapid and PCR were negative here was positive at home. Patient's apparently has COVID-19 Hemodynamically stable. Patient does not need any remdesivir or steroids at this time. Plan Hypertension Stable Trend blood pressure I spoke with the patient's daughter, Padmaja, she has a lot of concerns about patient's mentation overall. States that when the patient gets sick she becomes more confused. Otherwise patient is independent but she is concerned about the patient going home and caring for herself. I explained that from the COVID standpoint patient is doing doing well and does not require any treatment at this time. And that I would prescribe her Zofran for nausea if needed. She expressed concerns about mentation and reviewed the patient's MRI from September earlier this year and she has history of an old stroke but also marked atrophy as well. I informed the daughter that is concerned the patient may have some underlying dementia that may be worsened when she gets sick where she gets tired and so forth. Recommend that she follow-up with geriatrics to have a formal geriatric testing. She was agreeable to that. And so she still has has concerns but understands that the patient is medically stable and does not require any therapy needs and she will the patient will be discharged today. Medications at Discharge Home Medications aspirin 81 mg chewable tablet 81 mg PO DAILY@0800 [facility] 07/13/19 denosumab 60 mg/mL subcutaneous syringe (Prolia) 60 mg subcut [id number] Check with primary doctor 10/12/21 vibegron 75 mg tablet (Gemtesa) 75 mg PO DAILY 12/22/21 lansoprazole 30 mg capsule,delayed release (Prevacid) 30 mg PO DAILY #90 caps 04/13/22 ondansetron 4 mg disintegrating tablet 4 mg PO Q8H PRN nausea and vomiting #10 tabs 08/12/22 Hospital Course Operations None Procedures None Weight / BMI Weight Weight: 70.2 kg Body Mass Index (BMI) 27.3 ABG / Lab / Microbiology Data Result Diagrams: 08/12/22 05:40 08/12/22 05:40 Laboratory: Laboratory Results - last 24 hr 08/11/22 19:53: WBC 6.1, RBC 4.08 L, Hgb 12.1, Hct 35.2 L, MCV 86.3, MCH 29.7, MCHC 34.4, RDW Std Deviation 42.5, RDW Coeff of Que 13.7, Plt Count 176, MPV 9.7, Immature Gran % (Auto) 0.300, Neut % (Auto) 80.9 H, Lymph % (Auto) 12.7 L, [place] % (Auto) 5.8, Eos % (Auto) 0.0, Baso % (Auto) 0.3, Absolute Neuts (auto) 4.9, Absolute Lymphs (auto) 0.77 L, Nucleated RBC % 0 08/11/22 19:53: Sodium 138, Potassium 3.6, Chloride 105, Carbon Dioxide 27.0, A nion Gap 6, BUN 16, Creatinine 0.68, Estim Creat Clear Calc 40.21, Est GFR (MDRD) Af Amer 109, Est GFR (MDRD) Non-Af 90, BUN/Creatinine Ratio 23.6 H, Glucose 109 H, Calcium 9.2 08/12/22 05:40: WBC 4.8, RBC 3.68 L, Hgb 11.2 L, Hct 32.5 L, MCV 88.3, MCH 30.4, MCHC 34.5, RDW Std Deviation 44.4 H, RDW Coeff of Que 13.7, Plt Count 148 L, MPV 9.8, Immature Gran % (Auto) 0.400, Neut % (Auto) 64.9, Lymph % (Auto) 25.7, [place] % (Auto) 8.8, Eos % (Auto) 0.0, Baso % (Auto) 0.2, Absolute Neuts (auto) 3.1, Absolute Lymphs (auto) 1.22, Nucleated RBC % 0 08/12/22 05:40: Sodium 141, Potassium 3.6, Chloride 109 H, Carbon Dioxide 26.0, Anion Gap 6, BUN 17, Creatinine 0.67, Estim Creat Clear Calc 40.21, Est GFR (MDRD) Af Amer 110, Est GFR (MDRD) Non-Af 91, BUN/Creatinine Ratio 25.4 H, Glucose 87, Calcium 8.4 L Radiography Diagnostic Testing: Radiology Impression Chest X-Ray 08/11/22 19:18 IMPRESSION: No radiographic evidence of acute cardiopulmonary disease. Electronically Signed: Dragan Kay MD at 19:46 EST , D/C Instructions Discharge Diet: No restrictions Meaningful Use Info Meaningful Use Diagnoses (Choose all that apply): None applicable Discharge Plan Admission Admit Date/Time: 08/11/22 22:02 Primary Reason for Your Visit: debility. COVID 19 Attending Provider: Francisco Diaz Primary Care Provider: Lucy Maki Consulting Providers: Fletcher Parham Instructions Additional Instructions / Restrictions: Self isolate for at least 5 days since symptoms began (through 08/14), then wear a mask daily for 5 days (08/15-) AND at least one day (24 hours) have passed since resolution of fever without the use of fever-reducing agents AND improvement of symptoms (e.g., cough, shortness of breath) When around people in the same room, wear a face mask. Individuals also in the room should wear a mask. If possible, use a different bathroom and bedroom. Perform adequate hand hygiene. Avoid sharing dishes, glasses, etc. Discharge Orders/Prescriptions Prescriptions: New ondansetron 4 mg tablet,disintegrating 4 mg PO Q8H PRN (Reason: nausea and vomiting) Qty: 10 0RF Continued Gemtesa 75 mg tablet 75 mg PO DAILY aspirin 81 MG tablet,chewable 81 mg PO DAILY@0800 Prolia 60 mg/mL syringe 60 mg subcut [id number] Rx Instructions: has appointment in November for same lansoprazole [Prevacid] 30 mg capsule,delayed release(DR/EC) 30 mg PO DAILY Qty: 90 1RF Referrals / Follow Up: Lucy Maki MD [Primary Care Provider] - Within 1 Week Morteza Lr Chi, MD [Med Staff - Active Staff] - Within 1 Month (Dementia evaluation. ) Disposition Disposition (needs filled in before D/C Order can be placed): Home, Self Care Charges/Coding Visit Charges OBSV E&M: 85232 Observation care discharge
--- NOTE | 2022-08-12 14:31 | CASEMGMT ---
Social Work SW received call from Dr. Diaz requested SW gather Dementia resources and provide them to pt's daughter Padmaja. Padmaja not present at [facility] at this time. SW called Padmaja who reported would be in to pepper picker pt later this evening. SW shared concern for leaving Dementia information in pt paperwork as it may set pt off and Padmaja agreed. SW shared information over the phone and planned to leave info with documents at credit front office developer that daughter can gather at pepper picker. Daughter ok with this plan and was able to take down information SW was offering. Padmaja appreciative of information and will look into Dementia. SW also suggested after discussing with pt that an appointment be set up with PCP who can work on formal diagnosis of Dementia if it is present. Padmaja voiced understanding. KRUPA Garcia
[2022-08-12 14:44] VITALS: BP 94/47; PULSE 75; RESP 16; TEMP 36.7; O2SAT 95
--- NOTE | 2022-08-12 14:50 | NURSING ---
called daughter with discharge inst. given over phone.
--- NOTE | 2022-08-14 15:42 | CASEMGMT ---
[facility] Provider Directory mailed per pt's request.
== END 2022-08-12 16:36 | disposition home or self-care (01) ==
LOC: ED 19:45 → MS3 22:21
PROVIDERS: Admitting Provider Hospitalist; Emergency Provider Emergency Medicine; PCP Internal Medicine
DX: U07.1 COVID-19 (principal); R53.1 Weakness; R53.81 Other malaise; E78.5 Hyperlipidemia, unspecified; Z79.82 Long term (current) use of aspirin; Z86.73 Personal history of transient ischemic attack (TIA), and cerebral infarction without residual deficits; Z79.899 Other long term (current) drug therapy; I10 Essential (primary) hypertension; F32.A Depression, unspecified; K21.9 Gastro-esophageal reflux disease without esophagitis; M19.90 Unspecified osteoarthritis, unspecified site
CPT/HCPCS: 36415; 71045; 80048; 85025; 96372; 96374; 96375; 96376; 97162; 99218; 99285; J7030; A4216; G0378; J2405

== ENCOUNTER → 2022-09-04 | Outpatient (CLI) | payer MEDICARE, BC, OTHER, SELFPAY ==
--- NOTE | 2022-09-04 15:06 | RAD_ITS ---
STUDY: X-RAY - ABDOMEN/PELVIS REASON FOR EXAM: Female, 76 years old. ABDOMINAL PAIN TECHNIQUE: AP supine and upright views of the abdomen and pelvis. COMPARISON: None. FINDINGS: Status post cholecystectomy. There is an unremarkable bowel gas pattern. There is no demonstrated free abdominal air. The visualized liver, spleen and kidneys are grossly normal in size and morphology. Normal soft tissue structures. Moderate dextroscoliosis of the lumbar spine with degenerative disc disease. Status post right hip arthroplasty. RAD/Abd Inc Decub and/or Erect IMPRESSION: No bowel obstruction or pneumoperitoneum. Electronically Signed: Omer Cheng MD at 17:16 EST ,
[2022-09-04 18:19] LABS: Anion Gap 8 (5-15); BUN 19 mg/dL (7-18); BUN/Creat Ratio 22.4 RATIO (10-20); Calcium,Total 9.6 mg/dL (8.5-10.1); Chloride 104 mmol/L (98-107); Creatinine, Serum 0.85 mg/dL (0.55-1.02); EST Glomerular Filtration Rate 69 mL/min (>60); Est Glom Filt Rate - Afr Amer 84 mL/min (>60); Glucose 93 mg/dL (74-106); Magnesium 1.9 mg/dL (1.6-2.6); Potassium 3.6 mmol/L (3.5-5.1); Sodium Level 141 mmol/L (136-145); T4 Total, Thyroxin 9.9 ug/dL (4.8-13.9)
== END | disposition home or self-care (01) ==
LOC: MTLAB 14:59
PROVIDERS: PCP Internal Medicine; Referring Provider Internal Medicine Gastroenterology; Visit Provider Internal Medicine Gastroenterology
DX: K59.09 Other constipation (principal); Z96.641 Presence of right artificial hip joint; M51.36 Other intervertebral disc degeneration, lumbar region; Z90.49 Acquired absence of other specified parts of digestive tract
CPT/HCPCS: 36415; 74019; 80048; 83735; 84436; 84443

== ENCOUNTER → 2022-10-21 | Outpatient (CLI) | payer MEDICARE, BC, OTHER, SELFPAY ==
[2022-10-21 11:45] LABS: Anion Gap 8 (5-15); BUN 13 mg/dL (7-18); BUN/Creat Ratio 14.9 RATIO (10-20); Calcium,Total 9.2 mg/dL (8.5-10.1); Chloride 103 mmol/L (98-107); Creatinine, Serum 0.87 mg/dL (0.55-1.02); EST Glomerular Filtration Rate 67 mL/min (>60); Est Glom Filt Rate - Afr Amer 81 mL/min (>60); Glucose 98 mg/dL (74-106); Magnesium 1.7 mg/dL (1.6-2.6); Potassium 3.8 mmol/L (3.5-5.1); Sodium Level 140 mmol/L (136-145)
== END | disposition home or self-care (01) ==
LOC: LAB 10:27
PROVIDERS: PCP Internal Medicine; Referring Provider Internal Medicine; Visit Provider Internal Medicine
DX: I10 Essential (primary) hypertension (principal); R25.2 Cramp and spasm
CPT/HCPCS: 36415; 80048; 83735

== ENCOUNTER → 2023-06-21 | Outpatient (CLI) | payer MEDICARE, BC, OTHER, SELFPAY ==
[2023-06-21 10:40] LABS: Bacteria 0 SEEN /hpf (None Seen); Mucous, Urine 0 SEEN /hpf (<or=2+); Red Blood Cells-Urine 0 SEEN /hpf (0-5); Squamous Epithelial Cells - UA 0 SEEN /hpf (5-10); White Blood Cells 0 SEEN /hpf (0-5)
[2023-06-21 11:29] LABS: Absolute Lymphocyte Count 1.99 X10^3/uL (0.83-4.51); Absolute Neutrophil Count 2.5 X10^3/uL (2.0-7.7); Basophil# 0.04 X10^3/uL; Basophil% 0.8 % (0-1); Eosinophil# 0.06 X10^3/uL; Eosinophils% 1.2 % (0-5); Hematocrit 38.1 % (37-47); Hemoglobin 12.9 g/dL (12.0-15.0); Lymphocyte # 1.99 X10^3/ul (0.83-4.51); Lymphocyte % 40.8 % (19-41); Mean Corp Hgb Conc 33.9 g/dL (32-36); Mean Corpuscular Hgb 30.2 pg (27.0-32.0); Mean Corpuscular Volume 89.2 fL (81-99); Monocyte# 0.26 X10^3/uL; Monocyte% 5.3 % (0-10); NRBC Flagged by Analyzer 0 % (0-5); Neutrophil # 2.52 X10^3/uL (2.7-7.7); Neutrophil % 51.7 % (47-70); Platelet Count 245 K/mm3 (150-450); RBC Distribution Width CV 13.8 % (11.6-14.6); Red Blood Count 4.27 M/mm3 (4.2-5.4); White Blood Count 4.9 K/mm3 (4.4-11.0)
[2023-06-21 11:30] LABS: Color, Urine Yellow (Yellow); Glucose, Dipstick Normal (Normal); Ketone-Dipstick Negative (Negative); Leukocyte Esterase-Dipstick Negative /ul (Negative); Nitrite-Dipstick Negative (Negative); Occult Blood-Urine Negative /ul (Negative); Protein-Dipstick Negative (Negative); Urine Bilirubin Dipstick Negative (Negative); Urine Clarity Clear (Clear); Urine Urobilinogen Normal (Normal); Urine pH 6.5 (5.0 - 8.0)
[2023-06-21 11:38] LABS: Erythrocyte Sedimentation Rate 13 mm/hr (0-30)
[2023-06-21 12:00] LABS: Vitamin D,25 Hydroxy 43.2 ng/mL
[2023-06-21 12:05] LABS: AST(SGOT) 19 U/L (15-37); Alanine Aminotransfer ALT/SGPT 25 U/L (13-56); Albumin, Serum 3.6 g/dL (3.2-5.0); Alkaline Phosphatase 95 U/L (45-117); Anion Gap 7 (5-15); BUN 15 mg/dL (7-18); Calcium,Total 8.6 mg/dL (8.5-10.1); Chloride 106 mmol/L (98-107); Creatinine, Serum 0.88 mg/dL (0.55-1.02); EST Glomerular Filtration Rate 66 mL/min (>60); Est Glom Filt Rate - Afr Amer 80 mL/min (>60); Globulin 3.7 g/dL (2.2-4.2); Glucose 103 mg/dL (74-106); Magnesium 2.5 mg/dL (1.6-2.6); Potassium 3.7 mmol/L (3.5-5.1); Protein, Total 7.3 g/dL (6.4-8.2); Sodium Level 141 mmol/L (136-145); Thyroid Stim Hormone (TSH) 0.67 uIU/mL (0.358-3.74)
== END | disposition home or self-care (01) ==
LOC: LAB 10:38
PROVIDERS: PCP Internal Medicine; Referring Provider Internal Medicine; Visit Provider Internal Medicine
DX: K57.92 Diverticulitis of intestine, part unspecified, without perforation or abscess without bleeding (principal); R53.81 Other malaise; R53.83 Other fatigue; M81.0 Age-related osteoporosis without current pathological fracture; F32.9 Major depressive disorder, single episode, unspecified; R25.2 Cramp and spasm; E55.9 Vitamin D deficiency, unspecified
CPT/HCPCS: 36415; 80053; 81001; 82306; 83735; 84443; 85025; 85652; 86140

== ENCOUNTER → 2023-06-29 | Outpatient (CLI) | payer MEDICARE, BC, OTHER, SELFPAY ==
--- NOTE | 2023-06-29 08:22 | CT_ITS ---
STUDY: CT ABDOMEN AND PELVIS WITH CONTRAST REASON FOR EXAM: Female, 77 years old. Acute diverticulitis RADIATION DOSAGE (If Supplied By Facility): CTDIvol = ( 16.13 ) mGy, DLP = ( 631.44 ) mGycm TECHNIQUE: Oral and amp;amp; IV Readi-CAT and amp;amp; 75mL Isovue-370 was administered. Transaxial images were obtained from the dome of the diaphragm to the symphysis pubis in the portal venous phase. Multiplanar coronal and sagittal images were reformatted. Individualized Dose Optimization Techniques Were Used For This CT. COMPARISON: Prior study dated: 03/29/2017 FINDINGS: LOWER CHEST: Right basilar atelectasis. No cardiomegaly or pericardial effusion. LIVER: The liver is normal in size, shape, and attenuation. No focal mass. GALLBLADDER AND BILIARY TREE: Cholecystectomy. No intra- or extrahepatic biliary ductal dilation. PANCREAS: No focal cystic or solid mass. SPLEEN: Normal size without focal cystic or solid mass. ADRENAL GLANDS: No nodules. KIDNEYS AND URETERS: Normal renal size and position. No hydronephrosis or nephrolithiasis. PERITONEUM: No ascites or free air. No other fluid collection. BOWEL: The stomach is unremarkable. Normal caliber small bowel. There is no obstruction. Scattered colonic diverticulosis without diverticulitis. No colonic wall thickening or inflammation. No free air or free fluid. No evidence of acute appendicitis. LYMPH NODES: No enlarged mesenteric or retroperitoneal lymph nodes. VESSELS: The aorta is normal in caliber with mild atherosclerotic calcification. URINARY BLADDER: Unremarkable. REPRODUCTIVE ORGANS: No pelvic masses. ABDOMINAL WALL: No discrete abdominal or pelvic wall hernia. BONES: Total right hip arthroplasty without evidence of failure. Scoliotic curvature of the spine with degenerative changes throughout. CT/Abdomen/Pelvis WITH Contrast IMPRESSION: No acute finding in the abdomen or pelvis. Scattered colonic diverticulosis without diverticulitis. Electronically Signed: Robson Murguia MD at 10:17 EDT ,
== END | disposition home or self-care (01) ==
LOC: CT 08:21
PROVIDERS: PCP Internal Medicine; Referring Provider Internal Medicine; Visit Provider Internal Medicine
DX: K57.92 Diverticulitis of intestine, part unspecified, without perforation or abscess without bleeding (principal)
CPT/HCPCS: 74177; Q9967

== ENCOUNTER → 2023-12-16 | Outpatient (CLI) | payer MEDICARE, BC, OTHER, SELFPAY ==
[2023-12-16 13:11] LABS: Absolute Lymphocyte Count 1.88 X10^3/uL (0.83-4.51); Absolute Neutrophil Count 3.2 X10^3/uL (2.0-7.7); Basophil# 0.04 X10^3/uL; Basophil% 0.7 % (0-1); Eosinophil# 0.07 X10^3/uL; Eosinophils% 1.3 % (0-5); Hematocrit 39.6 % (37-47); Hemoglobin 13.4 g/dL (12.0-15.0); Lymphocyte # 1.88 X10^3/ul (0.83-4.51); Lymphocyte % 34.5 % (19-41); Mean Corp Hgb Conc 33.8 g/dL (32-36); Mean Corpuscular Hgb 29.6 pg (27.0-32.0); Mean Corpuscular Volume 87.4 fL (81-99); Mean Platelet Vol. 10.1 fl (6.2-12.0); Monocyte# 0.29 X10^3/uL; Monocyte% 5.3 % (0-10); NRBC Flagged by Analyzer 0 % (0-5); Neutrophil # 3.15 X10^3/uL (2.7-7.7); Neutrophil % 57.8 % (47-70); Platelet Count 199 K/mm3 (150-450); RBC Distribution Width CV 13.5 % (11.6-14.6); Red Blood Count 4.53 M/mm3 (4.2-5.4); White Blood Count 5.5 K/mm3 (4.4-11.0)
[2023-12-16 13:32] LABS: Vitamin B12 504 pg/mL (211-911); Vitamin D,25 Hydroxy 36.1 ng/mL
[2023-12-16 13:54] LABS: ALB/GLOB Ratio 1.1 RATIO (0.9-2.4); AST(SGOT) 18 U/L (15-37); Alanine Aminotransfer ALT/SGPT 21 U/L (13-56); Albumin, Serum 3.7 g/dL (3.2-5.0); Alkaline Phosphatase 66 U/L (45-117); Anion Gap 7 (5-15); BUN 17 mg/dL (7-18); BUN/Creat Ratio 21.3 RATIO (10-20); Calcium,Total 9.3 mg/dL (8.5-10.1); Chloride 106 mmol/L (98-107); Cholesterol 207 mg/dL (200); EST Glomerular Filtration Rate 74 mL/min (>60); Est Glom Filt Rate - Afr Amer 90 mL/min (>60); Free T3 2.6 pg/mL (2.18-3.98); Globulin 3.4 g/dL (2.2-4.2); Glucose 92 mg/dL (74-106); High Density Lipoprotein 49 mg/dL; Magnesium 1.8 mg/dL (1.6-2.6); Potassium 3.5 mmol/L (3.5-5.1); Protein, Total 7.1 g/dL (6.4-8.2); Sodium Level 140 mmol/L (136-145); T4 Free Direct 1.01 ng/dL (0.76-1.46); Thyroid Stim Hormone (TSH) 0.73 uIU/mL (0.358-3.74); Triglycerides 281 mg/dL; Very Low Density Lipoprotein 56 mg/dL (5-40)
== END | disposition home or self-care (01) ==
LOC: LAB 12:11
PROVIDERS: PCP Internal Medicine; Referring Provider Internal Medicine; Visit Provider Internal Medicine
DX: F32.9 Major depressive disorder, single episode, unspecified (principal); R53.81 Other malaise; R53.83 Other fatigue; R25.2 Cramp and spasm; I10 Essential (primary) hypertension; M81.0 Age-related osteoporosis without current pathological fracture; M19.90 Unspecified osteoarthritis, unspecified site; E55.9 Vitamin D deficiency, unspecified; Z13.220 Encounter for screening for lipoid disorders; E53.8 Deficiency of other specified B group vitamins
CPT/HCPCS: 36415; 80053; 80061; 82306; 82607; 82746; 83735; 84439; 84443; 84481; 85025

== ENCOUNTER → 2024-02-03 | Outpatient (CLI) | payer MEDICARE, BC, OTHER, SELFPAY ==
--- NOTE | 2024-02-07 14:29 | STRESSREP_ITS ---
Stress Test Report Date: 02/03/2024 Procedure: Pharmacologic stress nuclear imaging study Indications: Chest pain Consent: Per the patient Procedure: The patient underwent pharmacologic (Regadenoson) evaluation with a peak heart rate of 90 beats per minute (62%predicted maximal heart rate) and a peak blood pressure of 118/70 mmHg. The baseline ECG demonstrated normal sinus rhythm. EKG during lexiscan infusion revealed no significant ischemic changes. EKG post infusion revealed no significant ischemic changes [There were no cardiac dysrhythmias pretest, during pharmacologic infusion, or recovery]. [There was no complaint of chest discomfort during pharmacologic infusion or recovery]. The examination was discontinued secondary to completion of protocol. Impression: 1. Lexiscan stress test test is negative for Lexiscan infusion induced EKG changes of ischemia. 2. Lexiscan stress test test is negative for Lexiscan infusion induced chest pain. 3. Results of the nuclear portion of the test is as below Myocardial perfusion imaging study: Technique: The patient was injected with 12.6 millicuries of technetium 99m Cardiolite and subsequently rest SPECT Cardiolite nuclear imaging was obtained in the horizontal long, vertical long, and short axis views. The patient underwent pharmacologic [Regadenoson 0.4mg] evaluation. Please see above for details. The patient was injected with 38 millicuries of technetium 99m Cardiolite and subsequently stress SPECT Cardiolite nuclear imaging was obtained in the horizontal long, vertical long, and short axis views. A gated Cardiolite study at peak stress was obtained. Interpretation: Rest and stress SPECT Cardiolite nuclear imaging status post realignment, normalization, and attenuation correction demonstrate no evidence of significant ischemia or infarction. Gated images reveal no significant regional wall motion abnormalities. The reported LVEF is greater than 70%. Impression: 1. There is no evidence of significant ischemia or infarction. 2. Estimated ejection fraction is greater than 70%. This note was generated with Fluentialation software. It may contain incorrect words, spelling, and punctuation that were not noted in checking the note before signing.
== END | disposition home or self-care (01) ==
LOC: CVS 05:51
PROVIDERS: PCP Internal Medicine; Referring Provider Internal Medicine; Visit Provider Internal Medicine
DX: R07.89 Other chest pain (principal); I10 Essential (primary) hypertension
CPT/HCPCS: 78452; 93017; A9500; A4216; J2785

== ENCOUNTER 2024-03-17 06:23 | Day surgery (SDC) | payer MEDICARE, BC, OTHER, SELFPAY ==
[2024-03-17] VITALS (7 sets, daily range): BP systolic 107–125; BP diastolic 64–81; PULSE 64–69; RESP 16; TEMP 36.3–36.6; O2SAT 93–99; BMI 26.2
--- NOTE | 2024-03-17 06:40 | HP.PCM_ITS ---
History and Physical Date of Admission: 03/17/24 Intake Vital Signs 01/23/2410:10 02/16/2415:19 Height 5 ft 3 in 5 ft 2 in Weight: 149 lb 151 lb BMI 26.4 27.6 BP 107/74 112/74 Blood Pressure Location Rt brachial Rt brachial Position Sitting Sitting Respiration 18 18 Pulse 91 76 Pulse Source Monitor Monitor Temp 98.6 F Temp Source Temporal Pulse Oximetry (%) 94 100 Oxygen Delivery Method room air room air Intake Visit Reasons: CONSTIPATION/EGD Chief Complaint: constipation/ EGD Is patient in pain?: No Allergies Sulfa (Sulfonamide Antibiotics) Allergy (Verified 02/17/24 15:20) Hivesmorphine Adverse Reaction (Verified 02/17/24 15:20) Nausea/Vom/Diarrhea Medications ?Medication ?Instructions ?Recorded ?Confirmed ?Type aspirin 81 mg chewable tablet 81 mg PO DAILY@0800 [facility] 07/13/19 02/17/24 History denosumab 60 mg/mL subcutaneous 60 mg subcut [id number] Check with 05/04/23 02/17/24 Rx syringe (Prolia) primary doctor #1 mL valsartan 80 1 tab PO DAILY #90 tabs 12/17/23 02/17/24 Rx mg-hydrochlorothiazide 12.5 mg tablet vibegron 75 mg tablet (Gemtesa) 75 mg PO DAILY #90 tabs 12/17/23 02/17/24 Rx lansoprazole 30 mg capsule,delayed 30 mg PO DAILY #30 caps 12/29/23 02/17/24 Rx release (Prevacid) biotin 5 mg tablet 5 mg PO DAILY 01/24/24 02/17/24 History vitamin B complex 1 cap PO DAILY 01/24/24 02/17/24 History sucralfate 1 gram tablet (Carafate) 1 g PO QACHS #30 tabs 02/07/24 02/17/24 Rx PFSH Medical History (Updated 02/17/24 @ 15:[address] Bunny Warren MD) Osteoporosis Sleep apnea History of embolic stroke Viral URI Weight gain Dyspnea on exertion Malaise and fatigue Leg pain, bilateral Leg cramps Hyperparathyroidism Hypercalcemia Hypervitaminosis D Dizziness Essential hypertension Vitamin D deficiency, unspecified Depression History of skin cancer Restless leg syndrome IBS (irritable bowel syndrome) Arthritis Seasonal allergies Overactive bladder due to prolapse of female genital organ Previous history TIA GERD (gastroesophageal reflux disease) PVD (peripheral vascular disease) HLD (hyperlipidemia) Benign essential hypertension Surgical History History of cholecystectomy History of laparoscopic cholecystectomy History of right hip replacement History of hysterectomy Family History Mother Diabetes Hypertension High cholesterolFather Diabetes Hypertension CVA (cerebral vascular accident)Sister Cancer Social History household members: none Smoking Status: Never smoker alcohol intake: current alcohol intake frequency: holidays/special occasions only substance use type: does not use what type of physical activity do you participate in: none HPI HPI HPI: Patient is a 78-year-old female that is here with stool caliber changes as well as reflux. The patient has longstanding reflux and her last EGD and colonoscopy were in [address] Perez. The patient notes that she has been having stool caliber changes and pencil thin stools and more constipation. She does have a history of diverticulitis in the past. She is also having worsening of reflux and has been on lansoprazole for many years. When she has abdominal pain she has pain throughout her abdomen especially in the lower abdomen. ROS General General: Yes weight change and fatigue; No appetite, colon cancer, breast cancer or weakness HEENT HEENT: Yes eye injury and eye surgery; No difficulty swallowing, swollen glands or hoarseness Endo Endocrine: No thyroid disease, diabetes mellitus, thyroid cancer, Hair loss, heat intolerance or cold intolerance Skin Skin: No rash or changing moles Musc Musculoskeletal: Yes back problems and arthritis; No rheumatoid arthritis, gout or joint pain Cardio Cardiovascular: Yes high blood pressure; No murmur, pacemaker, heart disease, atrial fibrillation, heart attack, heart stent, palpitations, shortness of breat with exertion or chest pain Psych Psychiatric: Yes depression and anxiety; No hearing voices Resp Respiratory: No shortness of breath, No sleep apnea, No cough, No COPD, No asthma, No emphysema and No wheezing Gastro Gastrointestinal: Yes abdominal pain, No nausea or vomiting, Yes diarrhea, Yes constipation, No blood in stool, Yes acid reflux, Yes hemorrhoids, No ulcers, No gallbladder problem and No black,tarry stools [place] Hematologic: No blood thinners, No blood disorders, No bleeding, No anemia and No blood clots Neuro Neurologic: No numbness, No tingling and No weakness Exam Const General: cooperative Orientation: alert and oriented x3 HENMT Head: normal to inspection Neck Neck: normal visual inspection and full ROM Chest Chest palpation & inspection: normal inspection of the chest Resp Effort & Inspection: normal respiratory effort Auscultation: clear to auscultation bilaterally Cardio Rate: regular rate Rhythm: regular rhythm GI Inspection: non-distended Palpation: soft and nontender Skin General: no rashes or lesions noted Neuro General: patient alert and patient oriented x3 Extrem General: full ROM Psych Appearance: grossly normal Mental Status: mental status grossly normal Assessment and Plan Assessment and Plan (1) Upper abdominal pain: Status: Acute (2) Constipation: Status: Acute (3) GERD (gastroesophageal reflux disease): Status: Acute Orders: Orders EGD Today Colonoscopy Today Plan Patient has longstanding GERD and she has been having stool caliber changes. She is also been having more constipation. I discussed EGD and colonoscopy with her in detail. I explained endoscopy in detail to the patient. I explained the risks including but not limited to stroke or heart attack with anesthesia, perforation of the GI tract, bleeding, infection. I explained that any of these could necessitate further emergency surgery. The patient understands and all questions were answered sufficiently. The patient wishes to proceed with procedure. Bunny Warren MD Pager: [facility] [address] [place] [address], [address] [place] [address] Office: I have seen and examined the patient and reviewed the H&P, there have been no changes
[2024-03-17] MEDS: Lactated Ringers 1,000 ML 15 ML IV (06:41)
--- NOTE | 2024-03-17 07:22 | PCM.PRE.AN2 ---
ASA Classification* ASA Classification ASA Classification: 2 Assessment & Plan Anesthesia* Anesthesia Assessment Anesthesia Assessment: Discussed sedation and/or anesthesia options, risks, benefits, and alternatives with patient/parents/legal guardian/POA. Questions invited. The patient/parents/legal guardian/POA seems to understand and agrees to proceed with anesthesia plan. Reviewed the physical assessment, medical history, allergy history and patient home medications list prior to surgery/procedure/anesthetic and documented any changes. Performed airway and anesthesia risk assessments. Anesthesia Type Anesthesia Type: MAC History Source History Obtained from:: Chart Anesthesia Focused Assessment* Temperature: 98 F Pulse Rate: 69 Blood Pressure: 125/81 Respiratory Rate: 16 Pulse Ox: 99 Airway Assessment Mouth opens: >3 cm Mallampati Score: II Teeth Condition: Intact Focused Labs Anesthesia Preop lab: CBC WBC 5.5 K/mm3 (4.4-11.0) 12/16/23 12:17 RBC 4.53 M/mm3 (4.2-5.4) 12/16/23 12:17 Hgb 13.4 g/dL (12.0-15.0) 12/16/23 12:17 Hct 39.6 % (37-47) 12/16/23 12:17 Plt Count 199 K/mm3 (150-450) 12/16/23 12:17 CHEMISTRY Potassium 3.5 mmol/L (3.5-5.1) 12/16/23 12:17 Sodium 140 mmol/L (136-145) 12/16/23 12:17 Magnesium 1.8 mg/dL (1.6-2.6) 12/16/23 12:17 Phosphorus 3.3 mg/dL (2.5-4.9) 07/25/21 10:10 BUN 17 mg/dL (7-18) 12/16/23 12:17 Creatinine 0.80 mg/dL (0.55-1.02) 12/16/23 12:17 Glucose 92 mg/dL (74-106) 12/16/23 12:17 TSH 0.73 uIU/mL (0.358-3.74) 12/16/23 12:17 COAG Pre-Assessment Diagnosis/Proposed Procedure Planned Operative Procedure(s): EGD, COLONOSCOPY Anesthesia History Anesthesia History - state game protector: Anesthesia History - state game protector Hx Hospitalization No 03/13/24 13:09 Any Problems With Anesthesia No 03/13/24 13:09 Cholinesterase deficiency No 03/13/24 13:09 You/Your Family Experience No 03/13/24 13:09 fever (hyperthermia) with Relationship Recent Exposure to Contagious No 03/17/24 06:39 Disease Does patient have nerve No 03/13/24 13:09 stimulator Patient instructed to have device shut off --Does patient have Pacemaker No 03/17/24 06:39 or ICD? When Was Last Pacemaker Check QUESTION #4 FULL TEXT: You/Your Family Experience fever (hyperthermia) with Anesthesia Last Oral Intake Last Oral intake: Last Oral Intake NPO since Meds taken in AM with sips of water? Meds patient instructed to take am of surgery PONV PONV - state game protector: PONV - state game protector Female Yes 03/13/24 13:09 HX of Motion Sickness No 03/13/24 13:09 HX of N/V After Surgery No 03/13/24 13:09 Non-Smoker Yes 03/13/24 13:09 Duration of Surgery greater No 03/13/24 13:09 than 60 minutes Number of Risk Factors 2 03/13/24 13:09 PONV Score Moderate Risk 03/13/24 13:09 Height & Weight Height & Weight: Anesthesia: Height & Weight Height 5 ft 3 in 03/17/24 06:39 Weight: 67 kg 03/17/24 06:39 Body Mass Index (BMI) 26.2 03/17/24 06:39 Respiratory Assessment Respiratory Assessment - state game protector: Respiratory Tract Infection Hx - state game protector Hx Respiratory Tract Infection No 03/13/24 13:09 STOP Sleep Apnea STOP Sleep Apnea - state game protector: STOP Sleep Apnea - state game protector Hx Hypertension Yes 03/13/24 13:09 Hx Sleep Apnea Yes 03/13/24 13:09 CPAP No 03/13/24 13:09 BIPAP No 03/13/24 13:09 Do you snore loudly (louder than talking or can be heard Do you often feel tired/ fatigued/ sleepy during daytime? Has anyone observed you stop breathing during sleep? STOP Results Positive 03/13/24 13:09 QUESTION #5 FULL TEXT : Do you snore loudly (louder than talking or can be heard through closed doors)? Tobacco Use History Tobacco Use History - state game protector: Tobacco Use History - state game protector Tobacco Use Non-smoker 09/27/23 09:44 Smoking Status Never smoker 03/13/24 13:09 Hx Tobacco Use No 03/13/24 13:09 Years Smoking Packs Smoked per Day Smoking Cessation Date was within the last 15 years Hx Smoking Cessation Date Hx Smoking Cessation Counseling Hematologic Medial History Hematologic Hx - state game protector: Hematologic Medical Hx - sterile processing technologist Hx of Blood Transfusion No 03/13/24 13:09 Hx of Transfusion in last 3 No 03/13/24 13:09 Months Date of Last Transfusion (if within last 3 months) Ever experience any problems No 03/13/24 13:09 with transfusion(s)? Specify any problems Hx of Preganancy in last 3 No 03/13/24 13:09 Months Nurse Filling Out Transfusion ASCENCION 03/13/24 13:09 & Questions: Date: 03/13/24 03/13/24 13:09 Time: 13:12 03/13/24 13:09 Patient unable to answer at this time (ie. confused, unrespo /Reproduction History /Reproductive History - state game protector: /Reproductive Hx- state game protector Hx Now No 03/13/24 13:09 Gestational Age (in weeks): EDC: Hx Hx Para Hx Section SAB No 03/13/24 13:09 Active Medications Active Medications: Current Medications Generic Name Dose Route Start Last Admin Trade Name Freq PRN Reason Stop Dose Admin Lactated Ringer's 1,000 mls @ 15 mls/hr 03/17/24 06:30 03/17/24 06:41 IV 15 mls/hr .Q48H KEKE Administration PFSH Medical History (Updated 03/13/24 @ 13:24 by Peg Roldan) Alcohol use TIA (transient ischemic attack) Syncope History of edema Chest pain History of stress test Osteoporosis Sleep apnea History of embolic stroke Viral URI Weight gain Dyspnea on exertion Malaise and fatigue Leg pain, bilateral Leg cramps Hyperparathyroidism Hypercalcemia Hypervitaminosis D Dizziness Essential hypertension Vitamin D deficiency, unspecified Depression History of skin cancer Restless leg syndrome IBS (irritable bowel syndrome) Arthritis Seasonal allergies Overactive bladder due to prolapse of female genital organ Previous history TIA GERD (gastroesophageal reflux disease) PVD (peripheral vascular disease) HLD (hyperlipidemia) Benign essential hypertension Home Medications ?Medication ?Instructions ?Recorded ?Last Taken ?Type aspirin 81 mg chewable tablet 81 mg PO DAILY@0800 heart health 07/13/19 03/12/24 History denosumab 60 mg/mL subcutaneous 60 mg subcut [id number] Check with 05/04/23 Unknown Rx syringe (Prolia) primary doctor #1 mL valsartan 80 1 tab PO DAILY #90 tabs 12/17/23 Unknown Rx mg-hydrochlorothiazide 12.5 mg tablet vibegron 75 mg tablet (Gemtesa) 75 mg PO DAILY #90 tabs 12/17/23 Unknown Rx lansoprazole 30 mg capsule,delayed 30 mg PO DAILY #30 caps 12/29/23 Unknown Rx release (Prevacid) biotin 5 mg tablet 5 mg PO DAILY 01/24/24 Unknown History vitamin B complex 1 cap PO DAILY 01/24/24 Unknown History sucralfate 1 gram tablet (Carafate) 1 g PO QACHS #30 tabs 02/07/24 Unknown Rx acetaminophen 500 mg capsule 500 mg PO Q6H PRN pain 03/13/24 Unknown History Allergy/AdvReac Type Severity Reaction Status Date / Time Sulfa (Sulfonamide Allergy Hives Verified 03/13/24 13:02 Antibiotics) morphine AdvReac Nausea/Vom/ Verified 03/13/24 13:02 Diarrhea Family History Mother Diabetes Hypertension High cholesterol Father Diabetes Hypertension CVA (cerebral vascular accident) Sister Cancer Surgical History (Updated 03/13/24 @ 13:24 by Peg Roldan) History of bilateral cataract extraction History of cardiac catheterization History of esophagogastroduodenoscopy (EGD) History of selective injection of anesthetic agent around lumbar nerve root History of colonoscopy History of cholecystectomy History of laparoscopic cholecystectomy History of right hip replacement History of hysterectomy Social History household members: none Smoking Status: Never smoker alcohol intake: current alcohol intake frequency: holidays/special occasions only substance use type: does not use what type of physical activity do you participate in: none Review of Systems (Anesthesia) ROS Narrative System reviewed and no additional complaints, except as documented.
--- NOTE | 2024-03-17 07:24 | PCM.PRE.AN2 ---
ASA Classification* ASA Classification ASA Classification: 2 Assessment & Plan Anesthesia* Anesthesia Assessment Anesthesia Assessment: Discussed sedation and/or anesthesia options, risks, benefits, and alternatives with patient/parents/legal guardian/POA. Questions invited. The patient/parents/legal guardian/POA seems to understand and agrees to proceed with anesthesia plan. Reviewed the physical assessment, medical history, allergy history and patient home medications list prior to surgery/procedure/anesthetic and documented any changes. Performed airway and anesthesia risk assessments. Anesthesia Type Anesthesia Type: MAC (see written pre anesthesia record for full assessment) Anesthesia Focused Assessment* Temperature: 98 F Pulse Rate: 69 Blood Pressure: 125/81 Respiratory Rate: 16 Pulse Ox: 99 Airway Assessment Mouth opens: >3 cm Mallampati Score: III Focused Labs Anesthesia Preop lab: CBC WBC 5.5 K/mm3 (4.4-11.0) 12/16/23 12:17 RBC 4.53 M/mm3 (4.2-5.4) 12/16/23 12:17 Hgb 13.4 g/dL (12.0-15.0) 12/16/23 12:17 Hct 39.6 % (37-47) 12/16/23 12:17 Plt Count 199 K/mm3 (150-450) 12/16/23 12:17 CHEMISTRY Potassium 3.5 mmol/L (3.5-5.1) 12/16/23 12:17 Sodium 140 mmol/L (136-145) 12/16/23 12:17 Magnesium 1.8 mg/dL (1.6-2.6) 12/16/23 12:17 Phosphorus 3.3 mg/dL (2.5-4.9) 07/25/21 10:10 BUN 17 mg/dL (7-18) 12/16/23 12:17 Creatinine 0.80 mg/dL (0.55-1.02) 12/16/23 12:17 Glucose 92 mg/dL (74-106) 12/16/23 12:17 TSH 0.73 uIU/mL (0.358-3.74) 12/16/23 12:17 COAG Pre-Assessment Diagnosis/Proposed Procedure Planned Operative Procedure(s): EGD, COLONOSCOPY Anesthesia History Anesthesia History - service coordinator: Anesthesia History - service coordinator Hx Hospitalization No 03/13/24 13:09 Any Problems With Anesthesia No 03/13/24 13:09 Cholinesterase deficiency No 03/13/24 13:09 You/Your Family Experience No 03/13/24 13:09 fever (hyperthermia) with Relationship Recent Exposure to Contagious No 03/17/24 06:39 Disease Does patient have nerve No 03/13/24 13:09 stimulator Patient instructed to have device shut off --Does patient have Pacemaker No 03/17/24 06:39 or ICD? When Was Last Pacemaker Check QUESTION #4 FULL TEXT: You/Your Family Experience fever (hyperthermia) with Anesthesia Last Oral Intake Last Oral intake: Last Oral Intake NPO since Meds taken in AM with sips of water? Meds patient instructed to take am of surgery PONV PONV - service coordinator: PONV - service coordinator Female Yes 03/13/24 13:09 HX of Motion Sickness No 03/13/24 13:09 HX of N/V After Surgery No 03/13/24 13:09 Non-Smoker Yes 03/13/24 13:09 Duration of Surgery greater No 03/13/24 13:09 than 60 minutes Number of Risk Factors 2 03/13/24 13:09 PONV Score Moderate Risk 03/13/24 13:09 Height & Weight Height & Weight: Anesthesia: Height & Weight Height 5 ft 3 in 03/17/24 06:39 Weight: 67 kg 03/17/24 06:39 Body Mass Index (BMI) 26.2 03/17/24 06:39 Respiratory Assessment Respiratory Assessment - service coordinator: Respiratory Tract Infection Hx - service coordinator Hx Respiratory Tract Infection No 03/13/24 13:09 STOP Sleep Apnea STOP Sleep Apnea - service coordinator: STOP Sleep Apnea - service coordinator Hx Hypertension Yes 03/13/24 13:09 Hx Sleep Apnea Yes 03/13/24 13:09 CPAP No 03/13/24 13:09 BIPAP No 03/13/24 13:09 Do you snore loudly (louder than talking or can be heard Do you often feel tired/ fatigued/ sleepy during daytime? Has anyone observed you stop breathing during sleep? STOP Results Positive 03/13/24 13:09 QUESTION #5 FULL TEXT : Do you snore loudly (louder than talking or can be heard through closed doors)? Tobacco Use History Tobacco Use History - service coordinator: Tobacco Use History - service coordinator Tobacco Use Non-smoker 09/27/23 09:44 Smoking Status Never smoker 03/13/24 13:09 Hx Tobacco Use No 03/13/24 13:09 Years Smoking Packs Smoked per Day Smoking Cessation Date was within the last 15 years Hx Smoking Cessation Date Hx Smoking Cessation Counseling Hematologic Medial History Hematologic Hx - service coordinator: Hematologic Medical Hx - rn clinical documentation Hx of Blood Transfusion No 03/13/24 13:09 Hx of Transfusion in last 3 No 03/13/24 13:09 Months Date of Last Transfusion (if within last 3 months) Ever experience any problems No 03/13/24 13:09 with transfusion(s)? Specify any problems Hx of Preganancy in last 3 No 03/13/24 13:09 Months Nurse Filling Out Transfusion MGRIFFITH 03/13/24 13:09 & Questions: Date: 03/13/24 03/13/24 13:09 Time: 13:12 03/13/24 13:09 Patient unable to answer at this time (ie. confused, unrespo /Reproduction History /Reproductive History - service coordinator: /Reproductive Hx- service coordinator Hx Now No 03/13/24 13:09 Gestational Age (in weeks): EDC: Hx Hx Para Hx Section SAB No 03/13/24 13:09 Active Medications Active Medications: Current Medications Generic Name Dose Route Start Last Admin Trade Name Freq PRN Reason Stop Dose Admin Lactated Ringer's 1,000 mls @ 15 mls/hr 03/17/24 06:30 03/17/24 06:41 IV 15 mls/hr .Q48H KEKE Administration PFSH Medical History Alcohol use TIA (transient ischemic attack) Syncope History of edema Chest pain History of stress test Osteoporosis Sleep apnea History of embolic stroke Viral URI Weight gain Dyspnea on exertion Malaise and fatigue Leg pain, bilateral Leg cramps Hyperparathyroidism Hypercalcemia Hypervitaminosis D Dizziness Essential hypertension Vitamin D deficiency, unspecified Depression History of skin cancer Restless leg syndrome IBS (irritable bowel syndrome) Arthritis Seasonal allergies Overactive bladder due to prolapse of female genital organ Previous history TIA GERD (gastroesophageal reflux disease) PVD (peripheral vascular disease) HLD (hyperlipidemia) Benign essential hypertension Home Medications ?Medication ?Instructions ?Recorded ?Last Taken ?Type aspirin 81 mg chewable tablet 81 mg PO DAILY@0800 heart health 07/13/19 03/12/24 History denosumab 60 mg/mL subcutaneous 60 mg subcut [id number] Check with 05/04/23 Unknown Rx syringe (Prolia) primary doctor #1 mL valsartan 80 1 tab PO DAILY #90 tabs 12/17/23 Unknown Rx mg-hydrochlorothiazide 12.5 mg tablet vibegron 75 mg tablet (Gemtesa) 75 mg PO DAILY #90 tabs 12/17/23 Unknown Rx lansoprazole 30 mg capsule,delayed 30 mg PO DAILY #30 caps 12/29/23 Unknown Rx release (Prevacid) biotin 5 mg tablet 5 mg PO DAILY 01/24/24 Unknown History vitamin B complex 1 cap PO DAILY 01/24/24 Unknown History sucralfate 1 gram tablet (Carafate) 1 g PO QACHS #30 tabs 02/07/24 Unknown Rx acetaminophen 500 mg capsule 500 mg PO Q6H PRN pain 03/13/24 Unknown History Allergy/AdvReac Type Severity Reaction Status Date / Time Sulfa (Sulfonamide Allergy Hives Verified 03/13/24 13:02 Antibiotics) morphine AdvReac Nausea/Vom/ Verified 03/13/24 13:02 Diarrhea Family History Mother Diabetes Hypertension High cholesterol Father Diabetes Hypertension CVA (cerebral vascular accident) Sister Cancer Surgical History History of bilateral cataract extraction History of cardiac catheterization History of esophagogastroduodenoscopy (EGD) History of selective injection of anesthetic agent around lumbar nerve root History of colonoscopy History of cholecystectomy History of laparoscopic cholecystectomy History of right hip replacement History of hysterectomy Social History household members: none Smoking Status: Never smoker alcohol intake: current alcohol intake frequency: holidays/special occasions only substance use type: does not use what type of physical activity do you participate in: none Review of Systems (Anesthesia) ROS Narrative System reviewed and no additional complaints, except as documented.
--- NOTE | 2024-03-17 08:00 | PCM.POST.ANE ---
Anesthesia: Postop Eval I Current Vital Signs Temperature: 97.6 F Pulse Rate: 69 Blood Pressure: 109/67 Respiratory Rate: 16 Pulse Ox: 96 Oxygen Delivery Method: Room Air Assessment Airway patent: Yes Spontaneous unlabored respirations: Yes Mental status: Asleep nausea: No Vomiting: No Anesthesia Complication: No Fluid Hydration Crystalloid volume administer (ml): 600 Total IV fluid infused: 600 Progress Note Anesthesia document: Postop Eval 1 completed: Yes
--- NOTE | 2024-03-17 08:14 | PCM.POSTANE2 ---
Anesthesia Postop Eval I Sum Postop Eval Completion status Anesthesia document: Postop Eval 1 completed: Yes Anesthesia Postop Eval I Summary Anesthesia Postop Eval I Summary: Anesthesia Postop Eval I: Assessment Summary Airway patent Yes 03/17/24 08:05 [email or web address] Spontaneous unlabored Yes 03/17/24 08:05 [email or web address] respirations Mental status Asleep 03/17/24 08:05 [email or web address] nausea No 03/17/24 08:05 [email or web address] Vomiting No 03/17/24 08:05 [email or web address] Anesthesia Postop Eval I: Fluid Summary Crystalloid volume administer 600 03/17/24 08:05 [email or web address] (ml) Colloids volume administered ( ml) Blood Product volume administered (ml) Total IV fluid infused 600 03/17/24 08:05 [email or web address] Anesthesia Postop Eval I: Summary Notes Anesthesia Complication No 03/17/24 08:05 [email or web address] Anesthesia Complication Comment: Post-operative progress note Anesthesia: Postop Eval II Evaluation Mental status: Awake Pain Level: 0 nausea: No Vomiting: No
--- NOTE | 2024-03-17 08:45 | SUR.PHASEI ---
first two wave forms timed 07 are from a different patient. cant delete
--- NOTE | 2024-03-17 08:48 | OP.EGD_ITS ---
Patient Name: Yoko Benjamin Procedure Date: 03/17/2024 7:21 AM Date of : 1945 Age: 78 Procedure: Upper GI endoscopy Indications: Esophageal reflux Providers: Bunny Warren MD Referring MD: Lucy Maki Medicines: Propofol per Anesthesia Patient Profile: This is a 78 year old female. Refer to note in patient chart for documentation of history and physical. Complications: No immediate complications. Procedure: Pre-Anesthesia Assessment: - Prior to the procedure, a History and Physical was performed, and patient medications and allergies were reviewed. The patient's tolerance of previous anesthesia was also reviewed. The risks and benefits of the procedure and the sedation options and risks were discussed with the patient. All questions were answered, and informed consent was obtained. Prior Anticoagulants: The patient has taken no anticoagulant or antiplatelet agents. After reviewing the risks and benefits, the patient was deemed in satisfactory condition to undergo the procedure. After obtaining informed consent, the endoscope was passed under direct vision. Throughout the procedure, the patient's blood pressure, pulse, and oxygen saturations were monitored continuously. The Colonoscope was introduced through the mouth, and advanced to the third part of duodenum. The upper GI endoscopy was accomplished without difficulty. The patient tolerated the procedure well. Scope In: 7:35:08 AM Scope Out: 7:38:25 AM Total Procedure Duration Time 0 hours 3 minutes 17 seconds Findings: The esophagus was normal. The stomach was normal. The examined duodenum was normal. A small hiatal hernia was present. Impression: - Normal esophagus. - Normal stomach. - Normal examined duodenum. - No specimens collected. Recommendation: - Discharge patient to home. - Resume previous diet. - Continue present medications. Procedure Code(s): --- Professional --- 83875, Esophagogastroduodenoscopy, flexible, transoral; diagnostic, including collection of specimen(s) by brushing or washing, when performed (separate procedure) Diagnosis Code(s): --- Professional --- K21.9, Gastro-esophageal reflux disease without esophagitis CPT copyright 2021 [employer]. All rights reserved. The codes documented in this report are preliminary and upon label coder review may be revised to meet current compliance requirements. Bunny Warren MD 03/17/2024 8:48:01 AM This report has been signed electronically. Number of Addenda: 0 Note Initiated On: 03/17/2024 7:21 AM
--- NOTE | 2024-03-17 08:48 | OP.CCLET_ITS ---
03/17/2024 Lucy Maki [facility] [address] [place] [address] Re : Upper GI endoscopy procedure for Yoko Benjamin Dear Dr. Maki This procedure was performed on Sunday, March 17, 2024. My impressions and recommendations are as follows: Impressions : - Normal esophagus. - Normal stomach. - Normal examined duodenum. - No specimens collected. Recommendations : - Discharge patient to home. - Resume previous diet. - Continue present medications. My findings are described in the full procedure note, which is enclosed. If I can be of further assistance, please feel free to contact me at Doctor phone number(s): , Work: . Sincerely, Bunny Warren MD 03/17/2024 8:48:01 AM This report has been signed electronically.
--- NOTE | 2024-03-17 08:50 | OP.COLON_ITS ---
Patient Name: Yoko Benjamin Procedure Date: 03/17/2024 7:38 AM Date of : 1945 Age: 78 Procedure: Colonoscopy Indications: Change in stool caliber Providers: Bunny Warren MD Referring MD: Lucy Maki Medicines: Propofol per Anesthesia Patient Profile: This is a 78 year old female. Refer to note in patient chart for documentation of history and physical. Last Colonoscopy: 5 years ago. Complications: No immediate complications. Estimated blood loss: Minimal. Procedure: Pre-Anesthesia Assessment: - Prior to the procedure, a History and Physical was performed, and patient medications and allergies were reviewed. The patient's tolerance of previous anesthesia was also reviewed. The risks and benefits of the procedure and the sedation options and risks were discussed with the patient. All questions were answered, and informed consent was obtained. Prior Anticoagulants: The patient has taken no anticoagulant or antiplatelet agents. After reviewing the risks and benefits, the patient was deemed in satisfactory condition to undergo the procedure. After I obtained informed consent, the scope was passed under direct vision. Throughout the procedure, the patient's blood pressure, pulse, and oxygen saturations were monitored continuously. The Colonoscope was introduced through the anus and advanced to the cecum, identified by appendiceal orifice and ileocecal valve. The colonoscopy was performed without difficulty. The patient tolerated the procedure well. The quality of the bowel preparation was good. The ileocecal valve, appendiceal orifice, and rectum were photographed. Scope In: 7:39:30 AM Scope Withdrawal Time 0 hours 7 minutes 33 seconds Scope Out: 7:54:10 AM Total Procedure Duration Time 0 hours 14 minutes 40 seconds Findings: Multiple small-mouthed diverticula were found in the sigmoid colon. The exam was otherwise without abnormality on direct and retroflexion views. Impression: - Diverticulosis in the sigmoid colon. - The examination was otherwise normal on direct and retroflexion views. - No specimens collected. Recommendation: - Discharge patient to home. - Resume previous diet. - Continue present medications. - Repeat colonoscopy is not recommended due to current age (66 years or older) for screening purposes. Procedure Code(s): --- Professional --- 77947, Colonoscopy, flexible; diagnostic, including collection of specimen(s) by brushing or washing, when performed (separate procedure) Diagnosis Code(s): --- Professional --- R19.5, Other fecal abnormalities K57.30, Diverticulosis of large intestine without perforation or abscess without bleeding CPT copyright 2021 [employer]. All rights reserved. The codes documented in this report are preliminary and upon magnet valve assembler review may be revised to meet current compliance requirements. Bunny Warren MD 03/17/2024 8:49:50 AM This report has been signed electronically. Number of Addenda: 0 Note Initiated On: 03/17/2024 7:38 AM
--- NOTE | 2024-03-17 08:50 | OP.CCLET_ITS ---
03/17/2024 Lucy Maki [facility] [address] [place] [address] Re : Colonoscopy procedure for Yoko Benjamin Dear Dr. Maki This procedure was performed on Sunday, March 17, 2024. My impressions and recommendations are as follows: Impressions : - Diverticulosis in the sigmoid colon. - The examination was otherwise normal on direct and retroflexion views. - No specimens collected. Recommendations : - Discharge patient to home. - Resume previous diet. - Continue present medications. - Repeat colonoscopy is not recommended due to current age (66 years or older) for screening purposes. My findings are described in the full procedure note, which is enclosed. If I can be of further assistance, please feel free to contact me at Doctor phone number(s): , Work: . Sincerely, Bunny Warren MD 03/17/2024 8:49:50 AM This report has been signed electronically.
== END 2024-03-17 09:03 | disposition home or self-care (01) ==
LOC: EN 06:24 → AC 06:24
PROVIDERS: PCP Internal Medicine; Referring Provider Internal Medicine; Visit Provider Surgery
PROC: 0DJD8ZZ Inspection of Lower Intestinal Tract, Via Natural or Artificial Opening Endoscopic (ICD-10-PCS; CPT 45378; principal; 2024-03-17 07:25)
DX: K21.9 Gastro-esophageal reflux disease without esophagitis (principal); E78.5 Hyperlipidemia, unspecified; I10 Essential (primary) hypertension; K57.30 Diverticulosis of large intestine without perforation or abscess without bleeding; K59.00 Constipation, unspecified; R10.10 Upper abdominal pain, unspecified; Z79.82 Long term (current) use of aspirin; Z79.899 Other long term (current) drug therapy; Z86.73 Personal history of transient ischemic attack (TIA), and cerebral infarction without residual deficits; Z90.49 Acquired absence of other specified parts of digestive tract; Z96.641 Presence of right artificial hip joint; Z90.710 Acquired absence of both cervix and uterus
CPT/HCPCS: 45378; 43235; J7120; J2405

== ENCOUNTER 2024-04-13 07:50 | Day surgery (SDC) | payer MEDICARE, BC, OTHER, SELFPAY ==
[2024-04-05 11:38] LABS: Hematocrit 39.7 % (37-47); Mean Corp Hgb Conc 32.7 g/dL (32-36); Mean Corpuscular Hgb 28.8 pg (27.0-32.0); Mean Platelet Vol. 9.8 fl (6.2-12.0); Platelet Count 199 K/mm3 (150-450); RBC Distribution Width CV 13.4 % (11.6-14.6); Red Blood Count 4.51 M/mm3 (4.2-5.4); White Blood Count 5.4 K/mm3 (4.4-11.0)
[2024-04-05 12:21] LABS: Anion Gap 5 (5-15); BUN 11 mg/dL (7-18); BUN/Creat Ratio 12.7 RATIO (10-20); Calcium,Total 9.2 mg/dL (8.5-10.1); Chloride 105 mmol/L (98-107); Creatinine, Serum 0.87 mg/dL (0.55-1.02); EST Glomerular Filtration Rate 67 mL/min (>60); Est Glom Filt Rate - Afr Amer 81 mL/min (>60); Glucose 96 mg/dL (74-106); Sodium Level 139 mmol/L (136-145)
[2024-04-13] VITALS (8 sets, daily range): BP systolic 104–130; BP diastolic 63–79; PULSE 67–73; RESP 16; TEMP 36.3–37; O2SAT 93–100; BMI 26.7
--- NOTE | 2024-04-13 08:09 | PCM.PRE.AN2 ---
ASA Classification* ASA Classification ASA Classification: 3 Assessment & Plan Anesthesia* Anesthesia Assessment Anesthesia Assessment: Discussed sedation and/or anesthesia options, risks, benefits, and alternatives with patient/parents/legal guardian/POA. Questions invited. The patient/parents/legal guardian/POA seems to understand and agrees to proceed with anesthesia plan. Reviewed the physical assessment, medical history, allergy history and patient home medications list prior to surgery/procedure/anesthetic and documented any changes. Performed airway and anesthesia risk assessments. Anesthesia Type Anesthesia Type: General Anesthesia Focused Assessment* Airway Assessment Mouth opens: >3 cm Mallampati Score: II Focused Labs Anesthesia Preop lab: CBC WBC 5.4 K/mm3 (4.4-11.0) 04/05/24 10:36 RBC 4.51 M/mm3 (4.2-5.4) 04/05/24 10:36 Hgb 13.0 g/dL (12.0-15.0) 04/05/24 10:36 Hct 39.7 % (37-47) 04/05/24 10:36 Plt Count 199 K/mm3 (150-450) 04/05/24 10:36 CHEMISTRY Potassium 4.0 mmol/L (3.5-5.1) 04/05/24 10:36 Sodium 139 mmol/L (136-145) 04/05/24 10:36 Magnesium 1.8 mg/dL (1.6-2.6) 12/16/23 12:17 Phosphorus 3.3 mg/dL (2.5-4.9) 07/25/21 10:10 BUN 11 mg/dL (7-18) 04/05/24 10:36 Creatinine 0.87 mg/dL (0.55-1.02) 04/05/24 10:36 Glucose 96 mg/dL (74-106) 04/05/24 10:36 TSH 0.73 uIU/mL (0.358-3.74) 12/16/23 12:17 COAG Pre-Assessment Diagnosis/Proposed Procedure Planned Operative Procedure(s): CYSTOSCOPY, MID URETHRAL SLING Anesthesia History 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 When Was Last Pacemaker Check QUESTION #4 FULL TEXT: You/Your Family Experience fever (hyperthermia) with Anesthesia Last Oral Intake Last Oral intake: Last Oral Intake NPO since Meds taken in AM with sips of water? 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 worker Female Yes 03/31/24 09:46 HX of Motion Sickness No 03/31/24 09:46 HX of N/V After Surgery No 03/31/24 09:46 Non-Smoker Yes 03/31/24 09:46 Duration of Surgery greater No 03/31/24 09:46 than 60 minutes Number of Risk Factors 2 03/31/24 09:46 PONV Score Moderate Risk 03/31/24 09:46 Height & Weight Height & Weight: Anesthesia: Height & Weight Height 5 ft 3 in 03/27/24 09:08 Respiratory Assessment Respiratory Assessment - speeder worker: Respiratory Tract Infection Hx - speeder worker Hx Respiratory Tract Infection No 03/31/24 09:46 STOP Sleep Apnea STOP Sleep Apnea - speeder worker: STOP Sleep Apnea - speeder worker Hx Hypertension Yes 03/31/24 09:46 Hx Sleep Apnea Yes 03/31/24 09:46 CPAP No 03/31/24 09:46 BIPAP No 03/31/24 09:46 Do you snore loudly (louder than talking or can be heard Do you often feel tired/ fatigued/ sleepy during daytime? Has anyone observed you stop breathing during sleep? STOP Results Positive 03/31/24 09:46 QUESTION #5 FULL TEXT : Do you snore loudly (louder than talking or can be heard through closed doors)? 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 Specify any problems Hx of Preganancy in last 3 N/A 03/31/24 09:46 Months Nurse Filling Out Transfusion SFRANTZ 03/31/24 09:46 & Questions: Date: 03/31/24 03/31/24 09:46 Time: 09:50 03/31/24 09:46 Patient unable to answer at this time (ie. confused, unrespo /Reproduction History /Reproductive History - speeder worker: /Reproductive Hx- speeder worker Hx Now No 03/31/24 09:46 Gestational Age (in weeks): EDC: Hx Hx Para Hx Section SAB No 03/31/24 09:46 Active Medications Active Medications: Current Medications Generic Name Dose Route Start Last Admin Trade Name Freq PRN Reason Stop Dose Admin Cefazolin Sodium 2 gm/ Sodium 110 mls @ 150 mls/hr 04/13/24 09:30 Chloride IV 04/13/24 10:13 PREOP ONE Lactated Ringer's 1,000 mls @ 15 mls/hr 04/13/24 08:15 IV .Q48H KEKE PFSH Medical History Alcohol use TIA (transient ischemic attack) Syncope History of edema Chest pain History of stress test Osteoporosis Sleep apnea History of embolic stroke Viral URI Weight gain Dyspnea on exertion Malaise and fatigue Leg pain, bilateral Leg cramps Hyperparathyroidism Hypercalcemia Hypervitaminosis D Dizziness Essential hypertension Vitamin D deficiency, unspecified Depression History of skin cancer Restless leg syndrome IBS (irritable bowel syndrome) Arthritis Seasonal allergies Overactive bladder due to prolapse of female genital organ Previous history TIA GERD (gastroesophageal reflux disease) PVD (peripheral vascular disease) HLD (hyperlipidemia) Benign essential hypertension Home Medications ?Medication ?Instructions ?Recorded ?Last Taken ?Type aspirin 81 mg chewable tablet 81 mg PO DAILY@0800 [facility] 07/13/19 03/12/24 History denosumab 60 mg/mL subcutaneous 60 mg subcut [id number] Check with 05/04/23 Unknown Rx syringe (Prolia) primary doctor #1 mL valsartan 80 1 tab PO DAILY #90 tabs 12/17/23 Unknown Rx mg-hydrochlorothiazide 12.5 mg tablet vibegron 75 mg tablet (Gemtesa) 75 mg PO DAILY #90 tabs 12/17/23 Unknown Rx lansoprazole 30 mg capsule,delayed 30 mg PO DAILY #30 caps 12/29/23 Unknown Rx release (Prevacid) vitamin B complex 1 cap PO DAILY 01/24/24 Unknown History acetaminophen 500 mg capsule 1,000 mg PO Q6H PRN pain 03/13/24 03/31/24 History bupropion HCl 100 mg tablet,12 hr 100 mg PO QAM #90 ea 03/27/24 Unknown Rx sustained-release (Wellbutrin SR) cetirizine 10 mg tablet 10 mg PO DAILY PRN allergy 03/27/24 Unknown Rx symptoms #90 tabs biotin 1 mg capsule 1 mg PO DAILY 03/31/24 Unknown History cholecalciferol (vitamin D3) 25 1,000 unit PO DAILY 03/31/24 Unknown History mcg (1,000 unit) tablet (Vitamin D3) Allergy/AdvReac Type Severity Reaction Status Date / Time Sulfa (Sulfonamide Allergy Hives Verified 03/31/24 09:34 Antibiotics) morphine AdvReac Nausea/Vom/ Verified 03/31/24 09:34 Diarrhea Family History Mother Diabetes Hypertension High cholesterol Father Diabetes Hypertension CVA (cerebral vascular accident) Sister Cancer Surgical History History of bilateral cataract extraction History of cardiac catheterization History of esophagogastroduodenoscopy (EGD) History of selective injection of anesthetic agent around lumbar nerve root History of colonoscopy History of cholecystectomy History of laparoscopic cholecystectomy History of right hip replacement History of hysterectomy Social History household members: none Smoking Status: Never smoker alcohol intake: current alcohol intake frequency: holidays/special occasions only substance use type: does not use what type of physical activity do you participate in: none Review of Systems (Anesthesia) ROS Narrative System reviewed and no additional complaints, except as documented.
[2024-04-13] MEDS: Lactated Ringers 1,000 ML 15 ML IV (08:28)
--- NOTE | 2024-04-13 08:53 | OP.PCM_ITS ---
Report of Operation Date of Procedure: 04/13/24 Pre-Operative Diagnosis: Stress urinary incontinence, urethral hypermobility Post-Operative Diagnosis: Same Surgery/Procedure Performed:: Mid urethral sling insertion, cystoscopy Surgeon: Dolores Garcia Type of Anesthesia: General Description of Procedure: The patient is a 78-year-old female who desires surgical intervention for her stress urinary incontinence. Informed consent was obtained. The patient was taken to the operating room and placed on the operating room table. Anesthesia monitored the head, neck, airway, IV access and vital signs throughout the case. Once anesthesia was appropriately administered, she was placed into dorsolithotomy and Trendelenburg position and was prepped and draped in usual sterile fashion. A Munoz catheter was inserted and the balloon was inflated. The urinary bladder was emptied. The mid urethra was isolated and injected submucosally with lidocaine for hydrostatic dissection and hemostatic control. A midline vertical incision approximately 2 cm in length was then made. Sharp and blunt dissection was performed on either side of the urethra with care being taken to avoid entrance into the urethra or the vaginal mucosa. When dissection was complete, the sling was inserted using the trocars placed through the transobturator complexes bilaterally. The sling was positioned using the te nsioning suture and it lay flat against the urethral tissue without tension. The tensioning suture was then cut and the incision was closed using running interlocking 2-0 Vicryl. The Munoz catheter was then removed and the cystoscope was inserted through the urethra into the urinary bladder with direct visualization. There was no evidence of foreign body or injury identified. There is no mass, tumor, ulceration. The patient's bladder was mostly emptied and the cystoscope was removed. She was then awakened and taken to the recovery room in good condition. There were no complications during this procedure. Grafts/Implants Used: Altis mid urethral sling Complications None Admit VTE Documentation VTE Present on Admission: Yes VTE Mechan Device Prophylaxis: SCD's VTE Pharm Prophylaxis ordered?: No Reason prophylaxis not ordered:: Treatment Not Indicated
--- NOTE | 2024-04-13 08:56 | DCINST_ITS ---
Discharge Instructions Diet Discharge Diet: No restrictions Activity Discharge Activity: May Shower May resume sexual activity in: 4-6 weeks Additional Activity Instructions:: No heavy lifting, no exercise, no tub bathing, no hot tubs, no swimming, no sexual activity for 4 weeks Dressing / Incision Call your doctor if your incision/area has: Continuous Slow Oozing, Sudden Incre ased Bleeding, Increased Pain/ Swelling and Foul Smelling Discharge Call your doctor if you observe: Fever of 101 or Higher, Inability to urinate and Inability to have a bowel movement Follow Up Care Please Follow Up With: Dolores Garcia MD When: The office will call the patient to make follow-up arrangements. Test Results: Test results from this visit will be discussed in further detail at your follow- up appointment, if applicable. Discharge Plan Admission Attending Provider: Dolores Garcia Primary Care Provider: Lucy Maki Instructions Print Language: Luxembourgish Discharge Orders/Prescriptions Prescriptions: New ondansetron HCl 8 mg tablet 8 mg PO Q8H PRN PRN (Reason: Nausea) 7 Days Qty: 20 0RF oxycodone-acetaminophen [Percocet] 5-325 mg tablet 1 tab PO Q8H PRN (Reason: pain) 3 Days Qty: 10 0RF cephalexin 500 mg capsule 500 mg PO Q12 3 Days Qty: 6 0RF Continued vitamin B complex Capsule 1 cap PO DAILY cetirizine 10 mg tablet 10 mg PO DAILY PRN (Reason: allergy symptoms) Qty: 90 1RF bupropion HCl [Wellbutrin SR] 100 mg tablet sustained-release 12 hr 100 mg PO QAM Qty: 90 1RF aspirin 81 MG tablet,chewable 81 mg PO DAILY@0800 acetaminophen 500 mg capsule 1,000 mg PO Q6H PRN (Reason: pain) biotin 1 mg capsule 1 mg PO DAILY cholecalciferol (vitamin D3) [Vitamin D3] 25 mcg (1,000 unit) tablet 1,000 unit PO DAILY Prolia 60 mg/mL syringe 60 mg subcut [id number] Qty: 1 1RF Rx Instructions: has appointment in November for same valsartan-hydrochlorothiazide 80-12.5 mg tablet 1 tab PO DAILY Qty: 90 3RF Gemtesa 75 mg tablet 75 mg PO DAILY Qty: 90 3RF lansoprazole [Prevacid] 30 mg capsule,delayed release(DR/EC) 30 mg PO DAILY Qty: 30 0RF Referrals / Follow Up: Lucy Maki MD [Primary Care Provider] - Disposition Disposition (needs filled in before D/C Order can be placed): Home, Self Care
[2024-04-13] MEDS: Lidocaine 1% /Epi 1:100 (50ml) 50 ML VIAL (09:00)
[2024-04-13] MEDS: Lubricating Jelly 60 GM Tube 30 GM (09:00)
[2024-04-13] MEDS: Cefazolin 2 GM in 0.9% Normal Saline (100mL Bag) 100 ML IV (09:00)
--- NOTE | 2024-04-13 09:41 | PCM.POST.ANE ---
Anesthesia: Postop Eval I Current Vital Signs Temperature: 98 F Pulse Rate: 71 Blood Pressure: 108/63 Respiratory Rate: 16 Pulse Ox: 95 Oxygen Delivery Method: Room Air Assessment Airway patent: Yes Spontaneous unlabored respirations: Yes Mental status: Awake and Calm nausea: No Vomiting: No Anesthesia Complication: No Fluid Hydration Crystalloid volume administer (ml): 300 Total IV fluid infused: 300 Progress Note Anesthesia document: Postop Eval 1 completed: Yes
--- NOTE | 2024-04-13 09:47 | POSTOPAN2_ITS ---
Anesthesia Postop Eval I Sum Postop Eval Completion status Anesthesia document: Postop Eval 1 completed: Yes Anesthesia Postop Eval I Summary Anesthesia Postop Eval I Summary: Anesthesia Postop Eval I: Assessment Summary Airway patent Yes 04/13/24 09:41 [email or web address] Spontaneous unlabored Yes 04/13/24 09:41 CELL [email or web address] respirations Mental status Awake,Calm 04/13/24 09:41 [email or web address] [email or web address] nausea No 04/13/24 09:41 CELL [email or web address] Vomiting No 04/13/24 09:41 CELL [email or web address] Anesthesia Postop Eval I: Fluid Summary Crystalloid volume administer 300 04/13/24 09:41 CELL [email or web address] (ml) Colloids volume administered ( ml) Blood Product volume administered (ml) Total IV fluid infused 300 04/13/24 09:41 CELL [email or web address] Anesthesia Postop Eval I: Summary Notes Anesthesia Complication No 04/13/24 09:41 CELL [email or web address] Anesthesia Complication Comment: Post-operative progress note Anesthesia: Postop Eval II Evaluation Mental status: Awake and Calm Pain Level: 1 nausea: No Vomiting: No Complications Anesthesia Complication: No
--- NOTE | 2024-04-13 09:47 | PCM.POSTANE2 ---
Anesthesia Postop Eval I Sum Postop Eval Completion status Anesthesia document: Postop Eval 1 completed: Yes Anesthesia Postop Eval I Summary Anesthesia Postop Eval I Summary: Anesthesia Postop Eval I: Assessment Summary Airway patent Yes 04/13/24 09:41 [email or web address] Spontaneous unlabored Yes 04/13/24 09:41 [email or web address] [email or web address] respirations Mental status Awake,Calm 04/13/24 09:41 [email or web address] [email or web address] nausea No 04/13/24 09:41 MOTORCYCLE [email or web address].[email or web address] Vomiting No 04/13/24 09:41 [email or web address] [email or web address] Anesthesia Postop Eval I: Fluid Summary Crystalloid volume administer 300 04/13/24 09:41 [email or web address] [email or web address] (ml) Colloids volume administered ( ml) Blood Product volume administered (ml) Total IV fluid infused 300 04/13/24 09:41 MOTORCYCLE [email or web address] Anesthesia Postop Eval I: Summary Notes Anesthesia Complication No 04/13/24 09:41 [email or web address] [email or web address].[email or web address] Anesthesia Complication Comment: Post-operative progress note Anesthesia: Postop Eval II Evaluation Mental status: Awake and Calm Pain Level: 1 nausea: No Vomiting: No Complications Anesthesia Complication: No
--- NOTE | 2024-04-13 11:06 | SUR.PHASEII ---
DR. COOMBS MADE AWARE OF THE RESULTS OF THE VOID AND PVR. PER DR. COOMBS PT CAN BE D/C TO HOME WHEN CRITERIA IS MET.
== END 2024-04-13 11:21 | disposition home or self-care (01) ==
LOC: SDC 07:51 → AC 07:52
PROVIDERS: Anesthesiology; PCP Internal Medicine; Referring Provider Urology; Visit Provider Urology
PROC: 0TJB8ZZ Inspection of Bladder, Via Natural or Artificial Opening Endoscopic (ICD-10-PCS; CPT 57288; principal; 2024-04-13 09:20)
DX: N39.3 Stress incontinence (female) (male) (principal); N36.41 Hypermobility of urethra; I10 Essential (primary) hypertension; F32.A Depression, unspecified; Z79.82 Long term (current) use of aspirin; Z79.899 Other long term (current) drug therapy; Z86.73 Personal history of transient ischemic attack (TIA), and cerebral infarction without residual deficits
CPT/HCPCS: 57288; 00860; 36415; 80048; 85027; J7120; J2405

== ENCOUNTER → 2024-06-21 | Outpatient (CLI) | payer MEDICARE, BC, OTHER, SELFPAY ==
[2024-06-21 10:36] LABS: Absolute Lymphocyte Count 1.99 X10^3/uL (0.83-4.51); Basophil# 0.04 X10^3/uL; Basophil% 0.7 % (0-1); Eosinophil# 0.14 X10^3/uL; Eosinophils% 2.5 % (0-5); Hemoglobin 13.5 g/dL (12.0-15.0); Lymphocyte # 1.99 X10^3/ul (0.83-4.51); Lymphocyte % 36.2 % (19-41); Mean Corp Hgb Conc 33.8 g/dL (32-36); Mean Corpuscular Hgb 29.5 pg (27.0-32.0); Mean Corpuscular Volume 87.3 fL (81-99); Mean Platelet Vol. 9.5 fl (6.2-12.0); Monocyte# 0.36 X10^3/uL; Monocyte% 6.5 % (0-10); NRBC Flagged by Analyzer 0 % (0-5); Neutrophil # 2.95 X10^3/uL (2.7-7.7); Neutrophil % 53.7 % (47-70); Platelet Count 197 K/mm3 (150-450); RBC Distribution Width CV 13.6 % (11.6-14.6); RBC Distribution Width SD 43.2 fl (35.1-43.9); Red Blood Count 4.58 M/mm3 (4.2-5.4); White Blood Count 5.5 K/mm3 (4.4-11.0)
[2024-06-21 11:35] LABS: ALB/GLOB Ratio 1.1 RATIO (0.9-2.4); AST(SGOT) 20 U/L (15-37); Alanine Aminotransfer ALT/SGPT 19 U/L (13-56); Albumin, Serum 3.7 g/dL (3.2-5.0); Alkaline Phosphatase 84 U/L (45-117); Anion Gap 7 (5-15); BUN 14 mg/dL (7-18); BUN/Creat Ratio 15.8 RATIO (10-20); Calcium,Total 9.6 mg/dL (8.5-10.1); Chloride 105 mmol/L (98-107); Creatinine, Serum 0.89 mg/dL (0.55-1.02); EST Glomerular Filtration Rate 66 mL/min (>60); Est Glom Filt Rate - Afr Amer 79 mL/min (>60); Ferritin 63 ng/mL (8-252); Globulin 3.4 g/dL (2.2-4.2); Glucose 101 mg/dL (74-106); Iron 79 ug/dL (50-170); Iron Binding Capacity,Total 352 ug/dL (250-450); PERCENT IRON SATURATION 22.4 % (15.0-55.0); Potassium 4.1 mmol/L (3.5-5.1); Protein, Total 7.1 g/dL (6.4-8.2); Sodium Level 139 mmol/L (136-145); T4 Free Direct 1.01 ng/dL (0.76-1.46)
== END | disposition home or self-care (01) ==
LOC: LAB 10:17
PROVIDERS: PCP Internal Medicine; Referring Provider Family Medicine; Visit Provider Family Medicine
DX: R53.83 Other fatigue (principal); R63.5 Abnormal weight gain; L65.9 Nonscarring hair loss, unspecified
CPT/HCPCS: 36415; 80053; 82728; 83540; 83550; 84439; 84443; 85025

== ENCOUNTER → 2024-10-04 | Outpatient (CLI) | payer MEDICARE, BC, OTHER, SELFPAY | END | disposition home or self-care (01) | LOC: LABSPEC 12:42 | PROVIDERS: PCP Internal Medicine; Referring Provider Internal Medicine; Visit Provider Internal Medicine | DX: K58.0 Irritable bowel syndrome with diarrhea (principal); R19.7 Diarrhea, unspecified | CPT/HCPCS: 87493; 87506 ==

== ENCOUNTER → 2024-11-17 | Outpatient (CLI) | payer MEDICARE, BC, OTHER, SELFPAY ==
[2024-11-17 11:08] LABS: Absolute Lymphocyte Count 1.32 X10^3/uL (0.83-4.51); Basophil# 0.04 X10^3/uL; Basophil% 0.5 % (0-1); Eosinophils% 1.1 % (0-5); Hematocrit 37.5 % (37-47); Hemoglobin 12.5 g/dL (12.0-15.0); Lymphocyte # 1.32 X10^3/ul (0.83-4.51); Lymphocyte % 14.9 % (19-41); Mean Corp Hgb Conc 33.3 g/dL (32-36); Mean Corpuscular Hgb 28.9 pg (27.0-32.0); Mean Corpuscular Volume 86.6 fL (81-99); Mean Platelet Vol. 9.4 fl (6.2-12.0); Monocyte% 4.5 % (0-10); NRBC Flagged by Analyzer 0 % (0-5); Neutrophil # 6.99 X10^3/uL (2.7-7.7); Neutrophil % 78.8 % (47-70); Platelet Count 217 K/mm3 (150-450); RBC Distribution Width CV 13.8 % (11.6-14.6); RBC Distribution Width SD 43.5 fl (35.1-43.9); Red Blood Count 4.33 M/mm3 (4.2-5.4); White Blood Count 8.9 K/mm3 (4.4-11.0)
[2024-11-17 11:53] LABS: ALB/GLOB Ratio 1.7 RATIO (0.9-2.4); AST(SGOT) 22 U/L (<=31); Alanine Aminotransfer ALT/SGPT 12 U/L (<=34); Albumin, Serum 4.1 g/dL (3.4-4.8); Alkaline Phosphatase 85 U/L (35-104); Anion Gap 12 (5-15); BUN 12 mg/dL (4-19); BUN/Creat Ratio 14.2 RATIO (10-20); Calcium 9.4 mg/dL (7.6-11.0); Carbon Dioxide 25.8 mmol/L (22.0-29.0); Chloride 101 mmol/L (96-108); Creatinine, Serum 0.83 mg/dL (0.70-1.20); EST Glomerular Filtration Rate 73 (>60); Free T3 3.1 pg/mL (2.18-3.98); Globulin 2.4 g/dL (2.2-4.2); Glucose 90 mg/dL (70-99); Potassium 3.9 mmol/L (3.3-5.1); Protein, Total 6.5 g/dL (5.9-8.4); Sodium Level 139 mmol/L (133-145); Thyroid Stim Hormone (TSH) 0.654 uIU/mL (0.300-4.200); Total Bilirubin 0.43 mg/dL (0.00-1.30); Vitamin B12 643 pg/mL (180-914)
[2024-11-17 13:26] LABS: Iron 49 ug/dL (50-170); Iron Binding Capacity,Total 309 ug/dL (250-450); Iron Binding Capacity,Unsat 260 ug/dL (228-428)
[2024-11-22 12:09] LABS: Testosterone, % Free 2.99 % (0.50-2.80); Testosterone, Free <.09 ng/dL (0.10-0.85); Testosterone, Total < 3 ng/dL (3-67)
== END | disposition home or self-care (01) ==
LOC: LAB 10:46
PROVIDERS: PCP Internal Medicine; Referring Provider Internal Medicine; Visit Provider Internal Medicine
DX: R53.83 Other fatigue (principal); R53.81 Other malaise; L65.9 Nonscarring hair loss, unspecified; E55.9 Vitamin D deficiency, unspecified
CPT/HCPCS: 36415; 80053; 82306; 82607; 82627; 83540; 83550; 84402; 84403; 84439; 84443; 84481; 85025; 82626

== ENCOUNTER → 2025-01-16 | Outpatient (CLI) | payer MEDICARE, BC, OTHER, SELFPAY ==
--- NOTE | 2025-01-16 09:06 | BD_ITS ---
PROCEDURE: DEXA BONE DENSITY STUDY 01/16/2025 REASON FOR EXAM: OSTEOPOROSIS F, age 79 y/o . . TECHNIQUE: DXA scan of sites with data reported below. Scanner utilized: Cadent W. [facility] COMPARISON: DEXA scan on 12/06/2018 FINDINGS: BMD and T-SCORES Lumbar spine: 1.080 g/cm2, T-score 0.0 Levels: L2 through L4 Change from prior: Dissimilar scan types/analysis methods, showing. Left femoral neck: 0.651 g/cm2, T-score -1.8 Femoral neck comparison data not recommended for monitoring change. Prior T-score -1.9 Left total hip: 0.826 g/cm2, T-score -1.0 Change from prior: -1.0. The World Health Organization has defined the following categories based on bone density: Normal bone density: T-score equal to or greater than -1.0 Osteopenia: T-score between -1.0 and -2.5 Osteoporosis: T-score equal to or less than -2.5 FRAX (or Comparable) Fracture Risk Assessment: 10 Year Probability of Fracture: Major Osteoporotic Fracture: 29% Hip Fracture: 7.9% (Note: FRAX is not to be reported in setting of normal range bone density, osteoporosis on DEXA, known history of osteoporosis, prior osteoporotic hip or vertebral fracture, or for any patient undergoing pharmacological treatment for bone loss.) The National Osteoporosis Foundation (NOF) recommends pharmacological treatment for patients with a FRAX 10-year risk of 3% or higher for a hip fracture, or 20% or higher for a major osteoporotic fracture, to prevent osteoporosis and reduce fracture risk. The patient does meet the pharmacological treatment recommendations for prevention of osteoporosis. BD/Dexa Bone Density Study IMPRESSION: OSTEOPENIA. Reading Location: [facility]
== END | disposition home or self-care (01) ==
LOC: OPBD 09:01
PROVIDERS: PCP Internal Medicine; Referring Provider Internal Medicine; Visit Provider Internal Medicine
DX: M81.0 Age-related osteoporosis without current pathological fracture (principal)
CPT/HCPCS: 77080

== ENCOUNTER → 2025-03-17 | Outpatient (CLI) | payer MEDICARE, BC, OTHER, SELFPAY ==
[2025-03-17 12:13] LABS: Absolute Lymphocyte Count 1.58 X10^3/uL (0.83-4.51); Absolute Neutrophil Count 2.9 X10^3/uL (2.0-7.7); Basophil# 0.03 X10^3/uL; Basophil% 0.6 % (0-1); Hematocrit 39.2 % (37-47); Hemoglobin 13.3 g/dL (12.0-15.0); Lymphocyte # 1.58 X10^3/ul (0.83-4.51); Lymphocyte % 32.1 % (19-41); Mean Corp Hgb Conc 33.9 g/dL (32-36); Mean Corpuscular Hgb 29.2 pg (27.0-32.0); Monocyte# 0.31 X10^3/uL; Monocyte% 6.3 % (0-10); NRBC Flagged by Analyzer 0 % (0-5); Neutrophil # 2.89 X10^3/uL (2.7-7.7); Neutrophil % 58.8 % (47-70); Platelet Count 176 K/mm3 (150-450); RBC Distribution Width CV 13.9 % (11.6-14.6); RBC Distribution Width SD 43.4 fl (35.1-43.9); Red Blood Count 4.56 M/mm3 (4.2-5.4); White Blood Count 4.9 K/mm3 (4.4-11.0)
[2025-03-17 13:24] LABS: ALB/GLOB Ratio 1.5 RATIO (0.9-2.4); AST(SGOT) 22 U/L (<=31); Alanine Aminotransfer ALT/SGPT 15 U/L (<=34); Albumin, Serum 4.2 g/dL (3.4-4.8); Alkaline Phosphatase 106 U/L (35-104); Anion Gap 11 (5-15); BUN 19 mg/dL (4-19); BUN/Creat Ratio 24.1 RATIO (10-20); Calcium,Total 9.1 mg/dL (7.6-11.0); Carbon Dioxide 24.2 mmol/L (21.0-32.0); Chloride 103 mmol/L (98-108); Creatinine, Serum 0.79 mg/dL (0.70-1.20); EST Glomerular Filtration Rate 77 (>60); Ferritin 61 ng/mL (22-378); Globulin 2.7 g/dL (2.2-4.2); Glucose 99 mg/dL (70-99); Potassium 4.4 mmol/L (3.3-5.1); Protein, Total 6.9 g/dL (5.9-8.4); Sodium Level 138 mmol/L (133-145); Thyroid Stim Hormone (TSH) 0.733 uIU/mL (0.300-4.200); Vitamin B12 551 pg/mL (180-914); Vitamin D,25 Hydroxy 43.8 ng/mL (30-100)
[2025-03-21 11:08] LABS: Zinc, Plasma or Serum 76 ug/dL (44-115)
== END | disposition home or self-care (01) ==
LOC: LAB 11:23
PROVIDERS: PCP Internal Medicine; Referring Provider Physician Assistant; Visit Provider Physician Assistant
DX: L65.0 Telogen effluvium (principal)
CPT/HCPCS: 36415; 80053; 82306; 82607; 82728; 84439; 84443; 84630; 85025

== ENCOUNTER → 2025-03-26 | Outpatient (CLI) | payer MEDICARE, BC, OTHER, SELFPAY ==
[2025-03-26 14:02] LABS: Anion Gap 11 (5-15); BUN 18 mg/dL (4-19); BUN/Creat Ratio 22.7 RATIO (10-20); Calcium,Total 9.4 mg/dL (7.6-11.0); Carbon Dioxide 24.6 mmol/L (21.0-32.0); Chloride 101 mmol/L (98-108); Glucose 98 mg/dL (70-99); Magnesium 2.4 mg/dL (1.5-2.2); Potassium 4.5 mmol/L (3.3-5.1)
== END | disposition home or self-care (01) ==
LOC: LAB 12:32
PROVIDERS: PCP Internal Medicine; Referring Provider Internal Medicine; Visit Provider Internal Medicine
DX: R42 Dizziness and giddiness (principal)
CPT/HCPCS: 36415; 80048; 83525; 83735

== ENCOUNTER → 2025-09-06 | Outpatient (CLI) | payer MEDICARE, BC, OTHER, SELFPAY ==
--- NOTE | 2025-09-06 09:29 | MRI_ITS ---
PROCEDURE: SPINE LUMBAR (ROUTINE) 09/06/2025 REASON FOR EXAM: Clinical history of lumbar spinal stenosis TECHNIQUE: Procedure Code: MRISPL Modality: MR Procedure: SPINE LUMBAR (ROUTINE) COMPARISON: MRI lumbar spine 02/14/2022 FINDINGS: For the purposes of this report, the most caudal rectangular vertebral body will be designated L5. The next most caudal trapezoidal shaped vertebral body will be designated S1. The intervening disc at the lumbosacral angle is designated L5-S1. Marked lumbar dextroscoliosis. Chronic deformity of the superior endplate of L1 vertebral body. The remaining lumbar vertebral bodies are normal in height. Grossly stable grade 1 L5-S1 anterolisthesis. Right L5 pars articularis defect. Well-circumscribed T1/T2 hyperintense lesion in the T12 vertebral body compatible with an osseous hemangioma. No bone marrow replacing lesion in the lumbar spine. Multilevel disc desiccation and intervertebral disc space height loss. There is no evidence of signal abnormality in the imaged distal spinal cord. The conus medullaris terminates at the level of L1. T12-L1: No significant spinal canal stenosis or spinal canal stenosis. L1-L2: No significant spinal canal stenosis or neural foraminal narrowing. L2-L3: No significant spinal canal stenosis. Disc bulge and facet arthrosis contributes to mild bilateral neural foraminal narrowing. Type 2 Modic endplate changes. L3-L4: Disc bulge flattens the ventral thecal sac. Bilateral facet arthrosis and ligamentum flavum hypertrophy. [id number]-[id number] bilateral neural foraminal narrowing. L4-L5: Disc bulge, bilateral facet arthrosis, and ligamentum flavum hypertrophy contribute to mild spinal canal stenosis. The right traversing nerve roots abut the disc. Moderate right and mild left neural foraminal narrowing. L5-S1: Uncovering of the disc, bilateral facet arthrosis, and ligamentum flavum hypertrophy. Lalpbxyb-[id number] right and moderate left neural foraminal narrowing. Type 2 Modic endplate changes. Fatty atrophy of the posterior paraspinal muscles. MRI/Spine Lumbar (Routine) IMPRESSION: Marked lumbar dextroscoliosis. Lumbar spondylosis most marked at L5-S1 where t here is [id number] right and moderate left neural foraminal stenosis. No high-grade spinal canal stenosis in the lumbar s pine. These findings are overall similar when compared to MRI of the lumbar spine dated 02/14/2022. Reading Location: [id number]
== END | disposition home or self-care (01) ==
LOC: MRI 09:27
PROVIDERS: PCP Internal Medicine; Referring Provider Internal Medicine; Visit Provider Internal Medicine
DX: M41.25 Other idiopathic scoliosis, thoracolumbar region (principal); M19.90 Unspecified osteoarthritis, unspecified site; M54.16 Radiculopathy, lumbar region; G62.9 Polyneuropathy, unspecified; M54.41 Lumbago with sciatica, right side; G89.29 Other chronic pain
CPT/HCPCS: 72148